=== PATIENT | male | born 1955 | race Hispanic/Latino ===

== ENCOUNTER 2018-04-10 16:35 | Inpatient (IN) | payer MEDICARE ==
[2018-04-10] MEDS ORDERED: ZOFRAN IV ONE ×2 (16:59→19:09)
[2018-04-10] MEDS ORDERED: PROTONIX IV ONE ×2 (16:59→23:12)
--- NOTE | 2018-04-10 17:08 | Emergency Department Report ---
HPI - General Chief Complaint: GI Bleed Time Seen by Provider: 04/10/18 16:49 - HPI HPI: 63-year-old male presents to the emergency department with a complaint of vomiting blood and blood in the stool. He says he woke up around 3 AM with "a few globs of blood that I spit up." He was able to go back to bed but then later this morning and afternoon the patient started having some gross hematemesis with bright red blood. He also has been having some dark tarry stools. He denies any significant abdominal or epigastric or chest pains. He h as a history of achalasia, esophageal surgery, and paroxysmal atrial fibrillation on anticoagulation. He called his exhibit builder, Dr. Torres, who recommended she come to the closest emergency department since they have colleagues from [place] [facility] here. He has not taken anything for her symptoms prior to presentation. ED Past Medical Hx - Medications Home Medications: Home Medications Medication Instructions Recorded Confirmed Last Taken Type Apixaban [Eliquis] 2.5 mg PO DAILY 04/10/18 04/10/18 04/10/18 History Gabapentin [Neurontin] 300 mg PO BID 04/10/18 04/10/18 04/10/18 History Hydroxyzine HCl [hydrOXYzine] 25 mg PO DAILY 04/10/18 04/10/18 04/10/18 History Lansoprazole [Prevacid] 30 mg PO DAILY 04/10/18 04/10/18 04/10/18 History Lisinopril [Zestril] 5 mg PO QDAY 04/10/18 04/10/18 04/10/18 History Metoprolol [Lopressor] 25 mg PO BID 04/10/18 04/10/18 04/10/18 History ED Review of Systems ROS: Stated complaint: VOMIT BLOOD Other details as noted in HPI Comment: All other systems reviewed and negative Constitutional: denies: chills, fever Eyes: denies: eye pain, vision change ENT: denies: ear pain, throat pain Respiratory: denies: cough, shortness of breath Cardiovascular: denies: chest pain, palpitations Gastrointestinal: nausea, vomiting, hematemesis, melena Genitourinary: denies: dysuria, discharge Musculoskeletal: denies: back pain, arthralgia Skin: denies: rash, lesions Neurological: denies: headache, weakness Physical Exam - Physical Exam Physical Exam: GENERAL: Patient is actively vomiting blood. HEENT: Normocephalic. Atraumatic. Patient has moist mucous membranes. EYES: Extraocular motions are intact. Pupils are equal and reactive to light bilaterally. NECK: Supple. Trachea is midline. CHEST/LUNGS: Clear to auscultation. There is no respiratory distress noted. HEART/CARDIOVASCULAR: Regular. There is no tachycardia. There is no obvious murmur. ABDOMEN: Abdomen is soft, nontender. Patient has normal bowel sounds. There is no abdominal distention. SKIN: Skin is warm and dry. NEURO: The patient is awake, alert, and oriented. The patient is cooperative. The patient has no focal neurologic deficits. The patient has normal speech. MUSCULOSKELETAL: There is no tenderness or deformity. There is no limitation range of motion. There is no evidence of acute injury. RECTAL: There is gross blood on rectal examination. No significant stool to test. ED Course - Consultations Consultation #1: 04/10/18 19:46 I spoke with the exhibit builder investigation clerk, Dr. Rodriguez, who is aware of the patient's GI bleeding including hematemesis and rectal bleeding. He agrees with the plan for Protonix and will see the patient has a consult. ED Medical Decision Making - Lab Data Result diagrams: 04/10/18 17:20 04/10/18 17:20 - Radiology Data Radiology results: image reviewed interpreted by me: Chest x-ray does not show any pneumothorax, pleural effusion, pneumonia or obvious focal consolidation. Abdominal x-ray shows nonspecific nonobstructive bowel gas - Medical Decision Making This patient has had some hematemesis about 3 AM and more recently some rectal bleeding. He describes it as melena. On examination there was not much stool to test but there was some gross blood. He is hemodynamically stable with normal vitals. Hemoglobin was greater than 10. However the patient has had active hematemesis while in the emergency Department and is on anticoagulation. For this reason, the patient will be admitted to the hospital for further evaluation and treatment. Gastroenterology has been contacted and consulted. Patient has been accepted for admission by the hospitalist, Dr. Dodge. - Differential Diagnosis Laura-Marroquin tear, gastric or duodenal ulcer, malignancy Critical Care Time: No Critical care attestation.: If time is entered above; I have spent that time in minutes in the direct care of this critically ill patient, excluding procedure time. ED Disposition Clinical Impression: Rectal bleeding GI bleed Qualifiers: GI bleed type/associated pathology: unspecified gastrointestinal hemorrhage ty pe Qualified Code(s): K92.2 - Gastrointestinal hemorrhage, unspecified Hematemesis Qualifiers: Nausea presence: with nausea Qualified Code(s): K92.0 - Hematemesis Anemia Qualifiers: Anemia type: unspecified type Qualified Code(s): D64.9 - Anemia, unspecified Disposition: DC-09 OP ADMIT IP TO THIS HOSP Is pt being admited?: Yes Condition: Fair Forms: Accompanied Note Time of Disposition: 19:49
[2018-04-10 17:50] LABS: Hematocrit 30.3 % (35.5-45.6); Hemoglobin 10.5 gm/dl (11.8-15.2); Mean Corpuscular HGB Conc 35 % (32-34); Mean Corpuscular Volume 103 fl (84-94); Platelet Count 151 K/mm3 (140-440); Red Blood Count 2.95 M/mm3 (3.65-5.03); Red Cell Distribution Width 16.6 % (13.2-15.2)
--- NOTE | 2018-04-10 17:58 | XRay Report ---
FINAL REPORT EXAM: XR ABD SERIES W CXR 1V HISTORY: abd pain TECHNIQUE: Supine and upright abdomen and frontal view of the chest PRIORS: None. FINDINGS: Moderate amount of stool and gas present within the colon. No evidence of colonic or small bowel dila tation. No signs of free air. No abnormal calcifications are identified. Surgical clips are present l eft upper quadrant of the abdomen. Cardiac and mediastinal contours are unremarkable. No focal pulmonary infiltrate identified. No pleu ral fluid collection seen. Pulmonary vasculature is unremarkable IMPRESSION: Nonspecific bowel gas pattern. No acute abnormality seen. No acute abnormality identified in the chest
[2018-04-10 18:03] LABS: INR 1.26 (0.87-1.13)
[2018-04-10 18:04] LABS: Partial Thromboplastin Time 29.3 Sec. (24.2-36.6)
[2018-04-10 18:09] LABS: Alanine Aminotransferase 20 units/L (7-56); Albumin 2.9 g/dL (3.9-5); BUN/Creatinine Ratio 24; Blood Urea Nitrogen 22 mg/dL (9-20); Hemolysis Index 10
--- NOTE | 2018-04-10 18:56 | History and Physical Report ---
History of Present Illness Chief complaint: I have blood in my stool, and im throwing up blood History of present illness: 63 YO Male with HTN, Obesity, Atrial Fib currently on Therapeutic Anticoagulation (Eliquis), Achalasia S/P Esophageal Surgery presents to ED for evaluation. Pt states that he has experienced multiple episodes of throwing up blood, as well as dark tarry stools. Pt states that he awoke from sleep at 0300hrs with "a few globs of blood that I spit up." Pt returned to sleep, and whe he awoke this morning he experienced gross hematemesis with bright red blood as well as multiple dark tarry stools. Pt subsequently transported to [facility] by his family for further care and evaluation. Pt seen and evaluated in ED and found to have GI Bleed. GI consulted. Pt admitted to [facility] and initiated on PPI therapy. PT denies fever, chills, CP, Palpitations, Abdominal Pain, productive cough, trauma, skin rash, or recent ill contacts. Past History Past Medical History: atrial fib, hypertension, other (Obesity, Achalasia) Past Surgical History: Other (Esophageal surgery x6) Social history: , lives with family Family history: hypertension Medications and Allergies Allergies Allergy/AdvReac Type Severity Reaction Status Date / Time Penicillins Allergy Severe Anaphylaxis Verified 04/10/18 17:28 cyclobenzaprine Allergy Hives Verified 04/10/18 19:23 [From Flexeril] Home Medications Medication Instructions Recorded Confirmed Last Taken Type Apixaban [Eliquis] 2.5 mg PO DAILY 04/10/18 04/10/18 04/10/18 History Gabapentin [Neurontin] 300 mg PO BID 04/10/18 04/10/18 04/10/18 History Hydroxyzine HCl [hydrOXYzine] 25 mg PO DAILY 04/10/18 04/10/18 04/10/18 History Lansoprazole [Prevacid] 30 mg PO DAILY 04/10/18 04/10/18 04/10/18 History Lisinopril [Zestril] 5 mg PO QDAY 04/10/18 04/10/18 04/10/18 History Metoprolol [Lopressor] 25 mg PO BID 04/10/18 04/10/18 04/10/18 History Active Meds: Active Medications Pantoprazole Sodium 80 mg/ (Sodium Chloride) 100 mls @ 10 mls/hr IV DIRECT GABE Review of Systems Constitutional: no weight loss, no weight gain, no fever, no chills, no night sweats Ears, nose, mouth and throat: no ear pain, no ear discharge, no tinnitis, no decreased hearing, no nose pain Cardiovascular: no chest pain, no orthopnea, no palpitations, no rapid/irregular heart beat, no edema, no syncope Respiratory: no cough, no cough with sputum, no excessive sputum, no hemoptysis Gastrointestinal: nausea, hematemesis, BRBPR, no abdominal pain, no constipation, no loss of appetite Genitourinary Male: no hematuria, no urinary frequency, no urinary hesitancy Rectal: no pain, no incontinence, no bleeding Musculoskeletal: no neck stiffness, no neck pain, no shooting arm pain, no arm numbness/tingling, no low back pain Integumentary: no rash, no pruritis, no redness, no sores, no wounds Neurological: no transient paralysis, no paralysis, no weakness, no parathesias, no numbness Psychiatric: no anxiety, no memory loss, no change in sleep habits, no sleep disturbances, no insomnia, no change in appetite Endocrine: no cold intolerance, no heat intolerance, no polyphagia, no excessive thirst, no polydipsia Hematologic/Lymphatic: no easy bruising, no easy bleeding, no lymphadenopathy, no lymphedema Allergic/Immunologic: no urticaria, no allergic rhinitis, no wheezing, no persistent infections, no anaphylaxis Exam - Constitutional Vitals: Temp Pulse Resp BP Pulse Ox 67 13 134/59 100 04/10/18 17:45 04/10/18 17:45 04/10/18 17:45 04/10/18 17:45 General appearance: Present: mild distress, obese - EENT Eyes: Present: PERRL ENT: hearing intact, clear oral mucosa, other (dried blood in oral cavity) - Neck Neck: Present: supple, normal ROM - Respiratory Respiratory effort: normal Respiratory: bilateral: CTA - Cardiovascular Heart Sounds: Present: S1 & S2. Absent: rub, click - Extremities Extremities: pulses symmetrical, No edema Peripheral Pulses: within normal limits - Abdominal General gastrointestinal: Present: soft, non-tender, non-distended, normal bowel sounds, other (blood in rectal vault) Male genitourinary: Present: normal - Integumentary Integumentary: Present: clear, warm, dry - Musculoskeletal Musculoskeletal: gait normal, strength equal bilaterally - Psychiatric Psychiatric: appropriate mood/affect, intact judgment & insight - Neurologic Neurologic: CNII-XII intact, moves all extremities Results - Labs CBC & Chem 7: 04/10/18 17:20 04/10/18 17:20 Labs: Abnormal lab results 04/10/18 04/10/18 04/10/18 Range/Units 17:20 17:20 17:20 RBC 2.95 L (3.65-5.03) M/mm3 Hgb 10.5 L (11.8-15.2) gm/dl Hct 30.3 L (35.5-45.6) % MCV 103 H (84-94) fl MCH 36 H (28-32) pg MCHC 35 H (32-34) % RDW 16.6 H (13.2-15.2) % PT 16.6 H (12.2-14.9) Sec. INR 1.26 H (0.87-1.13) Chloride 108.8 H (98-107) mmol/L BUN 22 H (9-20) mg/dL Glucose 190 H (75-100) mg/dL Calcium 8.0 L (8.4-10.2) mg/dL Alkaline Phosphatase 153 H (35-129) units/L Total Protein 5.9 L (6.3-8.2) g/dL Albumin 2.9 L (3.9-5) g/dL Assessment and Plan - Patient Problems (1) GI bleed Status: Acute Qualifiers: GI bleed type/associated pathology: unspecified gastrointestinal hemorrhage type Qualified Code(s): K92.2 - Gastrointestinal hemorrhage, unspecified Plan to address problem: Admit to IMCU, GI Bleed protocol: IV PPI therapy, GI consulted in ED, serial CBC. No transfusion at this time. Pt hgb above 10. (2) Atrial fibrillation Status: Acute Qualifiers: Atrial fibrillation type: persistent Qualified Code(s): I48.1 - Persistent atrial fibrillation Plan to address problem: Hold therapeutic anticoagulation as per GI, admit to IMCU, supportive care, rate control with metoprolol, remote telemetry, (3) Obesity (BMI 35.0-39.9 without comorbidity) Status: Acute Plan to address problem: balanced diet, increased physical activity at discharge (4) Obesity hypoventilation syndrome Status: Acute Plan to address problem: supplemental oxygen, nebulizer therapy, NIPPV as clinically indicated, pulse oximetry (5) DVT prophylaxis Status: Acute Plan to address problem: SCD to BLE while in bed.
[2018-04-10] MEDS ORDERED: SODIUM CHLORIDE FLUSH SYRINGE 10 ML IV PRN (18:58)
[2018-04-10] MEDS ORDERED: PROTONIX 80 MG in NACL 0.9% 100 ML IV SCH (19:00)
--- NOTE | 2018-04-10 20:39 | Event Note ---
Date: 04/10/18 Discussed with ED. Pt with hematemesis, on eliquis for afib; h/o achalasia and has had recent partial gastrectoy and esophagectoy per records in clinic. BP and HR are normal/stable at present time. on PPI drip, will plan for ED tomorrow morning. eliquis being held. please call for any changes overnight.
[2018-04-10] MEDS ORDERED: ZOFRAN ONE (21:54)
[2018-04-10] MEDS: ZOFRAN IV PRN (21:55)
[2018-04-10] MEDS ORDERED: LOPRESSOR ONE (23:12)
[2018-04-10] MEDS ORDERED: NEURONTIN ONE (23:12)
[2018-04-10] MEDS: SODIUM CHLORIDE FLUSH SYRINGE 10 ML IV SCH (23:16)
[2018-04-10] MEDS: NEURONTIN PO SCH (23:16)
[2018-04-10] MEDS: LOPRESSOR PO SCH (23:16)
[2018-04-10] MEDS: PROTONIX IV SCH (23:16)
[2018-04-11] MEDS ORDERED: TRIDIL DRIP 50MG/250ML 0 MG/0 ML BOTTLE ONE (00:41)
[2018-04-11 05:48] LABS: Hematocrit 26.8 % (35.5-45.6); Hemoglobin 9.1 gm/dl (11.8-15.2)
[2018-04-11 05:50] LABS: Basophils % (Auto) 0.2 % (0.0-1.8); Eosinophils % (Auto) 0.1 % (0.0-4.3); Hematocrit 27.1 % (35.5-45.6); Hemoglobin 9.2 gm/dl (11.8-15.2); Lymphocytes # (Auto) 1.9 K/mm3 (1.2-5.4); Lymphocytes % (Auto) 24.3 % (13.4-35.0); Mean Corpuscular HGB Conc 34 % (32-34); Mean Corpuscular Volume 103 fl (84-94); Monocytes # (Auto) 0.4 K/mm3 (0.0-0.8); Monocytes % (Auto) 5.1 % (0.0-7.3); Platelet Count 105 K/mm3 (140-440); Red Blood Count 2.63 M/mm3 (3.65-5.03); Red Cell Distribution Width 16.6 % (13.2-15.2)
[2018-04-11] MEDS: ZOFRAN IV PRN ×5 (06:02→20:52)
[2018-04-11] MEDS ORDERED: ZOFRAN ONE ×2 (06:02→10:15)
[2018-04-11 06:09] LABS: Alanine Aminotransferase 17 units/L (7-56); Albumin 2.6 g/dL (3.9-5); BUN/Creatinine Ratio 30; Blood Urea Nitrogen 30 mg/dL (9-20); Calcium 7.8 mg/dL (8.4-10.2); Hemolysis Index 5
[2018-04-11] MEDS ORDERED: PHENERGAN PO ONE (06:12)
[2018-04-11] MEDS ORDERED: WATER FOR IRRIG STERILE IR ONE (09:51)
[2018-04-11] MEDS ORDERED: WATER FOR IRRIG STERILE ONE (09:52)
[2018-04-11] MEDS ORDERED: NACL 0.9% 1000 ML 1,000 ML ONE (09:52)
--- NOTE | 2018-04-11 09:58 | Gastroenterology Consultation ---
History of Present Illness - Reason for Consult Consult date: 04/11/18 GI bleed Requesting physician: QUINTEN SHOEMAKER - History of Present Illness Mr Burris is a 63 yo male who presents with hematemesis. Pt on eliquis for h/o afib. He has a h/o achalasia and prior robotic surgery in September of last year (partial esophagectomy per chart review although pt can not provide full details on type of surgery done). he reports developing afib during the surgery and was started on eliquis afterwards. He had new onset hematemesis starting yesterday morning and has had black/maroon blood per rectum as well. Denies abd pain. Hgb 10 on admission, slightly dropped in repeat labs but mostly stable. tachycardic currently with stable BP. On protonix drip. eliquis has been held today. Past History Past Medical History: atrial fib, hypertension, other (Obesity, Achalasia) Past Surgical History: Other (Esophageal surgery x6) Social history: , lives with family Family history: hypertension Medications and Allergies Allergies Allergy/AdvReac Type Severity Reaction Status Date / Time Penicillins Allergy Severe Anaphylaxis Verified 04/10/18 17:28 cyclobenzaprine Allergy Hives Verified 04/10/18 19:23 [From Flexeril] Home Medications Medication Instructions Recorded Confirmed Last Taken Type Apixaban [Eliquis] 2.5 mg PO DAILY 04/10/18 04/10/18 04/10/18 History Gabapentin [Neurontin] 300 mg PO BID 04/10/18 04/10/18 04/10/18 History Hydroxyzine HCl [hydrOXYzine] 25 mg PO DAILY 04/10/18 04/10/18 04/10/18 History Lansoprazole [Prevacid] 30 mg PO DAILY 04/10/18 04/10/18 04/10/18 History Lisinopril [Zestril] 5 mg PO QDAY 04/10/18 04/10/18 04/10/18 History Metoprolol [Lopressor] 25 mg PO BID 04/10/18 04/10/18 04/10/18 History Active Meds: Active Medications Gabapentin (Neurontin) 300 mg PO BID [facility] Last Admin: 04/10/18 23:16 Dose: 300 mg Documented by: Hydroxyzine HCl (Atarax) 25 mg PO DAILY [facility] Lisinopril (Zestril) 5 mg PO QDAY [facility] Metoprolol Tartrate (Lopressor) 25 mg PO BID [facility] Last Admin: 04/10/18 23:16 Dose: 25 mg Documented by: Ondansetron HCl (Zofran) 4 mg IV Q4H PRN PRN Reason: Nausea And Vomiting Last Admin: 04/11/18 06:02 Dose: 4 mg Documented by: Pantoprazole Sodium (Protonix) 40 mg IV BID [facility] Last Admin: 04/10/18 23:16 Dose: 40 mg Documented by: Sodium Chloride (Sodium Chloride Flush Syringe 10 Ml) 10 ml IV BID [facility] Last Admin: 04/10/18 23:16 Dose: 10 ml Documented by: Sodium Chloride (Sodium Chloride Flush Syringe 10 Ml) 10 ml IV PRN PRN PRN Reason: LINE FLUSH Review of Systems - Review of Systems All systems: negative (per HPI) Exam - Constitutional Vital Signs: Temp Pulse Resp BP Pulse Ox 80 19 123/80 97 04/11/18 07:45 04/11/18 07:45 04/11/18 07:45 04/11/18 07:45 General appearance: no acute distress, obese - EENT Eyes: PERRL, EOM intact - Respiratory Respiratory effort: normal Respiratory: bilateral: CTA - Cardiovascular Rhythm: regular Heart Sounds: Present: S1 & S2 Extremities: No edema - Gastrointestinal General gastrointestinal: Present: soft, non-tender, non-distended - Integumentary Integumentary: Present: clear, warm - Neurologic Neurological: alert and oriented x3 - Psychiatric Psychiatric: appropriate mood/affect - Labs CBC & Chem 7: 04/11/18 05:26 04/11/18 05:26 Lab Results: Laboratory Results - last 24 hr 04/10/18 04/10/18 04/10/18 17:20 17:20 17:20 WBC 9.0 RBC 2.95 L Hgb 10.5 L Hct 30.3 L MCV 103 H MCH 36 H MCHC 35 H RDW 16.6 H Plt Count 151 Lymph % (Auto) [place] % (Auto) Eos % (Auto) Baso % (Auto) Lymph # [place] # Eos # Baso # Seg Neutrophils % Seg Neutrophils # PT 16.6 H INR 1.26 H APTT 29.3 Sodium 141 Potassium 4.6 Chloride 108.8 H Carbon Dioxide 23 Anion Gap 14 BUN 22 H Creatinine 0.9 Estimated GFR > 60 BUN/Creatinine Ratio 24 Glucose 190 H Calcium 8.0 L Total Bilirubin 0.70 AST 24 ALT 20 Alkaline Phosphatase 153 H Total Protein 5.9 L Albumin 2.9 L Albumin/Globulin Ratio 1.0 Blood Type Antibody Screen 04/10/18 04/11/18 04/11/18 17:20 05:26 05:26 WBC 8.0 RBC 2.63 L Hgb 9.2 L Hct 27.1 L MCV 103 H MCH 35 H MCHC 34 RDW 16.6 H Plt Count 105 L Lymph % (Auto) 24.3 [place] % (Auto) 5.1 Eos % (Auto) 0.1 Baso % (Auto) 0.2 Lymph # 1.9 [place] # 0.4 Eos # 0.0 Baso # 0.0 Seg Neutrophils % 70.3 H Seg Neutrophils # 5.6 PT INR APTT Sodium 142 Potassium 4.8 Chloride 110.1 H Carbon Dioxide 22 Anion Gap 15 BUN 30 H Creatinine 1.0 Estimated GFR > 60 BUN/Creatinine Ratio 30 Glucose 155 H Calcium 7.8 L Total Bilirubin 0.70 AST 20 ALT 17 Alkaline Phosphatase 111 Total Protein 5.3 L Albumin 2.6 L Albumin/Globulin Ratio 1.0 Blood Type O NEGATIVE Antibody Screen Negative 04/11/18 05:26 WBC RBC Hgb 9.1 L Hct 26.8 L MCV MCH MCHC RDW Plt Count Lymph % (Auto) [place] % (Auto) Eos % (Auto) Baso % (Auto) Lymph # [place] # Eos # Baso # Seg Neutrophils % Seg Neutrophils # PT INR APTT Sodium Potassium Chloride Carbon Dioxide Anion Gap BUN Creatinine Estimated GFR BUN/Creatinine Ratio Glucose Calcium Total Bilirubin AST ALT Alkaline Phosphatase Total Protein Albumin Albumin/Globulin Ratio Blood Type Antibody Screen Assessment and Plan 1. UGI bleed 2. History of achalasia 3. Afib on anticoagulation -EGD today at bedside, cont IV PPI. eliquis currently hold. further management based on egd findings.
[2018-04-11] MEDS ORDERED: HYDROXYZINE HCL 25 MG PO SCH (10:00)
[2018-04-11] MEDS: LOPRESSOR PO SCH (10:00)
[2018-04-11] MEDS: SODIUM CHLORIDE FLUSH SYRINGE 10 ML IV SCH ×2 (10:00→22:00)
[2018-04-11] MEDS: NEURONTIN PO SCH ×2 (10:00→21:16)
[2018-04-11] MEDS: ATARAX PO SCH (10:00)
--- NOTE | 2018-04-11 10:04 | Anesthesia Consultation ---
Anesthesia Consult and Med Hx Date of service: 04/11/18 - Airway Anesthetic Teeth Evaluation: Good ROM Head & Neck: Adequate Mental/Hyoid Distance: Adequate Mallampati Class: Class III Intubation Access Assessment: Probably Good - Pulmonary Exam CTA: Yes - Cardiac Exam Cardiac Exam: RRR - Pre-Operative Health Status ASA Pre-Surgery Classification: ASA3, Emergency Proposed Anesthetic Plan: MAC - Pre-Anesthesia Comment Pre-Anesthesia Comments: has hematemesis with downtrending HCT; s/p esophagectomy - Cardiovascular System Hx Hypertension: Yes - Central Nervous System Hx Neuromuscular Disorder: No Hx Seizures: No CVA: No - Gastrointestinal Hx Ulcer: No Hx Gastroesophageal Reflux Disease: Yes (achlasis s/p partial esophagectomy ) - Hematic Hx Anemia: Yes (Hgb 9.1 (downtrending) secondary to hematemisis) - Additional Comments Anesthesia Medical History Comments: ASA 3E 63 y.o. obese male w/ HTN on b- cooper, Atrial Fib on eliquis (last taken 04/10), and achalasia S/P Esophageal Surgery presents to hosptial with hematemsis.
[2018-04-11] MEDS ORDERED: VERSED ONE (10:15)
[2018-04-11] MEDS ORDERED: DECADRON ONE (10:15)
[2018-04-11] MEDS ORDERED: DIPRIVAN 10 MG/ML IV ONE (10:16)
[2018-04-11] MEDS ORDERED: SUBLIMAZE ONE (10:41)
[2018-04-11] MEDS ORDERED: ADRENALIN IV ONE ×2 (10:45→13:00)
--- NOTE | 2018-04-11 10:56 | Anesthesia Day of Surgery ---
Anesthesia Day of Surgery - Day of Surgery Patient Examined: Yes Patient H&P Reviewed: Yes Patient is NPO: Yes (09:30 04/10/18) Beta Blockers: Yes (on metoprolol last taken 04/10/18)
--- NOTE | 2018-04-11 11:21 | Operative Report ---
Operative Report Operative Report: Esophagogastroduodenoscopy Procedure Note with submucosal injection/control of bleeding Date of procedure: 04/11/2018 Endoscopist: Grupo Rodriguez Pre-op diagnosis: UGI bleed Post-op diagnosis: Large blood clot in lower esophagus/gastric fundus; esophagitis with mild oozing of blood Anesthesia: MAC Complications: No immediate complications Estimated blood loss: minimal Procedure: After consent was obtained, the patient was placed in the left lateral decubitus position. The fujinon endoscope was inserted into the patient's mouth under direct vision, and advanced into the 2nd portion of the duodenum without difficulty. The patient tolerated the procedure well. The views of the mucosa were fair/inadequate in areas of large blood clots. Patient's vital signs were monitored continuously throughout the procedure. Findings: There were prominent veins throughout the esophagus without high risk bleeding stigmata (unclear if these represent varices) There was a large blood clot extending from the distal esophagus to the gastric fundus. Attempts were made to clear the clots with avila net however, views were still limited due to size of clot. There was moderately severe esophagitis in the lower esophagus with mild oozing of blood but no high risk bleeding lesions were seen. Epinephrine injection was performed in 4 quadrants in lower esophagus (4 cc total). The fundus and proximal stomach contained moderate amount of blood and a clot which limited views. The distal body of the stomach and antrum appeared normal. There was blood in the visualized portion of the duodenum without mucosal abnormalities seen. Impression: 1. Large blood clot in lower esophagus extending to proximal stomach. Suspect source of bleeding in this area but visualization was limited/precluded due to size of clot. There was esophagitis with mild oozing of blood, thus epinephrine was injected in lower portion of the esophagus with no active bleeding seen at the end of the procedure. However, source of bleeding remains unclear Recommendations: -start PPI drip (continuous) -hold eliquis -trend H/H and transfuse as needed to keep hgb > 8 -will plan for repeat EGD tomorrow morning -give dose of reglan at 6 AM tomorrow
[2018-04-11] MEDS ORDERED: ADRENALINE P/F ONE (11:27)
[2018-04-11] MEDS ORDERED: REGLAN IV NR (12:00)
[2018-04-11] MEDS: PROTONIX 80 MG in NACL 0.9% 100 ML IV SCH ×2 (12:05→20:55)
[2018-04-11] MEDS ORDERED: NACL 0.9% 1000 ML 1,000 ML IV SCH (13:00)
[2018-04-11] MEDS ORDERED: NORMODYNE IV PRN (13:30)
[2018-04-11] MEDS: ZESTRIL PO SCH (14:00)
--- NOTE | 2018-04-11 14:07 | Progress Note ---
Assessment and Plan Assessment and plan: 63-year-old man who presented complaining of vomiting blood and dark tarry stools Past medical history paroxysmal atrial fibrillation on anticoagulation, takes eliquis , hypertension, obesity, achalasia, has had esophageal surgery 6 Problems Acute upper GI bleed Acute blood loss anemia Paroxysmal atrial fibrillation Obesity Plan GI consult appreciated, keep nothing by mouth, continue protonic drip, status post EGD 04/11 which showed a large blood clot extending from the distal esophagus to the gastric fundus, attempts were made to clear up clots but not successful. There was also moderate to severe esophagitis with mild oozing of blood, patient was injected with epinephrine, plan for repeat EGD tomorrow, Reglan to be given tomorrow prior to EGD Patient still actively vomiting blood Continue serial blood draws, transfuse as needed Continue medications for rate control -Anticoagulation has been discontinued DVT prophylaxis with SCDs Critical care time 35 minutes History Interval history: Review of systems Constitutional: No fevers, no malaise, no joint pains CVS: No chest pain, no orthopnea, no dyspnea on exertion, no pedal edema GI: He continues to vomit blood, he is having melanotic stools Respiratory: No shortness of breath, no wheezing, no coughing Hospitalist Physical - Physical exam Narrative exam: General.: Appears well, no distress, nontoxic HEENT: Moist mucous membranes, extraocular muscles intact, no lymphadenopathy Neck: supple Cardiac: S1-S2 heard Lungs: clear to auscultation bilaterally Abdomen: soft , nontender, nondistended, bowel sounds positive Extremities: no edema clubbing or cyanosis Skin: no rash or lesions Neurologic: no gross focal deficits Psych: calm, and cooperative - Constitutional Vitals: Temp Pulse Resp BP Pulse Ox 98.0 F 108 H 22 125/52 97 04/11/18 12:00 04/11/18 11:28 04/11/18 13:51 04/11/18 11:28 04/11/18 11:55 General appearance: Present: mild distress, obese Results - Labs CBC & Chem 7: 04/13/18 13:08 04/13/18 13:08 Labs: Laboratory Last Values WBC 8.0 K/mm3 (4.5-11.0) 04/11/18 05:26 RBC 2.63 M/mm3 (3.65-5.03) L 04/11/18 05:26 Hgb 9.2 gm/dl (11.8-15.2) L 04/11/18 05:26 Hct 27.1 % (35.5-45.6) L 04/11/18 05:26 MCV 103 fl (84-94) H 04/11/18 05:26 MCH 35 pg (28-32) H 04/11/18 05:26 MCHC 34 % (32-34) 04/11/18 05:26 RDW 16.6 % (13.2-15.2) H 04/11/18 05:26 Plt Count 105 K/mm3 (140-440) L 04/11/18 05:26 Lymph % (Auto) 24.3 % (13.4-35.0) 04/11/18 05:26 Dougherty % (Auto) 5.1 % (0.0-7.3) 04/11/18 05:26 Eos % (Auto) 0.1 % (0.0-4.3) 04/11/18 05:26 Baso % (Auto) 0.2 % (0.0-1.8) 04/11/18 05:26 Lymph # 1.9 K/mm3 (1.2-5.4) 04/11/18 05:26 Dougherty # 0.4 K/mm3 (0.0-0.8) 04/11/18 05:26 Eos # 0.0 K/mm3 (0.0-0.4) 04/11/18 05:26 Baso # 0.0 K/mm3 (0.0-0.1) 04/11/18 05:26 Seg Neutrophils % 70.3 % (40.0-70.0) H 04/11/18 05:26 Seg Neutrophils # 5.6 K/mm3 (1.8-7.7) 04/11/18 05:26 PT 16.6 Sec. (12.2-14.9) H 04/10/18 17:20 INR 1.26 (0.87-1.13) H 04/10/18 17:20 APTT 29.3 Sec. (24.2-36.6) 04/10/18 17:20 Sodium 142 mmol/L (137-145) 04/11/18 05:26 Potassium 4.8 mmol/L (3.6-5.0) 04/11/18 05:26 Chloride 110.1 mmol/L (98-107) H 04/11/18 05:26 Carbon Dioxide 22 mmol/L (22-30) 04/11/18 05:26 Anion Gap 15 mmol/L 04/11/18 05:26 BUN 30 mg/dL (9-20) H 04/11/18 05:26 Creatinine 1.0 mg/dL (0.8-1.5) 04/11/18 05:26 Estimated GFR > 60 ml/min 04/11/18 05:26 BUN/Creatinine Ratio 30 % 04/11/18 05:26 Glucose 155 mg/dL (75-100) H 04/11/18 05:26 Calcium 7.8 mg/dL (8.4-10.2) L 04/11/18 05:26 Total Bilirubin 0.70 mg/dL (0.1-1.2) 04/11/18 05:26 AST 20 units/L (5-40) 04/11/18 05:26 ALT 17 units/L (7-56) 04/11/18 05:26 Alkaline Phosphatase 111 units/L (35-129) 04/11/18 05:26 Total Protein 5.3 g/dL (6.3-8.2) L 04/11/18 05:26 Albumin 2.6 g/dL (3.9-5) L 04/11/18 05:26 Albumin/Globulin Ratio 1.0 % 04/11/18 05:26 Blood Type O NEGATIVE 04/10/18 17:20 Antibody Screen Negative 04/10/18 17:20
[2018-04-11] MEDS: PROTONIX IV SCH (14:28)
--- NOTE | 2018-04-11 17:16 | Consultation ---
History of Present Illness Consult date: 04/11/18 Requesting physician: CECILIA SHIRLEY Reason for consult: other (Acute GI Bleed) History of present illness: PCCM CONSULT NOTE (Full dictation # [id number]) Please see dictated notes for full details Past History Past Medical History: atrial fib, hypertension, other (Obesity, Achalasia) Past Surgical History: Other (Esophageal surgery x6) Social history: , lives with family Family history: hypertension Medications and Allergies Allergies Allergy/AdvReac Type Severity Reaction Status Date / Time Penicillins Allergy Severe Anaphylaxis Verified 04/10/18 17:28 cyclobenzaprine Allergy Hives Verified 04/10/18 19:23 [From Flexeril] Home Medications Medication Instructions Recorded Confirmed Last Taken Type Apixaban [Eliquis] 2.5 mg PO DAILY 04/10/18 04/10/18 04/10/18 History Gabapentin [Neurontin] 300 mg PO BID 04/10/18 04/10/18 04/10/18 History Hydroxyzine HCl [hydrOXYzine] 25 mg PO DAILY 04/10/18 04/10/18 04/10/18 History Lansoprazole [Prevacid] 30 mg PO DAILY 04/10/18 04/10/18 04/10/18 History Lisinopril [Zestril] 5 mg PO QDAY 04/10/18 04/10/18 04/10/18 History Metoprolol [Lopressor] 25 mg PO BID 04/10/18 04/10/18 04/10/18 History Active Meds: Active Medications Gabapentin (Neurontin) 300 mg PO BID [facility] Last Admin: 04/11/18 10:00 Dose: Not Given Documented by: Hydroxyzine HCl (Atarax) 25 mg PO DAILY [facility] Last Admin: 04/11/18 10:00 Dose: Not Given Documented by: Pantoprazole Sodium 80 mg/ (Sodium Chloride) 100 mls @ 10 mls/hr IV DIRECT GABE Last Admin: 04/11/18 12:05 Dose: 8 mg/hr, 10 mls/hr Documented by: Sodium Chloride (Nacl 0.9% 1000 Ml) 1,000 mls @ 50 mls/hr IV DIRECT GABE Last Admin: 04/11/18 14:15 Dose: 50 mls/hr Documented by: Labetalol HCl (Normodyne) 10 mg IV Q4H PRN PRN Reason: BP >160/100; hold for HR <60 Last Admin: 04/11/18 14:33 Dose: 10 mg Documented by: Lisinopril (Zestril) 5 mg PO QDAY [facility] Last Admin: 04/11/18 14:00 Dose: Not Given Documented by: Metoclopramide HCl (Reglan) 10 mg IV PREOP NR Stop: 04/11/18 23:59 Metoprolol Tartrate (Lopressor) 25 mg PO BID [facility] Last Admin: 04/11/18 10:00 Dose: Not Given Documented by: Ondansetron HCl (Zofran) 4 mg IV Q4H PRN PRN Reason: Nausea And Vomiting Last Admin: 04/11/18 13:56 Dose: 4 mg Documented by: Sodium Chloride (Sodium Chloride Flush Syringe 10 Ml) 10 ml IV BID [facility] Last Admin: 04/11/18 10:00 Dose: 10 ml Documented by: Sodium Chloride (Sodium Chloride Flush Syringe 10 Ml) 10 ml IV PRN PRN PRN Reason: LINE FLUSH Physical Examination Vital signs: Vital Signs Pulse Resp Pulse Ox 65 16 100 04/10/18 17:03 04/10/18 17:03 04/10/18 17:03 Results - Laboratory Findings CBC and BMP: 04/11/18 05:26 04/11/18 05:26 PT/INR, D-dimer PT 16.6 Sec. (12.2-14.9) H 04/10/18 17:20 INR 1.26 (0.87-1.13) H 04/10/18 17:20 Abnormal lab findings: Abnormal Labs 04/10/18 04/10/18 04/10/18 17:20 17:20 17:20 RBC 2.95 L Hgb 10.5 L Hct 30.3 L MCV 103 H MCH 36 H MCHC 35 H RDW 16.6 H Plt Count Seg Neutrophils % PT 16.6 H INR 1.26 H Chloride 108.8 H BUN 22 H Glucose 190 H Calcium 8.0 L Alkaline Phosphatase 153 H Total Protein 5.9 L Albumin 2.9 L 04/11/18 04/11/18 04/11/18 05:26 05:26 05:26 RBC 2.63 L Hgb 9.2 L 9.1 L Hct 27.1 L 26.8 L MCV 103 H MCH 35 H MCHC RDW 16.6 H Plt Count 105 L Seg Neutrophils % 70.3 H PT INR Chloride 110.1 H BUN 30 H Glucose 155 H Calcium 7.8 L Alkaline Phosphatase Total Protein 5.3 L Albumin 2.6 L
[2018-04-11 18:17] LABS: Hematocrit 24.9 % (35.5-45.6); Hemoglobin 8.4 gm/dl (11.8-15.2)
--- NOTE | 2018-04-11 20:45 | Consultation ---
PULMONARY CRITICAL CARE CONSULTATION NOTE CONSULTING PHYSICIAN: Dr. Dudley. REASON FOR CONSULTATION: Acute GI bleed. CHIEF COMPLAINT AND HISTORY OF PRESENT ILLNESS: As follows, the patient is a 63-year-old male with past medical history significant in this context both for a diagnosis of atrial fibrillation, on therapeutic anticoagulation with Eliquis as well as achalasia status post esophageal surgery, presented to the Emergency Room for evaluation complaining of multiple episodes of hematemesis as well as dark tarry stools. It woke him from his sleep around 3:00 a.m. on the day of presentation. He will return to sleep after coughing up some blood and then he woke up again with gross hematemesis and was brought into the Emergency Room. In the Emergency Room, acute management was started. The GI team was consulted. PPI therapy was started and I believe EGD was done. He was brought into the Critical Care Unit where I stopped by to see him. When I stopped by to see him, he was resting in bed. He had had no repeat episode of hematemesis this morning. He was complaining though of some nausea. He denies any history of tobacco use or abuse whatsoever. He denied any trauma. He did admit to taking the anticoagulation and being compliant with his Eliquis in particular. This really is as much of the history of this presentation as I have. PAST MEDICAL HISTORY: 1. Atrial fibrillation. 2. Hypertension. 3. Obesity. 4. Achalasia. PAST SURGICAL HISTORY: He has had esophageal surgery x6 for his esophagus. MEDICATIONS: He was on at the time I stopped by to see him were reviewed. Pertinent medications include the following: He was on Neurontin 300 mg p.o. b.i.d., Atarax 25 mg p.o. daily, labetalol 200 mg IV q.4 hours p.r.n. blood pressure greater than 160/100. Lisinopril 5 mg p.o. daily, Reglan 10 mg, he received 10 mg IV preop; Lopressor 25 mg p.o. b.i.d., Zofran 4 mg IV q. 4 hours p.r.n. nausea and vomiting, Protonix drip was going at 8 mg per hour. He had been on normal saline at 50 mL per hour. ALLERGIES: PENICILLINS AND CYCLOBENZAPRINE. NATURE OF THIS ALLERGY IS UNKNOWN. DIET: Morbidly obese. Denies acute weight loss or gain in the preceding few weeks to months. FAMILY AND SOCIAL HISTORY: Lives in the community. He is . He lives with his family. He denies alcohol, tobacco, or illicit drug use or abuse. There is a family history of hypertension. Family history otherwise noncontributory. REVIEW OF SYSTEMS: No loss of consciousness. No new onset seizures. No new onset focal weakness. He had the hematemesis. He also had some melena. Denied hematochezia. Denies polydipsia or polyuria. Denies heat or cold intolerance. Denies any new rash on his body. He denies any new onset focal weakness. He denies any history of anxiety, depression. No change in his sleep habits. Complete 13-system review of systems obtained. Pertinent positives and/or negatives as in body of history above, otherwise are noncontributory. PHYSICAL EXAMINATION: VITAL SIGNS: At presentation in the Emergency Room, review of the vital signs first temperature that I have on him was afebrile, temperature 98.3 degrees Fahrenheit. He is presenting pulse was 65, respiratory rate 16, blood pressure 132/69, oxygen sats 100%, inspired oxygen concentration at that time was not recorded. When I stopped by to see him, O2 sats were 97% that was, however, on 2 liters nasal cannula. GENERAL: He is obese elderly looking male, normocephalic, atraumatic, talking to me in normal sentences or with mild nonrespiratory distress. Looked anxious. HEAD, EYES, EARS, NOSE AND THROAT. He has no conjunctival erythema. No scleral icterus. Oropharynx is moist. It is a Mallampati #3 oropharynx. No gross jugular venous distention. He has a large neck circumference. No thyromegaly. Grossly, no palpable lymph nodes in the supraclavicular or submandibular lymph node chains. LUNGS: Auscultation of both lung chavis, diminished bilateral breath sounds, faint inspiratory rhonchi in the bases. No wheezing. HEART: Heart sounds 1 and 2 are heard. They were regular in rate and rhythm at time of my evaluation without rubs or murmurs. ABDOMEN: Soft, full, nontender. Bowel sounds are hypoactive. No palpable hepatosplenomegaly. EXTREMITIES: Without overt digital clubbing or cyanosis. Trace pedal edema. Dorsalis pedis pulses are palpable bilaterally. NEUROLOGIC: Pupils are equal, round, about 4 mm, reactive to light. Extraocular muscle movements are intact. He moves all 4 extremities spontaneously. SKIN: The skin is of normal turgor without overt cellulitis or rash. LABORATORY DATA: From my review are as follows: Admission white cell count 9000, hemoglobin 10.5, hematocrit 30.3 and platelet count 151. INR was 1.26 at presentation. Serum sodium 141, potassium 4.6, chloride 109, bicarbonate 23, BUN 22, creatinine 0.9, glucose 190. AST, ALT within normal limits. Albumin was low at 2.9. Hemoglobin is 9.1 this morning. No microbiology studies. Chest x-ray was done. I have reviewed the chest x-ray as well as the radiologist's interpretation. He is nonspecific bowel gas pattern and no acute abnormality noted in the chest. I do agree with this. However, there may be a mild hyperinflation with mild flattening of the right hemidiaphragm and gross cardiomegaly definitely. ASSESSMENT AND PLAN: 1. Acute gastrointestinal bleed, status post esophagogastroduodenoscopy. 2. Acute blood loss anemia. 3. Atrial fibrillation, rate controlled. 4. Obesity, possible obesity hypoventilation syndrome. 5. Hypoalbuminemia. 6. Hyperglycemia. PLAN: Again, he did have an EGD done. The report mentions a large blood clot in the lower esophagus extending to the proximal stomach. Suspecting the source of bleeding is from that area, but it was limited. The plan will be to continue the PPI drip. We do agree with that. Eliquis has definitely been held. We will continue to trend H and H. There will be EGD in the morning. We will continue supplemental oxygen to keep sats greater than or equal to about 90%. I will get an arterial blood gas to evaluate for hypercapnia or evidence of chronic retention. Bilevel positive airway pressure ventilation therapy will be offered on a p.r.n. basis. I do not want to schedule it at night because of the risk of vomiting. We will continue the PPI drip as mentioned. I have recommended a sleep study when he is discharged from the hospital. DVT prophylaxis will be mechanical. Flu and pneumonia vaccination will be addressed per protocol. Thank you very much for the consult. We will follow along and make further recommendations as picture progresses/becomes clearer. He is critically ill at high risk of decompensation from deterioration in the gastrointestinal and respiratory systems including the risk of . At this time, I spent about 35-40 minutes of critical care time without overlap excluding any procedural time that may be necessary. JOB# [id number] DIGNA/BRANT LOPEZ
[2018-04-11] MEDS: LOPRESSOR IV SCH ×2 (21:15)
[2018-04-11] MEDS ORDERED: NACL 0.9% 250ML 250 ML IV ONE (21:15)
[2018-04-11 23:06] LABS: Hematocrit 21.8 % (35.5-45.6); Hemoglobin 7.4 gm/dl (11.8-15.2)
[2018-04-12] MEDS ORDERED: NACL 0.9% 500 ML 500 ML IV ONE ×2 (00:10→07:53)
[2018-04-12] MEDS: NACL 0.9% 1000 ML 1,000 ML IV SCH ×2 (00:55→12:20)
[2018-04-12] MEDS: ZOFRAN IV PRN (00:57)
[2018-04-12] MEDS ORDERED: REGLAN IV ONE (01:35)
[2018-04-12] MEDS: CARDIZEM IV PRN (02:06)
[2018-04-12] MEDS: LOPRESSOR IV SCH ×5 (04:00→22:00)
[2018-04-12] MEDS ORDERED: NACL 0.9% 1000 ML 1,000 ML ONE (06:26)
[2018-04-12] MEDS ORDERED: WATER FOR IRRIG STERILE ONE (06:26)
[2018-04-12] MEDS ORDERED: WATER FOR IRRIG STERILE IR ONE (06:26)
[2018-04-12] MEDS ORDERED: AMIDATE IV ONE (07:01)
[2018-04-12] MEDS ORDERED: ZEMURON IV ONE (07:01)
[2018-04-12] MEDS ORDERED: DIPRIVAN 10 MG/ML IV ONE (07:01)
[2018-04-12] MEDS ORDERED: SUBLIMAZE ONE (07:01)
[2018-04-12] MEDS ORDERED: QUELICIN ONE (07:02)
[2018-04-12] MEDS ORDERED: XYLOCAINE MPF 2% ONE (07:02)
[2018-04-12 07:32] LABS: Basophils # (Auto) 0.2 K/mm3 (0.0-0.1); Basophils % (Auto) 0.9 % (0.0-1.8); Eosinophils % (Auto) 0.2 % (0.0-4.3); Hemoglobin 8.7 gm/dl (11.8-15.2); Lymphocytes # (Auto) 2.7 K/mm3 (1.2-5.4); Lymphocytes % (Auto) 14.9 % (13.4-35.0); Mean Corpuscular HGB Conc 35 % (32-34); Mean Corpuscular Volume 98 fl (84-94); Monocytes # (Auto) 0.8 K/mm3 (0.0-0.8); Monocytes % (Auto) 4.2 % (0.0-7.3); Platelet Count 101 K/mm3 (140-440); Red Blood Count 2.54 M/mm3 (3.65-5.03); Red Cell Distribution Width 18.6 % (13.2-15.2)
--- NOTE | 2018-04-12 08:36 | Operative Report ---
Operative Report Operative Report: Esophagogastroduodenoscopy Procedure Note with Control of Bleeding (endoclip and gold probe) Date of procedure: 04/12/2018 Endoscopist: Grupo Rodriguez Pre-op diagnosis: UGI bleed Post-op diagnosis: Esophageal ulcer with visible vessel and heme spots s/p clip placement and gold probe Anesthesia: MAC Complications: No immediate complications Estimated blood loss: minimal Procedure: After consent was obtained, the patient was intubated in the OR and in the supine position. The fujinon endoscope was inserted into the patient's mouth under direct vision, and advanced into the 2nd portion of the duodenum without difficulty. The patient tolerated the procedure well. The views of the mucosa were good. Patient's vital signs were monitored continuously throughout the procedure. Findings: The previous blood clots were no longer seen in the esophagus and there was no blood seen during the procedure. The lower portion of the esophagus was dilated consistent with history of achalasia. In the dilated portion proximal to the GE junction, there was a superficial ulcer with a visible vessel and a couple heme spots which likely was the source of patient's bleeding (thorough exam of rest of upper gi tract did not show any other obvious source). The lesion was treated with gold probe and placement of endoclips (3 total) with no bleeding seen at the end of the procedure. There was mild erythematous mucosa in the fundus of the stomach, otherwise the stomach appeared normal with no blood seen. There was bile seen throughout the visualized portion of the duodenum without any high risk bleeding lesions visualized. Impression: 1. Lower esophageal ulcer with bleeding stigmata treated with gold probe and endoclips with no active bleeding seen at the end of the procedure. Recommendations: -cont IV PPI drip today and likely through tomorrow -continue to hold eliquis. will need to discuss risks and benefits of restarting anticoagulation -monitor in ICU today -okay for clear liquid diet today
[2018-04-12] MEDS: PROTONIX 80 MG in NACL 0.9% 100 ML IV SCH (08:50)
--- NOTE | 2018-04-12 09:17 | Anesthesia Day of Surgery ---
Anesthesia Day of Surgery - Day of Surgery Patient Examined: Yes Patient H&P Reviewed: Yes Patient is NPO: Yes Beta Blockers: Yes (metoprolol) Cardiac Clearance: Yes Michael's Test: N/A
--- NOTE | 2018-04-12 09:23 | Anesthesia Consultation ---
Anesthesia Consult and Med Hx Date of service: 04/12/18 - Airway Anesthetic Teeth Evaluation: Good ROM Head & Neck: Adequate Mental/Hyoid Distance: Adequate Mallampati Class: Class III Intubation Access Assessment: Probably Good - Pulmonary Exam CTA: Yes - Cardiac Exam Cardiac Exam: RRR - Pre-Operative Health Status ASA Pre-Surgery Classification: ASA3, Emergency Proposed Anesthetic Plan: General - Pulmonary Hx Smoking: Yes - Cardiovascular System Hx Hypertension: Yes (on metoprolol) - Central Nervous System Hx Neuromuscular Disorder: No (achlasia ) Hx Seizures: No CVA: No - Gastrointestinal Hx Ulcer: No Hx Gastroesophageal Reflux Disease: Yes (achlasis s/p partial esophagectomy ) - Hematic Hx Anemia: Yes (Hgb 9.1 (downtrending) secondary to hematemisis) - Additional Comments Anesthesia Medical History Comments: ASA 3E 63 y.o. obese male w/ HTN on b- cooper, Atrial Fib on eliquis (last taken 04/10), and achalasia S/P Esophageal Surgery presents to hosptial with hematemsis. Yesterday, EGD done under MAC but decision to repeat EGD for better surgical exposure was made for today. Will proceed with General endotracheal tube under direct visualization with CMAC.
[2018-04-12] MEDS: NEURONTIN PO SCH (11:00)
[2018-04-12] MEDS: SODIUM CHLORIDE FLUSH SYRINGE 10 ML IV SCH (11:00)
[2018-04-12] MEDS: ATARAX PO SCH (11:00)
[2018-04-12] MEDS: ZESTRIL PO SCH (11:07)
[2018-04-12] MEDS ORDERED: PROVENTIL IH PRN (12:05)
--- NOTE | 2018-04-12 14:34 | Progress Note ---
Assessment and Plan Acute gastrointestinal bleed (Upper G.I.) Melena Acute blood loss anemia. Atrial fibrillation with RVR Obesity (possible obesity hypoventilation syndrome) Hypoalbuminemia. Hyperglycemia. - repeat H&H at 2 pm - PRBC transfusion for Hb < 7.0 (transfuse for higher level depending on rate of fall) - continue PPI drip for now - begin prn bronchodilators with pulmonary hygiene per RT - deploy BIPAP but qhs prn as still with intermittent N&V - cardiology evaluation appropriate re: RVR - continue supplemental oxygen to keep sats > 90% - mobility protocol for pressure ulcer prophylaxis - vasopressors if MAP < 65 mmHg and not fluid responsive - outpatient sleep study - PT/OT as tolerated - continue other care per attending / other consultants - to begin clear liquid diet ... re-evaluate in am & prn .... care plan discussed with patient at bedside The high probability of a clinically significant, sudden or life-threatening deterioration of the [G.I.] system(s) required my full and direct attention, intervention and personal management. The aggregate critical care time was [35] minutes without overlap. Time includes spent on; [x] Data Review and interpretation [x] Patient assessment and monitoring of vital signs [x] Documentation [x] Medication orders and management Subjective Date of service: 04/12/18 Principal diagnosis: Acute gastrointestinal bleed; Acute blood loss anemia; Atrial fibrillation Interval history: Patient is seen today for: Acute gastrointestinal bleed (Upper G.I.); Melena; Acute blood loss anemia.; Atrial fibrillation with RVR Seen and examined at bedside; 24hour events reviewed; nursing and respiratory care staff consulted; no adverse overnight events reported to me; S/P repeat EGD with esophageal ulcer found and addressed with clipping / hemostasis; resting peacefully in bed; episodes of SVT overnight; episodes of vomiting overnight; denies acute chest pains or palpitations; remains on supplemental oxygen therapy Objective Vital Signs - 12hr 04/12/18 04/12/18 04/12/18 02:41 02:45 03:00 Temperature 99.3 F Pulse Rate 109 H 108 H 108 H Respiratory 24 22 22 Rate Blood Pressure 126/42 112/48 O2 Sat by Pulse 100 100 100 Oximetry 04/12/18 04/12/18 04/12/18 03:01 03:15 03:26 Temperature 99.5 F Pulse Rate 107 H 114 H Respiratory 22 22 Rate Blood Pressure 112/48 128/39 O2 Sat by Pulse 100 100 Oximetry 04/12/18 04/12/18 04/12/18 03:30 03:41 03:45 Temperature 99.5 F Pulse Rate 111 H 112 H 111 H Respiratory 23 18 22 Rate Blood Pressure 124/45 110/40 124/50 O2 Sat by Pulse 100 100 99 Oximetry 04/12/18 04/12/18 04/12/18 04:00 04:15 04:31 Temperature 100.9 F H Pulse Rate 114 H 113 H 113 H Respiratory 23 19 23 Rate Blood Pressure 113/52 121/46 100/35 O2 Sat by Pulse 100 99 99 Oximetry 04/12/18 04/12/18 04/12/18 04:45 05:00 05:15 Temperature 99.7 F H Pulse Rate 112 H 140 H 113 H Respiratory 23 25 H 22 Rate Blood Pressure 94/48 104/50 104/50 O2 Sat by Pulse 99 99 Oximetry 04/12/18 04/12/18 04/12/18 05:31 05:45 06:00 Temperature Pulse Rate 115 H 112 H 112 H Respiratory 23 23 21 Rate Blood Pressure 131/56 131/53 132/57 O2 Sat by Pulse 98 97 97 Oximetry 04/12/18 04/12/18 04/12/18 06:15 06:31 06:45 Temperature Pulse Rate 113 H 105 H 105 H Respiratory 21 18 21 Rate Blood Pressure 117/57 115/49 O2 Sat by Pulse 98 99 100 Oximetry 04/12/18 04/12/18 04/12/18 07:00 07:15 07:21 Temperature Pulse Rate 107 H 103 H Respiratory 21 21 Rate Blood Pressure 111/47 130/52 O2 Sat by Pulse 100 100 99 Oximetry 04/12/18 04/12/18 04/12/18 08:40 08:45 08:50 Temperature 99.1 F Pulse Rate 96 H Respiratory 21 Rate Blood Pressure 116/44 126/43 O2 Sat by Pulse 99 100 Oximetry 04/12/18 04/12/18 04/12/18 09:00 09:15 09:30 Temperature Pulse Rate 95 H 98 H 101 H Respiratory 19 18 17 Rate Blood Pressure 110/41 110/43 118/44 O2 Sat by Pulse 100 99 99 Oximetry 04/12/18 04/12/18 04/12/18 09:45 10:00 10:15 Temperature Pulse Rate 100 H 100 H 103 H Respiratory 18 20 18 Rate Blood Pressure 113/45 122/47 104/45 O2 Sat by Pulse 100 100 100 Oximetry 04/12/18 04/12/18 04/12/18 10:30 10:45 11:00 Temperature Pulse Rate 103 H 104 H 96 H Respiratory 19 18 18 Rate Blood Pressure 117/45 117/43 112/45 O2 Sat by Pulse 100 100 100 Oximetry 04/12/18 04/12/18 04/12/18 11:02 11:07 11:15 Temperature Pulse Rate 103 H 92 H 96 H Respiratory 18 Rate Blood Pressure 112/45 99/36 97/33 O2 Sat by Pulse 100 Oximetry 04/12/18 04/12/18 04/12/18 11:30 11:45 12:00 Temperature Pulse Rate 90 93 H 96 H Respiratory 18 18 18 Rate Blood Pressure 104/34 118/51 116/50 O2 Sat by Pulse 100 100 100 Oximetry 04/12/18 04/12/18 04/12/18 12:15 12:31 12:45 Temperature Pulse Rate 98 H 100 H 102 H Respiratory 19 19 22 Rate Blood Pressure 117/48 125/44 119/76 O2 Sat by Pulse 100 100 91 Oximetry 04/12/18 04/12/18 04/12/18 12:56 13:01 13:15 Temperature 98.6 F Pulse Rate 98 H 97 H Respiratory 19 19 Rate Blood Pressure 114/57 112/47 O2 Sat by Pulse 100 98 Oximetry 04/12/18 04/12/18 04/12/18 13:30 13:45 14:00 Temperature Pulse Rate 98 H 103 H 93 H Respiratory 19 19 18 Rate Blood Pressure 119/37 110/36 110/36 O2 Sat by Pulse 100 100 100 Oximetry 04/12/18 14:15 Temperature Pulse Rate 100 H Respiratory 19 Rate Blood Pressure 105/40 O2 Sat by Pulse 100 Oximetry Constitutional: appears uncomfortable, other (Elderly looking morbidly obese CM, normocephalic and atraumatic with mildly increased respiratory effort at rest) Eyes: non-icteric ENT: oropharynx moist, other (Mallampati 3) Neck: supple, no lymphadenopathy, no JVD, other (no thyromegaly) Effort: mildly labored Ascultation: Bilateral: clear, diminished breath sounds Percussion: Bilateral: not dull Cardiovascular: regular rate and rhythm Gastrointestinal: hypoactive bowel sounds, soft, non-tender, non-distended, other (protuberant) Integumentary: normal Extremities: no cyanosis, no edema, pink and warm, pulses normal, no ischemia or petechiae Neurologic: normal mental status, non-focal exam, pupils equal and round, motor strength normal and Psychiatric: depressed CBC and BMP: 04/13/18 09:16 04/11/18 05:26 ABG, PT/INR, D-dimer: ABG POC ABG pH 7.465 (7.35-7.45) H 04/11/18 18:27 POC ABG pCO2 22.2 (35-45) L 04/11/18 18:27 POC ABG pO2 90 (80-105) 04/11/18 18:27 POC ABG HCO3 15.9 04/11/18 18:27 POC ABG Total CO2 17 04/11/18 18:27 POC ABG O2 Sat 98 04/11/18 18:27 PT/INR, D-dimer PT 16.6 Sec. (12.2-14.9) H 04/10/18 17:20 INR 1.26 (0.87-1.13) H 04/10/18 17:20 Abnormal lab findings: Abnormal Labs 04/10/18 04/10/18 04/10/18 17:20 17:20 17:20 WBC RBC 2.95 L Hgb 10.5 L Hct 30.3 L MCV 103 H MCH 36 H MCHC 35 H RDW 16.6 H Plt Count Baso # Seg Neutrophils % Seg Neutrophils # PT 16.6 H INR 1.26 H POC ABG pH POC ABG pCO2 Chloride 108.8 H BUN 22 H Glucose 190 H Calcium 8.0 L Alkaline Phosphatase 153 H Total Protein 5.9 L Albumin 2.9 L Crossmatch 04/10/18 04/11/18 04/11/18 17:20 05:26 05:26 WBC RBC 2.63 L Hgb 9.2 L Hct 27.1 L MCV 103 H MCH 35 H MCHC RDW 16.6 H Plt Count 105 L Baso # Seg Neutrophils % 70.3 H Seg Neutrophils # PT INR POC ABG pH POC ABG pCO2 Chloride 110.1 H BUN 30 H Glucose 155 H Calcium 7.8 L Alkaline Phosphatase Total Protein 5.3 L Albumin 2.6 L Crossmatch See Detail 04/11/18 04/11/18 04/11/18 05:26 17:59 18:27 WBC RBC Hgb 9.1 L 8.4 L Hct 26.8 L 24.9 L MCV MCH MCHC RDW Plt Count Baso # Seg Neutrophils % Seg Neutrophils # PT INR POC ABG pH 7.465 H POC ABG pCO2 22.2 L Chloride BUN Glucose Calcium Alkaline Phosphatase Total Protein Albumin Crossmatch 04/11/18 04/12/18 22:54 07:14 WBC 18.5 H RBC 2.54 L Hgb 7.4 L 8.7 L Hct 21.8 L 25.0 L MCV 98 H MCH 34 H MCHC 35 H RDW 18.6 H Plt Count 101 L Baso # 0.2 H Seg Neutrophils % 79.8 H Seg Neutrophils # 14.8 H PT INR POC ABG pH POC ABG pCO2 Chloride BUN Glucose Calcium Alkaline Phosphatase Total Protein Albumin Crossmatch Chest x-ray: image reviewed Allied health notes reviewed: nursing
[2018-04-12 15:31] LABS: Hemoglobin 8.3 gm/dl (11.8-15.2)
[2018-04-12] MEDS ORDERED: NACL 0.9% 500 ML 500 ML ONE (22:27)
[2018-04-12 23:40] LABS: Hemoglobin 6.3 gm/dl (11.8-15.2)
[2018-04-12 23:51] LABS: Hematocrit 18.4 % (35.5-45.6)
[2018-04-13] MEDS: LOPRESSOR IV SCH ×5 (00:10→21:17)
[2018-04-13] MEDS ORDERED: NACL 0.9% 500 ML 500 ML IV ONE (00:15)
[2018-04-13] MEDS: NACL 0.9% 1000 ML 1,000 ML IV SCH (03:15)
[2018-04-13 04:22] LABS: Hemoglobin 6.4 gm/dl (11.8-15.2); Mean Corpuscular HGB Conc 34 % (32-34); Mean Corpuscular Volume 100 fl (84-94); Red Blood Count 1.87 M/mm3 (3.65-5.03); Red Cell Distribution Width 19.7 % (13.2-15.2)
[2018-04-13 04:29] LABS: Hematocrit 18.8 % (35.5-45.6); Platelet Count 97 K/mm3 (140-440)
[2018-04-13 05:00] LABS: Basophils % (Manual) 0 % (0.0-1.8); Total Cells Counted 100
[2018-04-13 05:01] LABS: Anisocytosis 1+; Crenated RBC Few; Platelet Estimate Appears Decreased
[2018-04-13] MEDS: NEURONTIN PO SCH ×3 (08:13→21:16)
[2018-04-13] MEDS: ZESTRIL PO SCH (09:30)
[2018-04-13 09:43] LABS: Hematocrit 22.6 % (35.5-45.6); Hemoglobin 7.8 gm/dl (11.8-15.2); Mean Corpuscular HGB Conc 35 % (32-34); Mean Corpuscular Volume 97 fl (84-94); Red Blood Count 2.33 M/mm3 (3.65-5.03); Red Cell Distribution Width 17.7 % (13.2-15.2)
[2018-04-13 09:45] LABS: Platelet Count 72 K/mm3 (140-440)
--- NOTE | 2018-04-13 10:05 | Gastroenterology Progress Note ---
<SARKIS BARRIOS - Last Filed: 04/13/18 10:15> Assessment and Plan 1.UGIB 2.H/o achalasia (s/p partial esophagectomy) 3.Afib on anticoagulation -H/H 7.8/22.6- s/p transfusion 2 units PRBCs overnight -continue to monitor H/H and transfuse as needed -reports BMs x 2 overnight with bloody stool (first with melena and second with bright red blood). No hematemesis, CP, SOB, abd pain, or N/V. -currently HD stable with no signs of bleeding this am per nursing -s/p EGD 04/11 that showed large blood clot in lower esophagus extending to proximal stomach with visualization limited -s/p repeat EGD 04/12 that revealed an esophageal ulcer with visible vessel and heme spots s/p clip placement and gold probe -recommend stat CTA for further evaluation of bleeding -Keep NPO -continue protonix drip -continue to hold blood thinning medication (Eliquis) -continue supportive care -consider repeat EGD today based on above results -will follow Subjective Date of service: 04/13/18 Principal diagnosis: GI bleed Interval history: Patient remains in ICU. Resting in bed this am w/o acute distress. Reports BMs x 2 overnight with bloody stool. First BM was with black stool and second was with bright red blood. No hematemesis, abd pain, CP, or N/V. No active signs of bleeding this am per nursing. Objective - Constitutional Vitals: Temp Pulse Resp BP Pulse Ox 99.1 F 98 H 16 109/45 100 04/13/18 05:15 04/13/18 09:31 04/13/18 09:31 04/13/18 09:31 04/13/18 09:31 General appearance: no acute distress - Respiratory Respiratory: bilateral: CTA (anterior) - Cardiovascular Rhythm: other (irregular) - Gastrointestinal General gastrointestinal: Present: soft, non-tender, non-distended, normal bowel sounds - Neurologic Neurological: alert and oriented x3 - Labs CBC & Chem 7: 04/13/18 09:16 04/11/18 05:26 Labs: Laboratory Results - last 24 hr 04/10/18 04/12/18 04/12/18 17:20 15:10 23:33 WBC RBC Hgb 8.3 L 6.3 L Hct 25.0 L 18.4 L* D MCV MCH MCHC RDW Plt Count Lymph % (Auto) [place] % (Auto) Eos % (Auto) Baso % (Auto) Lymph # [place] # Eos # Baso # Add Manual Diff Total Counted Seg Neutrophils % Seg Neuts % (Manual) Band Neutrophils % Lymphocytes % (Manual) Reactive Lymphs % (Man) Monocytes % (Manual) Eosinophils % (Manual) Basophils % (Manual) Metamyelocytes % Myelocytes % Promyelocytes % Blast Cells % Nucleated RBC % Seg Neutrophils # Seg Neutrophils # Man Band Neutrophils # Lymphocytes # (Manual) Abs React Lymphs (Man) Monocytes # (Manual) Eosinophils # (Manual) Basophils # (Manual) Metamyelocytes # Myelocytes # Promyelocytes # Blast Cells # WBC Morphology Hypersegmented Neuts Hyposegmented Neuts Hypogranular Neuts Smudge Cells Toxic Granulation Toxic Vacuolation Dohle Bodies Pelger-Huet Anomaly Adele Rods Platelet Estimate Clumped Platelets Plt Clumps, EDTA Large Platelets Giant Platelets Platelet Satelliting Plt Morphology Comment RBC Morphology Dimorphic RBCs Polychromasia Hypochromasia Poikilocytosis Anisocytosis Microcytosis Macrocytosis Spherocytes Pappenheimer Bodies Sickle Cells Target Cells Tear Drop Cells Ovalocytes Helmet Cells Ghosh[place] Bodies [place] Rings Evon Cells Bite Cells Crenated Cell Elliptocytes Acanthocytes (Spur) Rouleaux Hemoglobin C Crystals Schistocytes Malaria parasites Cole Bodies Hem Pathologist Commnt Blood Type O NEGATIVE Antibody Screen Negative Crossmatch See Detail 04/13/18 04/13/18 03:50 09:16 WBC 15.5 H 11.5 H RBC 1.87 L 2.33 L Hgb 6.4 L 7.8 L Hct 18.8 L* 22.6 L MCV 100 H 97 H MCH 34 H 33 H MCHC 34 35 H RDW 19.7 H 17.7 H Plt Count 97 L 72 L Lymph % (Auto) Link Wire [employer]ric Machine Tender [place] % (Auto) Link Wire Fabric Machine Tender Eos % (Auto) Link Wire [employer]ric Machine Tender Baso % (Auto) Link Wire [employer]ric Machine Tender Lymph # Link Wire [employer]ric Machine Tender [place] # Link Wire Fabric Machine Tender Eos # Link Wire Fabric Machine Tender Baso # Link Wire Fabric Machine Tender Add Manual Diff Complete Total Counted 100 Seg Neutrophils % Link Wire [employer] Machine Tender Seg Neuts % (Manual) 77.0 H Band Neutrophils % 0 Lymphocytes % (Manual) 15.0 Reactive Lymphs % (Man) 0 Monocytes % (Manual) 5.0 Eosinophils % (Manual) 3.0 Basophils % (Manual) 0 Metamyelocytes % 0 Myelocytes % 0 Promyelocytes % 0 Blast Cells % 0 Nucleated RBC % Not Reportable Seg Neutrophils # Link Wire Fabric Machine Tender Seg Neutrophils # Man 11.9 H Band Neutrophils # 0.0 Lymphocytes # (Manual) 2.3 Abs React Lymphs (Man) 0.0 Monocytes # (Manual) 0.8 Eosinophils # (Manual) 0.5 H Basophils # (Manual) 0.0 Metamyelocytes # 0.0 Myelocytes # 0.0 Promyelocytes # 0.0 Blast Cells # 0.0 WBC Morphology Not Reportable Hypersegmented Neuts Not Reportable Hyposegmented Neuts Not Reportable Hypogranular Neuts Not Reportable Smudge Cells Not Reportable Toxic Granulation Not Reportable Toxic Vacuolation Not Reportable Dohle Bodies Not Reportable Pelger-Huet Anomaly Not Reportable Adele Rods Not Reportable Platelet Estimate Appears decreased Clumped Platelets Not Reportable Plt Clumps, EDTA Not Reportable Large Platelets Not Reportable Giant Platelets Not Reportable Platelet Satelliting Not Reportable Plt Morphology Comment Not Reportable RBC Morphology Not Reportable Dimorphic RBCs Not Reportable Polychromasia Not Reportable Hypochromasia Not Reportable Poikilocytosis Not Reportable Anisocytosis 1+ Microcytosis Not Reportable Macrocytosis Not Reportable Spherocytes Not Reportable Pappenheimer Bodies Not Reportable Sickle Cells Not Reportable Target Cells Not Reportable Tear Drop Cells Not Reportable Ovalocytes Not Reportable Helmet Cells Not Reportable Ghosh-[place] Bodies Not Reportable [place] Rings Not Reportable Evon Cells Not Reportable Bite Cells Not Reportable Crenated Cell Few Elliptocytes Not Reportable Acanthocytes (Spur) Not Reportable Rouleaux Not Reportable Hemoglobin C Crystals Not Reportable Schistocytes Not Reportable Malaria parasites Not Reportable Cole Bodies Not Reportable Hem Pathologist Commnt No Blood Type Antibody Screen Crossmatch <TICO URIBE - Last Filed: 04/13/18 13:39> Assessment and Plan Pt seen and examined. Last overt bleeding episode was at 11 pm last night; no further episodes since then but had drop in H/H. CTA this morning was negative for active bleeding. Repeat H/H has been stable. Cont IV PPI and will monitor unless h/h drops again or another bleeding episode occurs at which time pt will need repeat egd. Objective - Constitutional Vitals: Temp Pulse Resp BP Pulse Ox 99.1 F 89 17 120/36 100 04/13/18 12:00 04/13/18 13:15 04/13/18 13:15 04/13/18 13:15 04/13/18 13:15 - Labs CBC & Chem 7: 04/13/18 13:08 04/11/18 05:26 Labs: Laboratory Results - last 24 hr 04/10/18 04/12/18 04/12/18 17:20 15:10 23:33 WBC RBC Hgb 8.3 L 6.3 L Hct 25.0 L 18.4 L* D MCV MCH MCHC RDW Plt Count Lymph % (Auto) [place] % (Auto) Eos % (Auto) Baso % (Auto) Lymph # [place] # Eos # Baso # Add Manual Diff Total Counted Seg Neutrophils % Seg Neuts % (Manual) Band Neutrophils % Lymphocytes % (Manual) Reactive Lymphs % (Man) Monocytes % (Manual) Eosinophils % (Manual) Basophils % (Manual) Metamyelocytes % Myelocytes % Promyelocytes % Blast Cells % Nucleated RBC % Seg Neutrophils # Seg Neutrophils # [place] Band Neutrophils # Lymphocytes # (Manual) Abs React Lymphs (Man) Monocytes # (Manual) Eosinophils # (Manual) Basophils # (Manual) Metamyelocytes # Myelocytes # Promyelocytes # Blast Cells # WBC Morphology Hypersegmented Neuts Hyposegmented Neuts Hypogranular Neuts Smudge Cells Toxic Granulation Toxic Vacuolation Dohle Bodies Pelger-Huet Anomaly Adele Rods Platelet Estimate Clumped Platelets Plt Clumps, EDTA Large Platelets Giant Platelets Platelet Satelliting Plt Morphology Comment RBC Morphology Dimorphic RBCs Polychromasia Hypochromasia Poikilocytosis Anisocytosis Microcytosis Macrocytosis Spherocytes Pappenheimer Bodies Sickle Cells Target Cells Tear Drop Cells Ovalocytes Helmet Cells Ghosh-[place] Bodies [place] Rings Evon Cells Bite Cells Crenated Cell Elliptocytes Acanthocytes (Spur) Rouleaux Hemoglobin C Crystals Schistocytes Malaria parasites Cole Bodies Hem Pathologist Commnt Blood Type O NEGATIVE Antibody Screen Negative Crossmatch See Detail 04/13/18 04/13/18 04/13/18 03:50 09:16 13:08 WBC 15.5 H 11.5 H RBC 1.87 L 2.33 L Hgb 6.4 L 7.8 L 8.0 L Hct 18.8 L* 22.6 L 23.3 L MCV 100 H 97 H MCH 34 H 33 H MCHC 34 35 H RDW 19.7 H 17.7 H Plt Count 97 L 72 L Lymph % (Auto) Link Wire Fabric Machine Tender [place] % (Auto) Link Wire Fabric Machine Tender Eos % (Auto) Link Wire Fabric Machine Tender Baso % (Auto) Link Wire [employer]ric Machine Tender Lymph # Link Wire [employer]ric Machine Tender [place] # Link Wire Fabric Machine Tender Eos # Link Wire Fabric Machine Tender Baso # Link Wire Fabric Machine Tender Add Manual Diff Complete Total Counted 100 Seg Neutrophils % Link Wire [employer]ric Machine Tender Seg Neuts % (Manual) 77.0 H Band Neutrophils % 0 Lymphocytes % (Manual) 15.0 Reactive Lymphs % (Man) 0 Monocytes % (Manual) 5.0 Eosinophils % (Manual) 3.0 Basophils % (Manual) 0 Metamyelocytes % 0 Myelocytes % 0 Promyelocytes % 0 Blast Cells % 0 Nucleated RBC % Not Reportable Seg Neutrophils # Link Wire Fabric Machine Tender Seg Neutrophils # Man 11.9 H Band Neutrophils # 0.0 Lymphocytes # (Manual) 2.3 Abs React Lymphs (Man) 0.0 Monocytes # (Manual) 0.8 Eosinophils # (Manual) 0.5 H Basophils # (Manual) 0.0 Metamyelocytes # 0.0 Myelocytes # 0.0 Promyelocytes # 0.0 Blast Cells # 0.0 WBC Morphology Not Reportable Hypersegmented Neuts Not Reportable Hyposegmented Neuts Not Reportable Hypogranular Neuts Not Reportable Smudge Cells Not Reportable Toxic Granulation Not Reportable Toxic Vacuolation Not Reportable Dohle Bodies Not Reportable Pelger-Huet Anomaly Not Reportable Adele Rods Not Reportable Platelet Estimate Appears decreased Clumped Platelets Not Reportable Plt Clumps, EDTA Not Reportable Large Platelets Not Reportable Giant Platelets Not Reportable Platelet Satelliting Not Reportable Plt Morphology Comment Not Reportable RBC Morphology Not Reportable Dimorphic RBCs Not Reportable Polychromasia Not Reportable Hypochromasia Not Reportable Poikilocytosis Not Reportable Anisocytosis 1+ Microcytosis Not Reportable Macrocytosis Not Reportable Spherocytes Not Reportable Pappenheimer Bodies Not Reportable Sickle Cells Not Reportable Target Cells Not Reportable Tear Drop Cells Not Reportable Ovalocytes Not Reportable Helmet Cells Not Reportable Ghosh-[place] Bodies Not Reportable [place] Rings Not Reportable Evon Cells Not Reportable Bite Cells Not Reportable Crenated Cell Few Elliptocytes Not Reportable Acanthocytes (Spur) Not Reportable Rouleaux Not Reportable Hemoglobin C Crystals Not Reportable Schistocytes Not Reportable Malaria parasites Not Reportable Cole Bodies Not Reportable Hem Pathologist Commnt No Blood Type Antibody Screen Crossmatch
[2018-04-13] MEDS: SODIUM CHLORIDE FLUSH SYRINGE 10 ML IV SCH (10:31)
--- NOTE | 2018-04-13 10:57 | Cat Scan Report ---
CT ANGIOGRAM ABDOMEN AND PELVIS HISTORY: GI bleed. TECHNIQUE: Helical CT following IV contrast. Sagittal and coronal reformatted images. Rotational MIP images. COMPARISON: None at this facility. FINDINGS: The visualized aorta, iliac arteries, SMA, celiac axis, RONNIE and single bilateral renal arteries appear widely patent with less than 20% stenosis. There is no evidence for dissection or aneurysm. No focal arterial spurt is identified in the GI is system to locate a source of GI bleeding. Cholecystectomy. The liver, pancreas, spleen and adrenal glands are unremarkable. There are a few simple cysts in the left kidney measuring up to 1 cm. The kidneys, ureters and bladder are unremarkable otherwise. Mild circumferential thickening of the right hemicolon is suspected which could represent a nonspecific colitis. The remaining bowel loops are grossly unremarkable. Moderate hiatal hernia is noted. IMPRESSION: Unremarkable CTA of the abdomen and pelvis. No stenosis or active bleeding is identified. Finding suggestive of a nonspecific colitis in the right hemicolon.
[2018-04-13] MEDS ORDERED: D5/0.45NS 1,000 ML IV SCH (12:00)
--- NOTE | 2018-04-13 12:45 | Progress Note ---
Assessment and Plan Acute gastrointestinal bleed (Upper G.I.) Melena Acute blood loss anemia. Atrial fibrillation with RVR Obesity (possible obesity hypoventilation syndrome) Hypoalbuminemia. Hyperglycemia. - s/p 2 more units PRBC's with inappropriate elevation of serum Hb - continue to hold anticoagulation - tentative repeat EGD - Keep NPO for now - PRBC transfusion for Hb < 7.0 (transfuse for higher level depending on rate of fall) - continue PPI drip for now - begin prn bronchodilators with pulmonary hygiene per RT - deploy BIPAP but qhs prn as still with intermittent N&V - cardiology evaluation appropriate re: RVR - continue supplemental oxygen to keep sats > 90% - mobility protocol for pressure ulcer prophylaxis - vasopressors if MAP < 65 mmHg and not fluid responsive - outpatient sleep study - PT/OT as tolerated - continue other care per attending / other consultants ... re-evaluate in am & prn .... care plan discussed with patient at bedside The high probability of a clinically significant, sudden or life-threatening deterioration of the [G.I.] system(s) required my full and direct attention, intervention and personal management. The aggregate critical care time was [31] minutes without overlap. Time includes spent on; [x] Data Review and interpretation [x] Patient assessment and monitoring of vital signs [x] Documentation [x] Medication orders and management Subjective Date of service: 04/13/18 Principal diagnosis: Acute gastrointestinal bleed; Acute blood loss anemia; A trial fibrillation Interval history: Patient is seen today for: Acute gastrointestinal bleed (Upper G.I.); Melena; Acute blood loss anemia.; Atrial fibrillation with RVR Seen and examined at bedside; 24hour events reviewed; nursing and respiratory care staff consulted; no adverse overnight events reported to me; no emesis overnight; H&H still falling; still with melena overnight + hematochezia reported; made NPO again; tentative repeat EGD; He denies acute chest pains or palpitations Objective Vital Signs - 12hr 04/13/18 04/13/18 04/13/18 01:01 01:15 01:30 Temperature Pulse Rate 121 H 113 H 113 H Pulse Rate [ From Monitor] Respiratory 25 H 21 23 Rate Blood Pressure 99/81 96/44 97/41 O2 Sat by Pulse 98 100 100 Oximetry 04/13/18 04/13/1804/13/19 01:45 02:00 02:15 Temperature Pulse Rate 114 H 113 H 111 H Pulse Rate [ From Monitor] Respiratory 22 20 20 Rate Blood Pressure 98/45 91/47 89/42 O2 Sat by Pulse 100 100 Oximetry 04/13/18 04/13/18 04/13/18 02:18 02:30 02:45 Temperature 99.3 F 98.7 F Pulse Rate 111 H 111 H Pulse Rate [ From Monitor] Respiratory 20 19 Rate Blood Pressure 108/42 113/44 O2 Sat by Pulse 100 100 Oximetry 04/13/18 04/13/18 04/13/18 03:00 03:02 03:15 Temperature 98.8 F Pulse Rate 112 H 108 H Pulse Rate [ From Monitor] Respiratory 19 20 Rate Blood Pressure 111/39 121/47 O2 Sat by Pulse 100 100 Oximetry 04/13/18 04/13/18 04/13/18 03:30 03:45 04:00 Temperature Pulse Rate 111 H 110 H 108 H Pulse Rate [ 104 H From Monitor] Respiratory 19 17 20 Rate Blood Pressure 117/47 101/81 103/68 O2 Sat by Pulse 100 99 Oximetry 04/13/18 04/13/18 04/13/18 04:15 04:30 04:45 Temperature Pulse Rate 108 H 106 H 104 H Pulse Rate [ From Monitor] Respiratory 18 18 21 Rate Blood Pressure 104/42 112/48 124/52 O2 Sat by Pulse 100 100 100 Oximetry 04/13/18 04/13/18 04/13/18 05:00 05:15 05:30 Temperature 99.1 F Pulse Rate 105 H 102 H 101 H Pulse Rate [ From Monitor] Respiratory 18 18 19 Rate Blood Pressure 113/50 114/53 109/50 O2 Sat by Pulse 100 93 100 Oximetry 04/13/18 04/13/18 04/13/18 05:45 06:00 06:15 Temperature Pulse Rate 101 H 101 H 100 H Pulse Rate [ From Monitor] Respiratory 19 18 17 Rate Blood Pressure 108/49 109/49 105/50 O2 Sat by Pulse 100 100 100 Oximetry 04/13/18 04/13/18 04/13/18 06:30 06:45 07:00 Temperature Pulse Rate 100 H 97 H 100 H Pulse Rate [ From Monitor] Respiratory 19 19 18 Rate Blood Pressure 113/48 109/50 99/50 O2 Sat by Pulse 100 100 100 Oximetry 04/13/18 04/13/18 04/13/18 07:15 07:30 07:45 Temperature Pulse Rate 94 H 98 H 94 H Pulse Rate [ From Monitor] Respiratory 17 18 18 Rate Blood Pressure 98/53 91/47 109/51 O2 Sat by Pulse 100 98 100 Oximetry 04/13/18 04/13/18 04/13/18 07:55 08:00 08:15 Temperature 98.7 F Pulse Rate 95 H 99 H Pulse Rate [ 95 H From Monitor] Respiratory 17 18 Rate Blood Pressure 112/50 92/47 O2 Sat by Pulse 100 100 100 Oximetry 04/13/18 04/13/18 04/13/18 08:30 08:45 09:00 Temperature Pulse Rate 95 H 95 H 95 H Pulse Rate [ From Monitor] Respiratory 20 16 17 Rate Blood Pressure 102/48 83/44 109/46 O2 Sat by Pulse 100 100 100 Oximetry 04/13/18 04/13/18 04/13/18 09:15 09:31 09:45 Temperature Pulse Rate 92 H 98 H 87 Pulse Rate [ From Monitor] Respiratory 17 16 18 Rate Blood Pressure 100/47 109/45 120/42 O2 Sat by Pulse 100 100 100 Oximetry 04/13/18 04/13/18 04/13/18 10:00 10:20 10:29 Temperature Pulse Rate 90 98 H Pulse Rate [ From Monitor] Respiratory 17 Rate Blood Pressure 120/68 O2 Sat by Pulse Oximetry 04/13/18 04/13/18 04/13/18 10:31 10:45 11:01 Temperature Pulse Rate 94 H 84 87 Pulse Rate [ From Monitor] Respiratory 17 16 16 Rate Blood Pressure 120/36 120/36 120/36 O2 Sat by Pulse 100 100 100 Oximetry Constitutional: appears uncomfortable, other (Elderly looking morbidly obese CM, normocephalic and atraumatic with mildly increased respiratory effort at rest) Eyes: non-icteric ENT: oropharynx moist, other (Mallampati 3) Neck: supple, no lymphadenopathy, no JVD, other (no thyromegaly) Effort: mildly labored Ascultation: Bilateral: clear, diminished breath sounds Percussion: Bilateral: not dull Cardiovascular: regular rate and rhythm Gastrointestinal: hypoactive bowel sounds, soft, non-tender, non-distended, other (protuberant) Integumentary: normal Extremities: no cyanosis, no edema, pink and warm, pulses normal, no ischemia or petechiae Neurologic: normal mental status, non-focal exam, pupils equal and round, motor strength normal and Psychiatric: depressed CBC and BMP: 04/13/18 13:08 04/13/18 13:08 ABG, PT/INR, D-dimer: ABG POC ABG pH 7.465 (7.35-7.45) H 04/11/18 18:27 POC ABG pCO2 22.2 (35-45) L 04/11/18 18:27 POC ABG pO2 90 (80-105) 04/11/18 18:27 POC ABG HCO3 15.9 04/11/18 18:27 POC ABG Total CO2 17 04/11/18 18:27 POC ABG O2 Sat 98 04/11/18 18:27 PT/INR, D-dimer PT 16.6 Sec. (12.2-14.9) H 04/10/18 17:20 INR 1.26 (0.87-1.13) H 04/10/18 17:20 Abnormal lab findings: Abnormal Labs 04/10/18 04/10/18 04/10/18 17:20 17:20 17:20 WBC RBC 2.95 L Hgb 10.5 L Hct 30.3 L MCV 103 H MCH 36 H MCHC 35 H RDW 16.6 H Plt Count Baso # Seg Neutrophils % Seg Neuts % (Manual) Seg Neutrophils # Seg Neutrophils # Man Eosinophils # (Manual) PT 16.6 H INR 1.26 H POC ABG pH POC ABG pCO2 Chloride 108.8 H BUN 22 H Glucose 190 H Calcium 8.0 L Alkaline Phosphatase 153 H Total Protein 5.9 L Albumin 2.9 L Crossmatch 04/10/18 04/11/18 04/11/18 17:20 05:26 05:26 WBC RBC 2.63 L Hgb 9.2 L Hct 27.1 L MCV 103 H MCH 35 H MCHC RDW 16.6 H Plt Count 105 L Baso # Seg Neutrophils % 70.3 H Seg Neuts % (Manual) Seg Neutrophils # Seg Neutrophils # Man Eosinophils # (Manual) PT INR POC ABG pH POC ABG pCO2 Chloride 110.1 H BUN 30 H Glucose 155 H Calcium 7.8 L Alkaline Phosphatase Total Protein 5.3 L Albumin 2.6 L Crossmatch See Detail 04/11/18 04/11/18 04/11/18 05:26 17:59 18:27 WBC RBC Hgb 9.1 L 8.4 L Hct 26.8 L 24.9 L MCV MCH MCHC RDW Plt Count Baso # Seg Neutrophils % Seg Neuts % (Manual) Seg Neutrophils # Seg Neutrophils # Man Eosinophils # (Manual) PT INR POC ABG pH 7.465 H POC ABG pCO2 22.2 L Chloride BUN Glucose Calcium Alkaline Phosphatase Total Protein Albumin Crossmatch 04/11/18 04/12/18 04/12/18 22:54 07:14 15:10 WBC 18.5 H RBC 2.54 L Hgb 7.4 L 8.7 L 8.3 L Hct 21.8 L 25.0 L 25.0 L MCV 98 H MCH 34 H MCHC 35 H RDW 18.6 H Plt Count 101 L Baso # 0.2 H Seg Neutrophils % 79.8 H Seg Neuts % (Manual) Seg Neutrophils # 14.8 H Seg Neutrophils # Man Eosinophils # (Manual) PT INR POC ABG pH POC ABG pCO2 Chloride BUN Glucose Calcium Alkaline Phosphatase Total Protein Albumin Crossmatch 04/12/18 04/13/18 04/13/18 23:33 03:50 09:16 WBC 15.5 H 11.5 H RBC 1.87 L 2.33 L Hgb 6.3 L 6.4 L 7.8 L Hct 18.4 L* D 18.8 L* 22.6 L MCV 100 H 97 H MCH 34 H 33 H MCHC 35 H RDW 19.7 H 17.7 H Plt Count 97 L 72 L Baso # Seg Neutrophils % Seg Neuts % (Manual) 77.0 H Seg Neutrophils # Seg Neutrophils # Man 11.9 H Eosinophils # (Manual) 0.5 H PT INR POC ABG pH POC ABG pCO2 Chloride BUN Glucose Calcium Alkaline Phosphatase Total Protein Albumin Crossmatch Allied health notes reviewed: nursing
[2018-04-13 13:26] LABS: Hematocrit 23.3 % (35.5-45.6)
[2018-04-13 13:43] LABS: BUN/Creatinine Ratio 24; Blood Urea Nitrogen 19 mg/dL (9-20); Calcium 6.7 mg/dL (8.4-10.2); Hemolysis Index 31
[2018-04-13] MEDS: PROTONIX 80 MG in NACL 0.9% 100 ML IV SCH (16:35)
[2018-04-13] MEDS: ATARAX PO SCH (17:11)
[2018-04-14] MEDS: LOPRESSOR IV SCH ×9 (01:00→23:45)
[2018-04-14] MEDS: PROTONIX 80 MG in NACL 0.9% 100 ML IV SCH ×2 (05:02→15:15)
[2018-04-14] MEDS: SODIUM CHLORIDE FLUSH SYRINGE 10 ML IV SCH ×5 (08:12→22:20)
[2018-04-14] MEDS: ATARAX PO SCH (10:05)
[2018-04-14] MEDS: NEURONTIN PO SCH ×2 (10:05→22:07)
[2018-04-14] MEDS: ZESTRIL PO SCH (10:07)
--- NOTE | 2018-04-14 11:55 | Gastroenterology Progress Note ---
<SARKIS BARRIOS - Last Filed: 04/14/18 11:51> Assessment and Plan 1.UGIB 2.H/o achalasia (s/p partial esophagectomy) 3.Afib on anticoagulation -H/H 8.0/23.3-trending up s/p transfusion -continue to monitor H/H and transfuse as needed -s/p EGD 04/11 that showed large blood clot in lower esophagus extending to proximal stomach with visualization limited -s/p repeat EGD 04/12 that revealed an esophageal ulcer with visible vessel and heme spots s/p clip placement and gold probe -CTA yesterday negative for active bleeding -clinically, patient is stable with no active signs of bleeding overnight or this am. Denies abd pain or N/V. Tolerating clears. -advance diet to full liquids -continue protonix drip today (if no further bleeding, can transition to IV push tomorrow) -continue to hold Eliquis) -continue supportive care -will follow Subjective Date of service: 04/14/18 Principal diagnosis: GI bleed Interval history: Patient w/o acute distress. No active signs of bleeding overnight or this am per patient/nursing. Denies abd pain or N/V. Tolerating clears. Objective - Constitutional Vitals: Temp Pulse Resp BP Pulse Ox 98.5 F 79 20 117/54 100 04/14/18 08:00 04/14/18 11:15 04/14/18 11:15 04/14/18 11:15 04/14/18 11:15 General appearance: no acute distress - Respiratory Respiratory: bilateral: CTA - Cardiovascular Rhythm: regular Heart Sounds: Present: S1 & S2 - Gastrointestinal General gastrointestinal: Present: soft, non-tender, non-distended, normal bowel sounds - Labs CBC & Chem 7: 04/13/18 13:08 04/13/18 13:08 Labs: Laboratory Results - last 24 hr 04/13/18 04/13/18 13:08 13:08 Hgb 8.0 L Hct 23.3 L Sodium 140 Potassium 4.1 Chloride 112.6 H Carbon Dioxide 19 L Anion Gap 13 BUN 19 Creatinine 0.8 Estimated GFR > 60 BUN/Creatinine Ratio 24 Glucose 205 H Calcium 6.7 L <TICO URIBE - Last Filed: 02/27/19 16:07> Assessment and Plan Pt seen and examined. Agree with note above. No signs of further bleeding. Switch to BID PPI tomorrow. advance diet as tolerated. Objective - Constitutional Vitals: Temp Pulse Resp BP Pulse Ox 98.3 F 170 H 13 110/69 100 04/14/18 12:00 04/14/18 13:55 04/14/18 13:00 04/14/18 13:55 04/14/18 13:00 - Labs CBC & Chem 7: 04/14/18 13:50 04/13/18 13:08 Labs: Laboratory Results - last 24 hr 04/14/18 13:50 WBC 9.7 RBC 2.19 L Hgb 7.5 L Hct 21.7 L MCV 99 H MCH 34 H MCHC 35 H RDW 17.6 H Plt Count 82 L Add Manual Diff Complete Total Counted 100 Seg Neuts % (Manual) 81.0 H Band Neutrophils % 2.0 Lymphocytes % (Manual) 13.0 L Reactive Lymphs % (Man) 0 Monocytes % (Manual) 4.0 Eosinophils % (Manual) 0 Basophils % (Manual) 0 Metamyelocytes % 0 Myelocytes % 0 Promyelocytes % 0 Blast Cells % 0 Nucleated RBC % 1.0 H Seg Neutrophils # Man 7.9 H Band Neutrophils # 0.2 Lymphocytes # (Manual) 1.3 Abs React Lymphs (Man) 0.0 Monocytes # (Manual) 0.4 Eosinophils # (Manual) 0.0 Basophils # (Manual) 0.0 Metamyelocytes # 0.0 Myelocytes # 0.0 Promyelocytes # 0.0 Blast Cells # 0.0 WBC Morphology Not Reportable Hypersegmented Neuts Not Reportable Hyposegmented Neuts Not Reportable Hypogranular Neuts Not Reportable Smudge Cells Not Reportable Toxic Granulation Not Reportable Toxic Vacuolation Not Reportable Dohle Bodies Not Reportable Pelger-Huet Anomaly Not Reportable Adele Rods Not Reportable Platelet Estimate Not Reportable Clumped Platelets Not Reportable Plt Clumps, EDTA Not Reportable Large Platelets Not Reportable Giant Platelets Not Reportable Platelet Satelliting Not Reportable Plt Morphology Comment Not Reportable RBC Morphology Not Reportable Dimorphic RBCs Not Reportable Polychromasia Few Hypochromasia Not Reportable Poikilocytosis Not Reportable Anisocytosis 2+ Microcytosis Not Reportable Macrocytosis Not Reportable Spherocytes Not Reportable Pappenheimer Bodies Not Reportable Sickle Cells Not Reportable Target Cells Not Reportable Tear Drop Cells Not Reportable Ovalocytes Not Reportable Helmet Cells Not Reportable Ghosh-[place] Bodies Not Reportable [place] Rings Not Reportable [place] Cells Not Reportable Bite Cells Not Reportable Crenated Cell Not Reportable Elliptocytes Not Reportable Acanthocytes (Spur) Not Reportable Rouleaux Not Reportable Hemoglobin C Crystals Not Reportable Schistocytes Not Reportable Malaria parasites Not Reportable Cole Bodies Not Reportable Hem Pathologist Commnt No
--- NOTE | 2018-04-14 12:29 | Progress Note ---
Assessment and Plan Acute gastrointestinal bleed (Upper G.I.) Melena Acute blood loss anemia. Atrial fibrillation with RVR Obesity (possible obesity hypoventilation syndrome) Hypoalbuminemia. Hyperglycemia. - s/p 2 more units PRBC's with inappropriate elevation of serum Hb - continue prn H&H (Hb holding so far post transfusion) - PRBC transfusion for Hb < 7.0 (transfuse for higher level depending on rate of fall) - continue to hold anticoagulation - tentative repeat EGD - continue to keep NPO for now - continue PPI drip for now - begin prn bronchodilators with pulmonary hygiene per RT - deployed BIPAP but qhs prn as still with intermittent N&V - cardiology evaluation appropriate re: RVR - continue supplemental oxygen to keep sats > 90% - mobility protocol for pressure ulcer prophylaxis - vasopressors if MAP < 65 mmHg and not fluid responsive - outpatient sleep study - PT/OT as tolerated - continue other care per attending / other consultants ... re-evaluate in am & prn .... care plan discussed with patient at bedside and during team rounds The high probability of a clinically significant, sudden or life-threatening deterioration of the [G.I.] system(s) required my full and direct attention, intervention and personal management. The aggregate critical care time was [35] minutes without overlap. Time includes spent on; [x] Data Review and interpretation [x] Patient assessment and monitoring of vital signs [x] Documentation [x] Medication orders and management Subjective Date of service: 04/14/18 Principal diagnosis: Acute gastrointestinal bleed; Acute blood loss anemia; Atrial fibrillation Interval history: Patient is seen today for: Acute gastrointestinal bleed (Upper G.I.); Melena; Acute blood loss anemia.; Atrial fibrillation with RVR Seen and examined at bedside; 24hour events reviewed; nursing and respiratory care staff consulted; no adverse overnight events reported to me; no gross hematochezia or hematemesis reported; H&H appears to be holding; remains on protonix drip and Eliquis remains on hold; remains also on supplemental oxygen and denies acute chest pains or palpitations Objective Vital Signs - 12hr 04/14/18 04/14/18 04/14/18 00:30 00:45 01:00 Temperature Pulse Rate 82 84 86 Pulse Rate [ From Monitor] Respiratory 16 16 16 Rate Blood Pressure 105/45 105/45 105/47 O2 Sat by Pulse 100 100 100 Oximetry 04/14/18 04/14/18 04/14/18 01:15 01:30 01:45 Temperature Pulse Rate 85 84 82 Pulse Rate [ From Monitor] Respiratory 16 16 17 Rate Blood Pressure 105/47 104/47 104/47 O2 Sat by Pulse 100 99 100 Oximetry 04/14/18 04/14/18 04/14/18 02:00 02:15 02:30 Temperature Pulse Rate 79 81 82 Pulse Rate [ From Monitor] Respiratory 15 14 16 Rate Blood Pressure 107/47 107/47 96/45 O2 Sat by Pulse 100 100 100 Oximetry 04/14/18 04/14/18 04/14/18 02:45 03:00 03:15 Temperature Pulse Rate 83 82 81 Pulse Rate [ From Monitor] Respiratory 15 15 17 Rate Blood Pressure 96/45 96/45 96/45 O2 Sat by Pulse 100 100 100 Oximetry 04/14/18 04/14/18 04/14/18 03:30 03:45 04:00 Temperature 98.7 F Pulse Rate 79 81 81 Pulse Rate [ 82 From Monitor] Respiratory 16 16 18 Rate Blood Pressure 108/49 108/49 98/47 O2 Sat by Pulse 100 100 100 Oximetry 04/14/18 04/14/18 04/14/18 04:15 04:30 04:45 Temperature Pulse Rate 81 80 82 Pulse Rate [ From Monitor] Respiratory 15 16 16 Rate Blood Pressure 98/47 108/46 108/46 O2 Sat by Pulse 100 100 100 Oximetry 04/14/18 04/14/18 04/14/18 05:00 05:15 05:30 Temperature Pulse Rate 82 84 80 Pulse Rate [ From Monitor] Respiratory 14 16 15 Rate Blood Pressure 107/46 108/46 98/48 O2 Sat by Pulse 100 100 100 Oximetry 04/14/18 04/14/18 04/14/18 05:45 06:00 06:15 Temperature Pulse Rate 82 80 76 Pulse Rate [ From Monitor] Respiratory 15 14 14 Rate Blood Pressure 98/48 102/47 102/47 O2 Sat by Pulse 99 100 100 Oximetry 04/14/18 04/14/18 04/14/18 06:30 06:45 07:00 Temperature Pulse Rate 77 78 78 Pulse Rate [ From Monitor] Respiratory 17 15 17 Rate Blood Pressure 104/49 102/47 121/53 O2 Sat by Pulse 100 100 100 Oximetry 04/14/18 04/14/18 04/14/18 07:15 07:30 07:45 Temperature Pulse Rate 79 79 81 Pulse Rate [ From Monitor] Respiratory 17 16 16 Rate Blood Pressure 104/49 108/48 121/53 O2 Sat by Pulse 100 100 100 Oximetry 04/14/18 04/14/18 04/14/18 08:00 08:15 08:30 Temperature 98.5 F Pulse Rate 76 84 76 Pulse Rate [ 80 From Monitor] Respiratory 15 15 16 Rate Blood Pressure 109/49 108/48 123/51 O2 Sat by Pulse 100 100 100 Oximetry 04/14/18 04/14/18 04/14/18 08:40 08:45 09:00 Temperature Pulse Rate 81 76 77 Pulse Rate [ From Monitor] Respiratory 17 18 Rate Blood Pressure 106/47 123/51 106/47 O2 Sat by Pulse 100 100 Oximetry 04/14/18 04/14/18 04/14/18 09:15 09:30 09:37 Temperature Pulse Rate 79 80 Pulse Rate [ From Monitor] Respiratory 19 14 Rate Blood Pressure 106/47 105/44 O2 Sat by Pulse 100 100 100 Oximetry 04/14/18 04/14/18 04/14/18 09:45 10:00 10:07 Temperature Pulse Rate 86 83 82 Pulse Rate [ From Monitor] Respiratory 18 18 Rate Blood Pressure 105/44 119/48 110/48 O2 Sat by Pulse 100 100 Oximetry 04/14/18 04/14/18 04/14/18 10:15 10:30 10:45 Temperature Pulse Rate 84 82 81 Pulse Rate [ From Monitor] Respiratory 18 18 17 Rate Blood Pressure 105/44 114/50 114/50 O2 Sat by Pulse 100 100 100 Oximetry 04/14/18 04/14/18 11:00 11:15 Temperature Pulse Rate 78 79 Pulse Rate [ From Monitor] Respiratory 16 20 Rate Blood Pressure 117/54 117/54 O2 Sat by Pulse 100 100 Oximetry Constitutional: appears uncomfortable, other (Elderly looking morbidly obese CM, normocephalic and atraumatic with mildly increased respiratory effort at rest) Eyes: non-icteric ENT: oropharynx moist, other (Mallampati 3) Neck: supple, no lymphadenopathy, no JVD, other (no thyromegaly) Effort: mildly labored Ascultation: Bilateral: clear, diminished breath sounds Percussion: Bilateral: not dull Cardiovascular: regular rate and rhythm Gastrointestinal: hypoactive bowel sounds, soft, non-tender, non-distended, other (protuberant) Integumentary: normal Extremities: no cyanosis, no edema, pink and warm, pulses normal, no ischemia or petechiae Neurologic: normal mental status, non-focal exam, pupils equal and round, motor strength normal and Psychiatric: depressed CBC and BMP: 04/19/18 14:44 04/18/18 07:04 ABG, PT/INR, D-dimer: ABG POC ABG pH 7.465 (7.35-7.45) H 04/11/18 18:27 POC ABG pCO2 22.2 (35-45) L 04/11/18 18:27 POC ABG pO2 90 (80-105) 04/11/18 18:27 POC ABG HCO3 15.9 04/11/18 18:27 POC ABG Total CO2 17 04/11/18 18:27 POC ABG O2 Sat 98 04/11/18 18:27 PT/INR, D-dimer PT 16.6 Sec. (12.2-14.9) H 04/10/18 17:20 INR 1.26 (0.87-1.13) H 04/10/18 17:20 Abnormal lab findings: Abnormal Labs 04/10/18 04/10/18 04/10/18 17:20 17:20 17:20 WBC RBC 2.95 L Hgb 10.5 L Hct 30.3 L MCV 103 H MCH 36 H MCHC 35 H RDW 16.6 H Plt Count Baso # Seg Neutrophils % Seg Neuts % (Manual) Seg Neutrophils # Seg Neutrophils # Man Eosinophils # (Manual) PT 16.6 H INR 1.26 H POC ABG pH POC ABG pCO2 Chloride 108.8 H Carbon Dioxide BUN 22 H Glucose 190 H Calcium 8.0 L Alkaline Phosphatase 153 H Total Protein 5.9 L Albumin 2.9 L Crossmatch 04/10/18 04/11/18 04/11/18 17:20 05:26 05:26 WBC RBC 2.63 L Hgb 9.2 L Hct 27.1 L MCV 103 H MCH 35 H MCHC RDW 16.6 H Plt Count 105 L Baso # Seg Neutrophils % 70.3 H Seg Neuts % (Manual) Seg Neutrophils # Seg Neutrophils # Man Eosinophils # (Manual) PT INR POC ABG pH POC ABG pCO2 Chloride 110.1 H Carbon Dioxide BUN 30 H Glucose 155 H Calcium 7.8 L Alkaline Phosphatase Total Protein 5.3 L Albumin 2.6 L Crossmatch See Detail 04/11/18 04/11/18 04/11/18 05:26 17:59 18:27 WBC RBC Hgb 9.1 L 8.4 L Hct 26.8 L 24.9 L MCV MCH MCHC RDW Plt Count Baso # Seg Neutrophils % Seg Neuts % (Manual) Seg Neutrophils # Seg Neutrophils # Man Eosinophils # (Manual) PT INR POC ABG pH 7.465 H POC ABG pCO2 22.2 L Chloride Carbon Dioxide BUN Glucose Calcium Alkaline Phosphatase Total Protein Albumin Crossmatch 04/11/18 04/12/18 04/12/18 22:54 07:14 15:10 WBC 18.5 H RBC 2.54 L Hgb 7.4 L 8.7 L 8.3 L Hct 21.8 L 25.0 L 25.0 L MCV 98 H MCH 34 H MCHC 35 H RDW 18.6 H Plt Count 101 L Baso # 0.2 H Seg Neutrophils % 79.8 H Seg Neuts % (Manual) Seg Neutrophils # 14.8 H Seg Neutrophils # Man Eosinophils # (Manual) PT INR POC ABG pH POC ABG pCO2 Chloride Carbon Dioxide BUN Glucose Calcium Alkaline Phosphatase Total Protein Albumin Crossmatch 04/12/18 04/13/18 04/13/18 23:33 03:50 09:16 WBC 15.5 H 11.5 H RBC 1.87 L 2.33 L Hgb 6.3 L 6.4 L 7.8 L Hct 18.4 L* D 18.8 L* 22.6 L MCV 100 H 97 H MCH 34 H 33 H MCHC 35 H RDW 19.7 H 17.7 H Plt Count 97 L 72 L Baso # Seg Neutrophils % Seg Neuts % (Manual) 77.0 H Seg Neutrophils # Seg Neutrophils # Man 11.9 H Eosinophils # (Manual) 0.5 H PT INR POC ABG pH POC ABG pCO2 Chloride Carbon Dioxide BUN Glucose Calcium Alkaline Phosphatase Total Protein Albumin Crossmatch 04/13/18 04/13/18 13:08 13:08 WBC RBC Hgb 8.0 L Hct 23.3 L MCV MCH MCHC RDW Plt Count Baso # Seg Neutrophils % Seg Neuts % (Manual) Seg Neutrophils # Seg Neutrophils # Man Eosinophils # (Manual) PT INR POC ABG pH POC ABG pCO2 Chloride 112.6 H Carbon Dioxide 19 L BUN Glucose 205 H Calcium 6.7 L Alkaline Phosphatase Total Protein Albumin Crossmatch Allied health notes reviewed: nursing
[2018-04-14 14:22] LABS: Hematocrit 21.7 % (35.5-45.6); Hemoglobin 7.5 gm/dl (11.8-15.2); Mean Corpuscular HGB Conc 35 % (32-34); Mean Corpuscular Volume 99 fl (84-94); Red Blood Count 2.19 M/mm3 (3.65-5.03); Red Cell Distribution Width 17.6 % (13.2-15.2)
[2018-04-14 14:27] LABS: Platelet Count 82 K/mm3 (140-440)
[2018-04-14 15:13] LABS: Anisocytosis 2+; Band Neutrophils # (Manual) 0.2 K/mm3; Basophils % (Manual) 0 % (0.0-1.8); Eosinophils % (Manual) 0 % (0.0-4.3); Total Cells Counted 100
--- NOTE | 2018-04-14 23:57 | Progress Note ---
Assessment and Plan Assessment and plan: 63-year-old man who presented complaining of vomiting blood and dark tarry stools Past medical history paroxysmal atrial fibrillation on anticoagulation, takes eliquis , hypertension, obesity, achalasia, has had esophageal surgery 6 Problems Acute upper GI bleed Acute blood loss anemia Paroxysmal atrial fibrillation Obesity Plan GI consult appreciated, keep nothing by mouth, continue protonic drip, status post EGD 04/11 which showed a large blood clot extending from the distal esophagus to the gastric fundus, attempts were made to clear up clots but not successful. There was also moderate to severe esophagitis with mild oozing of blood, patient was injected with epinephrine, sp Repeat EGD , no further bleeding was seen Patient still actively having bloody stools, cont PPI drip, keep NPO Continue serial blood draws, transfuse as needed Continue medications for rate control -Anticoagulation has been discontinued DVT prophylaxis with SCDs Critical care time 35 minutes History Interval history: Review of systems Constitutional: No fevers, no malaise, no joint pains CVS: No chest pain, no orthopnea, no dyspnea on exertion, no pedal edema GI: he had a large maroon stool today Respiratory: No shortness of breath, no wheezing, no coughing Hospitalist Physical - Physical exam Narrative exam: General.: Appears well, no distress, nontoxic HEENT: Moist mucous membranes, extraocular muscles intact, no lymphadenopathy Neck: supple Cardiac: S1-S2 heard Lungs: clear to auscultation bilaterally Abdomen: soft , nontender, nondistended, bowel sounds positive Extremities: no edema clubbing or cyanosis Skin: no rash or lesions Neurologic: no gross focal deficits Psych: calm, and cooperative - Constitutional Vitals: Temp Pulse Resp BP Pulse Ox 98.2 F 75 16 109/40 100 04/14/18 23:49 04/14/18 23:30 04/14/18 23:30 04/14/18 23:30 04/14/18 23:33 General appearance: Present: mild distress, obese Results - Labs CBC & Chem 7: 04/14/18 13:50 04/13/18 13:08 Labs: Laboratory Last Values WBC 9.7 K/mm3 (4.5-11.0) 04/14/18 13:50 RBC 2.19 M/mm3 (3.65-5.03) L 04/14/18 13:50 Hgb 7.5 gm/dl (11.8-15.2) L 04/14/18 13:50 Hct 21.7 % (35.5-45.6) L 04/14/18 13:50 MCV 99 fl (84-94) H 04/14/18 13:50 MCH 34 pg (28-32) H 04/14/18 13:50 MCHC 35 % (32-34) H 04/14/18 13:50 RDW 17.6 % (13.2-15.2) H 04/14/18 13:50 Plt Count 82 K/mm3 (140-440) L 04/14/18 13:50 Lymph % (Auto) Field Cane Scale Clerk 04/13/18 03:50 [place] % (Auto) Field Cane Scale Clerk 04/13/18 03:50 Eos % (Auto) Field Cane Scale Clerk 04/13/18 03:50 Baso % (Auto) Field Cane Scale Clerk 04/13/18 03:50 Lymph # Field Cane Scale Clerk 04/13/18 03:50 [place] # Field Cane Scale Clerk 04/13/18 03:50 Eos # Field Cane Scale Clerk 04/13/18 03:50 Baso # Field Cane Scale Clerk 04/13/18 03:50 Add Manual Diff Complete 04/14/18 13:50 Total Counted 100 04/14/18 13:50 Seg Neutrophils % Field Cane Scale Clerk 04/13/18 03:50 Seg Neuts % (Manual) 81.0 % (40.0-70.0) H 04/14/18 13:50 Band Neutrophils % 2.0 % 04/14/18 13:50 Lymphocytes % (Manual) 13.0 % (13.4-35.0) L 04/14/18 13:50 Reactive Lymphs % (Man) 0 % 04/14/18 13:50 Monocytes % (Manual) 4.0 % (0.0-7.3) 04/14/18 13:50 Eosinophils % (Manual) 0 % (0.0-4.3) 04/14/18 13:50 Basophils % (Manual) 0 % (0.0-1.8) 04/14/18 13:50 Metamyelocytes % 0 % 04/14/18 13:50 Myelocytes % 0 % 04/14/18 13:50 Promyelocytes % 0 % 04/14/18 13:50 Blast Cells % 0 % 04/14/18 13:50 Nucleated RBC % 1.0 % (0.0-0.9) H 04/14/18 13:50 Seg Neutrophils # Field Cane Scale Clerk 04/13/18 03:50 Seg Neutrophils # Man 7.9 K/mm3 (1.8-7.7) H 04/14/18 13:50 Band Neutrophils # 0.2 K/mm3 04/14/18 13:50 Lymphocytes # (Manual) 1.3 K/mm3 (1.2-5.4) 04/14/18 13:50 Abs React Lymphs (Man) 0.0 K/mm3 04/14/18 13:50 Monocytes # (Manual) 0.4 K/mm3 (0.0-0.8) 04/14/18 13:50 Eosinophils # (Manual) 0.0 K/mm3 (0.0-0.4) 04/14/18 13:50 Basophils # (Manual) 0.0 K/mm3 (0.0-0.1) 04/14/18 13:50 Metamyelocytes # 0.0 K/mm3 04/14/18 13:50 Myelocytes # 0.0 K/mm3 04/14/18 13:50 Promyelocytes # 0.0 K/mm3 04/14/18 13:50 Blast Cells # 0.0 K/mm3 04/14/18 13:50 WBC Morphology Not Reportable 04/14/18 13:50 Hypersegmented Neuts Not Reportable 04/14/18 13:50 Hyposegmented Neuts Not Reportable 04/14/18 13:50 Hypogranular Neuts Not Reportable 04/14/18 13:50 Smudge Cells Not Reportable 04/14/18 13:50 Toxic Granulation Not Reportable 04/14/18 13:50 Toxic Vacuolation Not Reportable 04/14/18 13:50 Dohle Bodies Not Reportable 04/14/18 13:50 Pelger-Huet Anomaly Not Reportable 04/14/18 13:50 Adele Rods Not Reportable 04/14/18 13:50 Platelet Estimate Not Reportable 04/14/18 13:50 Clumped Platelets Not Reportable 04/14/18 13:50 Plt Clumps, EDTA Not Reportable 04/14/18 13:50 Large Platelets Not Reportable 04/14/18 13:50 Giant Platelets Not Reportable 04/14/18 13:50 Platelet Satelliting Not Reportable 04/14/18 13:50 Plt Morphology Comment Not Reportable 04/14/18 13:50 RBC Morphology Not Reportable 04/14/18 13:50 Dimorphic RBCs Not Reportable 04/14/18 13:50 Polychromasia Few 04/14/18 13:50 Hypochromasia Not Reportable 04/14/18 13:50 Poikilocytosis Not Reportable 04/14/18 13:50 Anisocytosis 2+ 04/14/18 13:50 Microcytosis Not Reportable 04/14/18 13:50 Macrocytosis Not Reportable 04/14/18 13:50 Spherocytes Not Reportable 04/14/18 13:50 Pappenheimer Bodies Not Reportable 04/14/18 13:50 Sickle Cells Not Reportable 04/14/18 13:50 Target Cells Not Reportable 04/14/18 13:50 Tear Drop Cells Not Reportable 04/14/18 13:50 Ovalocytes Not Reportable 04/14/18 13:50 Helmet Cells Not Reportable 04/14/18 13:50 [place] Bodies Not Reportable 04/14/18 13:50 Edmondson Rings Not Reportable 04/14/18 13:50 Evon Cells Not Reportable 04/14/18 13:50 Bite Cells Not Reportable 04/14/18 13:50 Crenated Cell Not Reportable 04/14/18 13:50 Elliptocytes Not Reportable 04/14/18 13:50 Acanthocytes (Spur) Not Reportable 04/14/18 13:50 Rouleaux Not Reportable 04/14/18 13:50 Hemoglobin C Crystals Not Reportable 04/14/18 13:50 Schistocytes Not Reportable 04/14/18 13:50 Malaria parasites Not Reportable 04/14/18 13:50 Cole Bodies Not Reportable 04/14/18 13:50 Hem Pathologist Commnt No 04/14/18 13:50 PT 16.6 Sec. (12.2-14.9) H 04/10/18 17:20 INR 1.26 (0.87-1.13) H 04/10/18 17:20 APTT 29.3 Sec. (24.2-36.6) 04/10/18 17:20 POC ABG pH 7.465 (7.35-7.45) H 04/11/18 18:27 POC ABG pCO2 22.2 (35-45) L 04/11/18 18:27 POC ABG pO2 90 (80-105) 04/11/18 18:27 POC ABG HCO3 15.9 04/11/18 18:27 POC ABG Total CO2 17 04/11/18 18:27 POC ABG O2 Sat 98 04/11/18 18:27 POC ABG Base Excess -8 04/11/18 18:27 FiO2 28 % 04/11/18 18:27 Sodium 140 mmol/L (137-145) 04/13/18 13:08 Potassium 4.1 mmol/L (3.6-5.0) 04/13/18 13:08 Chloride 112.6 mmol/L (98-107) H 04/13/18 13:08 Carbon Dioxide 19 mmol/L (22-30) L 04/13/18 13:08 Anion Gap 13 mmol/L 04/13/18 13:08 BUN 19 mg/dL (9-20) 04/13/18 13:08 Creatinine 0.8 mg/dL (0.8-1.5) 04/13/18 13:08 Estimated GFR > 60 ml/min 04/13/18 13:08 BUN/Creatinine Ratio 24 % 04/13/18 13:08 Glucose 205 mg/dL (75-100) H 04/13/18 13:08 Calcium 6.7 mg/dL (8.4-10.2) L 04/13/18 13:08 Total Bilirubin 0.70 mg/dL (0.1-1.2) 04/11/18 05:26 AST 20 units/L (5-40) 04/11/18 05:26 ALT 17 units/L (7-56) 04/11/18 05:26 Alkaline Phosphatase 111 units/L (35-129) 04/11/18 05:26 Total Protein 5.3 g/dL (6.3-8.2) L 04/11/18 05:26 Albumin 2.6 g/dL (3.9-5) L 04/11/18 05:26 Albumin/Globulin Ratio 1.0 % 04/11/18 05:26 Blood Type O NEGATIVE 04/10/18 17:20 Antibody Screen Negative 04/10/18 17:20 Crossmatch See Detail 04/10/18 17:20
[2018-04-15] MEDS: LOPRESSOR IV SCH ×5 (03:49→21:18)
[2018-04-15 04:06] LABS: Hemoglobin 6.8 gm/dl (11.8-15.2); Mean Corpuscular HGB Conc 35 % (32-34); Mean Corpuscular Volume 97 fl (84-94); Red Blood Count 2.03 M/mm3 (3.65-5.03); Red Cell Distribution Width 16.5 % (13.2-15.2)
[2018-04-15 04:08] LABS: Hematocrit 19.7 % (35.5-45.6); Platelet Count 63 K/mm3 (140-440)
[2018-04-15 04:44] LABS: Band Neutrophils # (Manual) 0.2 K/mm3; Basophils % (Manual) 0 % (0.0-1.8); Monocytes % (Manual) 0 % (0.0-7.3); Promyelocytes # (Manual) 0.1 K/mm3; Total Cells Counted 100
[2018-04-15 04:45] LABS: Anisocytosis 2+; Macrocytosis Few; Ovalocytes 1+; Platelet Estimate Appears Decreased; Stomatocytes Rare
[2018-04-15 06:24] LABS: Hemoglobin 6.5 gm/dl (11.8-15.2)
[2018-04-15 06:34] LABS: Hematocrit 18.9 % (35.5-45.6)
[2018-04-15] MEDS ORDERED: NACL 0.9% 500 ML 500 ML IV ONE ×2 (06:45→11:20)
--- NOTE | 2018-04-15 09:51 | Progress Note ---
Assessment and Plan Acute gastrointestinal bleed (Upper G.I.) h/o esophagectomy Melena Acute blood loss anemia. Atrial fibrillation with RVR Obesity (possible obesity hypoventilation syndrome) Hypoalbuminemia. Hyperglycemia. - requiring more supportive transfusions - continue to hold pharmacologic anticoagulation -SCDs for VTE prophylaxis - repeat EGD today per my discussions with Dr. Rodriguez -discussed and placed a consult to interventional vascular in the event patient continues to bleed and requires embolization -Accuchecks with glycemic control. Target blood glucose of 140-180mg/dL - Keep NPO for now - PRBC transfusion for Hb < 7.0 (transfuse for higher level depending on rate of fall) - continue PPI drip for now - conitnue prn bronchodilators with pulmonary hygiene per R - continue supplemental oxygen to keep sats > 90% - mobility protocol for pressure ulcer prophylaxis - vasopressors if MAP < 65 mmHg and not fluid responsive - outpatient sleep study - PT/OT as tolerated - continue other care per attending / other consultants -conitnue to monitor and treat in the ICU ... re-evaluate in am & prn .... care plan discussed with patient at bedside Discussed with his family Discussed with GI and interventional vascular services The high probability of a clinically significant, sudden or life-threatening deterioration of the [G.I.] system(s) required my full and direct attention, intervention and personal management. The aggregate critical care time was [31] minutes without overlap. Time includes spent on; [x] Data Review and interpretation [x] Patient assessment and monitoring of vital signs [x] Documentation [x] Medication orders and management Subjective Date of service: 04/15/18 Principal diagnosis: Acute gastrointestinal bleed; Acute blood loss anemia; Atrial fibrillation Interval history: Patient is seen today for: Acute gastrointestinal bleed (Upper G.I.); Melena; Acute blood loss anemia.; Atrial fibrillation with RVR Seen and examined at bedside; 24hour events reviewed; nursing and respiratory care staff consulted; no adverse overnight events reported to me; no emesis overnight; H&H still falling; still with melena overnight + hematochezia rep orted; made NPO again; tentative repeat EGD today( per my discussions with Dr. Rodriguez); He denies acute chest pains or palpitations. Currently getting blood transfusion. Family at the bedside Objective - Exam Narrative Exam: General.: Appears well, no distress, nontoxic HEENT: Moist mucous membranes, extraocular muscles intact, no lymphadenopathy Neck: supple Cardiac: S1-S2 heard Lungs: clear to auscultation bilaterally Abdomen: soft , nontender, nondistended, bowel sounds positive Extremities: no edema clubbing or cyanosis Skin: no rash or lesions Neurologic: no gross focal deficits Psych: calm, and cooperative Vital Signs - 12hr 04/14/18 04/14/18 04/14/18 22:00 22:15 22:19 Temperature Pulse Rate 74 77 80 Respiratory 15 15 Rate Blood Pressure 111/38 111/38 111/38 O2 Sat by Pulse 100 100 Oximetry 04/14/18 04/14/18 04/14/18 22:30 22:45 23:00 Temperature Pulse Rate 78 76 78 Respiratory 15 16 15 Rate Blood Pressure 97/39 97/39 109/40 O2 Sat by Pulse 100 100 100 Oximetry 04/14/18 04/14/18 04/14/18 23:15 23:30 23:33 Temperature Pulse Rate 78 75 Respiratory 17 16 Rate Blood Pressure 109/40 109/40 O2 Sat by Pulse 100 100 Oximetry 04/14/18 04/14/18 04/15/18 23:45 23:49 00:00 Temperature 98.2 F Pulse Rate 76 76 Respiratory 17 17 Rate Blood Pressure 109/40 103/41 O2 Sat by Pulse 100 100 Oximetry 04/15/18 04/15/18 04/15/18 00:15 00:30 00:45 Temperature Pulse Rate 76 76 76 Respiratory 15 16 16 Rate Blood Pressure 103/41 107/39 107/39 O2 Sat by Pulse 100 100 100 Oximetry 04/15/18 04/15/18 04/15/18 01:00 01:15 01:30 Temperature Pulse Rate 77 76 77 Respiratory 15 16 15 Rate Blood Pressure 107/41 107/41 107/43 O2 Sat by Pulse 100 100 100 Oximetry 04/15/18 04/15/18 04/15/18 01:45 02:00 02:15 Temperature Pulse Rate 79 74 74 Respiratory 16 16 16 Rate Blood Pressure 107/43 117/48 117/48 O2 Sat by Pulse 100 100 100 Oximetry 04/15/18 04/15/18 04/15/18 02:30 02:45 03:00 Temperature Pulse Rate 77 76 82 Respiratory 16 16 15 Rate Blood Pressure 107/47 107/47 105/42 O2 Sat by Pulse 100 98 99 Oximetry 04/15/18 04/15/18 04/15/18 03:15 03:30 03:45 Temperature Pulse Rate 80 77 77 Respiratory 16 16 18 Rate Blood Pressure 105/42 99/64 99/64 O2 Sat by Pulse 99 100 100 Oximetry 04/15/18 04/15/18 04/15/18 03:49 04:00 04:15 Temperature 99.0 F Pulse Rate 80 77 79 Respiratory 15 19 Rate Blood Pressure 99/64 114/47 114/47 O2 Sat by Pulse 99 99 Oximetry 04/15/18 04/15/18 04/15/18 04:30 04:45 05:00 Temperature Pulse Rate 87 80 83 Respiratory 17 18 17 Rate Blood Pressure 111/46 111/46 116/45 O2 Sat by Pulse 100 99 99 Oximetry 04/15/18 04/15/18 04/15/18 05:15 05:30 05:45 Temperature Pulse Rate 80 80 81 Respiratory 16 16 16 Rate Blood Pressure 116/45 111/45 111/45 O2 Sat by Pulse 99 99 99 Oximetry 04/15/18 04/15/18 04/15/18 06:00 06:15 06:30 Temperature Pulse Rate 79 80 79 Respiratory 17 19 19 Rate Blood Pressure 115/46 115/46 108/47 O2 Sat by Pulse 100 99 99 Oximetry 04/15/18 04/15/18 06:45 07:00 Temperature Pulse Rate 78 79 Respiratory 19 18 Rate Blood Pressure 108/47 109/43 O2 Sat by Pulse 99 98 Oximetry Constitutional: appears uncomfortable, other (Elderly looking morbidly obese CM, normocephalic and atraumatic with mildly increased respiratory effort at rest) Eyes: non-icteric ENT: oropharynx moist, other (Mallampati 3) Neck: supple, no lymphadenopathy, no JVD, other (no thyromegaly) Effort: mildly labored Ascultation: Bilateral: clear, diminished breath sounds Percussion: Bilateral: not dull Cardiovascular: regular rate and rhythm Gastrointestinal: hypoactive bowel sounds, soft, non-tender, non-distended, o ther (protuberant) Integumentary: normal Extremities: no cyanosis, no edema, pink and warm, pulses normal, no ischemia or petechiae Neurologic: normal mental status, non-focal exam, pupils equal and round, motor strength normal and Psychiatric: depressed CBC and BMP: 04/15/18 05:50 04/15/18 11:08 ABG, PT/INR, D-dimer: ABG POC ABG pH 7.465 (7.35-7.45) H 04/11/18 18:27 POC ABG pCO2 22.2 (35-45) L 04/11/18 18:27 POC ABG pO2 90 (80-105) 04/11/18 18:27 POC ABG HCO3 15.9 04/11/18 18:27 POC ABG Total CO2 17 04/11/18 18:27 POC ABG O2 Sat 98 04/11/18 18:27 PT/INR, D-dimer PT 16.6 Sec. (12.2-14.9) H 04/10/18 17:20 INR 1.26 (0.87-1.13) H 04/10/18 17:20 Abnormal lab findings: Abnormal Labs 04/10/18 04/10/18 04/10/18 17:20 17:20 17:20 WBC RBC 2.95 L Hgb 10.5 L Hct 30.3 L MCV 103 H MCH 36 H MCHC 35 H RDW 16.6 H Plt Count Baso # Seg Neutrophils % Seg Neuts % (Manual) Lymphocytes % (Manual) Nucleated RBC % Seg Neutrophils # Seg Neutrophils # Man Lymphocytes # (Manual) Eosinophils # (Manual) PT 16.6 H INR 1.26 H POC ABG pH POC ABG pCO2 Chloride 108.8 H Carbon Dioxide BUN 22 H Glucose 190 H Calcium 8.0 L Alkaline Phosphatase 153 H Total Protein 5.9 L Albumin 2.9 L Crossmatch 04/10/18 04/11/18 04/11/18 17:20 05:26 05:26 WBC RBC 2.63 L Hgb 9.2 L Hct 27.1 L MCV 103 H MCH 35 H MCHC RDW 16.6 H Plt Count 105 L Baso # Seg Neutrophils % 70.3 H Seg Neuts % (Manual) Lymphocytes % (Manual) Nucleated RBC % Seg Neutrophils # Seg Neutrophils # Man Lymphocytes # (Manual) Eosinophils # (Manual) PT INR POC ABG pH POC ABG pCO2 Chloride 110.1 H Carbon Dioxide BUN 30 H Glucose 155 H Calcium 7.8 L Alkaline Phosphatase Total Protein 5.3 L Albumin 2.6 L Crossmatch See Detail 04/11/18 04/11/18 04/11/18 05:26 17:59 18:27 WBC RBC Hgb 9.1 L 8.4 L Hct 26.8 L 24.9 L MCV MCH MCHC RDW Plt Count Baso # Seg Neutrophils % Seg Neuts % (Manual) Lymphocytes % (Manual) Nucleated RBC % Seg Neutrophils # Seg Neutrophils # Man Lymphocytes # (Manual) Eosinophils # (Manual) PT INR POC ABG pH 7.465 H POC ABG pCO2 22.2 L Chloride Carbon Dioxide BUN Glucose Calcium Alkaline Phosphatase Total Protein Albumin Crossmatch 04/11/18 04/12/18 04/12/18 22:54 07:14 15:10 WBC 18.5 H RBC 2.54 L Hgb 7.4 L 8.7 L 8.3 L Hct 21.8 L 25.0 L 25.0 L MCV 98 H MCH 34 H MCHC 35 H RDW 18.6 H Plt Count 101 L Baso # 0.2 H Seg Neutrophils % 79.8 H Seg Neuts % (Manual) Lymphocytes % (Manual) Nucleated RBC % Seg Neutrophils # 14.8 H Seg Neutrophils # Man Lymphocytes # (Manual) Eosinophils # (Manual) PT INR POC ABG pH POC ABG pCO2 Chloride Carbon Dioxide BUN Glucose Calcium Alkaline Phosphatase Total Protein Albumin Crossmatch 04/12/18 04/13/18 04/13/18 23:33 03:50 09:16 WBC 15.5 H 11.5 H RBC 1.87 L 2.33 L Hgb 6.3 L 6.4 L 7.8 L Hct 18.4 L* D 18.8 L* 22.6 L MCV 100 H 97 H MCH 34 H 33 H MCHC 35 H RDW 19.7 H 17.7 H Plt Count 97 L 72 L Baso # Seg Neutrophils % Seg Neuts % (Manual) 77.0 H Lymphocytes % (Manual) Nucleated RBC % Seg Neutrophils # Seg Neutrophils # Man 11.9 H Lymphocytes # (Manual) Eosinophils # (Manual) 0.5 H PT INR POC ABG pH POC ABG pCO2 Chloride Carbon Dioxide BUN Glucose Calcium Alkaline Phosphatase Total Protein Albumin Crossmatch 04/13/18 04/13/18 04/14/18 13:08 13:08 13:50 WBC RBC 2.19 L Hgb 8.0 L 7.5 L Hct 23.3 L 21.7 L MCV 99 H MCH 34 H MCHC 35 H RDW 17.6 H Plt Count 82 L Baso # Seg Neutrophils % Seg Neuts % (Manual) 81.0 H Lymphocytes % (Manual) 13.0 L Nucleated RBC % 1.0 H Seg Neutrophils # Seg Neutrophils # Man 7.9 H Lymphocytes # (Manual) Eosinophils # (Manual) PT INR POC ABG pH POC ABG pCO2 Chloride 112.6 H Carbon Dioxide 19 L BUN Glucose 205 H Calcium 6.7 L Alkaline Phosphatase Total Protein Albumin Crossmatch 04/15/18 04/15/18 04/15/18 03:48 05:50 07:35 WBC RBC 2.03 L Hgb 6.8 L 6.5 L Hct 19.7 L* 18.9 L* MCV 97 H MCH 34 H MCHC 35 H RDW 16.5 H Plt Count 63 L Baso # Seg Neutrophils % Seg Neuts % (Manual) 75.0 H Lymphocytes % (Manual) Nucleated RBC % 3.0 H Seg Neutrophils # Seg Neutrophils # Man Lymphocytes # (Manual) 0.9 L Eosinophils # (Manual) PT INR POC ABG pH POC ABG pCO2 Chloride Carbon Dioxide BUN Glucose Calcium Alkaline Phosphatase Total Protein Albumin Crossmatch See Detail Allied health notes reviewed: nursing
[2018-04-15] MEDS: ZESTRIL PO SCH (10:15)
[2018-04-15] MEDS ORDERED: NACL 0.9% 1000 ML 1,000 ML ONE (10:43)
[2018-04-15] MEDS: ATARAX PO SCH (10:50)
[2018-04-15] MEDS: NEURONTIN PO SCH ×2 (10:55→22:52)
--- NOTE | 2018-04-15 11:23 | Progress Note ---
Assessment and Plan Assessment and plan: 63-year-old man who presented complaining of vomiting blood and dark tarry stools Past medical history paroxysmal atrial fibrillation on anticoagulation, takes eliquis , hypertension, obesity, achalasia, has had esophageal surgery 6 Problems Acute upper GI bleed Acute blood loss anemia Paroxysmal atrial fibrillation Obesity Plan GI consult appreciated, keep nothing by mouth, continue protonic drip, status post EGD 04/11 which showed a large blood clot extending from the distal esophagus to the gastric fundus, attempts were made to clear up clots but not successful. There was also moderate to severe esophagitis with mild oozing of blood, patient was injected with epinephrine, sp Repeat EGD x2 , no further bleeding was seen -if hemoglobin drops again, will need bleeding scan and IR consult Patient still actively having bloody stools, cont PPI drip, keep NPO Continue serial blood draws, transfuse as needed, sp 3 units, ordered 2 more units as hg is still dropping check PT, PT, thrombin, LFTs, haptoglobulin etc to r/o DIC, he has not been on heparins so HIT is not a differential Continue medications for rate control, metoprolol IV ATC -Anticoagulation has been discontinued DVT prophylaxis with SCDs Critical care time 35 minutes History Interval history: Review of systems Constitutional: No fevers, no malaise, no joint pains CVS: No chest pain, no orthopnea, no dyspnea on exertion, no pedal edema GI: he had a large maroon stool yesterday, no further bleeding Respiratory: No shortness of breath, no wheezing, no coughing Hospitalist Physical - Physical exam Narrative exam: General.: Appears well, no distress, nontoxic HEENT: Moist mucous membranes, extraocular muscles intact, no lymphadenopathy Neck: supple Cardiac: S1-S2 heard Lungs: clear to auscultation bilaterally Abdomen: soft , nontender, nondistended, bowel sounds positive Extremities: no edema clubbing or cyanosis Skin: no rash or lesions Neurologic: no gross focal deficits Psych: calm, and cooperative - Constitutional Vitals: Temp Pulse Resp BP Pulse Ox 98.6 F 79 18 109/43 98 04/15/18 08:00 04/15/18 07:00 04/15/18 07:00 04/15/18 07:00 04/15/18 07:00 General appearance: Present: mild distress, obese Results - Labs CBC & Chem 7: 04/15/18 05:50 04/15/18 11:08 Labs: Laboratory Last Values WBC 6.1 K/mm3 (4.5-11.0) 04/15/18 03:48 RBC 2.03 M/mm3 (3.65-5.03) L 04/15/18 03:48 Hgb 6.5 gm/dl (11.8-15.2) L 04/15/18 05:50 Hct 18.9 % (35.5-45.6) L* 04/15/18 05:50 MCV 97 fl (84-94) H 04/15/18 03:48 MCH 34 pg (28-32) H 04/15/18 03:48 MCHC 35 % (32-34) H 04/15/18 03:48 RDW 16.5 % (13.2-15.2) H 04/15/18 03:48 Plt Count 63 K/mm3 (140-440) L 04/15/18 03:48 Lymph % (Auto) Matt[employer] Filling Machine Tender 04/13/18 03:50 [place] % (Auto) Mattress Filling Machine Tender 04/13/18 03:50 Eos % (Auto) Mattress Filling Machine Tender 04/13/18 03:50 Baso % (Auto) Matt[employer] Filling Machine Tender 04/13/18 03:50 Lymph # Matt[employer] Filling Machine Tender 04/13/18 03:50 [place] # Mattress Filling Machine Tender 04/13/18 03:50 Eos # Mattress Filling Machine Tender 04/13/18 03:50 Baso # Mattress Filling Machine Tender 04/13/18 03:50 Add Manual Diff Complete 04/15/18 03:48 Total Counted 100 04/15/18 03:48 Seg Neutrophils % Matt[employer] Filling Machine Tender 04/13/18 03:50 Seg Neuts % (Manual) 75.0 % (40.0-70.0) H 04/15/18 03:48 Band Neutrophils % 4.0 % 04/15/18 03:48 Lymphocytes % (Manual) 15.0 % (13.4-35.0) 04/15/18 03:48 Reactive Lymphs % (Man) 0 % 04/15/18 03:48 Monocytes % (Manual) 0 % (0.0-7.3) 04/15/18 03:48 Eosinophils % (Manual) 2.0 % (0.0-4.3) 04/15/18 03:48 Basophils % (Manual) 0 % (0.0-1.8) 04/15/18 03:48 Metamyelocytes % 3.0 % 04/15/18 03:48 Myelocytes % 0 % 04/15/18 03:48 Promyelocytes % 1.0 % 04/15/18 03:48 Blast Cells % 0 % 04/15/18 03:48 Nucleated RBC % 3.0 % (0.0-0.9) H 04/15/18 03:48 Seg Neutrophils # Mattress Filling Machine Tender 04/13/18 03:50 Seg Neutrophils # Man 4.6 K/mm3 (1.8-7.7) 04/15/18 03:48 Band Neutrophils # 0.2 K/mm3 04/15/18 03:48 Lymphocytes # (Manual) 0.9 K/mm3 (1.2-5.4) L 04/15/18 03:48 Abs React Lymphs (Man) 0.0 K/mm3 04/15/18 03:48 Monocytes # (Manual) 0.0 K/mm3 (0.0-0.8) 04/15/18 03:48 Eosinophils # (Manual) 0.1 K/mm3 (0.0-0.4) 04/15/18 03:48 Basophils # (Manual) 0.0 K/mm3 (0.0-0.1) 04/15/18 03:48 Metamyelocytes # 0.2 K/mm3 04/15/18 03:48 Myelocytes # 0.0 K/mm3 04/15/18 03:48 Promyelocytes # 0.1 K/mm3 04/15/18 03:48 Blast Cells # 0.0 K/mm3 04/15/18 03:48 WBC Morphology Not Reportable 04/15/18 03:48 Hypersegmented Neuts Not Reportable 04/15/18 03:48 Hyposegmented Neuts Not Reportable 04/15/18 03:48 Hypogranular Neuts Not Reportable 04/15/18 03:48 Smudge Cells Not Reportable 04/15/18 03:48 Toxic Granulation Not Reportable 04/15/18 03:48 Toxic Vacuolation Not Reportable 04/15/18 03:48 Dohle Bodies Not Reportable 04/15/18 03:48 Pelger-Huet Anomaly Not Reportable 04/15/18 03:48 Adele Rods Not Reportable 04/15/18 03:48 Platelet Estimate Appears decreased 04/15/18 03:48 Clumped Platelets Not Reportable 04/15/18 03:48 Plt Clumps, EDTA Not Reportable 04/15/18 03:48 Large Platelets Not Reportable 04/15/18 03:48 Giant Platelets Not Reportable 04/15/18 03:48 Platelet Satelliting Not Reportable 04/15/18 03:48 Plt Morphology Comment Not Reportable 04/15/18 03:48 RBC Morphology Not Reportable 04/15/18 03:48 Dimorphic RBCs Not Reportable 04/15/18 03:48 Polychromasia Few 04/15/18 03:48 Hypochromasia Not Reportable 04/15/18 03:48 Poikilocytosis Not Reportable 04/15/18 03:48 Anisocytosis 2+ 04/15/18 03:48 Microcytosis Not Reportable 04/15/18 03:48 Macrocytosis Few 04/15/18 03:48 Spherocytes Not Reportable 04/15/18 03:48 Pappenheimer Bodies Not Reportable 04/15/18 03:48 Sickle Cells Not Reportable 04/15/18 03:48 Target Cells Not Reportable 04/15/18 03:48 Tear Drop Cells Not Reportable 04/15/18 03:48 Ovalocytes 1+ 04/15/18 03:48 Stomatocytes Rare 04/15/18 03:48 Helmet Cells Not Reportable 04/15/18 03:48 Ghosh-[place] Bodies Not Reportable 04/15/18 03:48 [place] Rings Not Reportable 04/15/18 03:48 Evon Cells Not Reportable 04/15/18 03:48 Bite Cells Not Reportable 04/15/18 03:48 Crenated Cell Not Reportable 04/15/18 03:48 Elliptocytes Not Reportable 04/15/18 03:48 Acanthocytes (Spur) Not Reportable 04/15/18 03:48 Rouleaux Not Reportable 04/15/18 03:48 Hemoglobin C Crystals Not Reportable 04/15/18 03:48 Schistocytes Not Reportable 04/15/18 03:48 Malaria parasites Not Reportable 04/15/18 03:48 Cole Bodies Not Reportable 04/15/18 03:48 Hem Pathologist Commnt No 04/15/18 03:48 PT 16.6 Sec. (12.2-14.9) H 04/10/18 17:20 INR 1.26 (0.87-1.13) H 04/10/18 17:20 APTT 29.3 Sec. (24.2-36.6) 04/10/18 17:20 POC ABG pH 7.465 (7.35-7.45) H 04/11/18 18:27 POC ABG pCO2 22.2 (35-45) L 04/11/18 18:27 POC ABG pO2 90 (80-105) 04/11/18 18:27 POC ABG HCO3 15.9 04/11/18 18:27 POC ABG Total CO2 17 04/11/18 18:27 POC ABG O2 Sat 98 04/11/18 18:27 POC ABG Base Excess -8 04/11/18 18:27 FiO2 28 % 04/11/18 18:27 Sodium 140 mmol/L (137-145) 04/13/18 13:08 Potassium 4.1 mmol/L (3.6-5.0) 04/13/18 13:08 Chloride 112.6 mmol/L (98-107) H 04/13/18 13:08 Carbon Dioxide 19 mmol/L (22-30) L 04/13/18 13:08 Anion Gap 13 mmol/L 04/13/18 13:08 BUN 19 mg/dL (9-20) 04/13/18 13:08 Creatinine 0.8 mg/dL (0.8-1.5) 04/13/18 13:08 Estimated GFR > 60 ml/min 04/13/18 13:08 BUN/Creatinine Ratio 24 % 04/13/18 13:08 Glucose 205 mg/dL (75-100) H 04/13/18 13:08 Calcium 6.7 mg/dL (8.4-10.2) L 04/13/18 13:08 Total Bilirubin 0.70 mg/dL (0.1-1.2) 04/11/18 05:26 AST 20 units/L (5-40) 04/11/18 05:26 ALT 17 units/L (7-56) 04/11/18 05:26 Alkaline Phosphatase 111 units/L (35-129) 04/11/18 05:26 Total Protein 5.3 g/dL (6.3-8.2) L 04/11/18 05:26 Albumin 2.6 g/dL (3.9-5) L 04/11/18 05:26 Albumin/Globulin Ratio 1.0 % 04/11/18 05:26 Blood Type O NEGATIVE 04/15/18 07:35 Antibody Screen Negative 04/15/18 07:35 Crossmatch See Detail 04/15/18 07:35
[2018-04-15] MEDS ORDERED: REGLAN IV STA (11:31)
--- NOTE | 2018-04-15 11:36 | Event Note ---
Date: 04/15/18 Contacted regarding GI bleeding. Patient is status post distal esophagectomy with bleeding at the angel GE junction. GI will scope patient. May need left gastric artery embolization. Downside of embolization is development of possible upper GI ischemia which is nearly unheard of in a with patient without surgery, but can infrequently happen in a postoperative stomach/esophagus. Recommend general surgery consult as well.
[2018-04-15 12:13] LABS: BUN/Creatinine Ratio 16; Blood Urea Nitrogen 13 mg/dL (9-20); Calcium 6.8 mg/dL (8.4-10.2); Hemolysis Index 10
--- NOTE | 2018-04-15 13:02 | Gastroenterology Progress Note ---
Assessment and Plan 1.UGIB 2.H/o achalasia (s/p partial esophagectomy) 3.Afib on anticoagulation -H/H 6.5/18.1-trended down- unit PRBCs transfusing now -continue to monitor H/H and transfuse as needed -s/p EGD 04/11 that showed large blood clot in lower esophagus extending to proximal stomach with visualization limited -s/p repeat EGD 04/12 that revealed an esophageal ulcer with visible vessel and heme spots s/p clip placement and gold probe -CTA 04/13 negative for active bleeding -clinically, patient is currently HD stable but reports BM overnight with possibly bloody stool. No N/V or abd pain. -repeat EGD today -recommend IR consult for poossible embolization -Keep NPO -continue protonix drip -continue to hold Eliquis) -continue supportive care -will follow Subjective Date of service: 04/15/18 Principal diagnosis: GI bleed Interval history: Patient with noted drop in H/H overnight along with BM with reported possibly bloody stool. Currently HD stable. Denies N/V or abd pain. Objective - Constitutional Vitals: Temp Pulse Resp BP Pulse Ox 98.0 F 79 18 109/43 99 04/15/18 12:00 04/15/18 07:00 04/15/18 07:00 04/15/18 07:00 04/15/18 10:00 General appearance: no acute distress - Respiratory Respiratory: bilateral: CTA - Cardiovascular Rhythm: regular Heart Sounds: Present: S1 & S2 - Gastrointestinal General gastrointestinal: Present: soft, non-tender, non-distended, normal bowel sounds - Labs CBC & Chem 7: 04/15/18 05:50 04/15/18 11:08 Labs: Laboratory Results - last 24 hr 04/14/18 04/15/18 04/15/18 13:50 03:48 05:50 WBC 9.7 6.1 RBC 2.19 L 2.03 L Hgb 7.5 L 6.8 L 6.5 L Hct 21.7 L 19.7 L* 18.9 L* MCV 99 H 97 H MCH 34 H 34 H MCHC 35 H 35 H RDW 17.6 H 16.5 H Plt Count 82 L 63 L Add Manual Diff Complete Complete Total Counted 100 100 Seg Neuts % (Manual) 81.0 H 75.0 H Band Neutrophils % 2.0 4.0 Lymphocytes % (Manual) 13.0 L 15.0 Reactive Lymphs % (Man) 0 0 Monocytes % (Manual) 4.0 0 Eosinophils % (Manual) 0 2.0 Basophils % (Manual) 0 0 Metamyelocytes % 0 3.0 Myelocytes % 0 0 Promyelocytes % 0 1.0 Blast Cells % 0 0 Nucleated RBC % 1.0 H 3.0 H Seg Neutrophils # Man 7.9 H 4.6 Band Neutrophils # 0.2 0.2 Lymphocytes # (Manual) 1.3 0.9 L Abs React Lymphs (Man) 0.0 0.0 Monocytes # (Manual) 0.4 0.0 Eosinophils # (Manual) 0.0 0.1 Basophils # (Manual) 0.0 0.0 Metamyelocytes # 0.0 0.2 Myelocytes # 0.0 0.0 Promyelocytes # 0.0 0.1 Blast Cells # 0.0 0.0 WBC Morphology Not Reportable Not Reportable Hypersegmented Neuts Not Reportable Not Reportable Hyposegmented Neuts Not Reportable Not Reportable Hypogranular Neuts Not Reportable Not Reportable Smudge Cells Not Reportable Not Reportable Toxic Granulation Not Reportable Not Reportable Toxic Vacuolation Not Reportable Not Reportable Dohle Bodies Not Reportable Not Reportable Pelger-Huet Anomaly Not Reportable Not Reportable Adele Rods Not Reportable Not Reportable Platelet Estimate Not Reportable Appears decreased Clumped Platelets Not Reportable Not Reportable Plt Clumps, EDTA Not Reportable Not Reportable Large Platelets Not Reportable Not Reportable Giant Platelets Not Reportable Not Reportable Platelet Satelliting Not Reportable Not Reportable Plt Morphology Comment Not Reportable Not Reportable RBC Morphology Not Reportable Not Reportable Dimorphic RBCs Not Reportable Not Reportable Polychromasia Few Few Hypochromasia Not Reportable Not Reportable Poikilocytosis Not Reportable Not Reportable Anisocytosis 2+ 2+ Microcytosis Not Reportable Not Reportable Macrocytosis Not Reportable Few Spherocytes Not Reportable Not Reportable Pappenheimer Bodies Not Reportable Not Reportable Sickle Cells Not Reportable Not Reportable Target Cells Not Reportable Not Reportable Tear Drop Cells Not Reportable Not Reportable Ovalocytes Not Reportable 1+ Stomatocytes Rare Helmet Cells Not Reportable Not Reportable Ghosh-[place] Bodies Not Reportable Not Reportable [place] Rings Not Reportable Not Reportable Evon Cells Not Reportable Not Reportable Bite Cells Not Reportable Not Reportable Crenated Cell Not Reportable Not Reportable Elliptocytes Not Reportable Not Reportable Acanthocytes (Spur) Not Reportable Not Reportable Rouleaux Not Reportable Not Reportable Hemoglobin C Crystals Not Reportable Not Reportable Schistocytes Not Reportable Not Reportable Malaria parasites Not Reportable Not Reportable Cole Bodies Not Reportable Not Reportable Hem Pathologist Commnt No No Sodium Potassium Chloride Carbon Dioxide Anion Gap BUN Creatinine Estimated GFR BUN/Creatinine Ratio Glucose Calcium Blood Type Antibody Screen Crossmatch 04/15/18 04/15/18 07:35 11:08 WBC RBC Hgb Hct MCV MCH MCHC RDW Plt Count Add Manual Diff Total Counted Seg Neuts % (Manual) Band Neutrophils % Lymphocytes % (Manual) Reactive Lymphs % (Man) Monocytes % (Manual) Eosinophils % (Manual) Basophils % (Manual) Metamyelocytes % Myelocytes % Promyelocytes % Blast Cells % Nucleated RBC % Seg Neutrophils # Man Band Neutrophils # Lymphocytes # (Manual) Abs React Lymphs (Man) Monocytes # (Manual) Eosinophils # (Manual) Basophils # (Manual) Metamyelocytes # Myelocytes # Promyelocytes # Blast Cells # WBC Morphology Hypersegmented Neuts Hyposegmented Neuts Hypogranular Neuts Smudge Cells Toxic Granulation Toxic Vacuolation Dohle Bodies Pelger-Huet Anomaly Adele Rods Platelet Estimate Clumped Platelets Plt Clumps, EDTA Large Platelets Giant Platelets Platelet Satelliting Plt Morphology Comment RBC Morphology Dimorphic RBCs Polychromasia Hypochromasia Poikilocytosis Anisocytosis Microcytosis Macrocytosis Spherocytes Pappenheimer Bodies Sickle Cells Target Cells Tear Drop Cells Ovalocytes Stomatocytes Helmet Cells Ghosh-[place] Bodies [place] Rings Evon Cells Bite Cells Crenated Cell Elliptocytes Acanthocytes (Spur) Rouleaux Hemoglobin C Crystals Schistocytes Malaria parasites Cole Bodies Hem Pathologist Commnt Sodium 139 Potassium 3.6 Chloride 109.0 H Carbon Dioxide 23 Anion Gap 11 BUN 13 Creatinine 0.8 Estimated GFR > 60 BUN/Creatinine Ratio 16 Glucose 112 H Calcium 6.8 L Blood Type O NEGATIVE Antibody Screen Negative Crossmatch See Detail
[2018-04-15] MEDS ORDERED: VERSED ONE (14:10)
[2018-04-15] MEDS ORDERED: DIPRIVAN 10 MG/ML IV ONE (14:10)
[2018-04-15] MEDS ORDERED: XYLOCAINE 2% INFILTRATI ONE (14:15)
--- NOTE | 2018-04-15 15:07 | Operative Report ---
Operative Report Operative Report: Esophagogastroduodenoscopy Procedure Note Date of procedure: 04/15/2018 Endoscopist: Grupo Rodriguez Pre-op diagnosis: GI bleeding Post-op diagnosis: Lower esophageal ulcer with prior clip placement; prior heller myotomy with partial gastric wrap and suture Anesthesia: MAC Complications: No immediate complications Estimated blood loss: None Procedure: After consent was obtained, the patient was placed in the left lateral decubitus position. The [employer] endoscope was inserted into the patient's mouth under direct vision, and advanced into the 2nd portion of the duodenum without difficulty. The patient tolerated the procedure well. The views of the mucosa were good. Patient's vital signs were monitored continuously throughout the procedure. Findings: The lower esophagus was mildly dilated with prior area of superficial ulcer visualized. The endoclips were present and there was no bleeding or high risk bleeding lesions at this site. The rest of the esophagus did not show any high risk bleeding lesions. There was evidence of prior heller myotomy and partial gastric wrap in the lower esophagus. A suture was seen on retroflexion view. The stomach otherwise appeared normal. The duodenum appeared normal with bile seen throughout the visualized duodenum. Impression: 1. Prior esophageal ulcer with endoclips with no bleeding 2. Heller myotomy with partial gastric wrap and suture without bleeding 3. No high risk bleeding lesions or blood seen during the procedure Recommendations: -monitor H/H -work-up for worsening thrombocytopenia per primary team -if rebleeds/hematochezia, would prep for colonoscopy however no evidence of this at present time -monitor in ICU for time being
--- NOTE | 2018-04-15 15:16 | Anesthesia Day of Surgery ---
Anesthesia Day of Surgery - Day of Surgery Patient Examined: Yes Patient H&P Reviewed: Yes Patient is NPO: Yes
--- NOTE | 2018-04-15 15:18 | Anesthesia Consultation ---
Anesthesia Consult and Med Hx Date of service: 04/15/18 - Airway Anesthetic Teeth Evaluation: Good ROM Head & Neck: Adequate Mental/Hyoid Distance: Adequate Mallampati Class: Class III Intubation Access Assessment: Good - Pulmonary Exam CTA: Yes - Cardiac Exam Cardiac Exam: No Murmur - Pre-Operative Health Status ASA Pre-Surgery Classification: ASA3 Proposed Anesthetic Plan: MAC - Pulmonary Hx Smoking: Yes - Cardiovascular System Hx Hypertension: Yes (on metoprolol) - Central Nervous System Hx Neuromuscular Disorder: No (achlasia ) Hx Seizures: No CVA: No - Gastrointestinal Hx Ulcer: No Hx Gastroesophageal Reflux Disease: Yes (achlasis s/p partial esophagectomy ) - Hematic Hx Anemia: Yes (Hgb 9.1 (downtrending) secondary to hematemisis) - Additional Comments Anesthesia Medical History Comments: ASA 3E 63 y.o. obese male w/ HTN on b- cooper, Atrial Fib on eliquis (last taken 04/10), and achalasia S/P Esophageal Surgery presents to hosptial with hematemsis. Yesterday, EGD done under MAC but decision to repeat EGD for better surgical exposure was made for today. Will proceed with General endotracheal tube under direct visualization with CMAC.
[2018-04-15] MEDS: CARDIZEM IV PRN (17:18)
[2018-04-15 19:55] LABS: Hematocrit 24.7 % (35.5-45.6); Hemoglobin 8.6 gm/dl (11.8-15.2)
[2018-04-15 20:08] LABS: INR 1.18 (0.87-1.13)
[2018-04-15 20:09] LABS: Fibrinogen 170 mg/dl (211-480)
[2018-04-15] MEDS ORDERED: GOLYTELY PO ONE (20:09)
[2018-04-15 20:15] LABS: Albumin 1.8 g/dL (3.9-5); Bilirubin,Direct 0.4 mg/dL (0-0.2)
[2018-04-15 20:17] LABS: Partial Thromboplastin Time < 20.0 Sec. (24.2-36.6)
[2018-04-15] MEDS: ZOFRAN IV PRN (21:16)
[2018-04-15] MEDS: SODIUM CHLORIDE FLUSH SYRINGE 10 ML IV SCH ×2 (21:16→22:49)
[2018-04-15 23:14] LABS: Hematocrit 24.2 % (35.5-45.6); Hemoglobin 8.4 gm/dl (11.8-15.2)
[2018-04-16] MEDS: LOPRESSOR IV SCH ×4 (00:30→12:05)
[2018-04-16] MEDS: ZOFRAN IV PRN ×2 (00:36→06:59)
[2018-04-16 06:02] LABS: Hematocrit 21.5 % (35.5-45.6); Hemoglobin 7.3 gm/dl (11.8-15.2); Mean Corpuscular HGB Conc 34 % (32-34); Mean Corpuscular Volume 96 fl (84-94); Red Blood Count 2.24 M/mm3 (3.65-5.03); Red Cell Distribution Width 16.9 % (13.2-15.2)
[2018-04-16 06:05] LABS: Platelet Count 56 K/mm3 (140-440)
[2018-04-16 06:51] LABS: Anisocytosis 2+; Basophils % (Manual) 0 % (0.0-1.8); Eosinophils % (Manual) 0 % (0.0-4.3); Large Platelets Rare; Ovalocytes 1+; Total Cells Counted 100
[2018-04-16 06:52] LABS: Platelet Estimate Appears Decreased
--- NOTE | 2018-04-16 09:09 | Progress Note ---
Assessment and Plan Assessment and plan: Assessment and plan Acute Thrombocytopenia, ? reactive r/o other etiologies Hematology consult consider possible platelet transfusion,.will d.w heme' bleeding precautions at all times Acute Blood Loss Anemia s/p PRBC GI team on board s/p EGDs and Colonoscopy close monitoring of H/H Chronic Afib, rate controlled, s/p RVR episode Cardio consult for reccs Hold Lopressor for now due to low diastolic BP f/u cardio eval pt was on Home lopressor continue Cardizem BUE edema suspect 2/2 Fluid Overload r/o other etiology obtain Venous doppler of BUE to eval for DVT, less likely wound care consult Upper GI bleed, massive slowing down GI on board s./p Panendoscopy continue Protoix drip h/o Esophagectomy supportive care h/o Chronic anticoagulation continue to hold Eliquis Obesity supportive care Acute physical debility/ Critical illness Myopathy Monitor closely PT eval later Generalized weakness 2/2 above supportive care Full code status Pt remains critically sick and is at risk of deterioration, increased morbidity and mortality including loss of life and body parts due to above life threatening medical diagnosis. More than 45 mins spent. Disposition Plan: per hospital course, Hematology eval and reccs Total Time Spent with Patient (Minutes): More than 45 mins spent History Interval history: HPI on 04/10/18: History of present illness: 63 YO Male with HTN, Obesity, Atrial Fib currently on Therapeutic Anticoagulation (Eliquis), Achalasia S/P Esophageal Surgery presents to ED for evaluation. Pt states that he has experienced multiple episodes of throwing up blood, as well as dark tarry stools. Pt states that he awoke from sleep at 0300hrs with "a few globs of blood that I spit up." Pt returned to sleep, and whe he awoke this morning he experienced gross hematemesis with bright red blood as well as multiple dark tarry stools. Pt subsequently transported to [facility] by his family for further care and evaluation. Pt seen and evaluated in ED and found to have GI Bleed. GI consulted. Pt admitted to [facility] and initiated on PPI therapy. PT denies fever, chills, CP, Palpitations, Abdominal Pain, productive cough, trauma, skin rash, or recent ill contacts. Brief hospital course: Pt was admitted to the hospital medicine service on 04/10/18 with acute GI bleed and Acute blood loss Anemia. He has since had multiple PRBC transfusions. He has also been seen by GI and has undergone EGD and Colonoscopy. Platelet on admission was 150's, but unfortunately, has progressively trended down to 56K today. There's a probability that pt's low platelet may also be contributory to his blood loss. Consult has been placed for Hematology eval and recommendations. Pt has known Afib and was on Chronic Eliquis prior to this hospitalization. Diastolic BP has been borderline. Subjective: Pt was seen and exam this am. Noted to be edematous with BLE edema with erythema on anterior surfaces of BUE. Oozing of fluid was also noted on the Right wrist region. Case was d.w the GI team, repeat EGD was planned for today. Black stool noted during this encounter. specialists documentations and recommendations greatly appreciated. Hospitalist Physical - Constitutional Vitals: Temp Pulse Resp BP Pulse Ox 98.6 F 79 15 113/40 98 04/16/18 07:59 04/16/18 08:15 04/16/18 08:15 04/16/18 08:15 04/16/18 08:15 General appearance: Present: no acute distress, well-nourished, obese, other (Acutely ill appearing) - EENT Eyes: Present: PERRL, EOM intact ENT: hearing intact, clear oral mucosa, other (whitish coating on the tongue) - Neck Neck: Present: supple, normal ROM - Respiratory Respiratory: bilateral: diminished, rhonchi, negative: other (coarse AE bilaterally) - Cardiovascular Rhythm: regularly irregular Heart Sounds: Present: S1 & S2 - Extremities Extremities: pulses intact, pulses symmetrical, normal temperature Extremity abnormal: edema, erythema - Abdominal General gastrointestinal: soft, tender (epigastric), normal bowel sounds (protuberant, surgical scar noted) - Integumentary Integumentary: Present: clear, warm, dry, erythema - Psychiatric Psychiatric: appropriate mood/affect, intact judgment & insight, cooperative - Neurologic Neurologic: CNII-XII intact, moves all extremities - Allied Health Allied health notes reviewed: nursing, RT, social work, case management Results - Labs CBC & Chem 7: 04/16/18 13:40 04/15/18 11:08 Labs: Laboratory Last Values WBC 4.7 K/mm3 (4.5-11.0) 04/16/18 05:10 RBC 2.24 M/mm3 (3.65-5.03) L 04/16/18 05:10 Hgb 7.3 gm/dl (11.8-15.2) L 04/16/18 05:10 Hct 21.5 % (35.5-45.6) L 04/16/18 05:10 MCV 96 fl (84-94) H 04/16/18 05:10 MCH 33 pg (28-32) H 04/16/18 05:10 MCHC 34 % (32-34) 04/16/18 05:10 RDW 16.9 % (13.2-15.2) H 04/16/18 05:10 Plt Count 56 K/mm3 (140-440) L 04/16/18 05:10 Lymph % (Auto) Accounts Clerk 04/13/18 03:50 [place] % (Auto) Accounts Clerk 04/13/18 03:50 Eos % (Auto) Accounts Clerk 04/13/18 03:50 Baso % (Auto) Accounts Clerk 04/13/18 03:50 Lymph # Accounts Clerk 04/13/18 03:50 [place] # Accounts Clerk 04/13/18 03:50 Eos # Accounts Clerk 04/13/18 03:50 Baso # Accounts Clerk 04/13/18 03:50 Add Manual Diff Complete 04/16/18 05:10 Total Counted 100 04/16/18 05:10 Seg Neutrophils % Accounts Clerk 04/13/18 03:50 Seg Neuts % (Manual) 69.0 % (40.0-70.0) 04/16/18 05:10 Band Neutrophils % 1.0 % 04/16/18 05:10 Lymphocytes % (Manual) 17.0 % (13.4-35.0) 04/16/18 05:10 Reactive Lymphs % (Man) 0 % 04/16/18 05:10 Monocytes % (Manual) 8.0 % (0.0-7.3) H 04/16/18 05:10 Eosinophils % (Manual) 0 % (0.0-4.3) 04/16/18 05:10 Basophils % (Manual) 0 % (0.0-1.8) 04/16/18 05:10 Metamyelocytes % 4.0 % 04/16/18 05:10 Myelocytes % 1.0 % 04/16/18 05:10 Promyelocytes % 0 % 04/16/18 05:10 Blast Cells % 0 % 04/16/18 05:10 Nucleated RBC % 3.0 % (0.0-0.9) H 04/16/18 05:10 Seg Neutrophils # Accounts Clerk 04/13/18 03:50 Seg Neutrophils # Man 3.2 K/mm3 (1.8-7.7) 04/16/18 05:10 Band Neutrophils # 0.0 K/mm3 04/16/18 05:10 Lymphocytes # (Manual) 0.8 K/mm3 (1.2-5.4) L 04/16/18 05:10 Abs React Lymphs (Man) 0.0 K/mm3 04/16/18 05:10 Monocytes # (Manual) 0.4 K/mm3 (0.0-0.8) 04/16/18 05:10 Eosinophils # (Manual) 0.0 K/mm3 (0.0-0.4) 04/16/18 05:10 Basophils # (Manual) 0.0 K/mm3 (0.0-0.1) 04/16/18 05:10 Metamyelocytes # 0.2 K/mm3 04/16/18 05:10 Myelocytes # 0.0 K/mm3 04/16/18 05:10 Promyelocytes # 0.0 K/mm3 04/16/18 05:10 Blast Cells # 0.0 K/mm3 04/16/18 05:10 WBC Morphology Not Reportable 04/16/18 05:10 Hypersegmented Neuts Not Reportable 04/16/18 05:10 Hyposegmented Neuts Not Reportable 04/16/18 05:10 Hypogranular Neuts Not Reportable 04/16/18 05:10 Smudge Cells Not Reportable 04/16/18 05:10 Toxic Granulation Not Reportable 04/16/18 05:10 Toxic Vacuolation Not Reportable 04/16/18 05:10 Dohle Bodies Not Reportable 04/16/18 05:10 Pelger-Huet Anomaly Not Reportable 04/16/18 05:10 Adele Rods Not Reportable 04/16/18 05:10 Platelet Estimate Appears decreased 04/16/18 05:10 Clumped Platelets Not Reportable 04/16/18 05:10 Plt Clumps, EDTA Not Reportable 04/16/18 05:10 Large Platelets Rare 04/16/18 05:10 Giant Platelets Not Reportable 04/16/18 05:10 Platelet Satelliting Not Reportable 04/16/18 05:10 Plt Morphology Comment Not Reportable 04/16/18 05:10 RBC Morphology Not Reportable 04/16/18 05:10 Dimorphic RBCs Not Reportable 04/16/18 05:10 Polychromasia Few 04/16/18 05:10 Hypochromasia Not Reportable 04/16/18 05:10 Poikilocytosis Not Reportable 04/16/18 05:10 Anisocytosis 2+ 04/16/18 05:10 Microcytosis Not Reportable 04/16/18 05:10 Macrocytosis Not Reportable 04/16/18 05:10 Spherocytes Not Reportable 04/16/18 05:10 Pappenheimer Bodies Not Reportable 04/16/18 05:10 Sickle Cells Not Reportable 04/16/18 05:10 Target Cells Not Reportable 04/16/18 05:10 Tear Drop Cells Not Reportable 04/16/18 05:10 Ovalocytes 1+ 04/16/18 05:10 Stomatocytes Rare 04/15/18 03:48 Helmet Cells Not Reportable 04/16/18 05:10 [place] Bodies Not Reportable 04/16/18 05:10 [place] Rings Not Reportable 04/16/18 05:10 [place] Cells Not Reportable 04/16/18 05:10 Bite Cells Not Reportable 04/16/18 05:10 Crenated Cell Not Reportable 04/16/18 05:10 Elliptocytes Rare 04/16/18 05:10 Acanthocytes (Spur) Not Reportable 04/16/18 05:10 Rouleaux Not Reportable 04/16/18 05:10 Hemoglobin C Crystals Not Reportable 04/16/18 05:10 Schistocytes Not Reportable 04/16/18 05:10 Malaria parasites Not Reportable 04/16/18 05:10 Cole Bodies Not Reportable 04/16/18 05:10 Hem Pathologist Commnt No 04/16/18 05:10 PT 15.8 Sec. (12.2-14.9) H 04/15/18 19:09 INR 1.18 (0.87-1.13) H 04/15/18 19:09 APTT < 20.0 Sec. (24.2-36.6) L 04/15/18 19:09 Fibrinogen 170 mg/dl (211-480) L 04/15/18 19:09 D-Dimer 4084.10 ng/mlDDU (0-234) H 04/15/18 19:09 POC ABG pH 7.465 (7.35-7.45) H 04/11/18 18:27 POC ABG pCO2 22.2 (35-45) L 04/11/18 18:27 POC ABG pO2 90 (80-105) 04/11/18 18:27 POC ABG HCO3 15.9 04/11/18 18:27 POC ABG Total CO2 17 04/11/18 18:27 POC ABG O2 Sat 98 04/11/18 18:27 POC ABG Base Excess -8 04/11/18 18:27 FiO2 28 % 04/11/18 18:27 Sodium 139 mmol/L (137-145) 04/15/18 11:08 Potassium 3.6 mmol/L (3.6-5.0) 04/15/18 11:08 Chloride 109.0 mmol/L (98-107) H 04/15/18 11:08 Carbon Dioxide 23 mmol/L (22-30) 04/15/18 11:08 Anion Gap 11 mmol/L 04/15/18 11:08 BUN 13 mg/dL (9-20) 04/15/18 11:08 Creatinine 0.8 mg/dL (0.8-1.5) 04/15/18 11:08 Estimated GFR > 60 ml/min 04/15/18 11:08 BUN/Creatinine Ratio 16 % 04/15/18 11:08 Glucose 112 mg/dL (75-100) H 04/15/18 11:08 Calcium 6.8 mg/dL (8.4-10.2) L 04/15/18 11:08 Total Bilirubin 1.20 mg/dL (0.1-1.2) 04/15/18 19:09 Direct Bilirubin 0.4 mg/dL (0-0.2) H 04/15/18 19:09 Indirect Bilirubin 0.8 mg/dL 04/15/18 19:09 AST 24 units/L (5-40) 04/15/18 19:09 ALT 14 units/L (7-56) 04/15/18 19:09 Alkaline Phosphatase 75 units/L (35-129) 04/15/18 19:09 Lactate Dehydrogenase 222 units/L (91-180) H 04/15/18 19:09 Total Protein 4.0 g/dL (6.3-8.2) L D 04/15/18 19:09 Albumin 1.8 g/dL (3.9-5) L 04/15/18 19:09 Albumin/Globulin Ratio 0.8 % 04/15/18 19:09 Blood Type O NEGATIVE 04/15/18 07:35 Antibody Screen Negative 04/15/18 07:35 Crossmatch See Detail 04/15/18 07:35 - Imaging and Cardiology EKG: report reviewed Chest x-ray: report reviewed Abdominal x-ray: report reviewed
[2018-04-16] MEDS: PROTONIX 80 MG in NACL 0.9% 100 ML IV SCH ×2 (09:11→20:30)
[2018-04-16] MEDS ORDERED: PHENERGAN PO PRN (09:16)
[2018-04-16] MEDS ORDERED: NACL 0.9% 500 ML 500 ML IV ONE (10:00)
--- NOTE | 2018-04-16 10:05 | Progress Note ---
Assessment and Plan Acute gastrointestinal bleed (Upper G.I.) h/o esophagectomy Melena Acute blood loss anemia. Atrial fibrillation with RVR Obesity (possible obesity hypoventilation syndrome) Hypoalbuminemia. Hyperglycemia. Thrombocytopenia - requiring more supportive transfusions - continue to hold pharmacologic anticoagulation -SCDs for VTE prophylaxis - repeat EGD and colonscopy today per my discussions with Dr. Rodriguez -discussed and placed a consult to hematology re thrombocytopenia -Accuchecks with glycemic control. Target blood glucose of 140-180mg/dL - Keep NPO for now - PRBC transfusion for Hb < 7.0 (transfuse for higher level depending on rate of fall) - continue PPI drip for now - continue prn bronchodilators with pulmonary hygiene per R - continue supplemental oxygen to keep sats > 90% - mobility protocol for pressure ulcer prophylaxis - vasopressors if MAP < 65 mmHg and not fluid responsive - outpatient sleep study - PT/OT as tolerated - continue other care per attending / other consultants -continue to monitor and treat in the ICU ... re-evaluate in am & prn .... care plan discussed with patient at bedside Discussed with his family Discussed with GI services The high probability of a clinically significant, sudden or life-threatening deterioration of the [G.I.] system(s) required my full and direct attention, intervention and personal management. The aggregate critical care time was [31] minutes without overlap. Time includes spent on; [x] Data Review and interpretation [x] Patient assessment and monitoring of vital signs [x] Documentation [x] Medication orders and management Subjective Date of service: 04/16/18 Principal diagnosis: GI bleed Interval history: Patient is seen today for: Acute gastrointestinal bleed (Upper G.I.); Melena; Acute blood loss anemia.; Atrial fibrillation with RVR Seen and examined at bedside; 24hour events reviewed; nursing and respiratory care staff consulted; no adverse overnight events reported to me; no emesis overnight; H&H still falling; still with melena overnight + hematochezia reported; made NPO again; tentative repeat EGD today( per my discussions with Dr. Rodriguez); He denies acute chest pains or palpitations. Currently getting blood transfusion. Family at the bedside Objective Vital Signs - 12hr 04/15/18 04/15/18 04/15/18 22:15 22:30 22:45 Temperature Pulse Rate 79 76 75 Pulse Rate [ From Monitor] Respiratory 17 19 18 Rate Blood Pressure 97/42 104/41 85/38 O2 Sat by Pulse 100 100 100 Oximetry 04/15/18 04/15/18 04/15/18 23:00 23:15 23:23 Temperature 97.8 F Pulse Rate 77 74 Pulse Rate [ From Monitor] Respiratory 20 17 Rate Blood Pressure 108/40 109/45 O2 Sat by Pulse 100 100 Oximetry 04/15/18 04/15/18 04/15/18 23:30 23:31 23:45 Temperature Pulse Rate 73 82 77 Pulse Rate [ From Monitor] Respiratory 20 19 20 Rate Blood Pressure 103/46 113/62 114/73 O2 Sat by Pulse 100 100 100 Oximetry 04/16/18 04/16/18 04/16/18 00:00 00:15 00:30 Temperature Pulse Rate 72 72 76 Pulse Rate [ 20 L From Monitor] Respiratory 18 19 17 Rate Blood Pressure 115/36 129/42 119/50 O2 Sat by Pulse 99 100 100 Oximetry 04/16/18 04/16/18 04/16/18 00:45 01:00 01:15 Temperature Pulse Rate 78 75 75 Pulse Rate [ From Monitor] Respiratory 24 16 18 Rate Blood Pressure 129/54 129/54 116/53 O2 Sat by Pulse 100 100 100 Oximetry 04/16/18 04/16/18 04/16/18 01:30 01:45 02:00 Temperature Pulse Rate 78 76 77 Pulse Rate [ From Monitor] Respiratory 16 16 16 Rate Blood Pressure 101/48 113/47 120/50 O2 Sat by Pulse 100 100 100 Oximetry 04/16/18 04/16/18 04/16/18 02:15 02:30 02:45 Temperature Pulse Rate 78 76 76 Pulse Rate [ From Monitor] Respiratory 18 16 17 Rate Blood Pressure 103/47 99/48 118/49 O2 Sat by Pulse 100 100 100 Oximetry 04/16/18 04/16/18 04/16/18 03:00 03:14 03:15 Temperature 99.3 F Pulse Rate 80 79 Pulse Rate [ From Monitor] Respiratory 19 17 Rate Blood Pressure 118/49 121/53 O2 Sat by Pulse 100 99 Oximetry 04/16/18 04/16/18 04/16/18 03:30 03:45 04:00 Temperature Pulse Rate 81 79 78 Pulse Rate [ 20 L From Monitor] Respiratory 18 17 17 Rate Blood Pressure 126/52 118/55 127/52 O2 Sat by Pulse 100 98 98 Oximetry 04/16/18 04/16/18 04/16/18 04:15 04:30 04:45 Temperature Pulse Rate 77 79 82 Pulse Rate [ From Monitor] Respiratory 18 18 19 Rate Blood Pressure 134/56 128/58 121/59 O2 Sat by Pulse 98 98 99 Oximetry 04/16/18 04/16/18 04/16/18 05:00 05:15 05:30 Temperature Pulse Rate 79 77 78 Pulse Rate [ From Monitor] Respiratory 18 17 17 Rate Blood Pressure 121/52 126/53 113/52 O2 Sat by Pulse 98 98 98 Oximetry 04/16/18 04/16/18 04/16/18 05:45 06:00 06:15 Temperature Pulse Rate 79 79 76 Pulse Rate [ From Monitor] Respiratory 18 18 19 Rate Blood Pressure 124/52 113/53 128/51 O2 Sat by Pulse 98 99 99 Oximetry 04/16/18 04/16/18 04/16/18 06:30 06:45 07:00 Temperature Pulse Rate 77 78 76 Pulse Rate [ From Monitor] Respiratory 17 16 15 Rate Blood Pressure 115/50 128/53 117/52 O2 Sat by Pulse 98 99 99 Oximetry 04/16/18 04/16/18 04/16/18 07:15 07:30 07:45 Temperature Pulse Rate 81 76 74 Pulse Rate [ From Monitor] Respiratory 15 18 17 Rate Blood Pressure 109/57 129/53 132/50 O2 Sat by Pulse 96 97 99 Oximetry 04/16/18 04/16/18 04/16/18 07:59 08:00 08:15 Temperature 98.6 F Pulse Rate 75 79 Pulse Rate [ From Monitor] Respiratory 20 15 Rate Blood Pressure 133/56 113/40 O2 Sat by Pulse 99 98 Oximetry Constitutional: appears uncomfortable, other (Elderly looking morbidly obese CM, normocephalic and atraumatic with mildly increased respiratory effort at rest) Eyes: non-icteric ENT: oropharynx moist, other (Mallampati 3) Neck: supple, no lymphadenopathy, no JVD, other (no thyromegaly) Effort: mildly labored Ascultation: Bilateral: clear, diminished breath sounds Percussion: Bilateral: not dull Cardiovascular: regular rate and rhythm Gastrointestinal: hypoactive bowel sounds, soft, non-tender, non-distended, other (protuberant) Integumentary: normal Extremities: no cyanosis, no edema, pink and warm, pulses normal, no ischemia or petechiae Neurologic: normal mental status, non-focal exam, pupils equal and round, motor strength normal and Psychiatric: depressed CBC and BMP: 04/17/18 03:31 04/15/18 11:08 ABG, PT/INR, D-dimer: ABG POC ABG pH 7.465 (7.35-7.45) H 04/11/18 18:27 POC ABG pCO2 22.2 (35-45) L 04/11/18 18:27 POC ABG pO2 90 (80-105) 04/11/18 18:27 POC ABG HCO3 15.9 04/11/18 18:27 POC ABG Total CO2 17 04/11/18 18:27 POC ABG O2 Sat 98 04/11/18 18:27 PT/INR, D-dimer PT 15.8 Sec. (12.2-14.9) H 04/15/18 19:09 INR 1.18 (0.87-1.13) H 04/15/18 19:09 D-Dimer 4084.10 ng/mlDDU (0-234) H 04/15/18 19:09 Abnormal lab findings: Abnormal Labs 04/10/18 04/10/18 04/10/18 17:20 17:20 17:20 WBC RBC 2.95 L Hgb 10.5 L Hct 30.3 L MCV 103 H MCH 36 H MCHC 35 H RDW 16.6 H Plt Count Baso # Seg Neutrophils % Seg Neuts % (Manual) Lymphocytes % (Manual) Monocytes % (Manual) Nucleated RBC % Seg Neutrophils # Seg Neutrophils # Man Lymphocytes # (Manual) Eosinophils # (Manual) PT 16.6 H INR 1.26 H APTT Fibrinogen D-Dimer POC ABG pH POC ABG pCO2 Chloride 108.8 H Carbon Dioxide BUN 22 H Glucose 190 H Calcium 8.0 L Direct Bilirubin Alkaline Phosphatase 153 H Lactate Dehydrogenase Total Protein 5.9 L Albumin 2.9 L Crossmatch 04/10/18 04/11/18 04/11/18 17:20 05:26 05:26 WBC RBC 2.63 L Hgb 9.2 L Hct 27.1 L MCV 103 H MCH 35 H MCHC RDW 16.6 H Plt Count 105 L Baso # Seg Neutrophils % 70.3 H Seg Neuts % (Manual) Lymphocytes % (Manual) Monocytes % (Manual) Nucleated RBC % Seg Neutrophils # Seg Neutrophils # Man Lymphocytes # (Manual) Eosinophils # (Manual) PT INR APTT Fibrinogen D-Dimer POC ABG pH POC ABG pCO2 Chloride 110.1 H Carbon Dioxide BUN 30 H Glucose 155 H Calcium 7.8 L Direct Bilirubin Alkaline Phosphatase Lactate Dehydrogenase Total Protein 5.3 L Albumin 2.6 L Crossmatch See Detail 04/11/18 04/11/18 04/11/18 05:26 17:59 18:27 WBC RBC Hgb 9.1 L 8.4 L Hct 26.8 L 24.9 L MCV MCH MCHC RDW Plt Count Baso # Seg Neutrophils % Seg Neuts % (Manual) Lymphocytes % (Manual) Monocytes % (Manual) Nucleated RBC % Seg Neutrophils # Seg Neutrophils # Man Lymphocytes # (Manual) Eosinophils # (Manual) PT INR APTT Fibrinogen D-Dimer POC ABG pH 7.465 H POC ABG pCO2 22.2 L Chloride Carbon Dioxide BUN Glucose Calcium Direct Bilirubin Alkaline Phosphatase Lactate Dehydrogenase Total Protein Albumin Crossmatch 04/11/18 04/12/18 04/12/18 22:54 07:14 15:10 WBC 18.5 H RBC 2.54 L Hgb 7.4 L 8.7 L 8.3 L Hct 21.8 L 25.0 L 25.0 L MCV 98 H MCH 34 H MCHC 35 H RDW 18.6 H Plt Count 101 L Baso # 0.2 H Seg Neutrophils % 79.8 H Seg Neuts % (Manual) Lymphocytes % (Manual) Monocytes % (Manual) Nucleated RBC % Seg Neutrophils # 14.8 H Seg Neutrophils # Man Lymphocytes # (Manual) Eosinophils # (Manual) PT INR APTT Fibrinogen D-Dimer POC ABG pH POC ABG pCO2 Chloride Carbon Dioxide BUN Glucose Calcium Direct Bilirubin Alkaline Phosphatase Lactate Dehydrogenase Total Protein Albumin Crossmatch 04/12/18 04/13/18 04/13/18 23:33 03:50 09:16 WBC 15.5 H 11.5 H RBC 1.87 L 2.33 L Hgb 6.3 L 6.4 L 7.8 L Hct 18.4 L* D 18.8 L* 22.6 L MCV 100 H 97 H MCH 34 H 33 H MCHC 35 H RDW 19.7 H 17.7 H Plt Count 97 L 72 L Baso # Seg Neutrophils % Seg Neuts % (Manual) 77.0 H Lymphocytes % (Manual) Monocytes % (Manual) Nucleated RBC % Seg Neutrophils # Seg Neutrophils # Man 11.9 H Lymphocytes # (Manual) Eosinophils # (Manual) 0.5 H PT INR APTT Fibrinogen D-Dimer POC ABG pH POC ABG pCO2 Chloride Carbon Dioxide BUN Glucose Calcium Direct Bilirubin Alkaline Phosphatase Lactate Dehydrogenase Total Protein Albumin Crossmatch 04/13/18 04/13/18 04/14/18 13:08 13:08 13:50 WBC RBC 2.19 L Hgb 8.0 L 7.5 L Hct 23.3 L 21.7 L MCV 99 H MCH 34 H MCHC 35 H RDW 17.6 H Plt Count 82 L Baso # Seg Neutrophils % Seg Neuts % (Manual) 81.0 H Lymphocytes % (Manual) 13.0 L Monocytes % (Manual) Nucleated RBC % 1.0 H Seg Neutrophils # Seg Neutrophils # Man 7.9 H Lymphocytes # (Manual) Eosinophils # (Manual) PT INR APTT Fibrinogen D-Dimer POC ABG pH POC ABG pCO2 Chloride 112.6 H Carbon Dioxide 19 L BUN Glucose 205 H Calcium 6.7 L Direct Bilirubin Alkaline Phosphatase Lactate Dehydrogenase Total Protein Albumin Crossmatch 04/15/18 04/15/18 04/15/18 03:48 05:50 07:35 WBC RBC 2.03 L Hgb 6.8 L 6.5 L Hct 19.7 L* 18.9 L* MCV 97 H MCH 34 H MCHC 35 H RDW 16.5 H Plt Count 63 L Baso # Seg Neutrophils % Seg Neuts % (Manual) 75.0 H Lymphocytes % (Manual) Monocytes % (Manual) Nucleated RBC % 3.0 H Seg Neutrophils # Seg Neutrophils # Man Lymphocytes # (Manual) 0.9 L Eosinophils # (Manual) PT INR APTT Fibrinogen D-Dimer POC ABG pH POC ABG pCO2 Chloride Carbon Dioxide BUN Glucose Calcium Direct Bilirubin Alkaline Phosphatase Lactate Dehydrogenase Total Protein Albumin Crossmatch See Detail 04/15/18 04/15/18 04/15/18 11:08 19:09 19:09 WBC RBC Hgb Hct MCV MCH MCHC RDW Plt Count Baso # Seg Neutrophils % Seg Neuts % (Manual) Lymphocytes % (Manual) Monocytes % (Manual) Nucleated RBC % Seg Neutrophils # Seg Neutrophils # Man Lymphocytes # (Manual) Eosinophils # (Manual) PT 15.8 H INR 1.18 H APTT < 20.0 L Fibrinogen 170 L D-Dimer 4084.10 H POC ABG pH POC ABG pCO2 Chloride 109.0 H Carbon Dioxide BUN Glucose 112 H Calcium 6.8 L Direct Bilirubin 0.4 H Alkaline Phosphatase Lactate Dehydrogenase 222 H Total Protein 4.0 L D Albumin 1.8 L Crossmatch 04/15/18 04/15/18 04/16/18 19:09 22:50 05:10 WBC RBC 2.24 L Hgb 8.6 L 8.4 L 7.3 L Hct 24.7 L 24.2 L 21.5 L MCV 96 H MCH 33 H MCHC RDW 16.9 H Plt Count 56 L Baso # Seg Neutrophils % Seg Neuts % (Manual) Lymphocytes % (Manual) Monocytes % (Manual) 8.0 H Nucleated RBC % 3.0 H Seg Neutrophils # Seg Neutrophils # Man Lymphocytes # (Manual) 0.8 L Eosinophils # (Manual) PT INR APTT Fibrinogen D-Dimer POC ABG pH POC ABG pCO2 Chloride Carbon Dioxide BUN Glucose Calcium Direct Bilirubin Alkaline Phosphatase Lactate Dehydrogenase Total Protein Albumin Crossmatch Allied health notes reviewed: nursing
--- NOTE | 2018-04-16 10:15 | Gastroenterology Progress Note ---
Assessment and Plan 1.UGIB 2.H/o achalasia (s/p partial esophagectomy) 3.Afib on anticoagulation -INR 1.18 -H/H 7.3/21.5-1 unit PRBCs pending transfusion -continue to monitor H/H and transfuse as needed -s/p EGD 04/11 that showed large blood clot in lower esophagus extending to proximal stomach with visualization limited -s/p EGD 04/12 that revealed an esophageal ulcer with visible vessel and heme spots s/p clip placement and gold probe -s/p EGD 04/15 that showed prior esophageal ulcer with endoclips with no bleeding and Heller myotomy with partial gastric wrap and suture w/o bleeding -CTA 04/13 negative for active bleeding -clinically, patient is currently HD stable, however there were reports of bloody BM overnight by nursing with associated drop in H/H. -colonoscopy today with +/- enteroscopy vs bleeding scan -Keep NPO -continue protonix drip -continue to hold (Eliquis) -continue supportive care -worsening thrombocytopenia per primary team (DIC?- plt 56, PT 15.8, PTT <20.0, fibrinogen 170) -will follow Subjective Date of service: 04/16/18 Principal diagnosis: GI bleed Interval history: No acute distress. Reports of bloody BM overnight per nursing with colon prep ordered for colonoscopy today. This morning black liquid stool noted upon exam. Objective - Constitutional Vitals: Temp Pulse Resp BP Pulse Ox 98.6 F 79 15 113/40 99 04/16/18 07:59 04/16/18 08:15 04/16/18 08:15 04/16/18 08:15 04/16/18 10:10 General appearance: no acute distress - Respiratory Respiratory: bilateral: CTA - Cardiovascular Rhythm: regular Heart Sounds: Present: S1 & S2 - Gastrointestinal General gastrointestinal: Present: soft, non-tender, non-distended, normal bowel sounds - Neurologic Neurological: alert and oriented x3 - Labs CBC & Chem 7: 04/16/18 05:10 04/15/18 11:08 Labs: Laboratory Results - last 24 hr 04/15/18 04/15/18 04/15/18 07:35 11:08 19:09 WBC RBC Hgb Hct MCV MCH MCHC RDW Plt Count Add Manual Diff Total Counted Seg Neuts % (Manual) Band Neutrophils % Lymphocytes % (Manual) Reactive Lymphs % (Man) Monocytes % (Manual) Eosinophils % (Manual) Basophils % (Manual) Metamyelocytes % Myelocytes % Promyelocytes % Blast Cells % Nucleated RBC % Seg Neutrophils # Man Band Neutrophils # Lymphocytes # (Manual) Abs React Lymphs (Man) Monocytes # (Manual) Eosinophils # (Manual) Basophils # (Manual) Metamyelocytes # Myelocytes # Promyelocytes # Blast Cells # WBC Morphology Hypersegmented Neuts Hyposegmented Neuts Hypogranular Neuts Smudge Cells Toxic Granulation Toxic Vacuolation Dohle Bodies Pelger-Huet Anomaly Adele Rods Platelet Estimate Clumped Platelets Plt Clumps, EDTA Large Platelets Giant Platelets Platelet Satelliting Plt Morphology Comment RBC Morphology Dimorphic RBCs Polychromasia Hypochromasia Poikilocytosis Anisocytosis Microcytosis Macrocytosis Spherocytes Pappenheimer Bodies Sickle Cells Target Cells Tear Drop Cells Ovalocytes Helmet Cells Ghosh-[place] Bodies Anton Rings Spurger Cells Bite Cells Crenated Cell Elliptocytes Acanthocytes (Spur) Rouleaux Hemoglobin C Crystals Schistocytes Malaria parasites Cole Bodies Hem Pathologist Commnt PT 15.8 H INR 1.18 H APTT < 20.0 L Fibrinogen 170 L D-Dimer 4084.10 H Sodium 139 Potassium 3.6 Chloride 109.0 H Carbon Dioxide 23 Anion Gap 11 BUN 13 Creatinine 0.8 Estimated GFR > 60 BUN/Creatinine Ratio 16 Glucose 112 H Calcium 6.8 L Total Bilirubin Direct Bilirubin Indirect Bilirubin AST ALT Alkaline Phosphatase Lactate Dehydrogenase Total Protein Albumin Albumin/Globulin Ratio Blood Type O NEGATIVE Antibody Screen Negative Crossmatch See Detail 04/15/18 04/15/18 04/15/18 19:09 19:09 22:50 WBC RBC Hgb 8.6 L 8.4 L Hct 24.7 L 24.2 L MCV MCH MCHC RDW Plt Count Add Manual Diff Total Counted Seg Neuts % (Manual) Band Neutrophils % Lymphocytes % (Manual) Reactive Lymphs % (Man) Monocytes % (Manual) Eosinophils % (Manual) Basophils % (Manual) Metamyelocytes % Myelocytes % Promyelocytes % Blast Cells % Nucleated RBC % Seg Neutrophils # Man Band Neutrophils # Lymphocytes # (Manual) Abs React Lymphs (Man) Monocytes # (Manual) Eosinophils # (Manual) Basophils # (Manual) Metamyelocytes # Myelocytes # Promyelocytes # Blast Cells # WBC Morphology Hypersegmented Neuts Hyposegmented Neuts Hypogranular Neuts Smudge Cells Toxic Granulation Toxic Vacuolation Dohle Bodies Pelger-Huet Anomaly Adele Rods Platelet Estimate Clumped Platelets Plt Clumps, EDTA Large Platelets Giant Platelets Platelet Satelliting Plt Morphology Comment RBC Morphology Dimorphic RBCs Polychromasia Hypochromasia Poikilocytosis Anisocytosis Microcytosis Macrocytosis Spherocytes Pappenheimer Bodies Sickle Cells Target Cells Tear Drop Cells Ovalocytes Helmet Cells Ghosh-[place] Bodies Anton Rings Evon Cells Bite Cells Crenated Cell Elliptocytes Acanthocytes (Spur) Rouleaux Hemoglobin C Crystals Schistocytes Malaria parasites Cole Bodies Hem Pathologist Commnt PT INR APTT Fibrinogen D-Dimer Sodium Potassium Chloride Carbon Dioxide Anion Gap BUN Creatinine Estimated GFR BUN/Creatinine Ratio Glucose Calcium Total Bilirubin 1.20 Direct Bilirubin 0.4 H Indirect Bilirubin 0.8 AST 24 ALT 14 Alkaline Phosphatase 75 Lactate Dehydrogenase 222 H Total Protein 4.0 L D Albumin 1.8 L Albumin/Globulin Ratio 0.8 Blood Type Antibody Screen Crossmatch 04/16/18 05:10 WBC 4.7 RBC 2.24 L Hgb 7.3 L Hct 21.5 L MCV 96 H MCH 33 H MCHC 34 RDW 16.9 H Plt Count 56 L Add Manual Diff Complete Total Counted 100 Seg Neuts % (Manual) 69.0 Band Neutrophils % 1.0 Lymphocytes % (Manual) 17.0 Reactive Lymphs % (Man) 0 Monocytes % (Manual) 8.0 H Eosinophils % (Manual) 0 Basophils % (Manual) 0 Metamyelocytes % 4.0 Myelocytes % 1.0 Promyelocytes % 0 Blast Cells % 0 Nucleated RBC % 3.0 H Seg Neutrophils # Man 3.2 Band Neutrophils # 0.0 Lymphocytes # (Manual) 0.8 L Abs React Lymphs (Man) 0.0 Monocytes # (Manual) 0.4 Eosinophils # (Manual) 0.0 Basophils # (Manual) 0.0 Metamyelocytes # 0.2 Myelocytes # 0.0 Promyelocytes # 0.0 Blast Cells # 0.0 WBC Morphology Not Reportable Hypersegmented Neuts Not Reportable Hyposegmented Neuts Not Reportable Hypogranular Neuts Not Reportable Smudge Cells Not Reportable Toxic Granulation Not Reportable Toxic Vacuolation Not Reportable Dohle Bodies Not Reportable Pelger-Huet Anomaly Not Reportable Adele Rods Not Reportable Platelet Estimate Appears decreased Clumped Platelets Not Reportable Plt Clumps, EDTA Not Reportable Large Platelets Rare Giant Platelets Not Reportable Platelet Satelliting Not Reportable Plt Morphology Comment Not Reportable RBC Morphology Not Reportable Dimorphic RBCs Not Reportable Polychromasia Few Hypochromasia Not Reportable Poikilocytosis Not Reportable Anisocytosis 2+ Microcytosis Not Reportable Macrocytosis Not Reportable Spherocytes Not Reportable Pappenheimer Bodies Not Reportable Sickle Cells Not Reportable Target Cells Not Reportable Tear Drop Cells Not Reportable Ovalocytes 1+ Helmet Cells Not Reportable Ghosh-[place] Bodies Not Reportable Anton Rings Not Reportable Spurger Cells Not Reportable Bite Cells Not Reportable Crenated Cell Not Reportable Elliptocytes Rare Acanthocytes (Spur) Not Reportable Rouleaux Not Reportable Hemoglobin C Crystals Not Reportable Schistocytes Not Reportable Malaria parasites Not Reportable Cole Bodies Not Reportable Hem Pathologist Commnt No PT INR APTT Fibrinogen D-Dimer Sodium Potassium Chloride Carbon Dioxide Anion Gap BUN Creatinine Estimated GFR BUN/Creatinine Ratio Glucose Calcium Total Bilirubin Direct Bilirubin Indirect Bilirubin AST ALT Alkaline Phosphatase Lactate Dehydrogenase Total Protein Albumin Albumin/Globulin Ratio Blood Type Antibody Screen Crossmatch
[2018-04-16] MEDS: ATARAX PO SCH (11:00)
[2018-04-16] MEDS: NEURONTIN PO SCH ×2 (11:00→23:04)
[2018-04-16] MEDS: ZESTRIL PO SCH (11:01)
[2018-04-16] MEDS: SODIUM CHLORIDE FLUSH SYRINGE 10 ML IV SCH (11:03)
[2018-04-16] MEDS ORDERED: WATER FOR IRRIG STERILE IR ONE (11:22)
[2018-04-16] MEDS ORDERED: WATER FOR IRRIG STERILE ONE (11:22)
[2018-04-16] MEDS ORDERED: DIPRIVAN 10 MG/ML IV ONE ×3 (11:47)
[2018-04-16] MEDS ORDERED: NACL 0.9% 1000 ML 1,000 ML ONE (11:48)
--- NOTE | 2018-04-16 12:58 | Operative Report ---
Operative Report Operative Report: Enteroscopy Procedure Note Date of procedure: 04/16/2018 Endoscopist: Grupo Rodriguez Pre-op diagnosis: GI bleed Post-op diagnosis: Healing lower esophageal ulcer; prior surgery evidence otherwise unremarkable Anesthesia: MAC Complications: No immediate complications Estimated blood loss: minimal Procedure: After consent was obtained, the patient was placed in the left lateral decubitus position. The fujinon pediactric colonoscope was inserted into the patient's mouth under direct vision, and advanced into the jejunum without difficulty. The patient tolerated the procedure well. The views of the mucosa were good. Patient's vital signs were monitored continuously throughout the procedure. Findings: There was signs of a healing ulcer in the lower portion of the esophagus with prior endoclips intact. Evidence of prior gastric wrap. No blood was seen in the stomach. There was bile throughout the visualized portion of the small bowel without any bleeding source identified. Impression: 1. Healing lower esophageal ulcer No source of recent suspected bleeding identified Recommendations: -colonoscopy to follow
--- NOTE | 2018-04-16 13:00 | Operative Report ---
Operative Report Operative Report: Colonoscopy Procedure Note Date of procedure: 04/16/2018 Endoscopist: Grupo Rodriguez Pre-op diagnosis: GI bleed Post-op diagnosis: Dark brown stool throughout colon Anesthesia: MAC Complications: No immediate complications Estimated blood loss: None Procedure: After consent was obtained, the patient was placed in the left lateral decubitus position. The fujinon colonoscope was inserted into the patient's rectum under direct vision, and advanced to the cecum without difficulty. The patient tolerated the procedure well. The views of the mucosa were fair The quality of prep was fair (inadequate for screening purposes, but fair for diagnostic purposes). The patient's vital signs were monitored con tinuously throughout the procedure. Findings: There was dark brown liquid stool throughout the colon. There was no blood seen during the procedure or high risk bleeding lesions. Impression: 1. Dark liquid brown stool throughout the colon without signs of high risk bleeding lesions or any blood seen. Recommendations: -trend labs, work-up for other causes of worsening anemia (hemolysis/DIC) per primary -if signs of overt bleeding, obtain stat RBC scan
[2018-04-16 14:09] LABS: Hematocrit 25.6 % (35.5-45.6); Hemoglobin 8.4 gm/dl (11.8-15.2)
[2018-04-16] MEDS: CARDIZEM IV PRN (19:02)
[2018-04-16] MEDS ORDERED: CLINIMIX 4.25%-5% SOLUTION 2,000 ML IV SCH (20:00)
[2018-04-16 21:56] LABS: Hematocrit 25.9 % (35.5-45.6)
--- NOTE | 2018-04-16 22:26 | Vascular Lab Report ---
PROCEDURE: VL VENOUS DUPLEX UE BILAT PROCEDURE: US RIGHT UPPER EXTREMITY VENOUS DUPLEX DOPPLER TECHNIQUE: Duplex Doppler sonography of the RIGHT subclavian, axillary, brachial, basilic, cephalic, and internal jugular veins was attempted. [place] scale imaging with and without compression, spectral waveform analysis with and without augmentation, and color flow Doppler were employed. CPT 42413 HISTORY: COMPARISONS: None . FINDINGS: Cephalic vein is thrombosed and noncompressible without Doppler signal. Internal jugular, subclavian, axillary, brachial, basilic, radial and ulnar veins are patent demonstrating normal Doppler signal, compressibility and augmentation. Soft tissue abnormality: None . 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 PROCEDURE: US LEFT UPPER EXTREMITY VENOUS DUPLEX DOPPLER TECHNIQUE: Duplex Doppler sonography of the LEFT subclavian, axillary, brachial, basilic, cephalic, and internal jugular veins was attempted. [place] scale imaging with and without compression, spectral w aveform analysis with and without augmentation, and color flow Doppler were employed. CPT 59780 HISTORY: COMPARISONS: None . FINDINGS: Cephalic vein is thrombosed and noncompressible without Doppler signal. Internal jugular, subclavian, axillary, brachial, basilic, radial and ulnar veins are patent demonstrating normal Doppler signal, compressibility and augmentation. Soft tissue abnormality: None . 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 This document is electronically signed by Rhett Dumont MD., April 16 2018 10:23:57 PM ET
[2018-04-17 04:24] LABS: Hematocrit 25.3 % (35.5-45.6); Hemoglobin 8.8 gm/dl (11.8-15.2); Mean Corpuscular HGB Conc 35 % (32-34); Mean Corpuscular Volume 93 fl (84-94); Red Blood Count 2.72 M/mm3 (3.65-5.03); Red Cell Distribution Width 16.2 % (13.2-15.2)
[2018-04-17 04:25] LABS: Platelet Count 63 K/mm3 (140-440)
[2018-04-17 05:09] LABS: Band Neutrophils # (Manual) 0.4 K/mm3; Total Cells Counted 100
[2018-04-17 05:10] LABS: Anisocytosis 2+; Basophilic Stippling Few; Large Platelets Few; Ovalocytes 1+; Platelet Estimate Appears Decreased
[2018-04-17] MEDS: PROTONIX 80 MG in NACL 0.9% 100 ML IV SCH (06:00)
[2018-04-17] MEDS: SODIUM CHLORIDE FLUSH SYRINGE 10 ML IV SCH ×3 (06:01→21:38)
--- NOTE | 2018-04-17 06:36 | Event Note ---
Date: 04/16/18 [id number]
--- NOTE | 2018-04-17 09:28 | Progress Note ---
Assessment and Plan Acute gastrointestinal bleed (Upper G.I.) h/o esophagectomy Melena Acute blood loss anemia. Atrial fibrillation with RVR Obesity (possible obesity hypoventilation syndrome) Hypoalbuminemia. Hyperglycemia. Thrombocytopenia - continue to hold pharmacologic anticoagulation, patient has been in sinus rhythm since admission. -SCDs for VTE prophylaxis -stop TPN, advance diet as tolerated -Accuchecks with glycemic control. Target blood glucose of 140-180mg/dL - PRBC transfusion for Hb < 7.0 (transfuse for higher level depending on rate of fall) - stop PPI infusion and dose PPI as twice a day - continue prn bronchodilators with pulmonary hygiene per RT - continue supplemental oxygen to keep sats > 90% - mobility protocol for pressure ulcer prophylaxis - outpatient sleep study - PT/OT - continue other care per attending / other consultants -ok to transfer out of the ICU -continue to monitor H and H ... re-evaluate in am & prn .... care plan discussed with patient at bedside Discussed with GI services Subjective Date of service: 04/17/18 Principal diagnosis: GI bleed Interval history: Patient is seen today for: Acute gastrointestinal bleed (Upper G.I.); Melena; Acute blood loss anemia.; Atrial fibrillation with RVR Seen and examined at bedside; 24hour events reviewed; nursing and respiratory care staff consulted; no adverse overnight events reported to me; no emesis overnight; tolerating liquid diet: He denies acute chest pains or palpitations, no nausea or vomiting. No fevers or chills. "I feel pretty good." Objective Vital Signs - 12hr 04/16/18 04/16/18 04/16/18 21:30 21:45 22:00 Temperature Pulse Rate 87 83 85 Respiratory 17 16 18 Rate Blood Pressure 110/49 97/47 113/51 O2 Sat by Pulse 95 95 93 Oximetry 04/16/18 04/16/18 04/16/18 22:15 22:30 22:45 Temperature Pulse Rate 78 79 82 Respiratory 20 15 16 Rate Blood Pressure 110/49 121/55 121/55 O2 Sat by Pulse 97 97 95 Oximetry 04/16/18 04/16/18 04/16/18 23:01 23:15 23:30 Temperature Pulse Rate 81 78 79 Respiratory 19 16 19 Rate Blood Pressure 124/54 124/54 123/55 O2 Sat by Pulse 97 96 96 Oximetry 04/16/18 04/16/18 04/17/18 23:39 23:45 00:00 Temperature 98.9 F Pulse Rate 79 75 Respiratory 17 18 Rate Blood Pressure 123/55 134/54 O2 Sat by Pulse 95 94 Oximetry 04/17/18 04/17/18 04/17/18 00:15 00:30 00:45 Temperature Pulse Rate 74 75 78 Respiratory 19 16 17 Rate Blood Pressure 134/54 124/54 134/54 O2 Sat by Pulse 96 96 96 Oximetry 04/17/18 04/17/18 04/17/18 01:00 01:15 01:30 Temperature Pulse Rate 76 78 75 Respiratory 18 16 16 Rate Blood Pressure 124/55 124/55 123/54 O2 Sat by Pulse 96 95 96 Oximetry 04/17/18 04/17/18 04/17/18 01:45 02:00 02:15 Temperature Pulse Rate 72 71 70 Respiratory 17 18 20 Rate Blood Pressure 123/54 123/54 123/54 O2 Sat by Pulse 97 98 98 Oximetry 04/17/18 04/17/18 04/17/18 02:30 02:45 03:00 Temperature Pulse Rate 70 74 74 Respiratory 18 16 16 Rate Blood Pressure 127/56 124/57 122/54 O2 Sat by Pulse 93 96 95 Oximetry 04/17/18 04/17/18 04/17/18 03:05 03:15 03:30 Temperature 99.9 F H Pulse Rate 76 73 Respiratory 15 15 Rate Blood Pressure 127/56 124/56 O2 Sat by Pulse 94 95 Oximetry 04/17/18 04/17/18 04/17/18 03:45 04:00 04:15 Temperature Pulse Rate 70 71 71 Respiratory 15 17 16 Rate Blood Pressure 122/54 123/52 123/52 O2 Sat by Pulse 95 96 96 Oximetry 04/17/18 04/17/18 04/17/18 04:30 04:45 05:00 Temperature Pulse Rate 72 72 68 Respiratory 16 16 16 Rate Blood Pressure 124/53 124/53 124/53 O2 Sat by Pulse 95 95 98 Oximetry 04/17/18 04/17/18 04/17/18 05:15 05:30 05:45 Temperature Pulse Rate 68 71 71 Respiratory 15 16 15 Rate Blood Pressure 122/55 112/53 112/53 O2 Sat by Pulse 95 95 95 Oximetry 04/17/18 04/17/18 04/17/18 06:00 06:15 06:30 Temperature Pulse Rate 71 72 76 Respiratory 17 17 15 Rate Blood Pressure 115/55 115/55 121/58 O2 Sat by Pulse 94 94 95 Oximetry 04/17/18 04/17/18 04/17/18 06:45 07:01 07:15 Temperature Pulse Rate 68 73 69 Respiratory 16 18 16 Rate Blood Pressure 115/55 121/58 121/58 O2 Sat by Pulse 96 97 98 Oximetry 04/17/18 04/17/18 04/17/18 07:31 07:45 08:11 Temperature Pulse Rate 68 68 Respiratory 16 16 Rate Blood Pressure 121/58 121/58 O2 Sat by Pulse 98 97 97 Oximetry Constitutional: no acute distress, alert, other (Elderly looking morbidly obese CM, normocephalic and atraumatic, normal respiratory effort at rest) Eyes: non-icteric ENT: oropharynx moist, other (Mallampati 3) Neck: supple, no lymphadenopathy, no JVD, other (no thyromegaly) Effort: normal Ascultation: Bilateral: clear, diminished breath sounds Percussion: Bilateral: not dull Cardiovascular: regular rate and rhythm, other (S1,S2, no murmurs, gallops or rubs) Gastrointestinal: hypoactive bowel sounds, soft, non-tender, non-distended, other (protuberant) Integumentary: normal Extremities: no cyanosis, no edema, pink and warm, pulses normal, no ischemia or petechiae Neurologic: normal mental status, non-focal exam, pupils equal and round, motor strength normal and Psychiatric: mood appropriate, affect normal CBC and BMP: 04/17/18 03:31 04/15/18 11:08 ABG, PT/INR, D-dimer: ABG POC ABG pH 7.465 (7.35-7.45) H 04/11/18 18:27 POC ABG pCO2 22.2 (35-45) L 04/11/18 18:27 POC ABG pO2 90 (80-105) 04/11/18 18:27 POC ABG HCO3 15.9 04/11/18 18:27 POC ABG Total CO2 17 04/11/18 18:27 POC ABG O2 Sat 98 04/11/18 18:27 PT/INR, D-dimer PT 15.8 Sec. (12.2-14.9) H 04/15/18 19:09 INR 1.18 (0.87-1.13) H 04/15/18 19:09 D-Dimer 4084.10 ng/mlDDU (0-234) H 04/15/18 19:09 Abnormal lab findings: Abnormal Labs 04/10/18 04/10/18 04/10/18 17:20 17:20 17:20 WBC RBC 2.95 L Hgb 10.5 L Hct 30.3 L MCV 103 H MCH 36 H MCHC 35 H RDW 16.6 H Plt Count Baso # Seg Neutrophils % Seg Neuts % (Manual) Lymphocytes % (Manual) Monocytes % (Manual) Nucleated RBC % Seg Neutrophils # Seg Neutrophils # Man Lymphocytes # (Manual) Eosinophils # (Manual) PT 16.6 H INR 1.26 H APTT Fibrinogen D-Dimer POC ABG pH POC ABG pCO2 Chloride 108.8 H Carbon Dioxide BUN 22 H Glucose 190 H Calcium 8.0 L Direct Bilirubin Alkaline Phosphatase 153 H Lactate Dehydrogenase Total Protein 5.9 L Albumin 2.9 L Crossmatch 04/10/18 04/11/18 04/11/18 17:20 05:26 05:26 WBC RBC 2.63 L Hgb 9.2 L Hct 27.1 L MCV 103 H MCH 35 H MCHC RDW 16.6 H Plt Count 105 L Baso # Seg Neutrophils % 70.3 H Seg Neuts % (Manual) Lymphocytes % (Manual) Monocytes % (Manual) Nucleated RBC % Seg Neutrophils # Seg Neutrophils # Man Lymphocytes # (Manual) Eosinophils # (Manual) PT INR APTT Fibrinogen D-Dimer POC ABG pH POC ABG pCO2 Chloride 110.1 H Carbon Dioxide BUN 30 H Glucose 155 H Calcium 7.8 L Direct Bilirubin Alkaline Phosphatase Lactate Dehydrogenase Total Protein 5.3 L Albumin 2.6 L Crossmatch See Detail 04/11/18 04/11/18 04/11/18 05:26 17:59 18:27 WBC RBC Hgb 9.1 L 8.4 L Hct 26.8 L 24.9 L MCV MCH MCHC RDW Plt Count Baso # Seg Neutrophils % Seg Neuts % (Manual) Lymphocytes % (Manual) Monocytes % (Manual) Nucleated RBC % Seg Neutrophils # Seg Neutrophils # Man Lymphocytes # (Manual) Eosinophils # (Manual) PT INR APTT Fibrinogen D-Dimer POC ABG pH 7.465 H POC ABG pCO2 22.2 L Chloride Carbon Dioxide BUN Glucose Calcium Direct Bilirubin Alkaline Phosphatase Lactate Dehydrogenase Total Protein Albumin Crossmatch 04/11/18 04/12/18 04/12/18 22:54 07:14 15:10 WBC 18.5 H RBC 2.54 L Hgb 7.4 L 8.7 L 8.3 L Hct 21.8 L 25.0 L 25.0 L MCV 98 H MCH 34 H MCHC 35 H RDW 18.6 H Plt Count 101 L Baso # 0.2 H Seg Neutrophils % 79.8 H Seg Neuts % (Manual) Lymphocytes % (Manual) Monocytes % (Manual) Nucleated RBC % Seg Neutrophils # 14.8 H Seg Neutrophils # Man Lymphocytes # (Manual) Eosinophils # (Manual) PT INR APTT Fibrinogen D-Dimer POC ABG pH POC ABG pCO2 Chloride Carbon Dioxide BUN Glucose Calcium Direct Bilirubin Alkaline Phosphatase Lactate Dehydrogenase Total Protein Albumin Crossmatch 04/12/18 04/13/18 04/13/18 23:33 03:50 09:16 WBC 15.5 H 11.5 H RBC 1.87 L 2.33 L Hgb 6.3 L 6.4 L 7.8 L Hct 18.4 L* D 18.8 L* 22.6 L MCV 100 H 97 H MCH 34 H 33 H MCHC 35 H RDW 19.7 H 17.7 H Plt Count 97 L 72 L Baso # Seg Neutrophils % Seg Neuts % (Manual) 77.0 H Lymphocytes % (Manual) Monocytes % (Manual) Nucleated RBC % Seg Neutrophils # Seg Neutrophils # Man 11.9 H Lymphocytes # (Manual) Eosinophils # (Manual) 0.5 H PT INR APTT Fibrinogen D-Dimer POC ABG pH POC ABG pCO2 Chloride Carbon Dioxide BUN Glucose Calcium Direct Bilirubin Alkaline Phosphatase Lactate Dehydrogenase Total Protein Albumin Crossmatch 04/13/18 04/13/18 04/14/18 13:08 13:08 13:50 WBC RBC 2.19 L Hgb 8.0 L 7.5 L Hct 23.3 L 21.7 L MCV 99 H MCH 34 H MCHC 35 H RDW 17.6 H Plt Count 82 L Baso # Seg Neutrophils % Seg Neuts % (Manual) 81.0 H Lymphocytes % (Manual) 13.0 L Monocytes % (Manual) Nucleated RBC % 1.0 H Seg Neutrophils # Seg Neutrophils # Man 7.9 H Lymphocytes # (Manual) Eosinophils # (Manual) PT INR APTT Fibrinogen D-Dimer POC ABG pH POC ABG pCO2 Chloride 112.6 H Carbon Dioxide 19 L BUN Glucose 205 H Calcium 6.7 L Direct Bilirubin Alkaline Phosphatase Lactate Dehydrogenase Total Protein Albumin Crossmatch 04/15/18 04/15/18 04/15/18 03:48 05:50 07:35 WBC RBC 2.03 L Hgb 6.8 L 6.5 L Hct 19.7 L* 18.9 L* MCV 97 H MCH 34 H MCHC 35 H RDW 16.5 H Plt Count 63 L Baso # Seg Neutrophils % Seg Neuts % (Manual) 75.0 H Lymphocytes % (Manual) Monocytes % (Manual) Nucleated RBC % 3.0 H Seg Neutrophils # Seg Neutrophils # Man Lymphocytes # (Manual) 0.9 L Eosinophils # (Manual) PT INR APTT Fibrinogen D-Dimer POC ABG pH POC ABG pCO2 Chloride Carbon Dioxide BUN Glucose Calcium Direct Bilirubin Alkaline Phosphatase Lactate Dehydrogenase Total Protein Albumin Crossmatch See Detail 04/15/18 04/15/18 04/15/18 11:08 19:09 19:09 WBC RBC Hgb Hct MCV MCH MCHC RDW Plt Count Baso # Seg Neutrophils % Seg Neuts % (Manual) Lymphocytes % (Manual) Monocytes % (Manual) Nucleated RBC % Seg Neutrophils # Seg Neutrophils # Man Lymphocytes # (Manual) Eosinophils # (Manual) PT 15.8 H INR 1.18 H APTT < 20.0 L Fibrinogen 170 L D-Dimer 4084.10 H POC ABG pH POC ABG pCO2 Chloride 109.0 H Carbon Dioxide BUN Glucose 112 H Calcium 6.8 L Direct Bilirubin 0.4 H Alkaline Phosphatase Lactate Dehydrogenase 222 H Total Protein 4.0 L D Albumin 1.8 L Crossmatch 04/15/18 04/15/18 04/16/18 19:09 22:50 05:10 WBC RBC 2.24 L Hgb 8.6 L 8.4 L 7.3 L Hct 24.7 L 24.2 L 21.5 L MCV 96 H MCH 33 H MCHC RDW 16.9 H Plt Count 56 L Baso # Seg Neutrophils % Seg Neuts % (Manual) Lymphocytes % (Manual) Monocytes % (Manual) 8.0 H Nucleated RBC % 3.0 H Seg Neutrophils # Seg Neutrophils # Man Lymphocytes # (Manual) 0.8 L Eosinophils # (Manual) PT INR APTT Fibrinogen D-Dimer POC ABG pH POC ABG pCO2 Chloride Carbon Dioxide BUN Glucose Calcium Direct Bilirubin Alkaline Phosphatase Lactate Dehydrogenase Total Protein Albumin Crossmatch 04/16/18 04/16/18 04/17/18 13:40 21:48 03:31 WBC RBC 2.72 L Hgb 8.4 L 9.0 L 8.8 L Hct 25.6 L 25.9 L 25.3 L MCV MCH MCHC 35 H RDW 16.2 H Plt Count 63 L Baso # Seg Neutrophils % Seg Neuts % (Manual) 80.0 H Lymphocytes % (Manual) 6.0 L Monocytes % (Manual) Nucleated RBC % Seg Neutrophils # Seg Neutrophils # Man Lymphocytes # (Manual) 0.3 L Eosinophils # (Manual) PT INR APTT Fibrinogen D-Dimer POC ABG pH POC ABG pCO2 Chloride Carbon Dioxide BUN Glucose Calcium Direct Bilirubin Alkaline Phosphatase Lactate Dehydrogenase Total Protein Albumin Crossmatch Allied health notes reviewed: nursing
--- NOTE | 2018-04-17 09:50 | Hem/Onc Progress Note ---
Assessment and Plan 1. Thrombocytopenia in a patient with history of gastrointestinal bleed, most likely this is consumption. Fibrinogen is low, but not low enough to warrant support. We will follow the trend. 2. Anemia, status post transfusion. 3. Upper gastrointestinal bleed, seen by GI. 4. History of atrial fibrillation, was on Eliquis from 05/2017. This has been held now. Cardiology team will guide regarding treatment options in view of the gastrointestinal bleed. 5. 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 We will observe the patient, especially in view of his recent bleeds. 6. History of esophageal surgery in the past. 7. Obesity. At this time, we will follow the trend of the platelet count and fibrinogen. Continue with supportive care with transfusions as needed. 3/2 - plt better - likely consumption related - will follow repeat fibrinogen - better - Patient Problems (1) Thrombocytopenia Current Visit: Yes Status: Acute Subjective Date of service: 04/17/18 Objective - Constitutional Vitals: Last Vital Signs Temp 99.9 F H 04/17/18 03:05 Pulse 68 04/17/18 07:45 Resp 16 04/17/18 07:45 BP 121/58 04/17/18 07:45 Pulse Ox 97 04/17/18 08:11 - Labs Lab Results: Laboratory Results - last 24 hr 04/10/18 04/15/18 04/16/18 17:20 07:35 13:40 WBC RBC Hgb 8.4 L Hct 25.6 L MCV MCH MCHC RDW Plt Count Add Manual Diff Total Counted Seg Neuts % (Manual) Band Neutrophils % Lymphocytes % (Manual) Reactive Lymphs % (Man) Monocytes % (Manual) Eosinophils % (Manual) Basophils % (Manual) Metamyelocytes % Myelocytes % Promyelocytes % Blast Cells % Nucleated RBC % Seg Neutrophils # Man Band Neutrophils # Lymphocytes # (Manual) Abs React Lymphs (Man) Monocytes # (Manual) Eosinophils # (Manual) Basophils # (Manual) Metamyelocytes # Myelocytes # Promyelocytes # Blast Cells # WBC Morphology Hypersegmented Neuts Hyposegmented Neuts Hypogranular Neuts Smudge Cells Toxic Granulation Toxic Vacuolation Dohle Bodies Pelger-Huet Anomaly Adele Rods Platelet Estimate Clumped Platelets Plt Clumps, EDTA Large Platelets Giant Platelets Platelet Satelliting Plt Morphology Comment RBC Morphology Dimorphic RBCs Polychromasia Hypochromasia Poikilocytosis Basophilic Stippling Anisocytosis Microcytosis Macrocytosis Spherocytes Pappenheimer Bodies Sickle Cells Target Cells Tear Drop Cells Ovalocytes Helmet Cells Ghosh-[place]ella [place] Bodies [place] Rings Evon Cells Bite Cells Crenated Cell Elliptocytes Acanthocytes (Spur) Rouleaux Hemoglobin C Crystals Schistocytes Malaria parasites Cole Bodies Hem Pathologist Commnt Fibrinogen Schistocytes Smear Blood Type O NEGATIVE Antibody Screen Negative Crossmatch See Detail See Detail 04/16/18 04/16/18 04/17/18 13:40 21:48 03:31 WBC 4.5 RBC 2.72 L Hgb 9.0 L 8.8 L Hct 25.9 L 25.3 L MCV 93 MCH 32 MCHC 35 H RDW 16.2 H Plt Count 63 L Add Manual Diff Complete Total Counted 100 Seg Neuts % (Manual) 80.0 H Band Neutrophils % 8.0 Lymphocytes % (Manual) 6.0 L Reactive Lymphs % (Man) 0 Monocytes % (Manual) 1.0 Eosinophils % (Manual) 2.0 Basophils % (Manual) 1.0 Metamyelocytes % 1.0 Myelocytes % 1.0 Promyelocytes % 0 Blast Cells % 0 Nucleated RBC % Not Reportable Seg Neutrophils # Man 3.6 Band Neutrophils # 0.4 Lymphocytes # (Manual) 0.3 L Abs React Lymphs (Man) 0.0 Monocytes # (Manual) 0.0 Eosinophils # (Manual) 0.1 Basophils # (Manual) 0.0 Metamyelocytes # 0.0 Myelocytes # 0.0 Promyelocytes # 0.0 Blast Cells # 0.0 WBC Morphology Not Reportable Hypersegmented Neuts Not Reportable Hyposegmented Neuts Not Reportable Hypogranular Neuts Not Reportable Smudge Cells Not Reportable Toxic Granulation Not Reportable Toxic Vacuolation Not Reportable Dohle Bodies Not Reportable Pelger-Huet Anomaly Not Reportable Adele Rods Not Reportable Platelet Estimate Appears decreased Clumped Platelets Not Reportable Plt Clumps, EDTA Not Reportable Large Platelets Few Giant Platelets Not Reportable Platelet Satelliting Not Reportable Plt Morphology Comment Not Reportable RBC Morphology Not Reportable Dimorphic RBCs Not Reportable Polychromasia 1+ Hypochromasia Not Reportable Poikilocytosis Not Reportable Basophilic Stippling Few Anisocytosis 2+ Microcytosis Not Reportable Macrocytosis Not Reportable Spherocytes Not Reportable Pappenheimer Bodies Not Reportable Sickle Cells Not Reportable Target Cells Not Reportable Tear Drop Cells Not Reportable Ovalocytes 1+ Helmet Cells Not Reportable Ghosh-[place] Bodies Not Reportable [place] Rings Not Reportable Evon Cells Not Reportable Bite Cells Not Reportable Crenated Cell Not Reportable Elliptocytes Not Reportable Acanthocytes (Spur) Not Reportable Rouleaux Not Reportable Hemoglobin C Crystals Not Reportable Schistocytes Not Reportable Malaria parasites Not Reportable Cole Bodies Not Reportable Hem Pathologist Commnt No Fibrinogen Schistocytes Smear Rare Blood Type Antibody Screen Crossmatch 04/17/18 07:38 WBC RBC Hgb Hct MCV MCH MCHC RDW Plt Count Add Manual Diff Total Counted Seg Neuts % (Manual) Band Neutrophils % Lymphocytes % (Manual) Reactive Lymphs % (Man) Monocytes % (Manual) Eosinophils % (Manual) Basophils % (Manual) Metamyelocytes % Myelocytes % Promyelocytes % Blast Cells % Nucleated RBC % Seg Neutrophils # Man Band Neutrophils # Lymphocytes # (Manual) Abs React Lymphs (Man) Monocytes # (Manual) Eosinophils # (Manual) Basophils # (Manual) Metamyelocytes # Myelocytes # Promyelocytes # Blast Cells # WBC Morphology Hypersegmented Neuts Hyposegmented Neuts Hypogranular Neuts Smudge Cells Toxic Granulation Toxic Vacuolation Dohle Bodies Pelger-Huet Anomaly Adele Rods Platelet Estimate Clumped Platelets Plt Clumps, EDTA Large Platelets Giant Platelets Platelet Satelliting Plt Morphology Comment RBC Morphology Dimorphic RBCs Polychromasia Hypochromasia Poikilocytosis Basophilic Stippling Anisocytosis Microcytosis Macrocytosis Spherocytes Pappenheimer Bodies Sickle Cells Target Cells Tear Drop Cells Ovalocytes Helmet Cells Ghosh-[place]ella [place] Bodies [place] Rings Evon Cells Bite Cells Crenated Cell Elliptocytes Acanthocytes (Spur) Rouleaux Hemoglobin C Crystals Schistocytes Malaria parasites Cole Bodies Hem Pathologist Commnt Fibrinogen 290 Schistocytes Smear Blood Type Antibody Screen Crossmatch Medications & Allergies - Medications Allergies/Adverse Reactions: Allergies Penicillins Allergy (Severe, Verified 04/10/18 17:28) Anaphylaxis cyclobenzaprine [From Flexeril] Allergy (Verified 04/10/18 19:23) Hives Home Medications: Home Medications Medication Instructions Recorded Confirmed Last Taken Type Apixaban [Eliquis] 2.5 mg PO DAILY 04/10/18 04/10/18 04/10/18 History Gabapentin [Neurontin] 300 mg PO BID 04/10/18 04/10/18 04/10/18 History Hydroxyzine HCl [hydrOXYzine] 25 mg PO DAILY 04/10/18 04/10/18 04/10/18 History Lansoprazole [Prevacid] 30 mg PO DAILY 04/10/18 04/10/18 04/10/18 History Lisinopril [Zestril] 5 mg PO QDAY 04/10/18 04/10/18 04/10/18 History Metoprolol [Lopressor] 25 mg PO BID 04/10/18 04/10/18 04/10/18 History Active Medications: Generic Name Dose Route Start Last Admin Trade Name Freq PRN Reason Stop Dose Admin Albuterol 2.5 mg 04/12/18 12:05 Proventil IH Q4HRT PRN Shortness Of Breath Diltiazem HCl 10 mg 04/11/18 19:55 04/16/18 19:02 Cardizem IV 10 mg Q6H PRN Administration Sustained HR > 140 Gabapentin 300 mg 04/10/18 22:00 04/16/18 23:04 Neurontin PO 300 mg BID GABE Administration Hydroxyzine HCl 25 mg 04/11/18 10:00 04/16/18 11:00 Atarax PO 25 mg DAILY GABE Administration Pantoprazole Sodium 80 mg/ 100 mls @ 10 mls/hr 04/11/18 12:00 04/17/18 06:00 Sodium Chloride IV 8 mg/hr DIRECT GABE 10 mls/hr Administration 8 MG/HR Amino Acids 2,000 mls @ 84 mls/hr 04/16/18 20:00 04/16/18 23:06 Clinimix 4.25%-5% Solution IV 04/17/18 19:59 84 mls/hr ONCE GABE Administration Ondansetron HCl 4 mg 04/10/18 21:50 04/16/18 06:59 Zofran IV 4 mg Q4H PRN Administration Nausea And Vomiting Sodium Chloride 10 ml 04/10/18 22:00 04/17/18 06:01 Sodium Chloride Flush Syringe 10 Ml IV 10 ml BID GABE Administration Sodium Chloride 10 ml 04/10/18 18:58 Sodium Chloride Flush Syringe 10 Ml IV PRN PRN LINE FLUSH
[2018-04-17] MEDS: NEURONTIN PO SCH ×2 (10:11→21:38)
[2018-04-17] MEDS: ATARAX PO SCH (10:11)
[2018-04-17] MEDS: PROTONIX PO SCH ×2 (10:23→21:38)
--- NOTE | 2018-04-17 11:15 | Gastroenterology Progress Note ---
Assessment and Plan 1. GI bleed - etiology suspected to be lower esophageal source at detailed in previous procedures; repeat bleeding episodes of unclear etiology (colon without obvious source and cta negative); previous drop in hgb possibly from hemolysis/dic but now stable after blood transfusions. 2. Esophageal ulcer - PPI BID dosing; f/u in GI clinic in 2-3 weeks -okay to advance diet from gi stand point -if pt rebleeds, would obtain tagged RBC scan Will sign off, please call as needed or with questions. Subjective Date of service: 04/17/18 Principal diagnosis: GI bleed Interval history: no further signs of bleeding and H/h stable; tolerating clears Objective - Constitutional Vitals: Temp Pulse Resp BP Pulse Ox 99.9 F H 68 16 121/58 97 04/17/18 03:05 04/17/18 07:45 04/17/18 07:45 04/17/18 07:45 04/17/18 08:11 General appearance: no acute distress, obese - Respiratory Respiratory effort: normal Respiratory: bilateral: CTA - Cardiovascular Rhythm: regular Heart Sounds: Present: S1 & S2 - Gastrointestinal General gastrointestinal: Present: soft, non-tender, non-distended - Neurologic Neurological: alert and oriented x3 - Labs CBC & Chem 7: 04/17/18 03:31 04/15/18 11:08 Labs: Laboratory Results - last 24 hr 04/10/18 04/15/18 04/16/18 17:20 07:35 13:40 WBC RBC Hgb 8.4 L Hct 25.6 L MCV MCH MCHC RDW Plt Count Add Manual Diff Total Counted Seg Neuts % (Manual) Band Neutrophils % Lymphocytes % (Manual) Reactive Lymphs % (Man) Monocytes % (Manual) Eosinophils % (Manual) Basophils % (Manual) Metamyelocytes % Myelocytes % Promyelocytes % Blast Cells % Nucleated RBC % Seg Neutrophils # Man Band Neutrophils # Lymphocytes # (Manual) Abs React Lymphs (Man) Monocytes # (Manual) Eosinophils # (Manual) Basophils # (Manual) Metamyelocytes # Myelocytes # Promyelocytes # Blast Cells # WBC Morphology Hypersegmented Neuts Hyposegmented Neuts Hypogranular Neuts Smudge Cells Toxic Granulation Toxic Vacuolation Dohle Bodies Pelger-Huet Anomaly Adele Rods Platelet Estimate Clumped Platelets Plt Clumps, EDTA Large Platelets Giant Platelets Platelet Satelliting Plt Morphology Comment RBC Morphology Dimorphic RBCs Polychromasia Hypochromasia Poikilocytosis Basophilic Stippling Anisocytosis Microcytosis Macrocytosis Spherocytes Pappenheimer Bodies Sickle Cells Target Cells Tear Drop Cells Ovalocytes Helmet Cells Ghosh-[place] Bodies [place] Rings Evon Cells Bite Cells Crenated Cell Elliptocytes Acanthocytes (Spur) Rouleaux Hemoglobin C Crystals Schistocytes Malaria parasites Cole Bodies Hem Pathologist Commnt Fibrinogen Schistocytes Smear Blood Type O NEGATIVE Antibody Screen Negative Crossmatch See Detail See Detail 04/16/18 04/16/18 04/17/18 13:40 21:48 03:31 WBC 4.5 RBC 2.72 L Hgb 9.0 L 8.8 L Hct 25.9 L 25.3 L MCV 93 MCH 32 MCHC 35 H RDW 16.2 H Plt Count 63 L Add Manual Diff Complete Total Counted 100 Seg Neuts % (Manual) 80.0 H Band Neutrophils % 8.0 Lymphocytes % (Manual) 6.0 L Reactive Lymphs % (Man) 0 Monocytes % (Manual) 1.0 Eosinophils % (Manual) 2.0 Basophils % (Manual) 1.0 Metamyelocytes % 1.0 Myelocytes % 1.0 Promyelocytes % 0 Blast Cells % 0 Nucleated RBC % Not Reportable Seg Neutrophils # Man 3.6 Band Neutrophils # 0.4 Lymphocytes # (Manual) 0.3 L Abs React Lymphs (Man) 0.0 Monocytes # (Manual) 0.0 Eosinophils # (Manual) 0.1 Basophils # (Manual) 0.0 Metamyelocytes # 0.0 Myelocytes # 0.0 Promyelocytes # 0.0 Blast Cells # 0.0 WBC Morphology Not Reportable Hypersegmented Neuts Not Reportable Hyposegmented Neuts Not Reportable Hypogranular Neuts Not Reportable Smudge Cells Not Reportable Toxic Granulation Not Reportable Toxic Vacuolation Not Reportable Dohle Bodies Not Reportable Pelger-Huet Anomaly Not Reportable Adele Rods Not Reportable Platelet Estimate Appears decreased Clumped Platelets Not Reportable Plt Clumps, EDTA Not Reportable Large Platelets Few Giant Platelets Not Reportable Platelet Satelliting Not Reportable Plt Morphology Comment Not Reportable RBC Morphology Not Reportable Dimorphic RBCs Not Reportable Polychromasia 1+ Hypochromasia Not Reportable Poikilocytosis Not Reportable Basophilic Stippling Few Anisocytosis 2+ Microcytosis Not Reportable Macrocytosis Not Reportable Spherocytes Not Reportable Pappenheimer Bodies Not Reportable Sickle Cells Not Reportable Target Cells Not Reportable Tear Drop Cells Not Reportable Ovalocytes 1+ Helmet Cells Not Reportable Ghosh-[place] Bodies Not Reportable [place] Rings Not Reportable [place] Cells Not Reportable Bite Cells Not Reportable Crenated Cell Not Reportable Elliptocytes Not Reportable Acanthocytes (Spur) Not Reportable Rouleaux Not Reportable Hemoglobin C Crystals Not Reportable Schistocytes Not Reportable Malaria parasites Not Reportable Cole Bodies Not Reportable Hem Pathologist Commnt No Fibrinogen Schistocytes Smear Rare Blood Type Antibody Screen Crossmatch 04/17/18 07:38 WBC RBC Hgb Hct MCV MCH MCHC RDW Plt Count Add Manual Diff Total Counted Seg Neuts % (Manual) Band Neutrophils % Lymphocytes % (Manual) Reactive Lymphs % (Man) Monocytes % (Manual) Eosinophils % (Manual) Basophils % (Manual) Metamyelocytes % Myelocytes % Promyelocytes % Blast Cells % Nucleated RBC % Seg Neutrophils # Man Band Neutrophils # Lymphocytes # (Manual) Abs React Lymphs (Man) Monocytes # (Manual) Eosinophils # (Manual) Basophils # (Manual) Metamyelocytes # Myelocytes # Promyelocytes # Blast Cells # WBC Morphology Hypersegmented Neuts Hyposegmented Neuts Hypogranular Neuts Smudge Cells Toxic Granulation Toxic Vacuolation Dohle Bodies Pelger-Huet Anomaly Adele Rods Platelet Estimate Clumped Platelets Plt Clumps, EDTA Large Platelets Giant Platelets Platelet Satelliting Plt Morphology Comment RBC Morphology Dimorphic RBCs Polychromasia Hypochromasia Poikilocytosis Basophilic Stippling Anisocytosis Microcytosis Macrocytosis Spherocytes Pappenheimer Bodies Sickle Cells Target Cells Tear Drop Cells Ovalocytes Helmet Cells Ghosh-[place] Bodies [place] Rings Evon Cells Bite Cells Crenated Cell Elliptocytes Acanthocytes (Spur) Rouleaux Hemoglobin C Crystals Schistocytes Malaria parasites Cole Bodies Hem Pathologist Commnt Fibrinogen 290 Schistocytes Smear Blood Type Antibody Screen Crossmatch
--- NOTE | 2018-04-17 11:41 | Consultation ---
REFERRED BY: Federica Miner MD REASON FOR CONSULTATION: Low platelets, anemia. HISTORY OF PRESENT ILLNESS: I saw the patient, a 63-year-old male, in the medical floor. The patient was admitted on 04/10/2018 with hematemesis and melena. The patient has history of atrial fibrillation and has been on Eliquis since 05/2017. He has a history of esophageal achalasia, status post esophageal surgery. During this admission, the patient has been seen by GI team, ICU team. The patient has had EGD. This showed large blood clot in the lower esophagus and proximal stomach, esophageal ulcer. During his admission, platelet count had been going down and I have been asked to evaluate the patient for same. The patient has been off Eliquis. At this time, the patient states he is doing fine. No headache, no visual disturbances. No ear discharge. History of hematemesis and melena present. No chest pain, no shortness of breath at rest. No abdominal pain. No seizure, syncope or loss of consciousness. PAST MEDICAL HISTORY: As above, atrial fibrillation, hypertension, obesity. PAST SURGICAL HISTORY: Esophageal surgery x 6. FAMILY HISTORY: Hypertension. SOCIAL HISTORY: , lives with family members. ALLERGIES: PENICILLIN AND CYCLOBENZAPRINE/FLEXERIL. HOME MEDICATIONS: Included Eliquis, lisinopril, metoprolol. LABORATORY DATA: During this admission, the lowest hemoglobin was 6.3 on 04/12/2018. Lowest platelet count was 56 today. At admission, the platelet was 151. PHYSICAL EXAMINATION: VITAL SIGNS: Temperature 98, pulse 79, respiration 17, BP 123/55. HEENT: Pallor present. No icterus. NECK: No neck lymph nodes. HEART: S1, S2. LUNGS: Clear to auscultation anteriorly. ABDOMEN: Soft. No guarding. EXTREMITIES: No calf tenderness. NEUROLOGIC: Alert, awake. LABORATORY DATA: White cell 4.7, hemoglobin 7.3, MCV 96, platelets 56. On 04/15/2018, INR was 1.1, fibrinogen 170, bilirubin 0.4, LDH 222, creatinine 0.8. RADIOLOGY: CT abdomen was done, which was unremarkable. Nonspecific colitis. Doppler showed cephalic vein thrombus (superficial vein). ASSESSMENT AND PLAN: 1. Thrombocytopenia in a patient with history of gastrointestinal bleed, most likely this is consumption. Fibrinogen is low, but not low enough to warrant support. We will follow the trend. 2. Anemia, status post transfusion. 3. Upper gastrointestinal bleed, seen by GI. 4. History of atrial fibrillation, was on Eliquis from 05/2017. This has been held now. Cardiology team will guide regarding treatment options in view of the gastrointestinal bleed. 5. 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 We will observe the patient, especially in view of his recent bleeds. 6. History of esophageal surgery in the past. 7. Obesity. At this time, we will follow the trend of the platelet count and fibrinogen. Continue with supportive care with transfusions as needed. JOB# [id number] CHELLY/BRANT
--- NOTE | 2018-04-17 11:50 | Consultation ---
History of Present Illness Consult date: 04/17/18 Consult reason: atrial fibrillation History of present illness: 63 YO Male with HTN, Obesity, Atrial Fib currently on Therapeutic Anticoagulation (Eliquis), Achalasia S/P Esophageal Surgery admitted with GI bleed. Patient has undergone GI evaluation with endoscopy and colonoscopy. Bleeding was felt to be related to esophageal ulcer which is healing. Eliquis is currently being held. Of note, eliquis was started after patient had episode of atrial fibrillation after abdominal surgery in 05/2017 which was complicated by shock and required p rolonged hospitalization. He was treated with amiodarone at that time and eventually converted to sinus rhythm. Telemetry monitoring is currently consistent with sinus rhythm. Last echocardiogram in the office on 06/16/17 had revealed normal LVEF with no significant valvular lesions. Past History Past Medical History: atrial fib, hypertension, other (Obesity, Achalasia) Past Surgical History: Other (Esophageal surgery x6) Social history: , lives with family Family history: hypertension Medications and Allergies Allergies Allergy/AdvReac Type Severity Reaction Status Date / Time Penicillins Allergy Severe Anaphylaxis Verified 04/10/18 17:28 cyclobenzaprine Allergy Hives Verified 04/10/18 19:23 [From Flexeril] Home Medications Medication Instructions Recorded Confirmed Last Taken Type Apixaban [Eliquis] 2.5 mg PO DAILY 04/10/18 04/10/18 04/10/18 History Gabapentin [Neurontin] 300 mg PO BID 04/10/18 04/10/18 04/10/18 History Hydroxyzine HCl [hydrOXYzine] 25 mg PO DAILY 04/10/18 04/10/18 04/10/18 History Lansoprazole [Prevacid] 30 mg PO DAILY 04/10/18 04/10/18 04/10/18 History Lisinopril [Zestril] 5 mg PO QDAY 04/10/18 04/10/18 04/10/18 History Metoprolol [Lopressor] 25 mg PO BID 04/10/18 04/10/18 04/10/18 History Active Meds: Active Medications Albuterol (Proventil) 2.5 mg IH Q4HRT PRN PRN Reason: Shortness Of Breath Diltiazem HCl (Cardizem) 10 mg IV Q6H PRN PRN Reason: Sustained HR > 140 Last Admin: 04/16/18 19:02 Dose: 10 mg Documented by: Gabapentin (Neurontin) 300 mg PO BID [facility] Last Admin: 04/17/18 10:11 Dose: 300 mg Documented by: Hydroxyzine HCl (Atarax) 25 mg PO DAILY [facility] Last Admin: 04/17/18 10:11 Dose: 25 mg Documented by: Ondansetron HCl (Zofran) 4 mg IV Q4H PRN PRN Reason: Nausea And Vomiting Last Admin: 04/16/18 06:59 Dose: 4 mg Documented by: Pantoprazole Sodium (Protonix) 40 mg PO BID [facility] Last Admin: 04/17/18 10:23 Dose: 40 mg Documented by: Sodium Chloride (Sodium Chloride Flush Syringe 10 Ml) 10 ml IV BID [facility] Last Admin: 04/17/18 10:24 Dose: 10 ml Documented by: Sodium Chloride (Sodium Chloride Flush Syringe 10 Ml) 10 ml IV PRN PRN PRN Reason: LINE FLUSH Review of Systems All systems: negative (per hpi) Physical Examination Vital Signs Pulse Resp Pulse Ox 65 16 100 04/10/18 17:03 04/10/18 17:03 04/10/18 17:03 General appearance: no acute distress Neck: Positive: neck supple Cardiac: Positive: Reg Rate and Rhythm Lungs: Positive: clear to auscultation Abdomen: Positive: Soft, Active Bowel Sounds Extremities: Absent: edema Results 04/17/18 03:31 04/15/18 11:08 CBC 04/16/18 04/16/18 04/17/18 Range/Units 13:40 21:48 03:31 WBC 4.5 (4.5-11.0) K/mm3 RBC 2.72 L (3.65-5.03) M/mm3 Hgb 8.4 L 9.0 L 8.8 L (11.8-15.2) gm/dl Hct 25.6 L 25.9 L 25.3 L (35.5-45.6) % Plt Count 63 L (140-440) K/mm3 Assessment and Plan H/O persistent atrial fibrillation after abdominal surgery in 05/2017 [id number] VASc = 1. GI bleed Htn Recommend: Continue to hold anticoagulation and do not restart Continue current therapy Restart low dose beta cooper once BP stable.
--- NOTE | 2018-04-17 13:22 | Progress Note ---
Assessment and Plan Assessment and plan: Acute Thrombocytopenia -likely consumption related -Platelet level improving, will monitor -Hematology following Acute Blood Loss Anemia -s/p blood transfusion with PRBC -H/H stable, will monitor Paroxysmal Afib, s/p RVR episode -currently in sinus rhythm and rate controlled -on PRN cardizem -low dose to be restarted when BP stabilizes -home eliquis on hold due to the acute bleed BUE edema 2/2 Fluid Overload r/o other etiology -Venous doppler of BUE neg for DVT except for cephalic vein thrombosis versus thrombophlebitis Upper GI bleed -probably 2/2 esophageal ulcer -s/p recent Panendoscopy -cont Protoix -GI following Hypotension 2/2 hypovolemia -BP improving, will monitor Moderate protein calorie malnutrition -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 D/c will depend on clinical course History Interval history: Pt has no new complaints. No reported current bleeding. Hospitalist Physical - Constitutional Vitals: Temp Pulse Resp BP Pulse Ox 99.9 F H 78 17 115/47 96 04/17/18 03:05 04/17/18 11:15 04/17/18 11:15 04/17/18 11:15 04/17/18 11:15 General appearance: Present: no acute distress, obese - EENT Eyes: Present: PERRL, EOM intact ENT: hearing intact, clear oral mucosa - Neck Neck: Present: supple - Respiratory Respiratory effort: normal Respiratory: bilateral: CTA - Cardiovascular Rhythm: regular Heart Sounds: Present: S1 & S2 - Extremities Extremity abnormal: edema (in BUE) - Abdominal General gastrointestinal: soft, non-tender, normal bowel sounds - Neurologic Neurologic: CNII-XII intact Results - Labs CBC & Chem 7: 04/17/18 16:01 04/15/18 11:08 Labs: Laboratory Last Values WBC 4.5 K/mm3 (4.5-11.0) 04/17/18 03:31 RBC 2.72 M/mm3 (3.65-5.03) L 04/17/18 03:31 Hgb 8.8 gm/dl (11.8-15.2) L 04/17/18 03:31 Hct 25.3 % (35.5-45.6) L 04/17/18 03:31 MCV 93 fl (84-94) 04/17/18 03:31 MCH 32 pg (28-32) 04/17/18 03:31 MCHC 35 % (32-34) H 04/17/18 03:31 RDW 16.2 % (13.2-15.2) H 04/17/18 03:31 Plt Count 63 K/mm3 (140-440) L 04/17/18 03:31 Lymph % (Auto) [employer]st 04/13/18 03:50 [place] % (Auto) [employer]st 04/13/18 03:50 Eos % (Auto) [employer]st 04/13/18 03:50 Baso % (Auto) [employer]st 04/13/18 03:50 Lymph # [employer]st 04/13/18 03:50 [place] # [employer]st 04/13/18 03:50 Eos # [employer]st 04/13/18 03:50 Baso # [employer]st 04/13/18 03:50 Add Manual Diff Complete 04/17/18 03:31 Total Counted 100 04/17/18 03:31 Seg Neutrophils % [employer]st 04/13/18 03:50 Seg Neuts % (Manual) 80.0 % (40.0-70.0) H 04/17/18 03:31 Band Neutrophils % 8.0 % 04/17/18 03:31 Lymphocytes % (Manual) 6.0 % (13.4-35.0) L 04/17/18 03:31 Reactive Lymphs % (Man) 0 % 04/17/18 03:31 Monocytes % (Manual) 1.0 % (0.0-7.3) 04/17/18 03:31 Eosinophils % (Manual) 2.0 % (0.0-4.3) 04/17/18 03:31 Basophils % (Manual) 1.0 % (0.0-1.8) 04/17/18 03:31 Metamyelocytes % 1.0 % 04/17/18 03:31 Myelocytes % 1.0 % 04/17/18 03:31 Promyelocytes % 0 % 04/17/18 03:31 Blast Cells % 0 % 04/17/18 03:31 Nucleated RBC % Not Reportable 04/17/18 03:31 Seg Neutrophils # [employer] Analyst 04/13/18 03:50 Seg Neutrophils # Man 3.6 K/mm3 (1.8-7.7) 04/17/18 03:31 Band Neutrophils # 0.4 K/mm3 04/17/18 03:31 Lymphocytes # (Manual) 0.3 K/mm3 (1.2-5.4) L 04/17/18 03:31 Abs React Lymphs (Man) 0.0 K/mm3 04/17/18 03:31 Monocytes # (Manual) 0.0 K/mm3 (0.0-0.8) 04/17/18 03:31 Eosinophils # (Manual) 0.1 K/mm3 (0.0-0.4) 04/17/18 03:31 Basophils # (Manual) 0.0 K/mm3 (0.0-0.1) 04/17/18 03:31 Metamyelocytes # 0.0 K/mm3 04/17/18 03:31 Myelocytes # 0.0 K/mm3 04/17/18 03:31 Promyelocytes # 0.0 K/mm3 04/17/18 03:31 Blast Cells # 0.0 K/mm3 04/17/18 03:31 WBC Morphology Not Reportable 04/17/18 03:31 Hypersegmented Neuts Not Reportable 04/17/18 03:31 Hyposegmented Neuts Not Reportable 04/17/18 03:31 Hypogranular Neuts Not Reportable 04/17/18 03:31 Smudge Cells Not Reportable 04/17/18 03:31 Toxic Granulation Not Reportable 04/17/18 03:31 Toxic Vacuolation Not Reportable 04/17/18 03:31 Dohle Bodies Not Reportable 04/17/18 03:31 Pelger-Huet Anomaly Not Reportable 04/17/18 03:31 Adele Rods Not Reportable 04/17/18 03:31 Platelet Estimate Appears decreased 04/17/18 03:31 Clumped Platelets Not Reportable 04/17/18 03:31 Plt Clumps, EDTA Not Reportable 04/17/18 03:31 Large Platelets Few 04/17/18 03:31 Giant Platelets Not Reportable 04/17/18 03:31 Platelet Satelliting Not Reportable 04/17/18 03:31 Plt Morphology Comment Not Reportable 04/17/18 03:31 RBC Morphology Not Reportable 04/17/18 03:31 Dimorphic RBCs Not Reportable 04/17/18 03:31 Polychromasia 1+ 04/17/18 03:31 Hypochromasia Not Reportable 04/17/18 03:31 Poikilocytosis Not Reportable 04/17/18 03:31 Basophilic Stippling Few 04/17/18 03:31 Anisocytosis 2+ 04/17/18 03:31 Microcytosis Not Reportable 04/17/18 03:31 Macrocytosis Not Reportable 04/17/18 03:31 Spherocytes Not Reportable 04/17/18 03:31 Pappenheimer Bodies Not Reportable 04/17/18 03:31 Sickle Cells Not Reportable 04/17/18 03:31 Target Cells Not Reportable 04/17/18 03:31 Tear Drop Cells Not Reportable 04/17/18 03:31 Ovalocytes 1+ 04/17/18 03:31 Stomatocytes Rare 04/15/18 03:48 Helmet Cells Not Reportable 04/17/18 03:31 [place] Bodies Not Reportable 04/17/18 03:31 [place] Rings Not Reportable 04/17/18 03:31 Evon Cells Not Reportable 04/17/18 03:31 Bite Cells Not Reportable 04/17/18 03:31 Crenated Cell Not Reportable 04/17/18 03:31 Elliptocytes Not Reportable 04/17/18 03:31 Acanthocytes (Spur) Not Reportable 04/17/18 03:31 Rouleaux Not Reportable 04/17/18 03:31 Hemoglobin C Crystals Not Reportable 04/17/18 03:31 Schistocytes Not Reportable 04/17/18 03:31 Malaria parasites Not Reportable 04/17/18 03:31 Cole Bodies Not Reportable 04/17/18 03:31 Hem Pathologist Commnt No 04/17/18 03:31 PT 15.8 Sec. (12.2-14.9) H 04/15/18 19:09 INR 1.18 (0.87-1.13) H 04/15/18 19:09 APTT < 20.0 Sec. (24.2-36.6) L 04/15/18 19:09 Fibrinogen 290 mg/dl (211-480) 04/17/18 07:38 D-Dimer 4084.10 ng/mlDDU (0-234) H 04/15/18 19:09 POC ABG pH 7.465 (7.35-7.45) H 04/11/18 18:27 POC ABG pCO2 22.2 (35-45) L 04/11/18 18:27 POC ABG pO2 90 (80-105) 04/11/18 18:27 POC ABG HCO3 15.9 04/11/18 18:27 POC ABG Total CO2 17 04/11/18 18:27 POC ABG O2 Sat 98 04/11/18 18:27 POC ABG Base Excess -8 04/11/18 18:27 FiO2 28 % 04/11/18 18:27 Sodium 139 mmol/L (137-145) 04/15/18 11:08 Potassium 3.6 mmol/L (3.6-5.0) 04/15/18 11:08 Chloride 109.0 mmol/L (98-107) H 04/15/18 11:08 Carbon Dioxide 23 mmol/L (22-30) 04/15/18 11:08 Anion Gap 11 mmol/L 04/15/18 11:08 BUN 13 mg/dL (9-20) 04/15/18 11:08 Creatinine 0.8 mg/dL (0.8-1.5) 04/15/18 11:08 Estimated GFR > 60 ml/min 04/15/18 11:08 BUN/Creatinine Ratio 16 % 04/15/18 11:08 Glucose 112 mg/dL (75-100) H 04/15/18 11:08 Calcium 6.8 mg/dL (8.4-10.2) L 04/15/18 11:08 Total Bilirubin 1.20 mg/dL (0.1-1.2) 04/15/18 19:09 Direct Bilirubin 0.4 mg/dL (0-0.2) H 04/15/18 19:09 Indirect Bilirubin 0.8 mg/dL 04/15/18 19:09 AST 24 units/L (5-40) 04/15/18 19:09 ALT 14 units/L (7-56) 04/15/18 19:09 Alkaline Phosphatase 75 units/L (35-129) 04/15/18 19:09 Lactate Dehydrogenase 222 units/L (91-180) H 04/15/18 19:09 Total Protein 4.0 g/dL (6.3-8.2) L D 04/15/18 19:09 Albumin 1.8 g/dL (3.9-5) L 04/15/18 19:09 Albumin/Globulin Ratio 0.8 % 04/15/18 19:09 Schistocytes Smear Rare 04/16/18 13:40 Blood Type O NEGATIVE 04/15/18 07:35 Antibody Screen Negative 04/15/18 07:35 Crossmatch See Detail 04/15/18 07:35 Nutrition/Malnutrition Assess - Dietary Evaluation Nutrition/Malnutrition Findings: Nutrition Notes Start: 04/16/18 10:09 Freq: Status: Active Protocol: Document 04/16/18 14:49 CP (Rec: 04/16/18 14:58 CP [id number]) Co-Sign 04/16/18 14:49 LP Nutrition Notes Need for Assessment generated from: LOS Initial or Follow up Assessment Current Diagnosis Hypertension Other Pertinent Diagnosis Atrial fibrillation, DVT prophylaxis Current Diet NPO Labs/Tests Reviewed Pertinent Medications Clinimix Height 5 ft 9 in Weight 121.563 kg [place] Body Weight (kg) 72.72 BMI 39.5 Intake Prior to Admission Good Weight Status Obese Subjective/Other Information Pt reports having swallowing difficulty and has nausea. Per family member, pt has lost a "bit of wt" prior to admission . Awaiting MD consult for PPN as discussed in rounds. Percent of energy/protein needs met: 0%/0% Burn Absent Trauma Absent GI Symptoms Nausea Difficulty In Swallowing #1 Nutrition Diagnosis Inadequate oral intake Etiology Colonoscopy As Evidenced by Signs and Symptoms NPO status Is patient on ventilator? No Is Patient Ambulatory and/or Out of Bed No REE-([facility]-confined to bed) 2405.796 Kcal/Kg value to use for calculation 14 Approximate Energy Requirements Using 1702 kcal/Kg Calculation Used for Recommendations Kcal/kg Additional Notes Pro: 144g (2g/kg IBW) Fluid: 1mL/kcal Nutrition Intervention Change Diet Order: Advance when medically feasible Goal #1 Diet advancement Follow-Up By: 04/20/18 Additional Comments F/U: Diet advancement
[2018-04-17] MEDS: ZOFRAN IV PRN ×2 (15:57→23:46)
[2018-04-17 16:26] LABS: Hematocrit 30.2 % (35.5-45.6); Hemoglobin 10.3 gm/dl (11.8-15.2)
[2018-04-17] MEDS ORDERED: NACL 0.9% 250ML 250 ML IV ONE (23:55)
[2018-04-18 01:23] LABS: Hematocrit 23.6 % (35.5-45.6); Hemoglobin 8.1 gm/dl (11.8-15.2)
[2018-04-18] MEDS: ZOFRAN IV PRN ×2 (03:24→08:01)
--- NOTE | 2018-04-18 08:07 | Hem/Onc Progress Note ---
Assessment and Plan 1. Thrombocytopenia in a patient with history of gastrointestinal bleed, most likely this is consumption. Fibrinogen is low, but not low enough to warrant support. We will follow the trend. 2. Anemia, status post transfusion. 3. Upper gastrointestinal bleed, seen by GI. 4. History of atrial fibrillation, was on Eliquis from 05/2017. This has been held now. Cardiology team will guide regarding treatment options in view of the gastrointestinal bleed. 5. 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 We will observe the patient, especially in view of his recent bleeds. 6. History of esophageal surgery in the past. 7. Obesity. At this time, we will follow the trend of the platelet count and fibrinogen. Continue with supportive care with transfusions as needed. 3/ - plt better - likely consumption related - will follow repeat fibrinogen - better 3/ - c/o abdo unease - off eliquis for now - Patient Problems (1) Thrombocytopenia Current Visit: Yes Status: Acute Subjective Date of service: 04/18/18 Principal diagnosis: low plt Interval history: c/o abdo unease Objective - Constitutional Vitals: Last Vital Signs Temp 98.0 F 04/18/18 04:21 Pulse 103 H 04/18/18 04:52 Resp 18 04/18/18 04:21 BP 93/48 04/18/18 04:21 Pulse Ox 97 04/18/18 04:21 Pain Intensity (0-10): denies any pain General appearance: no acute distress Performance status: 3-limited selfcare - EENT Eyes: EOM intact ENT: clear oral mucosa Lymph node exam: negative cervical - Respiratory Respiratory effort: Positive: normal Respiratory: bilateral: CTA - Cardiovascular Heart Sounds: Present: S1 & S2 Extremities: No edema - Gastrointestinal General gastrointestinal: Present: soft, non-tender Rectal Exam: deferred - Genitourinary Male genitourinary: Present: deferred - Integumentary Integumentary: warm - Musculoskeletal Musculoskeletal: strength equal bilaterally - Neurologic Neurologic: moves all extremities - Psychiatric Psychiatric: appropriate mood/affect - Labs Lab Results: Laboratory Results - last 24 hr 04/17/18 04/17/18 04/18/18 07:38 16:01 00:52 Hgb 10.3 L 8.1 L Hct 30.2 L 23.6 L D Fibrinogen 290 Medications & Allergies - Medications Allergies/Adverse Reactions: Allergies Penicillins Allergy (Severe, Verified 04/10/18 17:28) Anaphylaxis cyclobenzaprine [From Flexeril] Allergy (Verified 04/10/18 19:23) Hives Home Medications: Home Medications Medication Instructions Recorded Confirmed Last Taken Type Apixaban [Eliquis] 2.5 mg PO DAILY 04/10/18 04/10/18 04/10/18 History Gabapentin [Neurontin] 300 mg PO BID 04/10/18 04/10/18 04/10/18 History Hydroxyzine HCl [hydrOXYzine] 25 mg PO DAILY 04/10/18 04/10/18 04/10/18 History Lansoprazole [Prevacid] 30 mg PO DAILY 04/10/18 04/10/18 04/10/18 History Lisinopril [Zestril] 5 mg PO QDAY 04/10/18 04/10/18 04/10/18 History Metoprolol [Lopressor] 25 mg PO BID 04/10/18 04/10/18 04/10/18 History Active Medications: Generic Name Dose Route Start Last Admin Trade Name Freq PRN Reason Stop Dose Admin Albuterol 2.5 mg 04/12/18 12:05 Proventil IH Q4HRT PRN Shortness Of Breath Diltiazem HCl 10 mg 04/11/18 19:55 04/16/18 19:02 Cardizem IV 10 mg Q6H PRN Administration Sustained HR > 140 Gabapentin 300 mg 04/10/18 22:00 04/17/18 21:38 Neurontin PO 300 mg BID GABE Administration Hydroxyzine HCl 25 mg 04/11/18 10:00 04/17/18 10:11 Atarax PO 25 mg DAILY GABE Administration Ondansetron HCl 4 mg 04/10/18 21:50 04/18/18 08:01 Zofran IV 4 mg Q4H PRN Administration Nausea And Vomiting Pantoprazole Sodium 40 mg 04/17/18 10:00 04/17/18 21:38 Protonix PO 40 mg BID GABE Administration Sodium Chloride 10 ml 04/10/18 22:00 04/17/18 21:38 Sodium Chloride Flush Syringe 10 Ml IV 10 ml BID GABE Administration Sodium Chloride 10 ml 04/10/18 18:58 Sodium Chloride Flush Syringe 10 Ml IV PRN PRN LINE FLUSH
[2018-04-18 08:34] LABS: Basophils % (Auto) 0.3 % (0.0-1.8); Eosinophils % (Auto) 0.2 % (0.0-4.3); Hematocrit 23.5 % (35.5-45.6); Lymphocytes # (Auto) 0.9 K/mm3 (1.2-5.4); Lymphocytes % (Auto) 8.9 % (13.4-35.0); Mean Corpuscular HGB Conc 34 % (32-34); Mean Corpuscular Volume 96 fl (84-94); Monocytes # (Auto) 0.6 K/mm3 (0.0-0.8); Monocytes % (Auto) 6.5 % (0.0-7.3); Platelet Count 136 K/mm3 (140-440); Red Blood Count 2.46 M/mm3 (3.65-5.03); Red Cell Distribution Width 17.6 % (13.2-15.2)
[2018-04-18 08:56] LABS: BUN/Creatinine Ratio 15; Blood Urea Nitrogen 15 mg/dL (9-20); Calcium 6.7 mg/dL (8.4-10.2); Hemolysis Index 29; Iron 24 ug/dL (49-181); Total Iron Binding Capacity 179 mcg/dL (250-450)
[2018-04-18] MEDS: NEURONTIN PO SCH ×2 (09:14→22:18)
[2018-04-18] MEDS: SODIUM CHLORIDE FLUSH SYRINGE 10 ML IV SCH ×2 (09:14→23:06)
[2018-04-18] MEDS: ATARAX PO SCH (09:14)
[2018-04-18] MEDS: PROTONIX PO SCH ×2 (09:14→22:18)
[2018-04-18] MEDS ORDERED: NACL 0.9% 500 ML 500 ML IV ONE ×3 (10:20→17:00)
--- NOTE | 2018-04-18 10:32 | Gastroenterology Progress Note ---
Assessment and Plan - Patient Problems (1) GI bleed Current Visit: Yes Status: Acute Qualifiers: GI bleed type/associated pathology: unspecified gastrointestinal hemorrhage type Qualified Code(s): K92.2 - Gastrointestinal hemorrhage, unspecified Plan to address problem: patient with esophageal ulcer on prior EGD that was treated, put now s/p multiple upper endoscopies. Recurrent vomiting of blood today noted per nurse, no change in hemodynamics; suspect some oozing from the ulcer site and given the prior interventions repeat treatment will be difficult. Adding carafate, monitor closely, if has significant bleeding please call and I can perform repeat EGD Subjective Date of service: 04/18/18 Principal diagnosis: GI bleed Interval history: Patient had episode of hematemesis, nurse reports about 50-100cc of dark red blood; patient reports no BM in 2 days and overall feeling cold and weak but no current chest or abdominal pain Objective - Constitutional Vitals: Temp Pulse Resp BP Pulse Ox 98.4 F 99 H 18 98/62 97 04/18/18 08:03 04/18/18 08:03 04/18/18 08:03 04/18/18 08:03 04/18/18 08:03 General appearance: other (pale) - Respiratory Respiratory: bilateral: CTA - Cardiovascular Rhythm: regular - Gastrointestinal General gastrointestinal: Present: soft, normal bowel sounds - Labs CBC & Chem 7: 04/18/18 07:04 04/18/18 07:04 Labs: Laboratory Results - last 24 hr 04/15/18 04/17/18 04/18/18 07:35 16:01 00:52 WBC RBC Hgb 10.3 L 8.1 L Hct 30.2 L 23.6 L D MCV MCH MCHC RDW Plt Count Lymph % (Auto) [place] % (Auto) Eos % (Auto) Baso % (Auto) Lymph # [place] # Eos # Baso # Seg Neutrophils % Seg Neutrophils # Sodium Potassium Chloride Carbon Dioxide Anion Gap BUN Creatinine Estimated GFR BUN/Creatinine Ratio Glucose Calcium Magnesium Iron TIBC Ferritin Vitamin B12 Folate Crossmatch See Detail 04/18/18 04/18/18 04/18/18 07:04 07:04 07:04 WBC 9.5 RBC 2.46 L Hgb 8.0 L Hct 23.5 L MCV 96 H MCH 32 MCHC 34 RDW 17.6 H Plt Count 136 L D Lymph % (Auto) 8.9 L [place] % (Auto) 6.5 Eos % (Auto) 0.2 Baso % (Auto) 0.3 Lymph # 0.9 L [place] # 0.6 Eos # 0.0 Baso # 0.0 Seg Neutrophils % 84.1 H Seg Neutrophils # 8.0 H Sodium 133 L Potassium 4.3 Chloride 99.2 Carbon Dioxide 19 L Anion Gap 19 BUN 15 Creatinine 1.0 Estimated GFR > 60 BUN/Creatinine Ratio 15 Glucose 183 H Calcium 6.7 L Magnesium 1.90 Iron 24 L TIBC 179 L Ferritin 85.6 Vitamin B12 Folate Crossmatch 04/18/18 04/18/18 07:04 07:04 WBC RBC Hgb Hct MCV MCH MCHC RDW Plt Count Lymph % (Auto) [place] % (Auto) Eos % (Auto) Baso % (Auto) Lymph # [place] # Eos # Baso # Seg Neutrophils % Seg Neutrophils # Sodium Potassium Chloride Carbon Dioxide Anion Gap BUN Creatinine Estimated GFR BUN/Creatinine Ratio Glucose Calcium Magnesium Iron TIBC Ferritin Vitamin B12 423.3 Folate 9.22 Crossmatch
[2018-04-18] MEDS ORDERED: NACL 0.9% 1000 ML 1,000 ML IV SCH (11:00)
--- NOTE | 2018-04-18 11:00 | Progress Note ---
Assessment and Plan H/O persistent atrial fibrillation after abdominal surgery in 05/2017 [id number] VASc = 1. GI bleed Htn Recommend: Continue to hold anticoagulation and do not restart Continue current therapy Restart low dose beta cooper once BP stable. Subjective Date of service: 04/18/18 Principal diagnosis: GI bleed Interval history: Pt complains of recurrent nausea/vomiting/hematemesis overnight Objective Vital Signs Temp Pulse Pulse Resp BP BP Pulse Ox 04/18/18 08:03 98.4 F 99 H 18 98/62 97 04/18/18 04:52 103 H 04/18/18 04:21 98.0 F 106 H 18 93/48 97 04/18/18 01:00 90/48 04/17/18 23:50 98.0 F 107 H 18 85/57 95 04/17/18 21:47 88 18 94 04/17/18 21:46 94 04/17/18 20:12 98.0 F 96 H 18 98/66 96 04/17/18 19:15 85 04/17/18 18:15 98.5 F 18 122/50 04/17/18 14:44 98.7 F 18 134/54 04/17/18 14:00 78 19 118/48 93 04/17/18 13:51 77 19 104/49 94 04/17/18 13:41 83 19 104/49 94 04/17/18 13:31 79 20 104/49 93 04/17/18 13:15 78 18 116/50 94 04/17/18 13:00 79 22 116/50 94 04/17/18 12:45 79 17 123/52 93 04/17/18 12:30 79 19 123/52 94 04/17/18 12:15 85 21 108/46 94 04/17/18 12:00 99.1 F 77 77 20 108/46 94 04/17/18 11:45 79 18 130/61 95 04/17/18 11:30 80 15 130/61 96 04/17/18 11:15 78 17 115/47 96 04/17/18 11:00 78 19 115/47 94 - Physical Examination Neck: Positive: neck supple Cardiac: Positive: Reg Rate and Rhythm Lungs: Positive: clear to auscultation Abdomen: Positive: Soft, Active Bowel Sounds Extremities: Absent: edema - Labs and Meds CBC 04/17/18 04/18/18 04/18/18 Range/Units 16:01 00:52 07:04 WBC 9.5 (4.5-11.0) K/mm3 RBC 2.46 L (3.65-5.03) M/mm3 Hgb 10.3 L 8.1 L 8.0 L (11.8-15.2) gm/dl Hct 30.2 L 23.6 L D 23.5 L (35.5-45.6) % Plt Count 136 L D (140-440) K/mm3 Lymph # 0.9 L (1.2-5.4) K/mm3 [place] # 0.6 (0.0-0.8) K/mm3 Eos # 0.0 (0.0-0.4) K/mm3 Baso # 0.0 (0.0-0.1) K/mm3 Comprehensive Metabolic Panel 04/18/18 Range/Units 07:04 Sodium 133 L (137-145) mmol/L Potassium 4.3 (3.6-5.0) mmol/L Chloride 99.2 (98-107) mmol/L Carbon Dioxide 19 L (22-30) mmol/L BUN 15 (9-20) mg/dL Creatinine 1.0 (0.8-1.5) mg/dL Glucose 183 H (75-100) mg/dL Calcium 6.7 L (8.4-10.2) mg/dL - Imaging and Cardiology EKG: report reviewed - Allied health notes Allied health notes reviewed: nursing
--- NOTE | 2018-04-18 11:49 | Progress Note ---
Assessment and Plan Acute gastrointestinal bleed (Upper G.I.) Hematemesis h/o esophagectomy Melena Acute blood loss anemia. Atrial fibrillation with RVR Obesity (possible obesity hypoventilation syndrome) Hypoalbuminemia. Hyperglycemia. Thrombocytopenia -continue to monitor H and H - continue to hold pharmacologic anticoagulation, patient has been in sinus rhythm since admission. -SCDs for VTE prophylaxis -NPO -Accuchecks with glycemic control. Target blood glucose of 140-180mg/dL - PRBC transfusion for Hb < 7.0 (transfuse for higher level depending on rate of fall) - continue PPI as twice a day, carafate added by GI service - continue prn bronchodilators with pulmonary hygiene per RT - continue supplemental oxygen to keep sats > 90% - PT/OT - continue other care per attending / other consultants .... care plan discussed with patient at bedside Subjective Date of service: 04/18/18 Principal diagnosis: GI bleed Interval history: Patient is seen today for: Acute gastrointestinal bleed (Upper G.I.); Melena; Acute blood loss anemia.; Atrial fibrillation with RVR Seen and examined at bedside; 24hour events reviewed; nursing and respiratory care staff consulted; no adverse overnight events reported to me; Patient with esophageal ulcer on prior EGD that was treated, put now s/p multiple upper endoscopies. Recurrent vomiting of blood today noted per nurse and patient transferred back to the ICU for on going monitoring, no change in hemodynamics Objective Vital Signs - 12hr 04/17/18 04/18/18 04/18/18 23:50 01:00 04:21 Temperature 98.0 F 98.0 F Pulse Rate 107 H 106 H Pulse Rate [ From Monitor] Respiratory 18 18 Rate Blood Pressure 85/57 93/48 Blood Pressure 90/48 [Right] O2 Sat by Pulse 95 97 Oximetry 04/18/18 04/18/18 04/18/18 04:52 07:53 08:03 Temperature 98.4 F 98.4 F Pulse Rate 103 H 99 H Pulse Rate [ From Monitor] Respiratory 18 18 Rate Blood Pressure Blood Pressure 98/62 [Right] O2 Sat by Pulse 97 Oximetry 04/18/18 04/18/18 10:00 11:25 Temperature 98.0 F Pulse Rate Pulse Rate [ 99 H From Monitor] Respiratory 18 18 Rate Blood Pressure 104/62 Blood Pressure [Right] O2 Sat by Pulse 97 Oximetry Constitutional: no acute distress, alert, other (Elderly looking morbidly obese CM, normocephalic and atraumatic, normal respiratory effort at rest) Eyes: non-icteric ENT: oropharynx moist, other (Mallampati 3) Neck: supple, no lymphadenopathy, no JVD, other (no thyromegaly) Effort: normal Ascultation: Bilateral: clear, diminished breath sounds Percussion: Bilateral: not dull Cardiovascular: regular rate and rhythm, other (S1,S2, no murmurs, gallops or rubs) Gastrointestinal: hypoactive bowel sounds, soft, non-tender, non-distended, other (protuberant) Integumentary: normal Extremities: no cyanosis, no edema, pink and warm, pulses normal, no ischemia or petechiae Neurologic: normal mental status, non-focal exam, pupils equal and round, motor strength normal and Psychiatric: mood appropriate, affect normal CBC and BMP: 04/18/18 07:04 04/18/18 07:04 ABG, PT/INR, D-dimer: ABG POC ABG pH 7.465 (7.35-7.45) H 04/11/18 18:27 POC ABG pCO2 22.2 (35-45) L 04/11/18 18:27 POC ABG pO2 90 (80-105) 04/11/18 18:27 POC ABG HCO3 15.9 04/11/18 18:27 POC ABG Total CO2 17 04/11/18 18:27 POC ABG O2 Sat 98 04/11/18 18:27 PT/INR, D-dimer PT 15.8 Sec. (12.2-14.9) H 04/15/18 19:09 INR 1.18 (0.87-1.13) H 04/15/18 19:09 D-Dimer 4084.10 ng/mlDDU (0-234) H 04/15/18 19:09 Abnormal lab findings: Abnormal Labs 04/10/18 04/10/18 04/10/18 17:20 17:20 17:20 WBC RBC 2.95 L Hgb 10.5 L Hct 30.3 L MCV 103 H MCH 36 H MCHC 35 H RDW 16.6 H Plt Count Lymph % (Auto) Lymph # Baso # Seg Neutrophils % Seg Neuts % (Manual) Lymphocytes % (Manual) Monocytes % (Manual) Nucleated RBC % Seg Neutrophils # Seg Neutrophils # Man Lymphocytes # (Manual) Eosinophils # (Manual) PT 16.6 H INR 1.26 H APTT Fibrinogen D-Dimer POC ABG pH POC ABG pCO2 Sodium Chloride 108.8 H Carbon Dioxide BUN 22 H Glucose 190 H Calcium 8.0 L Iron TIBC Direct Bilirubin Alkaline Phosphatase 153 H Lactate Dehydrogenase Total Protein 5.9 L Albumin 2.9 L Crossmatch 04/10/18 04/11/18 04/11/18 17:20 05:26 05:26 WBC RBC 2.63 L Hgb 9.2 L Hct 27.1 L MCV 103 H MCH 35 H MCHC RDW 16.6 H Plt Count 105 L Lymph % (Auto) Lymph # Baso # Seg Neutrophils % 70.3 H Seg Neuts % (Manual) Lymphocytes % (Manual) Monocytes % (Manual) Nucleated RBC % Seg Neutrophils # Seg Neutrophils # Man Lymphocytes # (Manual) Eosinophils # (Manual) PT INR APTT Fibrinogen D-Dimer POC ABG pH POC ABG pCO2 Sodium Chloride 110.1 H Carbon Dioxide BUN 30 H Glucose 155 H Calcium 7.8 L Iron TIBC Direct Bilirubin Alkaline Phosphatase Lactate Dehydrogenase Total Protein 5.3 L Albumin 2.6 L Crossmatch See Detail 04/11/18 04/11/18 04/11/18 05:26 17:59 18:27 WBC RBC Hgb 9.1 L 8.4 L Hct 26.8 L 24.9 L MCV MCH MCHC RDW Plt Count Lymph % (Auto) Lymph # Baso # Seg Neutrophils % Seg Neuts % (Manual) Lymphocytes % (Manual) Monocytes % (Manual) Nucleated RBC % Seg Neutrophils # Seg Neutrophils # Man Lymphocytes # (Manual) Eosinophils # (Manual) PT INR APTT Fibrinogen D-Dimer POC ABG pH 7.465 H POC ABG pCO2 22.2 L Sodium Chloride Carbon Dioxide BUN Glucose Calcium Iron TIBC Direct Bilirubin Alkaline Phosphatase Lactate Dehydrogenase Total Protein Albumin Crossmatch 04/11/18 04/12/18 04/12/18 22:54 07:14 15:10 WBC 18.5 H RBC 2.54 L Hgb 7.4 L 8.7 L 8.3 L Hct 21.8 L 25.0 L 25.0 L MCV 98 H MCH 34 H MCHC 35 H RDW 18.6 H Plt Count 101 L Lymph % (Auto) Lymph # Baso # 0.2 H Seg Neutrophils % 79.8 H Seg Neuts % (Manual) Lymphocytes % (Manual) Monocytes % (Manual) Nucleated RBC % Seg Neutrophils # 14.8 H Seg Neutrophils # Man Lymphocytes # (Manual) Eosinophils # (Manual) PT INR APTT Fibrinogen D-Dimer POC ABG pH POC ABG pCO2 Sodium Chloride Carbon Dioxide BUN Glucose Calcium Iron TIBC Direct Bilirubin Alkaline Phosphatase Lactate Dehydrogenase Total Protein Albumin Crossmatch 04/12/18 04/13/18 04/13/18 23:33 03:50 09:16 WBC 15.5 H 11.5 H RBC 1.87 L 2.33 L Hgb 6.3 L 6.4 L 7.8 L Hct 18.4 L* D 18.8 L* 22.6 L MCV 100 H 97 H MCH 34 H 33 H MCHC 35 H RDW 19.7 H 17.7 H Plt Count 97 L 72 L Lymph % (Auto) Lymph # Baso # Seg Neutrophils % Seg Neuts % (Manual) 77.0 H Lymphocytes % (Manual) Monocytes % (Manual) Nucleated RBC % Seg Neutrophils # Seg Neutrophils # Man 11.9 H Lymphocytes # (Manual) Eosinophils # (Manual) 0.5 H PT INR APTT Fibrinogen D-Dimer POC ABG pH POC ABG pCO2 Sodium Chloride Carbon Dioxide BUN Glucose Calcium Iron TIBC Direct Bilirubin Alkaline Phosphatase Lactate Dehydrogenase Total Protein Albumin Crossmatch 04/13/18 04/13/18 04/14/18 13:08 13:08 13:50 WBC RBC 2.19 L Hgb 8.0 L 7.5 L Hct 23.3 L 21.7 L MCV 99 H MCH 34 H MCHC 35 H RDW 17.6 H Plt Count 82 L Lymph % (Auto) Lymph # Baso # Seg Neutrophils % Seg Neuts % (Manual) 81.0 H Lymphocytes % (Manual) 13.0 L Monocytes % (Manual) Nucleated RBC % 1.0 H Seg Neutrophils # Seg Neutrophils # Man 7.9 H Lymphocytes # (Manual) Eosinophils # (Manual) PT INR APTT Fibrinogen D-Dimer POC ABG pH POC ABG pCO2 Sodium Chloride 112.6 H Carbon Dioxide 19 L BUN Glucose 205 H Calcium 6.7 L Iron TIBC Direct Bilirubin Alkaline Phosphatase Lactate Dehydrogenase Total Protein Albumin Crossmatch 04/15/18 04/15/18 04/15/18 03:48 05:50 07:35 WBC RBC 2.03 L Hgb 6.8 L 6.5 L Hct 19.7 L* 18.9 L* MCV 97 H MCH 34 H MCHC 35 H RDW 16.5 H Plt Count 63 L Lymph % (Auto) Lymph # Baso # Seg Neutrophils % Seg Neuts % (Manual) 75.0 H Lymphocytes % (Manual) Monocytes % (Manual) Nucleated RBC % 3.0 H Seg Neutrophils # Seg Neutrophils # Man Lymphocytes # (Manual) 0.9 L Eosinophils # (Manual) PT INR APTT Fibrinogen D-Dimer POC ABG pH POC ABG pCO2 Sodium Chloride Carbon Dioxide BUN Glucose Calcium Iron TIBC Direct Bilirubin Alkaline Phosphatase Lactate Dehydrogenase Total Protein Albumin Crossmatch See Detail 04/15/18 04/15/18 04/15/18 11:08 19:09 19:09 WBC RBC Hgb Hct MCV MCH MCHC RDW Plt Count Lymph % (Auto) Lymph # Baso # Seg Neutrophils % Seg Neuts % (Manual) Lymphocytes % (Manual) Monocytes % (Manual) Nucleated RBC % Seg Neutrophils # Seg Neutrophils # Man Lymphocytes # (Manual) Eosinophils # (Manual) PT 15.8 H INR 1.18 H APTT < 20.0 L Fibrinogen 170 L D-Dimer 4084.10 H POC ABG pH POC ABG pCO2 Sodium Chloride 109.0 H Carbon Dioxide BUN Glucose 112 H Calcium 6.8 L Iron TIBC Direct Bilirubin 0.4 H Alkaline Phosphatase Lactate Dehydrogenase 222 H Total Protein 4.0 L D Albumin 1.8 L Crossmatch 04/15/18 04/15/18 04/16/18 19:09 22:50 05:10 WBC RBC 2.24 L Hgb 8.6 L 8.4 L 7.3 L Hct 24.7 L 24.2 L 21.5 L MCV 96 H MCH 33 H MCHC RDW 16.9 H Plt Count 56 L Lymph % (Auto) Lymph # Baso # Seg Neutrophils % Seg Neuts % (Manual) Lymphocytes % (Manual) Monocytes % (Manual) 8.0 H Nucleated RBC % 3.0 H Seg Neutrophils # Seg Neutrophils # Man Lymphocytes # (Manual) 0.8 L Eosinophils # (Manual) PT INR APTT Fibrinogen D-Dimer POC ABG pH POC ABG pCO2 Sodium Chloride Carbon Dioxide BUN Glucose Calcium Iron TIBC Direct Bilirubin Alkaline Phosphatase Lactate Dehydrogenase Total Protein Albumin Crossmatch 04/16/18 04/16/18 04/17/18 13:40 21:48 03:31 WBC RBC 2.72 L Hgb 8.4 L 9.0 L 8.8 L Hct 25.6 L 25.9 L 25.3 L MCV MCH MCHC 35 H RDW 16.2 H Plt Count 63 L Lymph % (Auto) Lymph # Baso # Seg Neutrophils % Seg Neuts % (Manual) 80.0 H Lymphocytes % (Manual) 6.0 L Monocytes % (Manual) Nucleated RBC % Seg Neutrophils # Seg Neutrophils # Man Lymphocytes # (Manual) 0.3 L Eosinophils # (Manual) PT INR APTT Fibrinogen D-Dimer POC ABG pH POC ABG pCO2 Sodium Chloride Carbon Dioxide BUN Glucose Calcium Iron TIBC Direct Bilirubin Alkaline Phosphatase Lactate Dehydrogenase Total Protein Albumin Crossmatch 04/17/18 04/18/18 04/18/18 16:01 00:52 07:04 WBC RBC 2.46 L Hgb 10.3 L 8.1 L 8.0 L Hct 30.2 L 23.6 L D 23.5 L MCV 96 H MCH MCHC RDW 17.6 H Plt Count 136 L D Lymph % (Auto) 8.9 L Lymph # 0.9 L Baso # Seg Neutrophils % 84.1 H Seg Neuts % (Manual) Lymphocytes % (Manual) Monocytes % (Manual) Nucleated RBC % Seg Neutrophils # 8.0 H Seg Neutrophils # Man Lymphocytes # (Manual) Eosinophils # (Manual) PT INR APTT Fibrinogen D-Dimer POC ABG pH POC ABG pCO2 Sodium Chloride Carbon Dioxide BUN Glucose Calcium Iron TIBC Direct Bilirubin Alkaline Phosphatase Lactate Dehydrogenase Total Protein Albumin Crossmatch 04/18/18 07:04 WBC RBC Hgb Hct MCV MCH MCHC RDW Plt Count Lymph % (Auto) Lymph # Baso # Seg Neutrophils % Seg Neuts % (Manual) Lymphocytes % (Manual) Monocytes % (Manual) Nucleated RBC % Seg Neutrophils # Seg Neutrophils # Man Lymphocytes # (Manual) Eosinophils # (Manual) PT INR APTT Fibrinogen D-Dimer POC ABG pH POC ABG pCO2 Sodium 133 L Chloride Carbon Dioxide 19 L BUN Glucose 183 H Calcium 6.7 L Iron 24 L TIBC 179 L Direct Bilirubin Alkaline Phosphatase Lactate Dehydrogenase Total Protein Albumin Crossmatch Allied health notes reviewed: nursing
[2018-04-18] MEDS ORDERED: MORPHINE IV ONE (11:57)
[2018-04-18] MEDS ORDERED: MORPHINE ONE (12:01)
[2018-04-18] MEDS ORDERED: NACL 0.9% 500 ML 0 ML ONE (12:01)
[2018-04-18] MEDS: CARAFATE PO SCH ×2 (12:24→22:18)
[2018-04-18] MEDS ORDERED: NORCO 5/325 PO PRN (13:04)
--- NOTE | 2018-04-18 13:10 | Progress Note ---
Assessment and Plan Assessment and plan: Recurrent Upper GI bleed -probably 2/2 esophageal ulcer -s/p recent Panendoscopy -cont Protonix -GI following Acute Blood Loss Anemia -s/p blood transfusion with 5U of PRBC -H/H trending down, pt to be transfused with additional 1u of PRBC today due to active bleeding Acute Thrombocytopenia -likely consumption related -Platelet level improving, will monitor -Hematology following Paroxysmal Afib, s/p RVR episode -currently in sinus rhythm and rate controlled -on PRN cardizem -low dose to be restarted when BP stabilizes -home eliquis on hold due to the acute bleed BUE edema 2/2 Fluid Overload r/o other etiology -Venous doppler of BUE neg for DVT except for cephalic vein thrombosis versus thrombophlebitis Hypotension 2/2 hypovolemia -BP improving, will monitor Moderate protein calorie malnutrition -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 Condition is guarded History Interval history: Pt noted to be having hematemesis this am. He also complained of generalized abdominal pain Hospitalist Physical - Constitutional Vitals: Temp Pulse Resp BP Pulse Ox 98.0 F 99 H 18 104/62 98 04/18/18 11:25 04/18/18 10:00 04/18/18 11:25 04/18/18 11:25 04/18/18 12:32 General appearance: Present: no acute distress, obese, other (Pt seen actively vomiting blood) - EENT Eyes: Present: PERRL, EOM intact ENT: hearing intact, clear oral mucosa - Neck Neck: Present: supple - Respiratory Respiratory effort: normal Respiratory: bilateral: CTA - Cardiovascular Rhythm: regular Heart Sounds: Present: S1 & S2 - Extremities Extremity abnormal: edema (BUE improving) - Abdominal General gastrointestinal: soft, tender (mild and generalized), normal bowel sounds - Neurologic Neurologic: CNII-XII intact Results - Labs CBC & Chem 7: 04/18/18 07:04 04/18/18 07:04 Labs: Laboratory Last Values WBC 9.5 K/mm3 (4.5-11.0) 04/18/18 07:04 RBC 2.46 M/mm3 (3.65-5.03) L 04/18/18 07:04 Hgb 8.0 gm/dl (11.8-15.2) L 04/18/18 07:04 Hct 23.5 % (35.5-45.6) L 04/18/18 07:04 MCV 96 fl (84-94) H 04/18/18 07:04 MCH 32 pg (28-32) 04/18/18 07:04 MCHC 34 % (32-34) 04/18/18 07:04 RDW 17.6 % (13.2-15.2) H 04/18/18 07:04 Plt Count 136 K/mm3 (140-440) L D 04/18/18 07:04 Lymph % (Auto) 8.9 % (13.4-35.0) L 04/18/18 07:04 [place] % (Auto) 6.5 % (0.0-7.3) 04/18/18 07:04 Eos % (Auto) 0.2 % (0.0-4.3) 04/18/18 07:04 Baso % (Auto) 0.3 % (0.0-1.8) 04/18/18 07:04 Lymph # 0.9 K/mm3 (1.2-5.4) L 04/18/18 07:04 [place] # 0.6 K/mm3 (0.0-0.8) 04/18/18 07:04 Eos # 0.0 K/mm3 (0.0-0.4) 04/18/18 07:04 Baso # 0.0 K/mm3 (0.0-0.1) 04/18/18 07:04 Add Manual Diff Complete 04/17/18 03:31 Total Counted 100 04/17/18 03:31 Seg Neutrophils % 84.1 % (40.0-70.0) H 04/18/18 07:04 Seg Neuts % (Manual) 80.0 % (40.0-70.0) H 04/17/18 03:31 Band Neutrophils % 8.0 % 04/17/18 03:31 Lymphocytes % (Manual) 6.0 % (13.4-35.0) L 03/02/19 03:31 Reactive Lymphs % (Man) 0 % 04/17/18 03:31 Monocytes % (Manual) 1.0 % (0.0-7.3) 04/17/18 03:31 Eosinophils % (Manual) 2.0 % (0.0-4.3) 04/17/18 03:31 Basophils % (Manual) 1.0 % (0.0-1.8) 04/17/18 03:31 Metamyelocytes % 1.0 % 04/17/18 03:31 Myelocytes % 1.0 % 04/17/18 03:31 Promyelocytes % 0 % 04/17/18 03:31 Blast Cells % 0 % 04/17/18 03:31 Nucleated RBC % Not Reportable 04/17/18 03:31 Seg Neutrophils # 8.0 K/mm3 (1.8-7.7) H 04/18/18 07:04 Seg Neutrophils # Man 3.6 K/mm3 (1.8-7.7) 04/17/18 03:31 Band Neutrophils # 0.4 K/mm3 04/17/18 03:31 Lymphocytes # (Manual) 0.3 K/mm3 (1.2-5.4) L 04/17/18 03:31 Abs React Lymphs (Man) 0.0 K/mm3 04/17/18 03:31 Monocytes # (Manual) 0.0 K/mm3 (0.0-0.8) 04/17/18 03:31 Eosinophils # (Manual) 0.1 K/mm3 (0.0-0.4) 04/17/18 03:31 Basophils # (Manual) 0.0 K/mm3 (0.0-0.1) 04/17/18 03:31 Metamyelocytes # 0.0 K/mm3 04/17/18 03:31 Myelocytes # 0.0 K/mm3 04/17/18 03:31 Promyelocytes # 0.0 K/mm3 04/17/18 03:31 Blast Cells # 0.0 K/mm3 04/17/18 03:31 WBC Morphology Not Reportable 04/17/18 03:31 Hypersegmented Neuts Not Reportable 04/17/18 03:31 Hyposegmented Neuts Not Reportable 04/17/18 03:31 Hypogranular Neuts Not Reportable 04/17/18 03:31 Smudge Cells Not Reportable 04/17/18 03:31 Toxic Granulation Not Reportable 04/17/18 03:31 Toxic Vacuolation Not Reportable 04/17/18 03:31 Dohle Bodies Not Reportable 04/17/18 03:31 Pelger-Huet Anomaly Not Reportable 04/17/18 03:31 Adele Rods Not Reportable 04/17/18 03:31 Platelet Estimate Appears decreased 04/17/18 03:31 Clumped Platelets Not Reportable 04/17/18 03:31 Plt Clumps, EDTA Not Reportable 04/17/18 03:31 Large Platelets Few 04/17/18 03:31 Giant Platelets Not Reportable 04/17/18 03:31 Platelet Satelliting Not Reportable 04/17/18 03:31 Plt Morphology Comment Not Reportable 04/17/18 03:31 RBC Morphology Not Reportable 04/17/18 03:31 Dimorphic RBCs Not Reportable 04/17/18 03:31 Polychromasia 1+ 04/17/18 03:31 Hypochromasia Not Reportable 04/17/18 03:31 Poikilocytosis Not Reportable 04/17/18 03:31 Basophilic Stippling Few 04/17/18 03:31 Anisocytosis 2+ 04/17/18 03:31 Microcytosis Not Reportable 04/17/18 03:31 Macrocytosis Not Reportable 04/17/18 03:31 Spherocytes Not Reportable 04/17/18 03:31 Pappenheimer Bodies Not Reportable 04/17/18 03:31 Sickle Cells Not Reportable 04/17/18 03:31 Target Cells Not Reportable 04/17/18 03:31 Tear Drop Cells Not Reportable 04/17/18 03:31 Ovalocytes 1+ 04/17/18 03:31 Stomatocytes Rare 04/15/18 03:48 Helmet Cells Not Reportable 04/17/18 03:31 [place] Bodies Not Reportable 04/17/18 03:31 [place] Rings Not Reportable 04/17/18 03:31 Evon Cells Not Reportable 04/17/18 03:31 Bite Cells Not Reportable 04/17/18 03:31 Crenated Cell Not Reportable 04/17/18 03:31 Elliptocytes Not Reportable 04/17/18 03:31 Acanthocytes (Spur) Not Reportable 04/17/18 03:31 Rouleaux Not Reportable 04/17/18 03:31 Hemoglobin C Crystals Not Reportable 04/17/18 03:31 Schistocytes Not Reportable 04/17/18 03:31 Malaria parasites Not Reportable 04/17/18 03:31 Cole Bodies Not Reportable 04/17/18 03:31 Hem Pathologist Commnt No 04/17/18 03:31 PT 15.8 Sec. (12.2-14.9) H 04/15/18 19:09 INR 1.18 (0.87-1.13) H 04/15/18 19:09 APTT < 20.0 Sec. (24.2-36.6) L 04/15/18 19:09 Fibrinogen 290 mg/dl (211-480) 04/17/18 07:38 D-Dimer 4084.10 ng/mlDDU (0-234) H 04/15/18 19:09 POC ABG pH 7.465 (7.35-7.45) H 04/11/18 18:27 POC ABG pCO2 22.2 (35-45) L 04/11/18 18:27 POC ABG pO2 90 (80-105) 04/11/18 18:27 POC ABG HCO3 15.9 04/11/18 18:27 POC ABG Total CO2 17 04/11/18 18:27 POC ABG O2 Sat 98 04/11/18 18:27 POC ABG Base Excess -8 04/11/18 18:27 FiO2 28 % 04/11/18 18:27 Sodium 133 mmol/L (137-145) L 04/18/18 07:04 Potassium 4.3 mmol/L (3.6-5.0) 04/18/18 07:04 Chloride 99.2 mmol/L (98-107) 04/18/18 07:04 Carbon Dioxide 19 mmol/L (22-30) L 04/18/18 07:04 Anion Gap 19 mmol/L 04/18/18 07:04 BUN 15 mg/dL (9-20) 04/18/18 07:04 Creatinine 1.0 mg/dL (0.8-1.5) 04/18/18 07:04 Estimated GFR > 60 ml/min 04/18/18 07:04 BUN/Creatinine Ratio 15 % 04/18/18 07:04 Glucose 183 mg/dL (75-100) H 04/18/18 07:04 POC Glucose 194 (70-105) H 04/18/18 12:25 Calcium 6.7 mg/dL (8.4-10.2) L 04/18/18 07:04 Magnesium 1.90 mg/dL (1.7-2.3) 04/18/18 07:04 Iron 24 ug/dL (49-181) L 04/18/18 07:04 TIBC 179 mcg/dL (250-450) L 04/18/18 07:04 Ferritin 85.6 ng/mL (13.0-400.0) 04/18/18 07:04 Total Bilirubin 1.20 mg/dL (0.1-1.2) 04/15/18 19:09 Direct Bilirubin 0.4 mg/dL (0-0.2) H 04/15/18 19:09 Indirect Bilirubin 0.8 mg/dL 04/15/18 19:09 AST 24 units/L (5-40) 04/15/18 19:09 ALT 14 units/L (7-56) 04/15/18 19:09 Alkaline Phosphatase 75 units/L (35-129) 04/15/18 19:09 Lactate Dehydrogenase 222 units/L (91-180) H 04/15/18 19:09 Total Protein 4.0 g/dL (6.3-8.2) L D 04/15/18 19:09 Albumin 1.8 g/dL (3.9-5) L 04/15/18 19:09 Albumin/Globulin Ratio 0.8 % 04/15/18 19:09 Vitamin B12 423.3 pg/mL (211-911) 04/18/18 07:04 Folate 9.22 ng/mL (7.3-26.0) 04/18/18 07:04 Schistocytes Smear Rare 04/16/18 13:40 Blood Type O NEGATIVE 04/15/18 07:35 Antibody Screen Negative 04/15/18 07:35 Crossmatch See Detail 04/15/18 07:35 Nutrition/Malnutrition Assess - Dietary Evaluation Nutrition/Malnutrition Findings: Nutrition Notes Start: 04/16/18 10:09 Freq: Status: Active Protocol: Document 04/16/18 14:49 CP (Rec: 04/16/18 14:58 CP [id number]) Co-Sign 04/16/18 14:49 LP Nutrition Notes Need for Assessment generated from: LOS Initial or Follow up Assessment Current Diagnosis Hypertension Other Pertinent Diagnosis Atrial fibrillation, DVT prophylaxis Current Diet NPO Labs/Tests Reviewed Pertinent Medications Clinimix Height 5 ft 9 in Weight 121.563 kg [place] Body Weight (kg) 72.72 BMI 39.5 Intake Prior to Admission Good Weight Status Obese Subjective/Other Information Pt reports having swallowing difficulty and has nausea. Per family member, pt has lost a "bit of wt" prior to admission . Awaiting MD consult for PPN as discussed in rounds. Percent of energy/protein needs met: 0%/0% Burn Absent Trauma Absent GI Symptoms Nausea Difficulty In Swallowing #1 Nutrition Diagnosis Inadequate oral intake Etiology Colonoscopy As Evidenced by Signs and Symptoms NPO status Is patient on ventilator? No Is Patient Ambulatory and/or Out of Bed No REE-([facility]-confined to bed) 2405.796 Kcal/Kg value to use for calculation 14 Approximate Energy Requirements Using 1702 kcal/Kg Calculation Used for Recommendations Kcal/kg Additional Notes Pro: 144g (2g/kg IBW) Fluid: 1mL/kcal Nutrition Intervention Change Diet Order: Advance when medically feasible Goal #1 Diet advancement Follow-Up By: 04/20/18 Additional Comments F/U: Diet advancement
[2018-04-18] MEDS: D5NS 1,000 ML IV SCH (13:43)
[2018-04-18] MEDS ORDERED: Vasostrict 20 UNIT in NACL 0.9% 100 ML IV STA (14:52)
[2018-04-18] MEDS ORDERED: NACL 0.9% 500 ML 500 ML IV STA (14:52)
[2018-04-18] MEDS ORDERED: NACL 0.9% 500 ML 500 ML ONE (14:57)
[2018-04-18 15:29] LABS: Basophils # (Auto) 0.1 K/mm3 (0.0-0.1); Basophils % (Auto) 0.7 % (0.0-1.8); Hematocrit 20.4 % (35.5-45.6); Hemoglobin 7.1 gm/dl (11.8-15.2); Lymphocytes # (Auto) 0.9 K/mm3 (1.2-5.4); Lymphocytes % (Auto) 9.7 % (13.4-35.0); Mean Corpuscular HGB Conc 35 % (32-34); Mean Corpuscular Volume 95 fl (84-94); Monocytes # (Auto) 0.6 K/mm3 (0.0-0.8); Monocytes % (Auto) 6.4 % (0.0-7.3); Platelet Count 141 K/mm3 (140-440); Red Blood Count 2.14 M/mm3 (3.65-5.03); Red Cell Distribution Width 17.3 % (13.2-15.2)
[2018-04-18] MEDS ORDERED: LEVOPHED DRIP 4 MG/NS 250 ML 4 MG/250 ML BAG IV STA (16:29)
[2018-04-18] MEDS ORDERED: FLUSH HEPARIN IV ONE (17:04)
--- NOTE | 2018-04-18 20:10 | Nuclear Medicine Report ---
NM GI BLEEDING SCAN CLINICAL INDICATION: Male, 63 years of age. GI Bleed COMPARISON: CT angiography of the abdomen from April 13, 2018 is not available on the PACS system. Technique: 20 mci Tc99M Ultratag given by IV. Images obtained of the abdomen for 60 minutes. FINDINGS: There is activity within the liver, stomach, and spleen as well as activity within probable multiple cutaneous vessels along the abdominal body wall. No evidence of active GI bleed. IMPRESSION: No evidence of active GI bleed. This document is electronically signed by Millie Smith DO., April 18 2018 08:09:04 PM ET
[2018-04-18] MEDS ORDERED: TYLENOL PO ONE (23:18)
[2018-04-19 01:29] LABS: Hematocrit 20.6 % (35.5-45.6)
[2018-04-19] MEDS: D5NS 1,000 ML IV SCH ×2 (02:49→18:35)
[2018-04-19 04:11] LABS: Basophils % (Auto) 0.5 % (0.0-1.8); Eosinophils # (Auto) 0.1 K/mm3 (0.0-0.4); Eosinophils % (Auto) 1.1 % (0.0-4.3); Hematocrit 20.1 % (35.5-45.6); Hemoglobin 6.9 gm/dl (11.8-15.2); Lymphocytes # (Auto) 1.1 K/mm3 (1.2-5.4); Lymphocytes % (Auto) 23.2 % (13.4-35.0); Mean Corpuscular HGB Conc 34 % (32-34); Mean Corpuscular Volume 94 fl (84-94); Monocytes # (Auto) 0.3 K/mm3 (0.0-0.8); Monocytes % (Auto) 6.3 % (0.0-7.3); Red Blood Count 2.15 M/mm3 (3.65-5.03); Red Cell Distribution Width 16.8 % (13.2-15.2)
[2018-04-19 04:13] LABS: Platelet Count 98 K/mm3 (140-440)
[2018-04-19] MEDS ORDERED: NACL 0.9% 500 ML 500 ML IV ONE (04:50)
--- NOTE | 2018-04-19 07:52 | Progress Note ---
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 [employer], who presented complaining of vomiting blood and dark tarry stools Past medical history paroxysmal atrial fibrillation on anticoagulation, takes eliquis , hypertension, obesity, achalasia, has had esophageal surgery 6 Procedures since admission: EGD X2: showed a large blood clot extending from the distal esophagus to the gastric fundus, attempts were made to clear up clots but not successful AND ON REPEAT NO FURTHER BLEEDING NOTED COLONOSCOPY: Dark liquid brown stool throughout the colon without signs of high risk bleeding lesions or any blood seen Bleeding scan: negative for bleed CTA ABDOMEN AND PELVIS: RIGHT SIDED COLITIS Doppler Upper ext: Cephalic vein thrombosis vs thrombophlebitis Recurrent Upper GI bleed -probably 2/2 esophageal ulcer -s/p recent Panendoscopy -Vascular recommended possible Left gastric artery embolization But will rather surgical eval -Consult surgery -cont Protonix - S/p 9 PRBC, -GI following- reconsulted Acute Blood Loss Anemia -s/p blood transfusion with 5U of PRBC -H/H trending down, - Await post transfusion repeat H/H - Monitor h/h q8h Acute Thrombocytopenia -likely consumption related, -Platelet level improving, will monitor -Hematology following-No DIC Paroxysmal Afib, s/p RVR episode -currently in sinus rhythm and rate controlled -on PRN cardizem -low dose to be restarted when BP stabilizes -home eliquis on hold due to the acute bleed BUE edema 2/2 Fluid Overload r/o other etiology -Venous doppler of BUE neg for DVT except for cephalic vein thrombosis versus thrombophlebitis Hypotension 2/2 hypovolemia -BP improving, will monitor Moderate protein calorie malnutrition -director of individual giving consulted Cephalic Vein Thrombosis -Per Hematology, will monitor in view of recent and ongoing bleed. h/o achalasia s/p esophageal surgery -cont supportive care Obesity with BMI of 39.6 -Life style modification recommended Acute physical debility/ Critical illness Myopathy -PT/OT consulted Plan: Possible transfer to [facility], Discussed with supportive specialist for possible need for transfer will await GI re-evaluation. The high probability of a clinically significant, sudden or life threatening deterioration of the [GI and hematology] system(s) required my full and direct attention, intervention and personal management. The aggregate critical care time was [45] minutes. This time is in addition to time spent performing reported procedures but includes the following: [X] Data Review and interpretation [X] Patient assessment and monitoring of vital signs [X] Documentation [X] Medication orders and management History Interval history: Patient is seen today for: Acute gastrointestinal bleed ([place] Melena; Acute blood loss anemia.; Atrial fibrillation with RVR Seen and examined at bedside; 24hour events reviewed; nursing and respiratory care staff consulted; no adverse overnight events reported to me; Patient with esophageal ulcer on prior EGD that was treated, put now s/p multiple upper endoscopies. Recurrent vomiting of blood 04/18/17 noted per nurse and patient transferred back to the ICU for on going monitoring and overnight noted to have BRPPR X2, no change in hemodynamics Hospitalist Physical - Physical exam Narrative exam: VITAL SIGNS: Reviewed. GENERAL: The patient appeared well nourished and normally developed morbidly obese lethargic. Vital signs as documented. HEAD: No signs of head trauma. EYES: Pupils are equal. Extraocular motions intact. EARS: Hearing grossly intact. MOUTH: Oropharynx is normal. NECK: No adenopathy, no JVD. CHEST: Chest with clear breath sounds bilaterally. No wheezes, rales, or rhonchi. CARDIAC: Regular rate and rhythm. S1 and S2, without murmurs, gallops, or rubs. VASCULAR: Trace bilateral pitting Edema. Peripheral pulses normal and equal in all extremities. ABDOMEN: Soft, without detectable tenderness. No sign of distention. No rebound or guarding, and no masses palpated. Bowel Sounds normal. MUSCULOSKELETAL: Good range of motion of all major joints. Extremities without clubbing, cyanosis. With trace bilateral pitting edema. NEUROLOGIC EXAM: Alert and oriented x 3. No focal sensory or strength deficits. Speech normal. Follows commands. PSYCHIATRIC: Mood normal. SKIN: Multiple ecchymosis upper extremity chest. - Constitutional Vitals: Temp Pulse Resp BP Pulse Ox 98.9 F 93 H 18 115/34 95 04/19/18 03:22 04/19/18 06:30 04/19/18 06:30 04/19/18 06:30 04/19/18 06:30 General appearance: Present: no acute distress, obese, other (Pt seen actively vomiting blood) Results - Labs CBC & Chem 7: 04/19/18 03:16 04/18/18 07:04 Labs: Laboratory Last Values WBC 4.7 K/mm3 (4.5-11.0) 04/19/18 03:16 RBC 2.15 M/mm3 (3.65-5.03) L 04/19/18 03:16 Hgb 6.9 gm/dl (11.8-15.2) L 04/19/18 03:16 Hct 20.1 % (35.5-45.6) L 04/19/18 03:16 MCV 94 fl (84-94) 04/19/18 03:16 MCH 32 pg (28-32) 04/19/18 03:16 MCHC 34 % (32-34) 04/19/18 03:16 RDW 16.8 % (13.2-15.2) H 04/19/18 03:16 Plt Count 98 K/mm3 (140-440) L 04/19/18 03:16 Lymph % (Auto) 23.2 % (13.4-35.0) 04/19/18 03:16 [place] % (Auto) 6.3 % (0.0-7.3) 04/19/18 03:16 Eos % (Auto) 1.1 % (0.0-4.3) 04/19/18 03:16 Baso % (Auto) 0.5 % (0.0-1.8) 04/19/18 03:16 Lymph # 1.1 K/mm3 (1.2-5.4) L 04/19/18 03:16 [place] # 0.3 K/mm3 (0.0-0.8) 04/19/18 03:16 Eos # 0.1 K/mm3 (0.0-0.4) 04/19/18 03:16 Baso # 0.0 K/mm3 (0.0-0.1) 04/19/18 03:16 Add Manual Diff Complete 04/17/18 03:31 Total Counted 100 04/17/18 03:31 Seg Neutrophils % 68.9 % (40.0-70.0) 04/19/18 03:16 Seg Neuts % (Manual) 80.0 % (40.0-70.0) H 04/17/18 03:31 Band Neutrophils % 8.0 % 04/17/18 03:31 Lymphocytes % (Manual) 6.0 % (13.4-35.0) L 04/17/18 03:31 Reactive Lymphs % (Man) 0 % 04/17/18 03:31 Monocytes % (Manual) 1.0 % (0.0-7.3) 04/17/18 03:31 Eosinophils % (Manual) 2.0 % (0.0-4.3) 04/17/18 03:31 Basophils % (Manual) 1.0 % (0.0-1.8) 04/17/18 03:31 Metamyelocytes % 1.0 % 04/17/18 03:31 Myelocytes % 1.0 % 04/17/18 03:31 Promyelocytes % 0 % 04/17/18 03:31 Blast Cells % 0 % 04/17/18 03:31 Nucleated RBC % Not Reportable 04/17/18 03:31 Seg Neutrophils # 3.2 K/mm3 (1.8-7.7) 04/19/18 03:16 Seg Neutrophils # Man 3.6 K/mm3 (1.8-7.7) 04/17/18 03:31 Band Neutrophils # 0.4 K/mm3 04/17/18 03:31 Lymphocytes # (Manual) 0.3 K/mm3 (1.2-5.4) L 04/17/18 03:31 Abs React Lymphs (Man) 0.0 K/mm3 04/17/18 03:31 Monocytes # (Manual) 0.0 K/mm3 (0.0-0.8) 04/17/18 03:31 Eosinophils # (Manual) 0.1 K/mm3 (0.0-0.4) 04/17/18 03:31 Basophils # (Manual) 0.0 K/mm3 (0.0-0.1) 04/17/18 03:31 Metamyelocytes # 0.0 K/mm3 04/17/18 03:31 Myelocytes # 0.0 K/mm3 04/17/18 03:31 Promyelocytes # 0.0 K/mm3 04/17/18 03:31 Blast Cells # 0.0 K/mm3 04/17/18 03:31 WBC Morphology Not Reportable 04/17/18 03:31 Hypersegmented Neuts Not Reportable 04/17/18 03:31 Hyposegmented Neuts Not Reportable 04/17/18 03:31 Hypogranular Neuts Not Reportable 04/17/18 03:31 Smudge Cells Not Reportable 04/17/18 03:31 Toxic Granulation Not Reportable 04/17/18 03:31 Toxic Vacuolation Not Reportable 04/17/18 03:31 Dohle Bodies Not Reportable 04/17/18 03:31 Pelger-Huet Anomaly Not Reportable 04/17/18 03:31 Adele Rods Not Reportable 04/17/18 03:31 Platelet Estimate Appears decreased 04/17/18 03:31 Clumped Platelets Not Reportable 04/17/18 03:31 Plt Clumps, EDTA Not Reportable 04/17/18 03:31 Large Platelets Few 04/17/18 03:31 Giant Platelets Not Reportable 04/17/18 03:31 Platelet Satelliting Not Reportable 04/17/18 03:31 Plt Morphology Comment Not Reportable 04/17/18 03:31 RBC Morphology Not Reportable 04/17/18 03:31 Dimorphic RBCs Not Reportable 04/17/18 03:31 Polychromasia 1+ 04/17/18 03:31 Hypochromasia Not Reportable 04/17/18 03:31 Poikilocytosis Not Reportable 04/17/18 03:31 Basophilic Stippling Few 04/17/18 03:31 Anisocytosis 2+ 04/17/18 03:31 Microcytosis Not Reportable 04/17/18 03:31 Macrocytosis Not Reportable 04/17/18 03:31 Spherocytes Not Reportable 04/17/18 03:31 Pappenheimer Bodies Not Reportable 04/17/18 03:31 Sickle Cells Not Reportable 04/17/18 03:31 Target Cells Not Reportable 04/17/18 03:31 Tear Drop Cells Not Reportable 04/17/18 03:31 Ovalocytes 1+ 04/17/18 03:31 Stomatocytes Rare 04/15/18 03:48 Helmet Cells Not Reportable 04/17/18 03:31 Ghosh-Ezel Bodies Not Reportable 04/17/18 03:31 [place] Rings Not Reportable 04/17/18 03:31 Erwin Cells Not Reportable 04/17/18 03:31 Bite Cells Not Reportable 04/17/18 03:31 Crenated Cell Not Reportable 04/17/18 03:31 Elliptocytes Not Reportable 04/17/18 03:31 Acanthocytes (Spur) Not Reportable 04/17/18 03:31 Rouleaux Not Reportable 04/17/18 03:31 Hemoglobin C Crystals Not Reportable 04/17/18 03:31 Schistocytes Not Reportable 04/17/18 03:31 Malaria parasites Not Reportable 04/17/18 03:31 Cole Bodies Not Reportable 04/17/18 03:31 Hem Pathologist Commnt No 04/17/18 03:31 PT 15.8 Sec. (12.2-14.9) H 04/15/18 19:09 INR 1.18 (0.87-1.13) H 04/15/18 19:09 APTT < 20.0 Sec. (24.2-36.6) L 04/15/18 19:09 Fibrinogen 290 mg/dl (211-480) 04/17/18 07:38 D-Dimer 4084.10 ng/mlDDU (0-234) H 04/15/18 19:09 POC ABG pH 7.465 (7.35-7.45) H 04/11/18 18:27 POC ABG pCO2 22.2 (35-45) L 04/11/18 18:27 POC ABG pO2 90 (80-105) 04/11/18 18:27 POC ABG HCO3 15.9 04/11/18 18:27 POC ABG Total CO2 17 04/11/18 18:27 POC ABG O2 Sat 98 04/11/18 18:27 POC ABG Base Excess -8 04/11/18 18:27 FiO2 28 % 04/11/18 18:27 Sodium 133 mmol/L (137-145) L 04/18/18 07:04 Potassium 4.3 mmol/L (3.6-5.0) 04/18/18 07:04 Chloride 99.2 mmol/L (98-107) 04/18/18 07:04 Carbon Dioxide 19 mmol/L (22-30) L 04/18/18 07:04 Anion Gap 19 mmol/L 04/18/18 07:04 BUN 15 mg/dL (9-20) 04/18/18 07:04 Creatinine 1.0 mg/dL (0.8-1.5) 04/18/18 07:04 Estimated GFR > 60 ml/min 04/18/18 07:04 BUN/Creatinine Ratio 15 % 04/18/18 07:04 Glucose 183 mg/dL (75-100) H 04/18/18 07:04 POC Glucose 194 (70-105) H 04/18/18 12:25 Calcium 6.7 mg/dL (8.4-10.2) L 04/18/18 07:04 Magnesium 1.90 mg/dL (1.7-2.3) 04/18/18 07:04 Iron 24 ug/dL (49-181) L 04/18/18 07:04 TIBC 179 mcg/dL (250-450) L 04/18/18 07:04 Ferritin 85.6 ng/mL (13.0-400.0) 04/18/18 07:04 Total Bilirubin 1.20 mg/dL (0.1-1.2) 04/15/18 19:09 Direct Bilirubin 0.4 mg/dL (0-0.2) H 04/15/18 19:09 Indirect Bilirubin 0.8 mg/dL 04/15/18 19:09 AST 24 units/L (5-40) 04/15/18 19:09 ALT 14 units/L (7-56) 04/15/18 19:09 Alkaline Phosphatase 75 units/L (35-129) 04/15/18 19:09 Lactate Dehydrogenase 222 units/L (91-180) H 04/15/18 19:09 Total Protein 4.0 g/dL (6.3-8.2) L D 04/15/18 19:09 Albumin 1.8 g/dL (3.9-5) L 04/15/18 19:09 Albumin/Globulin Ratio 0.8 % 04/15/18 19:09 Vitamin B12 423.3 pg/mL (211-911) 04/18/18 07:04 Folate 9.22 ng/mL (7.3-26.0) 04/18/18 07:04 Schistocytes Smear Rare 04/16/18 13:40 Blood Type O NEGATIVE 04/18/18 15:04 Antibody Screen Negative 04/18/18 15:04 Crossmatch See Detail 04/18/18 15:04 Nutrition/Malnutrition Assess - Dietary Evaluation Nutrition/Malnutrition Findings: Nutrition Notes Start: 04/16/18 10: 09 Freq: Status: Active Protocol: Document 04/16/18 14:49 CP (Rec: 04/16/18 14:58 CP [id number]) Co-Sign 04/16/18 14:49 LP Nutrition Notes Need for Assessment generated from: LOS Initial or Follow up Assessment Current Diagnosis Hypertension Other Pertinent Diagnosis Atrial fibrillation, DVT prophylaxis Current Diet NPO Labs/Tests Reviewed Pertinent Medications Clinimix Height 5 ft 9 in Weight 121.563 kg Eleva Body Weight (kg) 72.72 BMI 39.5 Intake Prior to Admission Good Weight Status Obese Subjective/Other Information Pt reports having swallowing difficulty and has nausea. Per family member, pt has lost a "bit of wt" prior to admission . Awaiting MD consult for PPN as discussed in rounds. Percent of energy/protein needs met: 0%/0% Burn Absent Trauma Absent GI Symptoms Nausea Difficulty In Swallowing #1 Nutrition Diagnosis Inadequate oral intake Etiology Colonoscopy As Evidenced by Signs and Symptoms NPO status Is patient on ventilator? No Is Patient Ambulatory and/or Out of Bed No REE-([facility]-confined to bed) 2405.796 Kcal/Kg value to use for calculation 14 Approximate Energy Requirements Using 1702 kcal/Kg Calculation Used for Recommendations Kcal/kg Additional Notes Pro: 144g (2g/kg IBW) Fluid: 1mL/kcal Nutrition Intervention Change Diet Order: Advance when medically feasible Goal #1 Diet advancement Follow-Up By: 04/20/18 Additional Comments F/U: Diet advancement
--- NOTE | 2018-04-19 07:56 | Hem/Onc Progress Note ---
Assessment and Plan 1. Thrombocytopenia in a patient with history of gastrointestinal bleed, most likely this is consumption. Fibrinogen is low, but not low enough to warrant support. We will follow the trend. 2. Anemia, status post transfusion. 3. Upper gastrointestinal bleed, seen by GI. 4. History of atrial fibrillation, was on Eliquis from 05/2017. This has been held now. Cardiology team will guide regarding treatment options in view of the gastrointestinal bleed. 5. 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 We will observe the patient, especially in view of his recent bleeds. 6. History of esophageal surgery in the past. 7. Obesity. At this time, we will follow the trend of the platelet count and fibrinogen. Continue with supportive care with transfusions as needed. 3/2 - plt better - likely consumption related - will follow repeat fibrinogen - better 3/ - c/o abdo unease - off eliquis for now 3/4 - PT - PTT was not very high in past fibrinogen - not low upper GI bleed - 3/ - back in ICU s/p prbc plt low - sec to consumption CT abdo reviewed from recent past target plt >50k - Patient Problems (1) Thrombocytopenia Current Visit: Yes Status: Acute Subjective Date of service: 04/19/18 Principal diagnosis: upper GI bleed Interval history: uppr GI bleed Objective - Constitutional Vitals: Last Vital Signs Temp 98.9 F 04/19/18 03:22 Pulse 93 H 04/19/18 06:30 Resp 18 04/19/18 06:30 BP 115/34 04/19/18 06:30 Pulse Ox 95 04/19/18 07:53 - Labs Lab Results: Laboratory Results - last 24 hr 04/10/18 04/15/18 04/18/18 17:20 07:35 07:04 WBC 9.5 RBC 2.46 L Hgb 8.0 L Hct 23.5 L MCV 96 H MCH 32 MCHC 34 RDW 17.6 H Plt Count 136 L D Lymph % (Auto) 8.9 L [place] % (Auto) 6.5 Eos % (Auto) 0.2 Baso % (Auto) 0.3 Lymph # 0.9 L [place] # 0.6 Eos # 0.0 Baso # 0.0 Seg Neutrophils % 84.1 H Seg Neutrophils # 8.0 H Sodium Potassium Chloride Carbon Dioxide Anion Gap BUN Creatinine Estimated GFR BUN/Creatinine Ratio Glucose POC Glucose Calcium Magnesium Iron TIBC Ferritin Vitamin B12 Folate Blood Type Antibody Screen Crossmatch See Detail See Detail 04/18/18 04/18/18 04/18/18 07:04 07:04 07:04 WBC RBC Hgb Hct MCV MCH MCHC RDW Plt Count Lymph % (Auto) [place] % (Auto) Eos % (Auto) Baso % (Auto) Lymph # [place] # Eos # Baso # Seg Neutrophils % Seg Neutrophils # Sodium 133 L Potassium 4.3 Chloride 99.2 Carbon Dioxide 19 L Anion Gap 19 BUN 15 Creatinine 1.0 Estimated GFR > 60 BUN/Creatinine Ratio 15 Glucose 183 H POC Glucose Calcium 6.7 L Magnesium 1.90 Iron 24 L TIBC 179 L Ferritin 85.6 Vitamin B12 423.3 Folate Blood Type Antibody Screen Crossmatch 04/18/18 04/18/18 04/18/18 07:04 12:25 14:50 WBC 9.1 RBC 2.14 L Hgb 7.1 L Hct 20.4 L MCV 95 H MCH 33 H MCHC 35 H RDW 17.3 H Plt Count 141 Lymph % (Auto) 9.7 L [place] % (Auto) 6.4 Eos % (Auto) 0.0 Baso % (Auto) 0.7 Lymph # 0.9 L [place] # 0.6 Eos # 0.0 Baso # 0.1 Seg Neutrophils % 83.2 H Seg Neutrophils # 7.6 Sodium Potassium Chloride Carbon Dioxide Anion Gap BUN Creatinine Estimated GFR BUN/Creatinine Ratio Glucose POC Glucose 194 H Calcium Magnesium Iron TIBC Ferritin Vitamin B12 Folate 9.22 Blood Type Antibody Screen Crossmatch 04/18/18 04/19/18 04/19/18 15:04 00:49 03:16 WBC 4.7 RBC 2.15 L Hgb 7.0 L 6.9 L Hct 20.6 L 20.1 L MCV 94 MCH 32 MCHC 34 RDW 16.8 H Plt Count 98 L Lymph % (Auto) 23.2 [place] % (Auto) 6.3 Eos % (Auto) 1.1 Baso % (Auto) 0.5 Lymph # 1.1 L [place] # 0.3 Eos # 0.1 Baso # 0.0 Seg Neutrophils % 68.9 Seg Neutrophils # 3.2 Sodium Potassium Chloride Carbon Dioxide Anion Gap BUN Creatinine Estimated GFR BUN/Creatinine Ratio Glucose POC Glucose Calcium Magnesium Iron TIBC Ferritin Vitamin B12 Folate Blood Type O NEGATIVE Antibody Screen Negative Crossmatch See Detail Medications & Allergies - Medications Allergies/Adverse Reactions: Allergies Penicillins Allergy (Severe, Verified 04/10/18 17:28) Anaphylaxis cyclobenzaprine [From Flexeril] Allergy (Verified 04/10/18 19:23) Hives Home Medications: Home Medications Medication Instructions Recorded Confirmed Last Taken Type Apixaban [Eliquis] 2.5 mg PO DAILY 04/10/18 04/10/18 04/10/18 History Gabapentin [Neurontin] 300 mg PO BID 04/10/18 04/10/18 04/10/18 History Hydroxyzine HCl [hydrOXYzine] 25 mg PO DAILY 04/10/18 04/10/18 04/10/18 History Lansoprazole [Prevacid] 30 mg PO DAILY 04/10/18 04/10/18 04/10/18 History Lisinopril [Zestril] 5 mg PO QDAY 04/10/18 04/10/18 04/10/18 History Metoprolol [Lopressor] 25 mg PO BID 04/10/18 04/10/18 04/10/18 History Active Medications: Generic Name Dose Route Start Last Admin Trade Name Freq PRN Reason Stop Dose Admin Acetaminophen/Hydrocodone Bitart 1 each 04/18/18 13:04 04/18/18 20:15 [place] 5/325 PO 1 each Q6H PRN Administration Pain, Moderate (4-6) Albuterol 2.5 mg 04/12/18 12:05 Proventil IH Q4HRT PRN Shortness Of Breath Diltiazem HCl 10 mg 04/11/18 19:55 04/16/18 19:02 Cardizem IV 10 mg Q6H PRN Administration Sustained HR > 140 Gabapentin 300 mg 04/10/18 22:00 04/18/18 22:18 Neurontin PO 300 mg BID GABE Administration Hydroxyzine HCl 25 mg 04/11/18 10:00 04/18/18 09:14 Atarax PO 25 mg DAILY GABE Administration Sodium Chloride 1,000 mls @ 75 mls/hr 04/18/18 11:00 Nacl 0.9% 1000 Ml IV DIRECT GABE Dextrose/Sodium Chloride 1,000 mls @ 75 mls/hr 04/18/18 12:00 04/19/18 02:49 D5ns IV 75 mls/hr DIRECT GABE Administration Norepinephrine 4 mg in 250 mls @ 7.5 mls/hr 04/18/18 16:29 04/19/18 06:32 Levophed Drip 4 Mg/Ns 250 Ml IV 04/20/18 01:48 5 mcg/min TITR STA 18.75 mls/hr Titration Protocol 2 MCG/MIN Ondansetron HCl 4 mg 04/10/18 21:50 04/18/18 08:01 Zofran IV 4 mg Q4H PRN Administration Nausea And Vomiting Pantoprazole Sodium 40 mg 04/17/18 10:00 04/18/18 22:18 Protonix PO 40 mg BID GABE Administration Sodium Chloride 10 ml 04/10/18 22:00 04/18/18 23:06 Sodium Chloride Flush Syringe 10 Ml IV 10 ml BID GABE Administration Sodium Chloride 10 ml 04/10/18 18:58 Sodium Chloride Flush Syringe 10 Ml IV PRN PRN LINE FLUSH Sucralfate 1 gm 04/18/18 11:30 04/18/18 22:18 Carafate PO 1 gm ACHS GABE Administration
--- NOTE | 2018-04-19 08:59 | Event Note ---
Date: 04/18/18 Called by RN to state patient was hypotensive. Stat CBC ordered. Started on vasopressor support Keep NPO Transfuse one unit PRBC Get tagged RBC scan. -Critically ill, hemorrhagic shock
[2018-04-19] MEDS ORDERED: LEVOPHED DRIP 4 MG/NS 250 ML 4 MG/250 ML BAG IV SCH (09:00)
[2018-04-19] MEDS ORDERED: PROTONIX 80 MG in NACL 0.9% 100 ML IV SCH (09:00)
--- NOTE | 2018-04-19 09:00 | Progress Note ---
Assessment and Plan Acute gastrointestinal bleed (Upper G.I.) Hemorrhagic shock Hematemesis h/o esophagectomy Melena Acute blood loss anemia. Atrial fibrillation with RVR Obesity (possible obesity hypoventilation syndrome) Hypoalbuminemia. Hyperglycemia. Thrombocytopenia Medical decision making Patient continues to require vasopressor support, has had mutliple scopes and they have been negative. The red blood cell tagged scan was negative. Wean vasopressor support for MAP>65 Continue NPO status I have had discussions with [facility] and with general surgery. They have no new recommendations. Will need further evaluation and discussed with the family the need for evaluation by thoracic surgery All other plan as documented below -continue to monitor H and H - continue to hold pharmacologic anticoagulation, patient has been in sinus rhythm since admission. -SCDs for VTE prophylaxis -NPO -Accuchecks with glycemic control. Target blood glucose of 140-180mg/dL - PRBC transfusion for Hb < 7.0 (transfuse for higher level depending on rate of fall) - continue PPI as twice a day, carafate added by GI service - continue prn bronchodilators with pulmonary hygiene per RT - continue supplemental oxygen to keep sats > 90% - PT/OT - continue other care per attending / other consultants .... care plan discussed with patient and family at bedside The high probability of a clinically significant, sudden or life-threatening deterioration of the [cardiovascular, hematology, GI ] system(s) required my full and direct attention, intervention and personal management. The aggregate critical care time was [31] minutes without overlap. Time includes spent on; [x] Data Review and interpretation [x] Patient assessment and monitoring of vital signs [x] Documentation [x] Medication orders and management Subjective Date of service: 04/19/18 Principal diagnosis: upper GI bleed Interval history: Patient is seen today for: Acute gastrointestinal bleed (Upper G.I.); Melena; Acute blood loss anemia.; Atrial fibrillation with RVR Seen and examined at bedside; 24hour events reviewed; nursing and respiratory care staff consulted; no adverse overnight events reported to me; Patient with esophageal ulcer on prior EGD that was treated, put now s/p multiple upper endoscopies. Recurrent vomiting of blood today noted per nurse and patient transferred back to the ICU for on going monitoring, continues to require vasopressor support, Bright red blood per rectum , negative tagged RBC scan. Family visiting at the bedside Objective Vital Signs - 12hr 03/03/19 03/03/19 03/03/19 21:00 21:15 21:21 Temperature 98.8 F Pulse Rate 156 H 152 H 85 Respiratory 17 15 17 Rate Blood Pressure 112/32 108/39 115/41 O2 Sat by Pulse 99 99 Oximetry 04/18/18 04/18/18 04/18/18 21:30 21:45 22:00 Temperature Pulse Rate 142 H 116 H 126 H Respiratory 17 18 19 Rate Blood Pressure 123/73 112/32 123/73 O2 Sat by Pulse 98 98 97 Oximetry 04/18/18 04/18/18 04/18/18 22:15 22:31 22:45 Temperature Pulse Rate 135 H 128 H 123 H Respiratory 20 22 19 Rate Blood Pressure 123/73 123/73 97/41 O2 Sat by Pulse 95 97 98 Oximetry 04/18/18 04/18/18 04/18/18 22:52 23:01 23:10 Temperature 98.6 F 99 F Pulse Rate 128 H 122 H Respiratory 17 16 Rate Blood Pressure 106/49 97/43 O2 Sat by Pulse 98 96 Oximetry 04/18/18 04/18/18 04/18/18 23:15 23:19 23:31 Temperature Pulse Rate 135 H 127 H 129 H Respiratory 16 17 16 Rate Blood Pressure 97/43 97/43 110/52 O2 Sat by Pulse 98 98 97 Oximetry 04/18/18 04/19/18 04/19/18 23:45 00:00 00:15 Temperature Pulse Rate 135 H 138 H 119 H Respiratory 17 15 16 Rate Blood Pressure 110/52 101/55 110/52 O2 Sat by Pulse 97 97 98 Oximetry 04/19/18 04/19/18 04/19/18 00:30 00:45 01:00 Temperature Pulse Rate 122 H 100 H 93 H Respiratory 18 17 16 Rate Blood Pressure 110/41 110/41 96/41 O2 Sat by Pulse 96 95 97 Oximetry 04/19/18 04/19/18 04/19/18 01:15 01:30 01:45 Temperature Pulse Rate 93 H 92 H 90 Respiratory 16 16 15 Rate Blood Pressure 96/41 107/41 107/41 O2 Sat by Pulse 97 96 97 Oximetry 04/19/18 04/19/18 04/19/18 02:00 02:15 02:30 Temperature Pulse Rate 86 90 87 Respiratory 16 15 16 Rate Blood Pressure 103/37 103/37 113/38 O2 Sat by Pulse 97 97 97 Oximetry 04/19/18 04/19/18 04/19/18 02:45 03:00 03:15 Temperature Pulse Rate 90 70 81 Respiratory 17 16 14 Rate Blood Pressure 113/38 122/48 122/48 O2 Sat by Pulse 97 99 98 Oximetry 04/19/18 04/19/18 04/19/18 03:22 03:30 03:45 Temperature 98.9 F Pulse Rate 85 94 H Respiratory 15 15 Rate Blood Pressure 118/43 118/43 O2 Sat by Pulse 97 97 Oximetry 04/19/18 04/19/18 04/19/18 04:00 04:15 04:30 Temperature Pulse Rate 92 H 92 H 89 Respiratory 18 18 14 Rate Blood Pressure 116/44 116/44 106/46 O2 Sat by Pulse 95 97 95 Oximetry 04/19/18 04/19/18 04/19/18 04:45 05:00 05:15 Temperature Pulse Rate 95 H 98 H 104 H Respiratory 14 17 15 Rate Blood Pressure 106/46 106/48 106/48 O2 Sat by Pulse 96 97 95 Oximetry 04/19/18 04/19/18 04/19/18 05:31 05:45 06:00 Temperature Pulse Rate 100 H 100 H 99 H Respiratory 18 19 18 Rate Blood Pressure 123/52 123/52 117/37 O2 Sat by Pulse 97 95 88 Oximetry 04/19/18 04/19/18 04/19/18 06:15 06:30 07:53 Temperature Pulse Rate 95 H 93 H Respiratory 18 18 Rate Blood Pressure 117/37 115/34 O2 Sat by Pulse 94 95 95 Oximetry Constitutional: no acute distress, alert, other (Elderly looking morbidly obese CM, normocephalic and atraumatic, normal respiratory effort at rest) Eyes: non-icteric ENT: oropharynx moist, other (Mallampati 3) Neck: supple, no lymphadenopathy, no JVD, other (no thyromegaly) Effort: normal Ascultation: Bilateral: clear, diminished breath sounds Percussion: Bilateral: not dull Cardiovascular: regular rate and rhythm, other (S1,S2, no murmurs, gallops or rubs) Gastrointestinal: hypoactive bowel sounds, soft, non-tender, non-distended, other (protuberant) Integumentary: normal Extremities: no cyanosis, no edema, pink and warm, pulses normal, no ischemia or petechiae Neurologic: normal mental status, non-focal exam, pupils equal and round, motor strength normal and Psychiatric: mood appropriate, affect normal CBC and BMP: 04/19/18 03:16 04/18/18 07:04 ABG, PT/INR, D-dimer: ABG POC ABG pH 7.465 (7.35-7.45) H 04/11/18 18:27 POC ABG pCO2 22.2 (35-45) L 04/11/18 18:27 POC ABG pO2 90 (80-105) 04/11/18 18:27 POC ABG HCO3 15.9 04/11/18 18:27 POC ABG Total CO2 17 04/11/18 18:27 POC ABG O2 Sat 98 04/11/18 18:27 PT/INR, D-dimer PT 15.8 Sec. (12.2-14.9) H 04/15/18 19:09 INR 1.18 (0.87-1.13) H 04/15/18 19:09 D-Dimer 4084.10 ng/mlDDU (0-234) H 04/15/18 19:09 Abnormal lab findings: Abnormal Labs 04/10/18 04/10/18 04/10/18 17:20 17:20 17:20 WBC RBC 2.95 L Hgb 10.5 L Hct 30.3 L MCV 103 H MCH 36 H MCHC 35 H RDW 16.6 H Plt Count Lymph % (Auto) Lymph # Baso # Seg Neutrophils % Seg Neuts % (Manual) Lymphocytes % (Manual) Monocytes % (Manual) Nucleated RBC % Seg Neutrophils # Seg Neutrophils # Man Lymphocytes # (Manual) Eosinophils # (Manual) PT 16.6 H INR 1.26 H APTT Fibrinogen D-Dimer POC ABG pH POC ABG pCO2 Sodium Chloride 108.8 H Carbon Dioxide BUN 22 H Glucose 190 H POC Glucose Calcium 8.0 L Iron TIBC Direct Bilirubin Alkaline Phosphatase 153 H Lactate Dehydrogenase Total Protein 5.9 L Albumin 2.9 L Crossmatch 04/10/18 04/11/18 04/11/18 17:20 05:26 05:26 WBC RBC 2.63 L Hgb 9.2 L Hct 27.1 L MCV 103 H MCH 35 H MCHC RDW 16.6 H Plt Count 105 L Lymph % (Auto) Lymph # Baso # Seg Neutrophils % 70.3 H Seg Neuts % (Manual) Lymphocytes % (Manual) Monocytes % (Manual) Nucleated RBC % Seg Neutrophils # Seg Neutrophils # Man Lymphocytes # (Manual) Eosinophils # (Manual) PT INR APTT Fibrinogen D-Dimer POC ABG pH POC ABG pCO2 Sodium Chloride 110.1 H Carbon Dioxide BUN 30 H Glucose 155 H POC Glucose Calcium 7.8 L Iron TIBC Direct Bilirubin Alkaline Phosphatase Lactate Dehydrogenase Total Protein 5.3 L Albumin 2.6 L Crossmatch See Detail 04/11/18 04/11/18 04/11/18 05:26 17:59 18:27 WBC RBC Hgb 9.1 L 8.4 L Hct 26.8 L 24.9 L MCV MCH MCHC RDW Plt Count Lymph % (Auto) Lymph # Baso # Seg Neutrophils % Seg Neuts % (Manual) Lymphocytes % (Manual) Monocytes % (Manual) Nucleated RBC % Seg Neutrophils # Seg Neutrophils # Man Lymphocytes # (Manual) Eosinophils # (Manual) PT INR APTT Fibrinogen D-Dimer POC ABG pH 7.465 H POC ABG pCO2 22.2 L Sodium Chloride Carbon Dioxide BUN Glucose POC Glucose Calcium Iron TIBC Direct Bilirubin Alkaline Phosphatase Lactate Dehydrogenase Total Protein Albumin Crossmatch 04/11/18 04/12/18 04/12/18 22:54 07:14 15:10 WBC 18.5 H RBC 2.54 L Hgb 7.4 L 8.7 L 8.3 L Hct 21.8 L 25.0 L 25.0 L MCV 98 H MCH 34 H MCHC 35 H RDW 18.6 H Plt Count 101 L Lymph % (Auto) Lymph # Baso # 0.2 H Seg Neutrophils % 79.8 H Seg Neuts % (Manual) Lymphocytes % (Manual) Monocytes % (Manual) Nucleated RBC % Seg Neutrophils # 14.8 H Seg Neutrophils # Man Lymphocytes # (Manual) Eosinophils # (Manual) PT INR APTT Fibrinogen D-Dimer POC ABG pH POC ABG pCO2 Sodium Chloride Carbon Dioxide BUN Glucose POC Glucose Calcium Iron TIBC Direct Bilirubin Alkaline Phosphatase Lactate Dehydrogenase Total Protein Albumin Crossmatch 04/12/18 04/13/18 04/13/18 23:33 03:50 09:16 WBC 15.5 H 11.5 H RBC 1.87 L 2.33 L Hgb 6.3 L 6.4 L 7.8 L Hct 18.4 L* D 18.8 L* 22.6 L MCV 100 H 97 H MCH 34 H 33 H MCHC 35 H RDW 19.7 H 17.7 H Plt Count 97 L 72 L Lymph % (Auto) Lymph # Baso # Seg Neutrophils % Seg Neuts % (Manual) 77.0 H Lymphocytes % (Manual) Monocytes % (Manual) Nucleated RBC % Seg Neutrophils # Seg Neutrophils # Man 11.9 H Lymphocytes # (Manual) Eosinophils # (Manual) 0.5 H PT INR APTT Fibrinogen D-Dimer POC ABG pH POC ABG pCO2 Sodium Chloride Carbon Dioxide BUN Glucose POC Glucose Calcium Iron TIBC Direct Bilirubin Alkaline Phosphatase Lactate Dehydrogenase Total Protein Albumin Crossmatch 04/13/18 04/13/18 04/14/18 13:08 13:08 13:50 WBC RBC 2.19 L Hgb 8.0 L 7.5 L Hct 23.3 L 21.7 L MCV 99 H MCH 34 H MCHC 35 H RDW 17.6 H Plt Count 82 L Lymph % (Auto) Lymph # Baso # Seg Neutrophils % Seg Neuts % (Manual) 81.0 H Lymphocytes % (Manual) 13.0 L Monocytes % (Manual) Nucleated RBC % 1.0 H Seg Neutrophils # Seg Neutrophils # Man 7.9 H Lymphocytes # (Manual) Eosinophils # (Manual) PT INR APTT Fibrinogen D-Dimer POC ABG pH POC ABG pCO2 Sodium Chloride 112.6 H Carbon Dioxide 19 L BUN Glucose 205 H POC Glucose Calcium 6.7 L Iron TIBC Direct Bilirubin Alkaline Phosphatase Lactate Dehydrogenase Total Protein Albumin Crossmatch 04/15/18 04/15/18 04/15/18 03:48 05:50 07:35 WBC RBC 2.03 L Hgb 6.8 L 6.5 L Hct 19.7 L* 18.9 L* MCV 97 H MCH 34 H MCHC 35 H RDW 16.5 H Plt Count 63 L Lymph % (Auto) Lymph # Baso # Seg Neutrophils % Seg Neuts % (Manual) 75.0 H Lymphocytes % (Manual) Monocytes % (Manual) Nucleated RBC % 3.0 H Seg Neutrophils # Seg Neutrophils # Man Lymphocytes # (Manual) 0.9 L Eosinophils # (Manual) PT INR APTT Fibrinogen D-Dimer POC ABG pH POC ABG pCO2 Sodium Chloride Carbon Dioxide BUN Glucose POC Glucose Calcium Iron TIBC Direct Bilirubin Alkaline Phosphatase Lactate Dehydrogenase Total Protein Albumin Crossmatch See Detail 04/15/18 04/15/18 04/15/18 11:08 19:09 19:09 WBC RBC Hgb Hct MCV MCH MCHC RDW Plt Count Lymph % (Auto) Lymph # Baso # Seg Neutrophils % Seg Neuts % (Manual) Lymphocytes % (Manual) Monocytes % (Manual) Nucleated RBC % Seg Neutrophils # Seg Neutrophils # Man Lymphocytes # (Manual) Eosinophils # (Manual) PT 15.8 H INR 1.18 H APTT < 20.0 L Fibrinogen 170 L D-Dimer 4084.10 H POC ABG pH POC ABG pCO2 Sodium Chloride 109.0 H Carbon Dioxide BUN Glucose 112 H POC Glucose Calcium 6.8 L Iron TIBC Direct Bilirubin 0.4 H Alkaline Phosphatase Lactate Dehydrogenase 222 H Total Protein 4.0 L D Albumin 1.8 L Crossmatch 04/15/18 04/15/18 04/16/18 19:09 22:50 05:10 WBC RBC 2.24 L Hgb 8.6 L 8.4 L 7.3 L Hct 24.7 L 24.2 L 21.5 L MCV 96 H MCH 33 H MCHC RDW 16.9 H Plt Count 56 L Lymph % (Auto) Lymph # Baso # Seg Neutrophils % Seg Neuts % (Manual) Lymphocytes % (Manual) Monocytes % (Manual) 8.0 H Nucleated RBC % 3.0 H Seg Neutrophils # Seg Neutrophils # Man Lymphocytes # (Manual) 0.8 L Eosinophils # (Manual) PT INR APTT Fibrinogen D-Dimer POC ABG pH POC ABG pCO2 Sodium Chloride Carbon Dioxide BUN Glucose POC Glucose Calcium Iron TIBC Direct Bilirubin Alkaline Phosphatase Lactate Dehydrogenase Total Protein Albumin Crossmatch 04/16/18 04/16/18 04/17/18 13:40 21:48 03:31 WBC RBC 2.72 L Hgb 8.4 L 9.0 L 8.8 L Hct 25.6 L 25.9 L 25.3 L MCV MCH MCHC 35 H RDW 16.2 H Plt Count 63 L Lymph % (Auto) Lymph # Baso # Seg Neutrophils % Seg Neuts % (Manual) 80.0 H Lymphocytes % (Manual) 6.0 L Monocytes % (Manual) Nucleated RBC % Seg Neutrophils # Seg Neutrophils # Man Lymphocytes # (Manual) 0.3 L Eosinophils # (Manual) PT INR APTT Fibrinogen D-Dimer POC ABG pH POC ABG pCO2 Sodium Chloride Carbon Dioxide BUN Glucose POC Glucose Calcium Iron TIBC Direct Bilirubin Alkaline Phosphatase Lactate Dehydrogenase Total Protein Albumin Crossmatch 04/17/18 04/18/18 04/18/18 16:01 00:52 07:04 WBC RBC 2.46 L Hgb 10.3 L 8.1 L 8.0 L Hct 30.2 L 23.6 L D 23.5 L MCV 96 H MCH MCHC RDW 17.6 H Plt Count 136 L D Lymph % (Auto) 8.9 L Lymph # 0.9 L Baso # Seg Neutrophils % 84.1 H Seg Neuts % (Manual) Lymphocytes % (Manual) Monocytes % (Manual) Nucleated RBC % Seg Neutrophils # 8.0 H Seg Neutrophils # Man Lymphocytes # (Manual) Eosinophils # (Manual) PT INR APTT Fibrinogen D-Dimer POC ABG pH POC ABG pCO2 Sodium Chloride Carbon Dioxide BUN Glucose POC Glucose Calcium Iron TIBC Direct Bilirubin Alkaline Phosphatase Lactate Dehydrogenase Total Protein Albumin Crossmatch 04/18/18 04/18/18 04/18/18 07:04 12:25 14:50 WBC RBC 2.14 L Hgb 7.1 L Hct 20.4 L MCV 95 H MCH 33 H MCHC 35 H RDW 17.3 H Plt Count Lymph % (Auto) 9.7 L Lymph # 0.9 L Baso # Seg Neutrophils % 83.2 H Seg Neuts % (Manual) Lymphocytes % (Manual) Monocytes % (Manual) Nucleated RBC % Seg Neutrophils # Seg Neutrophils # Man Lymphocytes # (Manual) Eosinophils # (Manual) PT INR APTT Fibrinogen D-Dimer POC ABG pH POC ABG pCO2 Sodium 133 L Chloride Carbon Dioxide 19 L BUN Glucose 183 H POC Glucose 194 H Calcium 6.7 L Iron 24 L TIBC 179 L Direct Bilirubin Alkaline Phosphatase Lactate Dehydrogenase Total Protein Albumin Crossmatch 04/18/18 04/19/18 04/19/18 15:04 00:49 03:16 WBC RBC 2.15 L Hgb 7.0 L 6.9 L Hct 20.6 L 20.1 L MCV MCH MCHC RDW 16.8 H Plt Count 98 L Lymph % (Auto) Lymph # 1.1 L Baso # Seg Neutrophils % Seg Neuts % (Manual) Lymphocytes % (Manual) Monocytes % (Manual) Nucleated RBC % Seg Neutrophils # Seg Neutrophils # Man Lymphocytes # (Manual) Eosinophils # (Manual) PT INR APTT Fibrinogen D-Dimer POC ABG pH POC ABG pCO2 Sodium Chloride Carbon Dioxide BUN Glucose POC Glucose Calcium Iron TIBC Direct Bilirubin Alkaline Phosphatase Lactate Dehydrogenase Total Protein Albumin Crossmatch See Detail Allied health notes reviewed: nursing
[2018-04-19] MEDS: ATARAX PO SCH (10:32)
[2018-04-19] MEDS: NEURONTIN PO SCH (10:32)
[2018-04-19] MEDS: CARAFATE PO SCH (10:32)
[2018-04-19] MEDS: SODIUM CHLORIDE FLUSH SYRINGE 10 ML IV SCH (10:33)
--- NOTE | 2018-04-19 10:35 | Gastroenterology Progress Note ---
<SARKIS BARRIOS - Last Filed: 04/19/18 12:21> Assessment and Plan 1.UGIB 2.H/o achalasia (s/p partial esophagectomy) 3.Afib on anticoagulation -H/H 7.0/20.6 -continue to monitor H/H and transfuse as needed -s/p EGD 04/11 that showed large blood clot in lower esophagus extending to proximal stomach with visualization limited -s/p EGD 04/12 that revealed an esophageal ulcer with visible vessel and heme spots s/p clip placement and gold probe -s/p EGD 04/15 that showed prior esophageal ulcer with endoclips with no bleeding and Heller myotomy with partial gastric wrap and suture w/o bleeding -CTA 04/13 negative for active bleeding -s/p EGD/colon 04/16 that showed healing esophageal ulcer and liquid dark brown stool in colon with no high risk lesions -clinically, patient is currently in ICU on pressor support following reports of recurrent hematemesis and bloody stools yesterday. No active signs of bleeding this am per nursing. -bleeding scan 04/18 negative -will order stat repeat labs this am (H/H. PT/PTT, INR) -recommend repeat EGD today -Keep NPO -continue protonix drip -continue to hold blood thinning medications (Eliquis) -continue supportive care -consider transfer to tertiary center based on above results/clinical progress -will follow 4.thrombocytopenia (possible DIC?)- hematology following with etiology thought to be most likely 2/2 consumption and not DICconsumption Subjective Date of service: 04/19/18 Principal diagnosis: upper GI bleed Interval history: Patient with reported hematemesis and bloody stools yesterday. Currently in ICU on pressor support. No active signs of bleeding this am per nursing. Objective - Constitutional Vitals: Temp Pulse Resp BP Pulse Ox 98.2 F 93 H 18 115/34 95 04/19/18 08:00 04/19/18 06:30 04/19/18 06:30 04/19/18 06:30 04/19/18 07:53 General appearance: mild distress - Respiratory Respiratory: bilateral: diminished - Cardiovascular Rhythm: regular Heart Sounds: Present: S1 & S2 - Gastrointestinal General gastrointestinal: Present: soft, non-tender, non-distended, normal bowel sounds - Neurologic Neurological: alert and oriented x3 - Labs CBC & Chem 7: 04/19/18 03:16 04/18/18 07:04 Labs: Laboratory Results - last 24 hr 04/10/18 04/15/18 04/18/18 17:20 07:35 12:25 WBC RBC Hgb Hct MCV MCH MCHC RDW Plt Count Lymph % (Auto) [place] % (Auto) Eos % (Auto) Baso % (Auto) Lymph # [place] # Eos # Baso # Seg Neutrophils % Seg Neutrophils # POC Glucose 194 H Blood Type Antibody Screen Crossmatch See Detail See Detail 04/18/18 04/18/18 04/19/18 14:50 15:04 00:49 WBC 9.1 RBC 2.14 L Hgb 7.1 L 7.0 L Hct 20.4 L 20.6 L MCV 95 H MCH 33 H MCHC 35 H RDW 17.3 H Plt Count 141 Lymph % (Auto) 9.7 L [place] % (Auto) 6.4 Eos % (Auto) 0.0 Baso % (Auto) 0.7 Lymph # 0.9 L [place] # 0.6 Eos # 0.0 Baso # 0.1 Seg Neutrophils % 83.2 H Seg Neutrophils # 7.6 POC Glucose Blood Type O NEGATIVE Antibody Screen Negative Crossmatch See Detail 04/19/18 03:16 WBC 4.7 RBC 2.15 L Hgb 6.9 L Hct 20.1 L MCV 94 MCH 32 MCHC 34 RDW 16.8 H Plt Count 98 L Lymph % (Auto) 23.2 [place] % (Auto) 6.3 Eos % (Auto) 1.1 Baso % (Auto) 0.5 Lymph # 1.1 L [place] # 0.3 Eos # 0.1 Baso # 0.0 Seg Neutrophils % 68.9 Seg Neutrophils # 3.2 POC Glucose Blood Type Antibody Screen Crossmatch <ANNIE VALDIVIA - Last Filed: 04/19/18 13:22> Assessment and Plan Agree with advanced practitioner exam, assessment, and plan with additions below: patient with clinical re-bleed yesterday, negative bleeding scan, but required blood transfusion and on pressor support; given concern for ongoing GI bleeding will proceed with EGD given risk of rebleed from the esophageal ulcer. - Patient Problems (1) GI bleed Current Visit: Yes Status: Acute Qualifiers: GI bleed type/associated pathology: unspecified gastrointestinal hemorrhage type Qualified Code(s): K92.2 - Gastrointestinal hemorrhage, unspecified Objective - Constitutional Vitals: Temp Pulse Resp BP Pulse Ox 98.3 F 88 13 135/41 97 04/19/18 12:00 04/19/18 11:45 04/19/18 11:45 04/19/18 11:45 04/19/18 11:45 - Labs CBC & Chem 7: 04/19/18 03:16 04/18/18 07:04 Labs: Laboratory Results - last 24 hr 04/10/18 04/15/18 04/18/18 17:20 07:35 14:50 WBC 9.1 RBC 2.14 L Hgb 7.1 L Hct 20.4 L MCV 95 H MCH 33 H MCHC 35 H RDW 17.3 H Plt Count 141 Lymph % (Auto) 9.7 L [place] % (Auto) 6.4 Eos % (Auto) 0.0 Baso % (Auto) 0.7 Lymph # 0.9 L [place] # 0.6 Eos # 0.0 Baso # 0.1 Seg Neutrophils % 83.2 H Seg Neutrophils # 7.6 Blood Type Antibody Screen Crossmatch See Detail See Detail 04/18/18 04/19/18 04/19/18 15:04 00:49 03:16 WBC 4.7 RBC 2.15 L Hgb 7.0 L 6.9 L Hct 20.6 L 20.1 L MCV 94 MCH 32 MCHC 34 RDW 16.8 H Plt Count 98 L Lymph % (Auto) 23.2 [place] % (Auto) 6.3 Eos % (Auto) 1.1 Baso % (Auto) 0.5 Lymph # 1.1 L [place] # 0.3 Eos # 0.1 Baso # 0.0 Seg Neutrophils % 68.9 Seg Neutrophils # 3.2 Blood Type O NEGATIVE Antibody Screen Negative Crossmatch See Detail
--- NOTE | 2018-04-19 10:43 | Consultation ---
History of Present Illness Consult date: 04/19/18 Chief complaint: GI bleed - History of present illness History of present illness: 63 yo M with extensive hx of esophageal surgery by Dr. Schofield at [facility] presented to hospital on 04/10/18 with c/o vomiting blood and blood in stool. The patient has been monitored in the hospital, transfused blood products, has underwent imaging studies such as NM bleed scan and CTA A/P, as well as multiple EGDs. He states that he is feeling ok. He is s/p EGD today. He states he has mild epigastric pain. No n/v today. No f/c. He does not know why he had esophageal surgery but just knows that his doctor told him he was very si ck. Pt has had GI bleeding in the past. He is on eliquis for hx of Afib. Surgery consulted for evaluation. Past History Past Medical History: atrial fib, hypertension, other (Obesity, Achalasia) Past Surgical History: Other (Esophageal surgery x6) Social history: , lives with family Family history: hypertension Medications and Allergies Allergies Allergy/AdvReac Type Severity Reaction Status Date / Time Penicillins Allergy Severe Anaphylaxis Verified 04/10/18 17:28 cyclobenzaprine Allergy Hives Verified 04/10/18 19:23 [From Flexeril] Home Medications Medication Instructions Recorded Confirmed Last Taken Type Apixaban [Eliquis] 2.5 mg PO DAILY 04/10/18 04/10/18 04/10/18 History Gabapentin [Neurontin] 300 mg PO BID 04/10/18 04/10/18 04/10/18 History Hydroxyzine HCl [hydrOXYzine] 25 mg PO DAILY 04/10/18 04/10/18 04/10/18 History Lansoprazole [Prevacid] 30 mg PO DAILY 04/10/18 04/10/18 04/10/18 History Lisinopril [Zestril] 5 mg PO QDAY 04/10/18 04/10/18 04/10/18 History Metoprolol [Lopressor] 25 mg PO BID 04/10/18 04/10/18 04/10/18 History Active Meds: Active Medications Acetaminophen/Hydrocodone Bitart (Sherman 5/325) 1 each PO Q6H PRN PRN Reason: Pain, Moderate (4-6) Last Admin: 04/18/18 20:15 Dose: 1 each Documented by: Albuterol (Proventil) 2.5 mg IH Q4HRT PRN PRN Reason: Shortness Of Breath Diltiazem HCl (Cardizem) 10 mg IV Q6H PRN PRN Reason: Sustained HR > 140 Last Admin: 04/16/18 19:02 Dose: 10 mg Documented by: Gabapentin (Neurontin) 300 mg PO BID [facility] Last Admin: 04/19/18 10:32 Dose: 300 mg Documented by: Hydroxyzine HCl (Atarax) 25 mg PO DAILY [facility] Last Admin: 04/19/18 10:32 Dose: 25 mg Documented by: Dextrose/Sodium Chloride (D5ns) 1,000 mls @ 75 mls/hr IV DIRECT GABE Last Admin: 04/19/18 02:49 Dose: 75 mls/hr Documented by: Pantoprazole Sodium 80 mg/ (Sodium Chloride) 100 mls @ 10 mls/hr IV DIRECT GABE Last Admin: 04/19/18 09:15 Dose: 8 mg/hr, 10 mls/hr Documented by: Norepinephrine (Levophed Drip 4 Mg/Ns 250 Ml) 4 mg in 250 mls @ 7.5 mls/hr IV TITR [facility]; Protocol Ondansetron HCl (Zofran) 4 mg IV Q4H PRN PRN Reason: Nausea And Vomiting Last Admin: 04/18/18 08:01 Dose: 4 mg Documented by: Sodium Chloride (Sodium Chloride Flush Syringe 10 Ml) 10 ml IV BID [facility] Last Admin: 04/19/18 10:33 Dose: 10 ml Documented by: Sodium Chloride (Sodium Chloride Flush Syringe 10 Ml) 10 ml IV PRN PRN PRN Reason: LINE FLUSH Sucralfate (Carafate) 1 gm PO ACHS [facility] Last Admin: 04/19/18 10:32 Dose: 1 gm Documented by: Review of Systems All systems: negative (10 pt ROS performed and negative except for that listed in HPI) Exam Vital Signs Pulse Resp Pulse Ox 65 16 100 04/10/18 17:03 04/10/18 17:03 04/10/18 17:03 Narrative exam: Gen: AAOx3. NAD ENT: no scleral icterus. +conjunctival pallor CV: S1, S2+ Resp; even and unlabored Abd; soft, obese, ND, mild epigastric TTP. no r/r/g Ext: + generalized edema and ecchymosis of extremities Results - Labs 04/19/18 03:16 04/18/18 07:04 Abnormal lab results 04/10/18 04/15/18 04/18/18 Range/Units 17:20 07:35 12:25 RBC (3.65-5.03) M/mm3 Hgb (11.8-15.2) gm/dl Hct (35.5-45.6) % MCV (84-94) fl MCH (28-32) pg MCHC (32-34) % RDW (13.2-15.2) % Plt Count (140-440) K/mm3 Lymph % (Auto) (13.4-35.0) % Lymph # (1.2-5.4) K/mm3 Seg Neutrophils % (40.0-70.0) % POC Glucose 194 H (70-105) Crossmatch See Detail See Detail 04/18/18 04/18/18 04/19/18 Range/Units 14:50 15:04 00:49 RBC 2.14 L (3.65-5.03) M/mm3 Hgb 7.1 L 7.0 L (11.8-15.2) gm/dl Hct 20.4 L 20.6 L (35.5-45.6) % MCV 95 H (84-94) fl MCH 33 H (28-32) pg MCHC 35 H (32-34) % RDW 17.3 H (13.2-15.2) % Plt Count (140-440) K/mm3 Lymph % (Auto) 9.7 L (13.4-35.0) % Lymph # 0.9 L (1.2-5.4) K/mm3 Seg Neutrophils % 83.2 H (40.0-70.0) % POC Glucose (70-105) Crossmatch See Detail 04/19/18 Range/Units 03:16 RBC 2.15 L (3.65-5.03) M/mm3 Hgb 6.9 L (11.8-15.2) gm/dl Hct 20.1 L (35.5-45.6) % MCV (84-94) fl MCH (28-32) pg MCHC (32-34) % RDW 16.8 H (13.2-15.2) % Plt Count 98 L (140-440) K/mm3 Lymph % (Auto) (13.4-35.0) % Lymph # 1.1 L (1.2-5.4) K/mm3 Seg Neutrophils % (40.0-70.0) % POC Glucose (70-105) Crossmatch - Imaging CT scan - abdomen: report reviewed CT scan - pelvis: report reviewed Additional studies: NM Gi bleeding scan Assessment and Plan 63 yo M with UGIB, hx of esophageal surgery s/p EGD today: 1. no gross lesions in stomach or duodenum 2. 4cm large hiatal hernia 3. patulous lower esophageal sphincter 4. in distal esophagus "moderate amount of fresh and old blood and clots which was cleared and suctioned. Underneath there was a 1cm ulcer bed with 2 clips intact at the lateral edge of the ulcer. At the superior portion of the ulcer there was a 2mm visible vessel with oozing of blood to touch. 1cc of dilute epinephrine was injected in 3 areas surrounding the visible vessel. Then, 2 clips were successfully deployed over the vessel to obtain hemostasis. At the end of the procedure there was no active bleeding" Plan: 1. GI and IR on board. Pt s/p multiple EGDs. s/p EGD today 2. pt with down-trending Hb and bloody emesis yesterday per notes. On levophed 1mcg but SBP is in 150s. We do not have thoracic surgery at this hospital. Pt needs to be transferred to facility that can offer surgical options for esophageal bleeding. I recommend transfer. 3. c/w PPI and carafate 4. transfuse prn I discussed this with Dr. Chan - patient accepted by Dr. Jones at [facility]. I discussed this with the patient.
--- NOTE | 2018-04-19 10:50 | Progress Note ---
<ARMINJANIEDIMAS - Last Filed: 04/19/18 10:48> Assessment and Plan Upper GI bleed s/p transfusion of PRBCs H/O persistent atrial fibrillation after abdominal surgery in 05/2017 [id number] VASc = 1, no need to restart oral anticoagulation therapy. Htn Recommend: Restart low dose beta cooper once BP stable. Subjective Date of service: 04/19/18 Principal diagnosis: upper GI bleed Interval history: Patient is resting in bed comfortably, on pressors for support. He denies chest pain and shortness of breath. Objective Vital Signs Temp Pulse Pulse Resp BP Pulse Ox 04/19/18 08:00 98.2 F 04/19/18 07:53 95 04/19/18 06:30 93 H 18 115/34 95 04/19/18 06:15 95 H 18 117/37 94 04/19/18 06:00 99 H 18 117/37 88 04/19/18 05:45 100 H 19 123/52 95 04/19/18 05:31 100 H 18 123/52 97 04/19/18 05:15 104 H 15 106/48 95 04/19/18 05:00 98 H 17 106/48 97 04/19/18 04:45 95 H 14 106/46 96 04/19/18 04:30 89 14 106/46 95 04/19/18 04:15 92 H 18 116/44 97 04/19/18 04:00 92 H 18 116/44 95 04/19/18 03:45 94 H 15 118/43 97 04/19/18 03:30 85 15 118/43 97 04/19/18 03:22 98.9 F 04/19/18 03:15 81 14 122/48 98 04/19/18 03:00 70 16 122/48 99 04/19/18 02:45 90 17 113/38 97 04/19/18 02:30 87 16 113/38 97 04/19/18 02:15 90 15 103/37 97 04/19/18 02:00 86 16 103/37 97 04/19/18 01:45 90 15 107/41 97 04/19/18 01:30 92 H 16 107/41 96 04/19/18 01:15 93 H 16 96/41 97 04/19/18 01:00 93 H 16 96/41 97 04/19/18 00:45 100 H 17 110/41 95 04/19/18 00:30 122 H 18 110/41 96 04/19/18 00:15 119 H 16 110/52 98 04/19/18 00:00 138 H 15 101/55 97 04/18/18 23:45 135 H 17 110/52 97 04/18/18 23:31 129 H 16 110/52 97 04/18/18 23:19 127 H 17 97/43 98 04/18/18 23:15 135 H 16 97/43 98 04/18/18 23:10 99 F 04/18/18 23:01 122 H 16 97/43 96 04/18/18 22:52 98.6 F 128 H 17 106/49 98 04/18/18 22:45 123 H 19 97/41 98 04/18/18 22:31 128 H 22 123/73 97 04/18/18 22:15 135 H 20 123/73 95 04/18/18 22:00 126 H 19 123/73 97 04/18/18 21:45 116 H 18 112/32 98 04/18/18 21:30 142 H 17 123/73 98 04/18/18 21:21 98.8 F 85 17 115/41 04/18/18 21:15 152 H 15 108/39 99 04/18/18 21:00 156 H 17 112/32 99 04/18/18 20:51 98.3 F 85 17 115/34 96 04/18/18 20:45 162 H 18 126/63 98 04/18/18 20:36 98.3 F 91 H 17 117/37 95 04/18/18 20:30 145 H 17 108/39 97 04/18/18 20:15 136 H 19 126/63 99 04/18/18 20:01 104/45 96 04/18/18 20:00 98.9 F 04/18/18 19:45 106 H 19 98/46 100 04/18/18 19:37 99 H 106/55 04/18/18 16:45 96 H 16 93/56 97 04/18/18 16:30 100 H 17 93/56 97 04/18/18 16:15 99 H 15 97/50 98 04/18/18 16:00 89 16 97/50 96 03/03/19 15:45 91 H 15 96/53 98 04/18/18 15:30 95 H 17 97/48 97 04/18/18 15:15 99 H 18 89/46 98 04/18/18 15:00 103 H 19 86/50 100 04/18/18 14:45 104 H 18 85/47 99 04/18/18 14:30 104 H 18 86/44 98 04/18/18 14:15 108 H 22 93/39 98 04/18/18 14:00 108 H 20 93/39 99 04/18/18 13:45 110 H 21 94/44 98 04/18/18 13:30 106 H 23 94/44 97 04/18/18 13:15 106 H 19 76/45 97 04/18/18 13:01 110 H 19 76/45 98 04/18/18 12:45 107 H 19 78/45 96 04/18/18 12:32 98 04/18/18 12:30 112 H 21 78/45 95 04/18/18 12:15 108 H 22 90/47 97 04/18/18 12:00 112 H 20 97/53 97 04/18/18 11:48 97 04/18/18 11:40 97.6 F 104 H 04/18/18 11:25 98.0 F 18 104/62 - Physical Examination General: No Apparent Distress HEENT: Positive: PERRL Neck: Positive: neck supple Cardiac: Positive: Reg Rate and Rhythm Abdomen: Positive: Soft, Active Bowel Sounds Extremities: Absent: edema - Labs and Meds CBC 04/18/18 04/19/18 04/19/18 Range/Units 14:50 00:49 03:16 WBC 9.1 4.7 (4.5-11.0) K/mm3 RBC 2.14 L 2.15 L (3.65-5.03) M/mm3 Hgb 7.1 L 7.0 L 6.9 L (11.8-15.2) gm/dl Hct 20.4 L 20.6 L 20.1 L (35.5-45.6) % Plt Count 141 98 L (140-440) K/mm3 Lymph # 0.9 L 1.1 L (1.2-5.4) K/mm3 [place] # 0.6 0.3 (0.0-0.8) K/mm3 Eos # 0.0 0.1 (0.0-0.4) K/mm3 Baso # 0.1 0.0 (0.0-0.1) K/mm3 - Imaging and Cardiology EKG: report reviewed - Allied health notes Allied health notes reviewed: nursing <LYDIA TORRES - Last Filed: 04/19/18 15:31> Assessment and Plan I have seen and evaluated the patient, and agree with the assessment and plan. Continue low dose BB for rate control. No anitcoagulation given history of GI bleed. Objective Vital Signs Temp Pulse Resp BP Pulse Ox 04/19/18 12:00 98.3 F 04/19/18 11:45 88 13 135/41 97 04/19/18 11:30 85 14 126/53 98 04/19/18 11:15 87 14 137/52 98 04/19/18 11:00 88 14 122/51 97 04/19/18 10:45 91 H 14 129/50 97 04/19/18 10:30 86 15 130/45 96 04/19/18 10:15 86 16 147/54 97 04/19/18 10:00 86 14 134/41 98 04/19/18 09:46 86 14 98 04/19/18 09:30 87 12 142/59 97 04/19/18 09:15 92 H 16 96 04/19/18 09:00 86 14 118/60 95 04/19/18 08:45 85 15 123/56 96 04/19/18 08:30 87 15 126/56 95 04/19/18 08:15 84 14 98 04/19/18 08:00 98.2 F 83 15 104/56 95 04/19/18 07:53 95 04/19/18 07:45 87 15 96 04/19/18 07:31 102 H 17 107/47 96 04/19/18 07:15 88 18 96 04/19/18 07:00 92 H 16 115/41 96 04/19/18 06:45 88 15 115/34 95 04/19/18 06:30 93 H 18 115/34 95 04/19/18 06:15 95 H 18 117/37 94 04/19/18 06:00 99 H 18 117/37 88 04/19/18 05:45 100 H 19 123/52 95 04/19/18 05:31 100 H 18 123/52 97 04/19/18 05:15 104 H 15 106/48 95 04/19/18 05:00 98 H 17 106/48 97 04/19/18 04:45 95 H 14 106/46 96 04/19/18 04:30 89 14 106/46 95 04/19/18 04:15 92 H 18 116/44 97 04/19/18 04:00 92 H 18 116/44 95 04/19/18 03:45 94 H 15 118/43 97 04/19/18 03:30 85 15 118/43 97 04/19/18 03:22 98.9 F 04/19/18 03:15 81 14 122/48 98 04/19/18 03:00 70 16 122/48 99 04/19/18 02:45 90 17 113/38 97 04/19/18 02:30 87 16 113/38 97 04/19/18 02:15 90 15 103/37 97 04/19/18 02:00 86 16 103/37 97 04/19/18 01:45 90 15 107/41 97 04/19/18 01:30 92 H 16 107/41 96 04/19/18 01:15 93 H 16 96/41 97 04/19/18 01:00 93 H 16 96/41 97 04/19/18 00:45 100 H 17 110/41 95 04/19/18 00:30 122 H 18 110/41 96 04/19/18 00:15 119 H 16 110/52 98 04/19/18 00:00 138 H 15 101/55 97 04/18/18 23:45 135 H 17 110/52 97 04/18/18 23:31 129 H 16 110/52 97 04/18/18 23:19 127 H 17 97/43 98 04/18/18 23:15 135 H 16 97/43 98 04/18/18 23:10 99 F 04/18/18 23:01 122 H 16 97/43 96 04/18/18 22:52 98.6 F 128 H 17 106/49 98 04/18/18 22:45 123 H 19 97/41 98 04/18/18 22:31 128 H 22 123/73 97 04/18/18 22:15 135 H 20 123/73 95 04/18/18 22:00 126 H 19 123/73 97 04/18/18 21:45 116 H 18 112/32 98 04/18/18 21:30 142 H 17 123/73 98 04/18/18 21:21 98.8 F 85 17 115/41 04/18/18 21:15 152 H 15 108/39 99 04/18/18 21:00 156 H 17 112/32 99 04/18/18 20:51 98.3 F 85 17 115/34 96 04/18/18 20:45 162 H 18 126/63 98 04/18/18 20:36 98.3 F 91 H 17 117/37 95 04/18/18 20:30 145 H 17 108/39 97 04/18/18 20:15 136 H 19 126/63 99 04/18/18 20:01 104/45 96 04/18/18 20:00 98.9 F 04/18/18 19:45 106 H 19 98/46 100 04/18/18 19:37 99 H 106/55 04/18/18 16:45 96 H 16 93/56 97 04/18/18 16:30 100 H 17 93/56 97 04/18/18 16:15 99 H 15 97/50 98 04/18/18 16:00 89 16 97/50 96 04/18/18 15:45 91 H 15 96/53 98 - Labs and Meds Coagulation 04/19/18 Range/Units 14:44 PT 15.7 H (12.2-14.9) Sec. INR 1.17 H (0.87-1.13) APTT 20.8 L (24.2-36.6) Sec. CBC 04/19/18 04/19/18 04/19/18 Range/Units 00:49 03:16 14:44 WBC 4.7 (4.5-11.0) K/mm3 RBC 2.15 L (3.65-5.03) M/mm3 Hgb 7.0 L 6.9 L 8.4 L (11.8-15.2) gm/dl Hct 20.6 L 20.1 L 24.9 L (35.5-45.6) % Plt Count 98 L (140-440) K/mm3 Lymph # 1.1 L (1.2-5.4) K/mm3 [place] # 0.3 (0.0-0.8) K/mm3 Eos # 0.1 (0.0-0.4) K/mm3 Baso # 0.0 (0.0-0.1) K/mm3
--- NOTE | 2018-04-19 11:44 | Event Note ---
Date: 04/19/[address] Faith Mims at [facility] and he will be willing to accept the patient.
[2018-04-19] MEDS ORDERED: NEO SYNEPHRINE ONE (13:00)
[2018-04-19] MEDS ORDERED: NACL 0.9% 100 ML ONE (13:01)
[2018-04-19] MEDS ORDERED: AMIDATE IV ONE (13:07)
[2018-04-19] MEDS ORDERED: WATER FOR IRRIG STERILE ONE (13:11)
[2018-04-19] MEDS ORDERED: WATER FOR IRRIG STERILE IR ONE (13:11)
[2018-04-19] MEDS ORDERED: NACL 0.9% 1000 ML 1,000 ML ONE (13:12)
[2018-04-19] MEDS ORDERED: ADRENALIN IV ONE (13:50)
--- NOTE | 2018-04-19 14:02 | Operative Report ---
Operative Report Operative Report: SURGEON: Meliton Calles MD EGD with hemostasis REPORT PREOPERATIVE DIAGNOSIS and POSTOPERATIVE DIAGNOSIS: hematemesis, esophageal ulcer ESTIMATED BLOOD LOSS: 5cc DESCRIPTION OF PROCEDURE: A high-resolution EGD scope was passed through the oropharynx, esophagus, stomach, and second portion of duodenum. The scope was carefully withdrawn. Retroflexion was performed in the stomach. At the end of the procedure, the scope was cleaned using normal technique. Vital signs monitored continuously throughout. SEDATION: Provided by Anesthesiology Services. COMPLICATIONS: None. FINDINGS: * No gross lesions in the duodenum * No gross lesions in the stomach * 4cm large hiatal hernia * Patulous Lower esophageal sphincter * in the distal esophagus there was moderate amount of fresh and old blood and clots which was cleared and suctioned. Underneath there was a 1cm ulcer bed with 2 clips intact at the lateral edge of the ulcer. At the superior portion of the ulcer there was a 2mm visible vessel with oozing of blood to touch. 1cc of dilute epinephrine was injected in 3 areas surrounding the visible vessel. Then, 2 clips were successfully deployed over the vessel to obtain hemostasis. At the end of the procedure there was no active bleeding RECOMMENDATIONS: * Four times daily carafate slurry * PPI drip for 72 hours then BID PPI * BID dosing H2 cooper * Monitor clinically
[2018-04-19] MEDS ORDERED: ADRENALINE P/F ONE (14:42)
[2018-04-19 15:16] LABS: Hematocrit 24.9 % (35.5-45.6); Hemoglobin 8.4 gm/dl (11.8-15.2)
[2018-04-19 15:25] LABS: INR 1.17 (0.87-1.13)
[2018-04-19 15:26] LABS: Partial Thromboplastin Time 20.8 Sec. (24.2-36.6)
[2018-04-19] MEDS: CARDIZEM IV PRN (17:48)
[2018-04-19 19:05] VITALS: BP 99/61
[2018-04-19] MEDS ORDERED: PEPCID PO SCH (22:00)
--- NOTE | 2018-04-26 07:20 | Discharge Summary ---
Providers - Providers Date of Admission: 04/10/18 18:58 Attending physician: TAMIA ALCARAZ MD 04/10/18 18:45 Consult to Physician [CONS] Routine Comment: Consulting Provider: TICO URIBE Physician Instructions: Reason For Exam: GI bleed, hematemesis, melena 04/11/18 17:21 Consult to Physician [CONS] Urgent Comment: Consulting Provider: JOSE A ODONNELL Physician Instructions: Reason For Exam: critical care management 04/14/18 15:30 Physical Therapy Evaluation and Treat [CONS] Routine Comment: Reason For Exam: Debility 04/15/18 11:15 Consult to Physician [CONS] Urgent Comment: Consulting Provider: ANNIE SOLIS Physician Instructions: Reason For Exam: Evalaute for embolization, GI bleeding 04/15/18 14:55 Midline [Consult to PICC Line RN] [CONS] Stat Reason For Exam: needs for blood products and blood products Type Line:: Midline 04/16/18 12:22 Consult to Physician [CONS] Stat Comment: Consulting Provider: JOE DIANE Physician Instructions: Reason For Exam: platelet 56 04/16/18 13:04 Consult to Physician [CONS] Routine Comment: Consulting Provider: JOE DIANE Physician Instructions: Reason For Exam: thrombocytopenia 04/16/18 14:27 Consult to Wound/ET Nurse [CONS] Routine Reason For Exam: wound eval 04/16/18 14:30 Consult to Physician [CONS] Routine Comment: Consulting Provider: VAMSHI MORA Physician Instructions: Reason For Exam: afib 04/16/18 14:37 Consult to Physician [CONS] Routine Comment: Consulting Provider: JOE DIANE Physician Instructions: Reason For Exam: THROMBOCYTOPENIA 04/17/18 09:53 Physical Therapy Evaluation and Treat [CONS] Routine Comment: Reason For Exam: debility and deconditioning 04/17/18 18:24 Occupational Therapy Evaluate and Treat [CONS] Routine Comment: Reason For Exam: generalized weakness 04/19/18 07:54 Consult to Physician [CONS] Routine Comment: Consulting Provider: CHUCK LARKIN Physician Instructions: Reason For Exam: GI bleed Primary care physician: [employer] Hospitalization Reason for admission: GI BLEED Condition: Fair Hospital course: 63-year-old man with hx of HTN, Morbid Obesity, Atrial Fibrillation on Therapeutic Anticoagulation (Eliquis) Achalasia s/p distal esophagectomy with bleeding at the angel GE junction 6 [employer], who presented complaining of vomiting blood and dark tarry stools Past medical history paroxysmal atrial fibrillation on anticoagulation, takes eliquis , hypertension, obesity, achalasia, has had esophageal surgery 6 Procedures since admission: EGD X2: showed a large blood clot extending from the distal esophagus to the gastric fundus, attempts were made to clear up clots but not successful AND ON REPEAT NO FURTHER BLEEDING NOTED COLONOSCOPY: Dark liquid brown stool throughout the colon without signs of high risk bleeding lesions or any blood seen Bleeding scan: negative for bleed CTA ABDOMEN AND PELVIS: RIGHT SIDED COLITIS Doppler Upper ext: Cephalic vein thrombosis vs thrombophlebitis Recurrent Upper GI bleed -probably 2/2 esophageal ulcer -s/p recent Panendoscopy -Vascular recommended possible Left gastric artery embolization But will rather surgical eval -Consult surgery -cont Protonix - S/p 9 PRBC, -GI following- reconsulted Acute Blood Loss Anemia -s/p blood transfusion with 5U of PRBC -H/H trending down, - Await post transfusion repeat H/H - Monitor h/h q8h Acute Thrombocytopenia -likely consumption related, -Platelet level improving, will monitor -Hematology following-No DIC Paroxysmal Afib, s/p RVR episode -currently in sinus rhythm and rate controlled -on PRN cardizem -low dose to be restarted when BP stabilizes -home eliquis on hold due to the acute bleed BUE edema 2/2 Fluid Overload r/o other etiology -Venous doppler of BUE neg for DVT except for cephalic vein thrombosis versus thrombophlebitis Hypotension 2/2 hypovolemia -BP improving, will monitor Moderate protein calorie malnutrition -naphthalene still operator consulted Cephalic Vein Thrombosis -Per Hematology, will monitor in view of recent and ongoing bleed. h/o achalasia s/p esophageal surgery -cont supportive care Obesity with BMI of 39.6 -Life style modification recommended Acute physical debility/ Critical illness Myopathy -PT/OT consulted AFTER CAREFUL REVIEW OF MANAGEMENT OPTIONS, IT WAS DETERMINED THAT THE PATIENT SHOULD BE EVALUATED BY THE INITIAL SURGEON WHO PERFORMED HIS ESOPHAGEAL SURGERY AND HE WAS TRANSFERRED TO [facility] Disposition: DC/TX- SHRT-TRM GEN HOSP IP Time spent for discharge: 55 MINS Core Measure Documentation - Palliative Care Palliative Care/ Comfort Measures: Not Applicable - Core Measures Any of the following diagnoses?: none Exam - Physical Exam Narrative exam: VITAL SIGNS: Reviewed. GENERAL: The patient appeared well nourished and normally developed morbidly obese lethargic. Vital signs as documented. HEAD: No signs of head trauma. EYES: Pupils are equal. Extraocular motions intact. EARS: Hearing grossly intact. MOUTH: Oropharynx is normal. NECK: No adenopathy, no JVD. CHEST: Chest with clear breath sounds bilaterally. No wheezes, rales, or rhonchi. CARDIAC: Regular rate and rhythm. S1 and S2, without murmurs, gallops, or rubs. VASCULAR: Trace bilateral pitting Edema. Peripheral pulses normal and equal in all extremities. ABDOMEN: Soft, without detectable tenderness. No sign of distention. No rebound or guarding, and no masses palpated. Bowel Sounds normal. MUSCULOSKELETAL: Good range of motion of all major joints. Extremities without clubbing, cyanosis. With trace bilateral pitting edema. NEUROLOGIC EXAM: Alert and oriented x 3. No focal sensory or strength deficits. Speech normal. Follows commands. PSYCHIATRIC: Mood normal. SKIN: Multiple ecchymosis upper extremity chest. - Constitutional Vitals: Temp Pulse Resp BP Pulse Ox 97.8 F 166 H 16 99/61 96 04/19/18 17:26 04/19/18 18:16 04/19/18 18:16 04/19/18 18:16 04/19/18 18:16 Plan Follow up with: PRIMARY MD SIOMARA [Primary Care Provider] - 7 Days Forms: Accompanied Note
--- NOTE | 2018-05-03 08:31 | Addendum Note ---
- Addendum Date: 04/12/18 Note: 63-year-old man who presented complaining of vomiting blood and dark tarry stools Past medical history paroxysmal atrial fibrillation on anticoagulation, takes eliquis , hypertension, obesity, achalasia, has had esophageal surgery 6 Problems Acute upper GI bleed Acute blood loss anemia Paroxysmal atrial fibrillation Obesity Plan GI consult appreciated, keep nothing by mouth, continue protonic drip, status post EGD 04/11 which showed a large blood clot extending from the distal esophagus to the gastric fundus, attempts were made to clear up clots but not successful. There was also moderate to severe esophagitis with mild oozing of blood, patient was injected with epinephrine, plan for repeat EGD tomorrow, Reglan to be given tomorrow prior to EGD Patient still actively vomiting blood Continue serial blood draws, transfuse as needed Continue medications for rate control -Anticoagulation has been discontinued DVT prophylaxis with SCDs Critical care time 35 minutes History Interval history: Review of systems Constitutional: No fevers, no malaise, no joint pains CVS: No chest pain, no orthopnea, no dyspnea on exertion, no pedal edema GI: He continues to vomit blood, he is having melanotic stools Respiratory: No shortness of breath, no wheezing, no coughing
--- NOTE | 2018-05-03 08:32 | Addendum Note ---
- Addendum Date: 04/13/18 Note: 63-year-old man who presented complaining of vomiting blood and dark tarry stools Past medical history paroxysmal atrial fibrillation on anticoagulation, takes eliquis , hypertension, obesity, achalasia, has had esophageal surgery 6 Problems Acute upper GI bleed Acute blood loss anemia Paroxysmal atrial fibrillation Obesity Plan GI consult appreciated, keep nothing by mouth, continue protonic drip, status post EGD 04/11 which showed a large blood clot extending from the distal esophagus to the gastric fundus, attempts were made to clear up clots but not successful. There was also moderate to severe esophagitis with mild oozing of blood, patient was injected with epinephrine, plan for repeat EGD tomorrow, Reglan to be given tomorrow prior to EGD -s/p repeat EGD 04/12 that revealed an esophageal ulcer with visible vessel and heme spots s/p clip placement and gold probe -recommend stat CTA for further evaluation of bleeding Patient still actively vomiting blood Continue serial blood draws, transfuse as needed Continue medications for rate control -Anticoagulation has been discontinued DVT prophylaxis with SCDs Critical care time 35 minutes History Interval history: Review of systems Constitutional: No fevers, no malaise, no joint pains CVS: No chest pain, no orthopnea, no dyspnea on exertion, no pedal edema GI: He continues to vomit blood, he is having melanotic stools Respiratory: No shortness of breath, no wheezing, no coughing-s/p EGD 04/11 that showed large blood clot in lower esophagus extending to proximal stomach with visualization limited
== END 2018-04-19 19:05 | disposition short-term general hospital (02) | DRG 326 ==
LOC: ED 16:35 → IMCU 18:58 → CC1 04-11 07:28 → 4A 04-17 14:58 → CC1 04-18 12:22
PROVIDERS: ADMIT Internal Medicine; ATTEND Internal Medicine
PROC: 3E0G8GC Introduction of Other Therapeutic Substance into Upper GI, Via Natural or Artificial Opening Endoscopic (ICD-10-PCS; 2018-04-11)
PROC: 0DJ08ZZ Inspection of Upper Intestinal Tract, Via Natural or Artificial Opening Endoscopic (ICD-10-PCS; 2018-04-11)
PROC: 4A033R1 Measurement of Arterial Saturation, Peripheral, Percutaneous Approach (ICD-10-PCS; 2018-04-11)
PROC: 0W3P8ZZ Control Bleeding in Gastrointestinal Tract, Via Natural or Artificial Opening Endoscopic (ICD-10-PCS; 2018-04-12)
PROC: 30233N1 Transfusion of Nonautologous Red Blood Cells into Peripheral Vein, Percutaneous Approach (ICD-10-PCS; 2018-04-12)
PROC: 0DJ08ZZ Inspection of Upper Intestinal Tract, Via Natural or Artificial Opening Endoscopic (ICD-10-PCS; 2018-04-15)
PROC: 05HY33Z Insertion of Infusion Device into Upper Vein, Percutaneous Approach (ICD-10-PCS; 2018-04-15)
PROC: 0DJD8ZZ Inspection of Lower Intestinal Tract, Via Natural or Artificial Opening Endoscopic (ICD-10-PCS; 2018-04-16)
PROC: 0DJ08ZZ Inspection of Upper Intestinal Tract, Via Natural or Artificial Opening Endoscopic (ICD-10-PCS; 2018-04-16)
PROC: 0W3P8ZZ Control Bleeding in Gastrointestinal Tract, Via Natural or Artificial Opening Endoscopic (ICD-10-PCS; principal; 2018-04-19)
PROC: 0D938ZZ Drainage of Lower Esophagus, Via Natural or Artificial Opening Endoscopic (ICD-10-PCS; 2018-04-19)
PROC: 3E0G8GC Introduction of Other Therapeutic Substance into Upper GI, Via Natural or Artificial Opening Endoscopic (ICD-10-PCS; 2018-04-19)
PROC: 0DC38ZZ Extirpation of Matter from Lower Esophagus, Via Natural or Artificial Opening Endoscopic (ICD-10-PCS; 2018-04-19)
DX: K22.11 Ulcer of esophagus with bleeding (principal); R57.8 Other shock; I48.1 Persistent atrial fibrillation; D62 Acute posthemorrhagic anemia; E44.0 Moderate protein-calorie malnutrition; E66.2 Morbid (severe) obesity with alveolar hypoventilation; I82.619 Acute embolism and thrombosis of superficial veins of unspecified upper extremity; I48.0 Paroxysmal atrial fibrillation; I48.2 Chronic atrial fibrillation; E87.70 Fluid overload, unspecified; R73.9 Hyperglycemia, unspecified; F17.200 Nicotine dependence, unspecified, uncomplicated; D69.6 Thrombocytopenia, unspecified; K44.9 Diaphragmatic hernia without obstruction or gangrene; K21.0 Gastro-esophageal reflux disease with esophagitis; Z68.39 Body mass index [BMI] 39.0-39.9, adult; Z79.01 Long term (current) use of anticoagulants; Z82.49 Family history of ischemic heart disease and other diseases of the circulatory system; Z88.0 Allergy status to penicillin; Z88.8 Allergy status to other drugs, medicaments and biological substances; Z79.899 Other long term (current) drug therapy; Z90.49 Acquired absence of other specified parts of digestive tract
CPT/HCPCS: 36415; 36430; 36600; 74022; 74174; 78278; 80048; 80053; 80076; 82607; 82728; 82747; 82803; 82962; 83010; 83550; 83615; 83735; 85007; 85014; 85018; 85025; 85027; 85379; 85384; 85610; 85730; 86850; 86900; 86901; 86920; 93005; 93010; 93970; 94760; G0378; A9560; C9113; J0171; J0330; J1100; J1642; J2250; J2270; J2370; J2405; J2704; J2765; J3010; J7030; J7040; J7042; J7050; P9016; Q0169; Q9967

== ENCOUNTER 2018-05-04 10:21 | Inpatient (IN) | payer MEDICARE ==
[2018-05-04] MEDS ORDERED: NACL 0.9% 1000 ML 1,000 ML IV ONE (11:03)
[2018-05-04] MEDS ORDERED: ZOFRAN ONE (11:24)
[2018-05-04] MEDS ORDERED: ZOFRAN IV ONE ×2 (11:26→12:13)
--- NOTE | 2018-05-04 11:26 | Emergency Department Report ---
ED General Adult HPI - General Chief complaint: Nausea/Vomiting/Diarrhea Stated complaint: N/V Time Seen by Provider: 05/04/18 10:59 Source: EMS Mode of arrival: Stretcher Limitations: No Limitations - History of Present Illness Initial comments: This is a 63-year-old man who states he was discharged from [facility]. He states that he fell at his daughter's house yesterday but did not specifically injure anything. He attributes this to weakness. He denies fever or chills. He is on anticoagulation. He denies headache or syncope. He states that he is very swollen and that he was discharged from the hospital in similar condition. He was told that he needed to be sent to a rehabilitation facility but apparently he refused because "my has cancer". In any case he complains of nausea at this time. He denies vomiting blood. He states that he had a "stent put in his esophagus" indications were "an ulcer in my esophagus". Patient does state previous history of atrial fibrillation. He was recently hospitalized at the end of March. On 04/19/2018 I find the following note from endoscopy: PREOPERATIVE DIAGNOSIS and POSTOPERATIVE DIAGNOSIS: hematemesis, esophageal ulcer ESTIMATED BLOOD LOSS: 5cc DESCRIPTION OF PROCEDURE: A high-resolution EGD scope was passed through the oropharynx, esophagus, stomach, and second portion of duodenum. The scope was carefully withdrawn. Retroflexion was performed in the stomach. At the end of the procedure, the scope was cleaned using normal technique. Vital signs monitored continuously throughout. SEDATION: Provided by Anesthesiology Services. COMPLICATIONS: None. FINDINGS: No gross lesions in the duodenum No gross lesions in the stomach 4cm large hiatal hernia Patulous Lower esophageal sphincter in the distal esophagus there was moderate amount of fresh and old blood and clots which was cleared and suctioned. Underneath there was a 1cm ulcer bed with 2 clips intact at the lateral edge of the ulcer. At the superior portion of the ulcer there was a 2mm visible vessel with oozing of blood to touch. 1cc of dilute epinephrine was injected in 3 areas surrounding the visible vessel. Then, 2 clips were successfully deployed over the vessel to obtain hemostasis. At the end of the procedure there was no active bleeding RECOMMENDATIONS: Four times daily carafate slurry PPI drip for 72 hours then BID PPI BID dosing H2 cooper Monitor clinically -: week(s) Quality: other (not complaining of pain at this time) Associated Symptoms: nausea/vomiting (denies signs of GI bleeding) Treatments Prior to Arrival: none - Related Data Home Medications Medication Instructions Recorded Confirmed Last Taken Apixaban [Eliquis] 2.5 mg PO DAILY 04/10/18 04/10/18 04/10/18 Gabapentin [Neurontin] 300 mg PO BID 04/10/18 04/10/18 04/10/18 Hydroxyzine HCl [hydrOXYzine] 25 mg PO DAILY 04/10/18 04/10/18 04/10/18 Lansoprazole [Prevacid] 30 mg PO DAILY 04/10/18 04/10/18 04/10/18 Lisinopril [Zestril] 5 mg PO QDAY 04/10/18 04/10/18 04/10/18 Metoprolol [Lopressor] 25 mg PO BID 04/10/18 04/10/18 04/10/18 Allergies Allergy/AdvReac Type Severity Reaction Status Date / Time Penicillins Allergy Severe Anaphylaxis Verified 05/04/18 10:55 cyclobenzaprine Allergy Hives Verified 05/04/18 10:55 [From Flexeril] ED Review of Systems ROS: Stated complaint: N/V Other details as noted in HPI Constitutional: weakness Eyes: denies: eye pain, eye discharge, vision change ENT: denies: ear pain, throat pain Respiratory: denies: cough, shortness of breath, wheezing Cardiovascular: edema. denies: chest pain, palpitations Endocrine: no symptoms reported Gastrointestinal: nausea, vomiting. denies: abdominal pain, diarrhea Genitourinary: denies: urgency, dysuria Musculoskeletal: denies: back pain, joint swelling, arthralgia Skin: denies: rash, lesions Neurological: denies: headache, weakness, paresthesias Psychiatric: denies: anxiety, depression Hematological/Lymphatic: denies: easy bleeding, easy bruising ED Past Medical Hx - Past Medical History Previous Medical History?: Yes Hx Hypertension: Yes Hx Diabetes: Yes Hx Deep Vein Thrombosis: No Hx Seizures: No Hx HIV: No Additional medical history: AFIB, GI Bleed - Surgical History Past Surgical History?: Yes Hx Pacemaker: No Hx Internal Defibrillator: No Additional Surgical History: Esophageal surgery - Social History Smoking Status: Never Smoker Substance Use Type: None - Medications Home Medications: Home Medications Medication Instructions Recorded Confirmed Last Taken Type Apixaban [Eliquis] 2.5 mg PO DAILY 04/10/18 04/10/18 04/10/18 History Gabapentin [Neurontin] 300 mg PO BID 04/10/18 04/10/18 04/10/18 History Hydroxyzine HCl [hydrOXYzine] 25 mg PO DAILY 04/10/18 04/10/18 04/10/18 History Lansoprazole [Prevacid] 30 mg PO DAILY 04/10/18 04/10/18 04/10/18 History Lisinopril [Zestril] 5 mg PO QDAY 04/10/18 04/10/18 04/10/18 History Metoprolol [Lopressor] 25 mg PO BID 04/10/18 04/10/18 04/10/18 History ED Physical Exam - General Limitations: Physical Limitation (anasarca) General appearance: alert, in no apparent distress - Head Head exam: Present: atraumatic, normocephalic - Eye Eye exam: Present: normal appearance. Absent: scleral icterus - ENT ENT exam: Present: mucous membranes moist - Neck Neck exam: Present: normal inspection. Absent: tenderness, meningismus - Respiratory Respiratory exam: Present: normal lung sounds bilaterally. Absent: respiratory distress - Cardiovascular Cardiovascular Exam: Present: regular rate. Absent: systolic murmur, diastolic murmur, rubs, gallop - GI/Abdominal GI/Abdominal exam: Present: soft, normal bowel sounds. Absent: distended, tenderness, guarding, rebound, rigid - Rectal Rectal exam: Present: deferred - Extremities Exam Extremities exam: Present: other (3-4+ leg edema and arm edema essentially anasarca) - Back Exam Back exam: Present: normal inspection, other (cannot properly visualize or exam) - Neurological Exam Neurological exam: Present: alert, oriented X3, CN II-XII intact (grossly wi thout deficit). Absent: motor sensory deficit - Psychiatric Psychiatric exam: Present: normal mood, flat affect - Skin Skin exam: Present: warm, dry, other (seborrheic type scaling of the malar area bilaterally). Absent: rash ED Course Vital Signs 05/04/18 10:26 Temperature 98 F Pulse Rate 67 Respiratory 17 Rate Blood Pressure 106/49 O2 Sat by Pulse 100 Oximetry - Reevaluation(s) Reevaluation #1: A chest elevated lactic acid level, high CO2, low sodium and anasarca. I will give him antibiotic coverage. He is extremely weak. He will be admitted to the hospitalist service for further care and evaluation. 05/04/18 12:11 ED Medical Decision Making - Lab Data Result diagrams: 05/04/18 11:06 05/04/18 11:06 Laboratory Results - last 24 hr 05/04/18 05/04/18 05/04/18 11:06 11:06 11:06 WBC 7.8 RBC 3.13 L Hgb 9.8 L Hct 29.4 L MCV 94 MCH 31 MCHC 34 RDW 17.6 H Plt Count 186 Lymph % (Auto) 17.8 Gregory % (Auto) 6.7 Eos % (Auto) 2.3 Baso % (Auto) 0.6 Lymph # 1.4 Gregory # 0.5 Eos # 0.2 Baso # 0.1 Seg Neutrophils % 72.6 H Seg Neutrophils # 5.7 PT 26.0 H INR 2.21 H APTT 41.7 H Sodium 132 L Potassium 3.8 Chloride 93.2 L Carbon Dioxide 31 H Anion Gap 12 BUN 9 Creatinine 1.2 Estimated GFR > 60 BUN/Creatinine Ratio 8 Glucose 138 H Lactic Acid Calcium 7.7 L Magnesium Total Bilirubin 1.40 H Direct Bilirubin 0.5 H Indirect Bilirubin 0.9 AST 20 ALT 8 Alkaline Phosphatase 66 NT-Pro-B Natriuret Pep Total Protein 5.3 L Albumin 1.9 L Albumin/Globulin Ratio 0.6 Lipase 9 L 05/04/18 05/04/18 11:06 11:06 WBC RBC Hgb Hct MCV MCH MCHC RDW Plt Count Lymph % (Auto) Gregory % (Auto) Eos % (Auto) Baso % (Auto) Lymph # Gregory # Eos # Baso # Seg Neutrophils % Seg Neutrophils # PT INR APTT Sodium Potassium Chloride Carbon Dioxide Anion Gap BUN Creatinine Estimated GFR BUN/Creatinine Ratio Glucose Lactic Acid 2.30 H* Calcium Magnesium 1.60 L Total Bilirubin Direct Bilirubin Indirect Bilirubin AST ALT Alkaline Phosphatase NT-Pro-B Natriuret Pep 874.7 Total Protein Albumin Albumin/Globulin Ratio Lipase Critical care attestation.: If time is entered above; I have spent that time in minutes in the direct care of this critically ill patient, excluding procedure time. ED Disposition Clinical Impression: Generalized weakness, Elevated lactic acid level, Hyponatremia, Alkalosis, metabolic, Hypomagnesemia, Anasarca, Intravascular volume depletion, Anticoagulated Vomiting Qualifiers: Vomiting type: unspecified Vomiting Intractability: non-intractable Nausea presence: with nausea Qualified Code(s): R11.2 - Nausea with vomiting, unspecified Esophageal ulcer Qualifiers: Esophageal ulcer bleeding: without bleeding Qualified Code(s): K22.10 - Ulcer of esophagus without bleeding Disposition: DC-09 OP ADMIT IP TO THIS HOSP Is pt being admited?: Yes Does the pt Need Aspirin: No Condition: Stable Referrals: SARBJIT MURCIA MD [Primary Care Provider] - 3-5 Days
[2018-05-04 11:39] LABS: Basophils # (Auto) 0.1 K/mm3 (0.0-0.1); Basophils % (Auto) 0.6 % (0.0-1.8); Eosinophils # (Auto) 0.2 K/mm3 (0.0-0.4); Eosinophils % (Auto) 2.3 % (0.0-4.3); Hematocrit 29.4 % (35.5-45.6); Hemoglobin 9.8 gm/dl (11.8-15.2); Lymphocytes # (Auto) 1.4 K/mm3 (1.2-5.4); Lymphocytes % (Auto) 17.8 % (13.4-35.0); Mean Corpuscular HGB Conc 34 % (32-34); Mean Corpuscular Volume 94 fl (84-94); Monocytes # (Auto) 0.5 K/mm3 (0.0-0.8); Monocytes % (Auto) 6.7 % (0.0-7.3); Platelet Count 186 K/mm3 (140-440); Red Blood Count 3.13 M/mm3 (3.65-5.03); Red Cell Distribution Width 17.6 % (13.2-15.2)
[2018-05-04 11:42] LABS: INR 2.21 (0.87-1.13)
[2018-05-04 11:43] LABS: Partial Thromboplastin Time 41.7 Sec. (24.2-36.6)
[2018-05-04 11:52] LABS: Alanine Aminotransferase 8 units/L (7-56); Albumin 1.9 g/dL (3.9-5); BUN/Creatinine Ratio 8; Bilirubin,Direct 0.5 mg/dL (0-0.2); Blood Urea Nitrogen 9 mg/dL (9-20); Calcium 7.7 mg/dL (8.4-10.2); Hemolysis Index 6
--- NOTE | 2018-05-04 11:52 | XRay Report ---
AP CHEST: HISTORY: Hypertension Borderline to mild cardiomegaly is evident. Normal pulmonary vascularity. The lungs are clear. The bony structures are grossly intact. There appears to be a stent overlying the mediastinum which may be within the distal esophagus. IMPRESSION: Borderline mild cardiomegaly. Lungs clear.
--- NOTE | 2018-05-04 12:10 | History and Physical Report ---
History of Present Illness Chief complaint: Im weak, I cant stand up History of present illness: 63 YO Male with HTN, Obesity, Obesity Hypoventilation, Atrial Fib currently on Therapeutic Anticoagulation (Eliquis), Achalasia S/P Esophageal Surgery, Esophageal Ulcer S/P Stent Placement presents to ED for evaluation. Pt states that he has experienced leg weakness over the past 1 day. Pt states that he was walking while at his daughters house on yesterday and experienced sudden onset of confusion and weakness which resulted in a fall. Pt states that he is unable to move his legs at this time. Pt also reports Right leg redness and ulceration. EMS notified, and upon arrival the patient was found to be in distress. Pt transported to [facility]. Pt seen and evaluated in ED and found to have symptoms consistent with CVA as well as LLE cellulitis,Acidosis. Pt outside therapeutic window for TPA. CVA protocol initiated as well as empiric IV antibiotic therapy. Pt last admission reviewed. Pt admitted on 04/10/18 for GI Bleed, and Transferred to [facility] for persistent Upper GI Bleed. PT denies fever, chills, CP, Palpitations, Abdominal Pain, productive cough, trauma, productive cough, or recent ill contacts. Past History Past Medical History: atrial fib, hypertension, other (Achalasia) Past Surgical History: Other (Esophageal Stent, ) Social history: , lives with family. denies: smoking, alcohol abuse, prescription drug abuse Family history: hypertension Medications and Allergies Allergies Allergy/AdvReac Type Severity Reaction Status Date / Time Penicillins Allergy Severe Anaphylaxis Verified 05/04/18 10:55 cyclobenzaprine Allergy Hives Verified 05/04/18 10:55 [From Flexeril] Home Medications Medication Instructions Recorded Confirmed Last Taken Type Apixaban [Eliquis] 2.5 mg PO DAILY 04/10/18 05/04/18 04/10/18 History Gabapentin [Neurontin] 300 mg PO BID 04/10/18 05/04/18 04/10/18 History Hydroxyzine HCl [hydrOXYzine] 25 mg PO DAILY 04/10/18 05/04/18 04/10/18 History Lansoprazole [Prevacid] 30 mg PO DAILY 04/10/18 05/04/18 04/10/18 History Lisinopril [Zestril] 5 mg PO QDAY 04/10/18 05/04/18 04/10/18 History Metoprolol [Lopressor] 25 mg PO BID 04/10/18 05/04/18 04/10/18 History Active Meds: Active Medications Sodium Chloride (Nacl 0.9% 1000 Ml) 1,000 mls @ 50 mls/hr IV ONCE ONE Stop: 05/05/18 07:02 Last Admin: 05/04/18 11:41 Dose: 50 mls/hr Documented by: Exam - Constitutional Vitals: Temp Pulse Resp BP Pulse Ox 98 F 67 17 106/49 100 05/04/18 10:26 05/04/18 10:26 05/04/18 10:26 05/04/18 10:26 05/04/18 10:26 Results - Labs CBC & Chem 7: 05/04/18 11:06 05/04/18 11:06 Labs: Abnormal lab results 05/04/18 05/04/18 05/04/18 Range/Units 11:06 11:06 11:06 RBC 3.13 L (3.65-5.03) M/mm3 Hgb 9.8 L (11.8-15.2) gm/dl Hct 29.4 L (35.5-45.6) % RDW 17.6 H (13.2-15.2) % Seg Neutrophils % 72.6 H (40.0-70.0) % PT 26.0 H (12.2-14.9) Sec. INR 2.21 H (0.87-1.13) APTT 41.7 H (24.2-36.6) Sec. Sodium 132 L (137-145) mmol/L Chloride 93.2 L (98-107) mmol/L Carbon Dioxide 31 H (22-30) mmol/L Glucose 138 H (75-100) mg/dL Lactic Acid (0.7-2.0) mmol/L Calcium 7.7 L (8.4-10.2) mg/dL Magnesium (1.7-2.3) mg/dL Total Bilirubin 1.40 H (0.1-1.2) mg/dL Direct Bilirubin 0.5 H (0-0.2) mg/dL Total Protein 5.3 L (6.3-8.2) g/dL Albumin 1.9 L (3.9-5) g/dL Lipase 9 L (13-60) units/L 05/04/18 05/04/18 Range/Units 11:06 11:06 RBC (3.65-5.03) M/mm3 Hgb (11.8-15.2) gm/dl Hct (35.5-45.6) % RDW (13.2-15.2) % Seg Neutrophils % (40.0-70.0) % PT (12.2-14.9) Sec. INR (0.87-1.13) APTT (24.2-36.6) Sec. Sodium (137-145) mmol/L Chloride (98-107) mmol/L Carbon Dioxide (22-30) mmol/L Glucose (75-100) mg/dL Lactic Acid 2.30 H* (0.7-2.0) mmol/L Calcium (8.4-10.2) mg/dL Magnesium 1.60 L (1.7-2.3) mg/dL Total Bilirubin (0.1-1.2) mg/dL Direct Bilirubin (0-0.2) mg/dL Total Protein (6.3-8.2) g/dL Albumin (3.9-5) g/dL Lipase (13-60) units/L Assessment and Plan - Patient Problems (1) CVA (cerebral vascular accident) Current Visit: Yes Status: Acute Qualifiers: CVA mechanism: unspecified Qualified Code(s): I63.9 - Cerebral infarction, unspecified Plan to address problem: Stroke protocol: Admit to telemetry, Neurology consulted in ED, CT head, MRI Brain, MRA Brain, Echo, Carotid Doppler, PT/OT/Speech therapy, Lipid panel, antiplatelet therapy, Case management consulted for D/C Planning and Placement. (2) Atrial fibrillation Current Visit: Yes Status: Acute Qualifiers: Atrial fibrillation type: persistent Qualified Code(s): I48.1 - Persistent atrial fibrillation Plan to address problem: Continue rate control with Metoprolol, Telemetry monitoring, screening EKG, continue therapeutic anticoagulation. (3) Cellulitis Current Visit: Yes Status: Acute Qualifiers: Site of cellulitis of extremity: lower extremity Laterality: left Plan to address problem: Empiric antibiotic therapy with meropenem, CT Left lower extremity ordered in ED. Results pending at time of exam. CBC, CMP ordered and reviewed in ED. (4) Acidosis Current Visit: Yes Status: Acute Plan to address problem: IVF resuscitation therapy, repeat bmp in AM. (5) HTN (hypertension) Current Visit: Yes Status: Acute Qualifiers: Hypertension type: essential hypertension Qualified Code(s): I10 - Essential (primary) hypertension Plan to address problem: Monitor bp q shift, supportive care, continue medical management, continue metoprolol. (6) Obesity hypoventilation syndrome Current Visit: Yes Status: Acute Plan to address problem: supplemental oxygen, NIPPV as clinically indicated, nebulizer therapy prn, pulse oximetry, early ambulation, chest x ray reviewed, incentive spirometry. (7) Hyponatremia syndrome Current Visit: Yes Status: Acute Plan to address problem: Repeat BMP, monitor uop q shift, IVF resuscitation as tolerated, (8) Debility Current Visit: Yes Status: Acute Plan to address problem: PT consulted, Case management consulted regarding D/C planning/placement. (9) DVT prophylaxis Current Visit: Yes Status: Acute Plan to address problem: SCD to BLE while in bed, continue therapeutic anticoagulation.
[2018-05-04] MEDS ORDERED: MAGNESIUM SULFATE 2GM/50ML 2 GM/50 ML BAG IV ONE (12:13)
[2018-05-04] MEDS ORDERED: PROTONIX IV ONE (12:13)
[2018-05-04] MEDS ORDERED: MERREM 1,000 MG in NACL 0.9% 100 ML IV ONE (12:30)
[2018-05-04] MEDS ORDERED: VANCOMYCIN PHARMACY TO DOSE IV SCH (13:00)
[2018-05-04] MEDS ORDERED: MILK OF MAGNESIA PO PRN (13:14)
[2018-05-04] MEDS ORDERED: PHENERGAN PR PRN (13:14)
[2018-05-04] MEDS ORDERED: SODIUM CHLORIDE FLUSH SYRINGE 10 ML IV PRN (13:14)
[2018-05-04] MEDS ORDERED: DULCOLAX PR PRN (13:14)
[2018-05-04] MEDS ORDERED: REGLAN PO PRN (13:14)
[2018-05-04] MEDS ORDERED: VANCOMYCIN 2,000 MG in NACL 0.9% 500 ML 500 ML IV ONE (14:00)
[2018-05-04 17:37] LABS: Bacteria,Urine 2+ /HPF (Negative); Bilirubin,Urine NEG (Negative); Blood,Urine SM (Negative); Color,Urine Amber (Yellow); Hyaline Casts,Urine 5 /LPF; Mucus,Urine FEW /HPF
[2018-05-04 17:40] LABS: WBC,Urine > 182.0 /HPF (0.0-6.0)
--- NOTE | 2018-05-04 18:24 | Cat Scan Report ---
PROCEDURE: CT LOWER EXTREMITY LT W CON TECHNIQUE: Spiral imaging of the lower extremities was obtained during the administration of IV cont rast. Computer generated sagittal and coronal reconstructions are created and displayed for review. HISTORY: LLE Cellulitis COMPARISONS: FINDINGS: Diffuse subcutaneous edema is visualized as well as skin thickening consistent with a history of cell ulitis. This extends from the thighs and into the feet diffusely. Noninfectious edema could present i n this manner as well. There is an indeterminate cutaneous nodule visualized medial aspect left calf posteriorly seen on axial image 315 series 2 measuring 4.0 x 2.1 cm. Correlation with physical exam i s recommended. Diffuse vascular calcifications are present throughout the lower extremities. No evide nce of fracture. There is no dislocation. No focal bone loss or abnormal periosteal reaction is seen that would suggest osteomyelitis. IMPRESSION: Skin thickening and subcutaneous edema visualized which can be associated with cellulitis. Noninfecti ous edema can present in this manner. No focal bone loss is seen that would suggest osteomyelitis. If there is concern for osteomyelitis co nsider three-phase bone scan. Indeterminate cutaneous/subcutaneous nodule posterior medial aspect left calf as described. Correlati on with physical exam recommended. Please see above image reference numbers. This document is electronically signed by Wesley Hooker MD., May 04 2018 06:22:14 PM ET
--- NOTE | 2018-05-04 18:32 | Magnetic Resonance Report ---
PROCEDURE: MRA HEAD WO CON TECHNIQUE: MRA examination of the brain without IV contrast HISTORY: stroke COMPARISONS: Brain MRI 05/04/2018 FINDINGS: Internal carotid arteries: Normal. Anterior cerebral arteries: Normal. Developmental variation with dominant left side Middle cerebral arteries: Normal. Vertebral arteries: Normal. Developmental variation with dominant right-sided Basilar artery: Normal. Posterior cerebral arteries: Normal. Occlusion: None. Vascular malformations: None. Aneurysm: None. IMPRESSION: No MRA evidence of brain vascular pathology This document is electronically signed by Bimal Valenzuela MD., May 04 2018 06:30:11 PM ET
--- NOTE | 2018-05-04 18:35 | Magnetic Resonance Report ---
PROCEDURE: MR BRAIN WO CON TECHNIQUE: MRI examination of the brain without IV contrast HISTORY: stroke COMPARISONS: None FINDINGS: The included air filled sinuses contain no acute fluid level. There is ventricular and sulcal prominence compatible with global symmetric cerebrocortical atrophy. The brain is without mass, mass effect, hemorrhage, or acute infarct. There are no areas of brain restricted diffusion to suggest an acute ischemic infarct. There is no midline shift or brain edema. IMPRESSION: No acute CVA or brain mass This document is electronically signed by Bimal Valenzuela MD., May 04 2018 06:34:01 PM ET
--- NOTE | 2018-05-04 20:44 | Consultation ---
History of Present Illness Consult date: 05/04/18 Requesting physician: QUINTEN SHOEMAKER Reason for Consult: bilateral leg weakness Chief complaint: bilateral leg weakness preceded by lightheadedness History of present illness: This 63-year-old right-handed white male was hospitalized here for esophageal bleeding last month leading to endoscopy and clipping but was then transferred to [facility] where he had an esophageal stent. Was to go to rehabilitation and instead went to his mother's house across the street from the hospital yesterday but felt lightheaded walking in the driveway and then fell. He has had no numbness or tingling. He has some nausea which is gone since getting shots here. He still feels weak in the legs without numbness or tingling or loss of bowel or bladder control. He did not have any medications last night and came here this morning. MRI brain is negative on diffusion, no Chiari malformation, negative GRE, mild cerebellar and moderate cerebral atrophy. MRA shows to me thin left vertebral artery which may end a little before joining the basilar artery. 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 denies: smoking, alcohol abuse, prescription drug abuse Family history: diabetes (parents), hypertension (father, mother, brother), other (no history of epilepsy). denies: stroke Medications and Allergies Allergies Allergy/AdvReac Type Severity Reaction Status Date / Time Penicillins Allergy Severe Anaphylaxis Verified 05/04/18 10:55 cyclobenzaprine Allergy Hives Verified 05/04/18 10:55 [From Flexeril] Home Medications Medication Instructions Recorded Confirmed Last Taken Type Apixaban [Eliquis] 2.5 mg PO DAILY 04/10/18 05/04/18 04/10/18 History Gabapentin [Neurontin] 300 mg PO BID 04/10/18 05/04/18 04/10/18 History Hydroxyzine HCl [hydrOXYzine] 25 mg PO DAILY 04/10/18 05/04/18 04/10/18 History Lansoprazole [Prevacid] 30 mg PO DAILY 04/10/18 05/04/18 04/10/18 History Lisinopril [Zestril] 5 mg PO QDAY 04/10/18 05/04/18 04/10/18 History Metoprolol [Lopressor] 25 mg PO BID 04/10/18 05/04/18 04/10/18 History Active Meds: Active Medications Acetaminophen (Tylenol) 650 mg PO Q4H PRN PRN Reason: Pain, Mild (1-3) Apixaban (Eliquis) 2.5 mg PO DAILY [facility]; Protocol Aspirin (Aspirin) 325 mg PO QDAY [facility] Atorvastatin Calcium (Lipitor) 40 mg PO QHS [facility] Bisacodyl (Dulcolax) 10 mg NM QDAY PRN PRN Reason: Constipation Gabapentin (Neurontin) 300 mg PO BID [facility] Hydroxyzine HCl (Atarax) 25 mg PO QDAY [facility] Sodium Chloride (Nacl 0.9% 1000 Ml) 1,000 mls @ 50 mls/hr IV ONCE ONE Stop: 05/05/18 07:02 Last Admin: 05/04/18 11:41 Dose: 50 mls/hr Documented by: Vancomycin HCl 1,750 mg/ (Sodium Chloride) 535 mls @ 333.333 mls/hr IV Q12H [facility] Sodium Chloride (Nacl 0.45%) 1,000 mls @ 50 mls/hr IV DIRECT [facility] Lisinopril (Zestril) 5 mg PO QDAY [facility] Magnesium Hydroxide (Milk Of Magnesia) 30 ml PO Q4H PRN PRN Reason: Constipation Metoclopramide HCl (Reglan) 10 mg PO Q6H PRN PRN Reason: Nausea And Vomiting Metoprolol Tartrate (Lopressor) 25 mg PO BID [facility] Ondansetron HCl (Zofran) 4 mg IV Q8H PRN PRN Reason: Nausea And Vomiting Pantoprazole Sodium (Protonix) 40 mg PO DAILY [facility] Promethazine HCl (Phenergan) 25 mg NM Q6H PRN PRN Reason: Nausea And Vomiting Sodium Chloride (Sodium Chloride Flush Syringe 10 Ml) 10 ml IV PRN PRN PRN Reason: LINE FLUSH Review of Systems All systems: negative (no headaches or dizziness usually, loud snoring but no pauses noted though told he needs to get tested., 45-60 minutes and sometimes feels better, not sleepy driving, sleeps 4-6 hours and then feels ok, poor remote and STM since hospitalization. No paresthesias.) Physical Examination - Vital Signs Vital Signs: Vital Signs Temp Pulse Resp BP Pulse Ox 98 F 67 17 106/49 100 05/04/18 10:26 05/04/18 10:26 05/04/18 10:26 05/04/18 10:05/04/18 10:26 - Physical Exam Narrative exam: General Appearance: well developed but obese (per BMI) early 60's white male in [facility]. HEENT: atraumatic, normocephalic; no bruits, 2+ Luis Alberto without soreness or induration or enlargement, sclerae nonicteric. Oropharynx pink and moist. Scaling of face which he says is rosacea, uses Metrogel cream. Neck: supple, no bruits. Heart: no murmur or extra sounds. Extremities: no clubbing or cyanosis but has 4+ pretibial and pedal edema. Cannot feel posterior tibial or dorsalis pedis pulses on either side. Neurologic Exam: Mental Status: Awake, alert, oriented to April 29 (instead of )2018 but not day of week, speech is clear, names pen and tip of pen, and abstracts well. Names President and Fresh Food Manager, serial 7's poor and gives 5+7=14, no right- left confusion but uses index finger instead of thumb as had been instructed, gets 3 of 3 objects at 3 minutes, spells WORLD backwards correctly. Cranial Nerves: chavis full, no papilledema, SVPs present, PERRLA, EOMs full without nystagmus or diplopia, facial sensation intact to pinprick and light touch, no facial weakness, Worrell is midline, palate rises symmetrically to phonation OR gags are positive, shoulder shrug is 5 X 2, tongue protrudes midline. Cerebellar: finger to nose off target X 2, heel to velarde are normal. Sensory: intact to light touch, pinprick, and vibrations. Double simultaneous stimulation is intact. Motor Exam Upper Extremities: no drift or pronation, Claudia intact. Head Loft Worker are 5 X 2, tone is normal. No atrophy or fasciculations are noted visually.Strength is 5 except: deltoid is 4- left, biceps is 5- right and 4- left, triceps is 4 right and 4- left, wrist extensor 4+ left, finger extensors and flexors 5- left, and ADMs are 5- X 2. Motor Exam Lower Extremities: walks well on heels and toes and hops equally on both sides OR no leg lag, quadriceps and anterior tibials and gastrocnemius are 5 X 2. Claudia intact. Tone is normal. No atrophy or fasciculations are noted visually. Iliopsoas are 5, quadriceps are 4+, hamstrings are 5- , anterior tibials are 5 right and 5- left, gastrocnemius are 5- bilaterally. Reflexes: Palmomental, snout and jaw jerk are negative. Triceps are 2+ right into left, biceps are 1+ right and 1 left and brachioradialis are 1 bilaterally. Obed's is negative bilaterally. Knee jerks are 2+ and ankle jerks are 2+ clinically but with provocative maneuver 4 right (with 4 beats of clonus) and 5 left (with 5 beats or more of clonus). Toes are upgoing right and downgoing left to Babinski testing. Results - Laboratory Findings CBC and BMP: 05/04/18 11:06 05/04/18 11:06 Abnormal Lab Findings: Abnormal Labs 05/04/18 05/04/18 05/04/18 11:06 11:06 11:06 RBC 3.13 L Hgb 9.8 L Hct 29.4 L RDW 17.6 H Seg Neutrophils % 72.6 H PT 26.0 H INR 2.21 H APTT 41.7 H Sodium 132 L Chloride 93.2 L Carbon Dioxide 31 H Glucose 138 H Lactic Acid Calcium 7.7 L Magnesium Total Bilirubin 1.40 H Direct Bilirubin 0.5 H Total Protein 5.3 L Albumin 1.9 L Lipase 9 L Ur Specific [place] Urine WBC (Auto) 05/04/18 05/04/18 05/04/18 11:06 11:06 16:53 RBC Hgb Hct RDW Seg Neutrophils % PT INR APTT Sodium Chloride Carbon Dioxide Glucose Lactic Acid 2.30 H* Calcium Magnesium 1.60 L Total Bilirubin Direct Bilirubin Total Protein Albumin Lipase Ur Specific [place] 1.033 H Urine WBC (Auto) > 182.0 H Assessment and Plan Impression: 1. Hypotension and possibly orthostatic 2. Left arm weakness 3. Bilateral leg weakness 4. Myelopathy Plan: 1. May need fluids or more blood to keep him with better blood pressure to see if that helps his weakness. 2. Will check CPK, lactic acid and aldolase. 3. If he does not improve with fluids are more blood, should get cervical, thoracic and lumbar spine MRIs but probably cannot do it here since Dr. Barriga felt was only safe because of the metal in the esophageal stent, to do a brain MRI. It might be you would allow lumbar spine MRI but that would not address the left arm weakness. May need to be transferred to [place] to see if they are able to do an MRI. If they cannot, could do a CT myelogram of entire spine either here or elsewhere. Discussed this with Dr. Shoemaker except for the CT myelogram. 4. Probably needs sleep apnea testing as outpatient too. 60 min spent including explanation of need for muscle blood tests and possibly spine MRIs elsewhere. CT myelogram was not discussed.
[2018-05-04] MEDS: NEURONTIN PO SCH (23:36)
[2018-05-04] MEDS: LOPRESSOR PO SCH (23:37)
[2018-05-05] MEDS: ZOFRAN IV PRN ×2 (00:43→19:22)
[2018-05-05] MEDS ORDERED: VANCOMYCIN 1,750 MG in NACL 0.9% 500 ML 500 ML IV SCH (02:00)
--- NOTE | 2018-05-05 09:31 | Vascular Lab Report ---
PROCEDURE: VL CAROTID DUPLEX BILAT TECHNIQUE: Duplex Doppler ultrasound of the common, internal and external carotid arteries and the v ertebral arteries was performed bilaterally. Cunningham scale imaging, velocity spectral waveform analysis, and color flow Doppler were employed. HISTORY: stroke COMPARISONS: None . Note: Measurement of carotid stenosis is based on flow velocity values that correlate with the [place] Symptomatic Carotid Endarterectomy Trial (NASCET) based stenosis criteria using the internal carotid artery diameter as the denominator for stenosis calculation. FINDINGS: RIGHT carotid artery: Velocities: ICA PSV: 86 cm/sec ICA End diastolic: 18 cm/sec CCA PSV: 100 cm/sec IC/CC ratio: 0.8 6 Plaque/color flow: Mild heterogeneous plaque without significant spectral broadening or abnormal col or flow . RIGHT vertebral artery: Antegrade systolic and diastolic flow LEFT carotid artery: Velocities: ICA PSV: 89 cm/sec ICA End diastolic: 31 cm/sec CCA PSV: 129 cm/sec IC/CC ratio: 0.6 9 Plaque/color flow: Mild heterogeneous plaque without significant spectral broadening or abnormal col or flow . LEFT vertebral artery: Antegrade systolic and diastolic flow IMPRESSION: 1. RIGHT carotid: No hemodynamically significant (less than 50 percent) internal carotid artery kourtney nosis. 2. LEFT carotid: No hemodynamically significant (less than 50 percent) internal carotid artery sten osis. 3. Vertebral arteries: Bilaterally antegrade. This document is electronically signed by Dagoberto Leahy MD., May 05 2018 09:28:56 AM ET
[2018-05-05] MEDS ORDERED: ELIQUIS PO SCH (10:00)
[2018-05-05] MEDS ORDERED: HYDROXYZINE HCL 25 MG PO SCH (10:00)
[2018-05-05] MEDS ORDERED: NON-FORMULARY (Lansoprazole 30 MG) PO SCH (10:00)
--- NOTE | 2018-05-05 11:04 | Progress Note ---
Assessment and Plan Assessment and plan: Bilateral lower extremity and left arm weakness. Neurology recommended a CT myelogram. However, I discussed the case with the radiologist, Dr. Pantoja who recommends MRI as adequate testing Atrial fibrillation. Continue rate control with metoprolol. Telemetry monitoring. Cellulitis. Continue empiric antibiotics. Hypertension. Continue antihypertensive medications. OHS. Continue supplemental oxygen. BiPAP is clinically indicated. Debility/deconditioning. PT consult. DVT prophylaxis. History Interval history: No new issues overnight. Hospitalist Physical - Constitutional Vitals: Temp Pulse Resp BP Pulse Ox 98.3 F 66 16 121/46 92 05/05/18 08:07 05/05/18 08:07 05/05/18 08:07 05/05/18 08:07 05/05/18 08:07 General appearance: Present: no acute distress, well-nourished - EENT Eyes: Present: PERRL, EOM intact ENT: hearing intact, clear oral mucosa, dentition normal - Neck Neck: Present: supple, normal ROM - Respiratory Respiratory effort: normal Respiratory: bilateral: CTA - Cardiovascular Rhythm: regular Heart Sounds: Present: S1 & S2. Absent: gallop, rub - Extremities Extremities: no ischemia, No edema, Full ROM - Abdominal General gastrointestinal: soft, non-tender, non-distended, normal bowel sounds - Integumentary Integumentary: Present: clear, warm, dry - Neurologic Neurologic: CNII-XII intact, moves all extremities Results - Labs CBC & Chem 7: 05/04/18 11:06 05/04/18 11:06 Labs: Laboratory Last Values WBC 7.8 K/mm3 (4.5-11.0) 05/04/18 11:06 RBC 3.13 M/mm3 (3.65-5.03) L 05/04/18 11:06 Hgb 9.8 gm/dl (11.8-15.2) L 05/04/18 11:06 Hct 29.4 % (35.5-45.6) L 05/04/18 11:06 MCV 94 fl (84-94) 05/04/18 11:06 MCH 31 pg (28-32) 05/04/18 11:06 MCHC 34 % (32-34) 05/04/18 11:06 RDW 17.6 % (13.2-15.2) H 05/04/18 11:06 Plt Count 186 K/mm3 (140-440) 05/04/18 11:06 Lymph % (Auto) 17.8 % (13.4-35.0) 05/04/18 11:06 [place] % (Auto) 6.7 % (0.0-7.3) 05/04/18 11:06 Eos % (Auto) 2.3 % (0.0-4.3) 05/04/18 11:06 Baso % (Auto) 0.6 % (0.0-1.8) 05/04/18 11:06 Lymph # 1.4 K/mm3 (1.2-5.4) 05/04/18 11:06 [place] # 0.5 K/mm3 (0.0-0.8) 05/04/18 11:06 Eos # 0.2 K/mm3 (0.0-0.4) 05/04/18 11:06 Baso # 0.1 K/mm3 (0.0-0.1) 05/04/18 11:06 Seg Neutrophils % 72.6 % (40.0-70.0) H 05/04/18 11:06 Seg Neutrophils # 5.7 K/mm3 (1.8-7.7) 05/04/18 11:06 PT 26.0 Sec. (12.2-14.9) H 05/04/18 11:06 INR 2.21 (0.87-1.13) H 05/04/18 11:06 APTT 41.7 Sec. (24.2-36.6) H 05/04/18 11:06 Sodium 132 mmol/L (137-145) L 05/04/18 11:06 Potassium 3.8 mmol/L (3.6-5.0) 05/04/18 11:06 Chloride 93.2 mmol/L (98-107) L 05/04/18 11:06 Carbon Dioxide 31 mmol/L (22-30) H 05/04/18 11:06 Anion Gap 12 mmol/L 05/04/18 11:06 BUN 9 mg/dL (9-20) 05/04/18 11:06 Creatinine 1.2 mg/dL (0.8-1.5) 05/04/18 11:06 Estimated GFR > 60 ml/min 05/04/18 11:06 BUN/Creatinine Ratio 8 % 05/04/18 11:06 Glucose 138 mg/dL (75-100) H 05/04/18 11:06 Lactic Acid 1.40 mmol/L (0.7-2.0) 05/04/18 21:23 Calcium 7.7 mg/dL (8.4-10.2) L 05/04/18 11:06 Magnesium 1.60 mg/dL (1.7-2.3) L 05/04/18 11:06 Total Bilirubin 1.40 mg/dL (0.1-1.2) H 05/04/18 11:06 Direct Bilirubin 0.5 mg/dL (0-0.2) H 05/04/18 11:06 Indirect Bilirubin 0.9 mg/dL 05/04/18 11:06 AST 20 units/L (5-40) 05/04/18 11:06 ALT 8 units/L (7-56) 05/04/18 11:06 Alkaline Phosphatase 66 units/L (35-129) 05/04/18 11:06 Total Creatine Kinase 161 units/L (55-170) 05/04/18 21:23 NT-Pro-B Natriuret Pep 874.7 pg/mL (0-900) 05/04/18 11:06 Total Protein 5.3 g/dL (6.3-8.2) L 05/04/18 11:06 Albumin 1.9 g/dL (3.9-5) L 05/04/18 11:06 Albumin/Globulin Ratio 0.6 % 05/04/18 11:06 Lipase 9 units/L (13-60) L 05/04/18 11:06 Urine Color [place] (Yellow) 05/04/18 16:53 Urine Turbidity Slightly-cloudy (Clear) 05/04/18 16:53 Urine pH 5.0 (5.0-7.0) 05/04/18 16:53 Ur Specific [place] 1.033 (1.003-1.030) H 05/04/18 16:53 Urine Protein 30 mg/dl mg/dL (Negative) 05/04/18 16:53 Urine Glucose (UA) Neg mg/dL (Negative) 05/04/18 16:53 Urine Ketones Neg mg/dL (Negative) 05/04/18 16:53 Urine Blood Sm (Negative) 05/04/18 16:53 Urine Nitrite Pos (Negative) 05/04/18 16:53 Urine Bilirubin Neg (Negative) 05/04/18 16:53 Urine Urobilinogen 2.0 mg/dL (<2.0) 05/04/18 16:53 Ur Leukocyte Esterase Lg (Negative) 05/04/18 16:53 Urine WBC (Auto) > 182.0 /HPF (0.0-6.0) H 05/04/18 16:53 Urine RBC (Auto) 15.0 /HPF (0.0-6.0) 05/04/18 16:53 U Epithel Cells (Auto) 2.0 /HPF (0-13.0) 05/04/18 16:53 Urine Bacteria (Auto) 2+ /HPF (Negative) 05/04/18 16:53 Hyaline Casts 5 /LPF 05/04/18 16:53 Urine Mucus Few /HPF 05/04/18 16:53 Active Medications - Current Medications Current Medications: Generic Name Dose Route Start Last Admin Trade Name Freq PRN Reason Stop Dose Admin Acetaminophen 650 mg 05/04/18 13:14 Tylenol PO Q4H PRN Pain, Mild (1-3) Apixaban 2.5 mg 05/05/18 10:00 Eliquis PO DAILY [facility] Protocol Aspirin 325 mg 05/05/18 10:00 Aspirin PO QDAY [facility] Atorvastatin Calcium 40 mg 05/04/18 22:00 05/04/18 23:36 Lipitor PO 40 mg QHS [facility] Administration Bisacodyl 10 mg 05/04/18 13:14 Dulcolax [place] QDAY PRN Constipation Gabapentin 300 mg 05/04/18 22:00 05/04/18 23:36 Neurontin PO 300 mg BID [facility] Administration Hydroxyzine HCl 25 mg 05/05/18 10:00 Atarax PO QDAY [facility] Sodium Chloride 1,000 mls @ 50 mls/hr 05/04/18 16:00 Nacl 0.45% IV DIRECT [facility] Vancomycin HCl 1,750 mg/ 535 mls @ 333.333 mls/hr 05/06/18 10:00 Sodium Chloride IV Q24HR [facility] Lisinopril 5 mg 05/05/18 10:00 Zestril PO QDAY [facility] Magnesium Hydroxide 30 ml 05/04/18 13:14 Milk Of Magnesia PO Q4H PRN Constipation Metoclopramide HCl 10 mg 05/04/18 13:14 Reglan PO Q6H PRN Nausea And Vomiting Metoprolol Tartrate 25 mg 05/04/18 22:00 05/04/18 23:37 Lopressor PO 25 mg BID [facility] Administration Ondansetron HCl 4 mg 05/04/18 13:14 05/05/18 00:43 Zofran IV 4 mg Q8H PRN Administration Nausea And Vomiting Pantoprazole Sodium 40 mg 05/05/18 10:00 Protonix PO DAILY [facility] Promethazine HCl 25 mg 05/04/18 13:14 Phenergan [place] Q6H PRN Nausea And Vomiting Sodium Chloride 10 ml 05/04/18 13:14 Sodium Chloride Flush Syringe 10 Ml IV PRN PRN LINE FLUSH
[2018-05-05] MEDS: ZESTRIL PO SCH (11:46)
[2018-05-05] MEDS: ATARAX PO SCH (11:46)
[2018-05-05] MEDS: PROTONIX PO SCH (11:46)
[2018-05-05] MEDS: NEURONTIN PO SCH ×2 (11:46→22:23)
[2018-05-05] MEDS: LOPRESSOR PO SCH ×2 (11:47→22:23)
[2018-05-05] MEDS: ASPIRIN PO SCH (11:47)
[2018-05-05] MEDS: ELIQUIS PO SCH (22:22)
[2018-05-05] MEDS: NACL 0.45% 1,000 ML IV SCH (22:24)
[2018-05-06] MEDS: ZOFRAN IV PRN ×2 (10:11→22:35)
[2018-05-06] MEDS: NACL 0.45% 1,000 ML IV SCH (11:04)
[2018-05-06] MEDS: ATARAX PO SCH (11:15)
[2018-05-06] MEDS: NEURONTIN PO SCH ×2 (11:15→22:35)
[2018-05-06] MEDS: PROTONIX PO SCH (11:15)
[2018-05-06] MEDS: LOPRESSOR PO SCH ×2 (11:15→22:35)
[2018-05-06] MEDS: ZESTRIL PO SCH (11:15)
[2018-05-06] MEDS: ELIQUIS PO SCH ×2 (11:15→22:35)
[2018-05-06] MEDS: ASPIRIN PO SCH (11:15)
[2018-05-06] MEDS: VANCOMYCIN 1,750 MG in NACL 0.9% 500 ML 500 ML IV SCH (11:19)
[2018-05-06 11:44] LABS: INR 1.53 (0.87-1.13)
[2018-05-06 11:45] LABS: Partial Thromboplastin Time 35.4 Sec. (24.2-36.6)
--- NOTE | 2018-05-06 14:05 | Progress Note ---
Assessment and Plan Assessment and plan: Bilateral lower extremity and left arm weakness. MRI lumbar spnie Atrial fibrillation. Continue rate control with metoprolol. Telemetry monitoring. Cellulitis. Continue empiric antibiotics. Hypertension. Continue antihypertensive medications. OHS. Continue supplemental oxygen. BiPAP is clinically indicated. Debility/deconditioning. PT recommends EMILIE DVT prophylaxis. History Interval history: No new issues overnight. Hospitalist Physical - Constitutional Vitals: Temp Pulse Resp BP Pulse Ox 98.1 F 70 18 106/41 97 05/06/18 08:05 05/06/18 12:12 05/06/18 08:05 05/06/18 12:12 05/06/18 12:12 General appearance: Present: no acute distress, well-nourished - EENT Eyes: Present: PERRL, EOM intact ENT: hearing intact, clear oral mucosa, dentition normal - Neck Neck: Present: supple, normal ROM - Respiratory Respiratory effort: normal Respiratory: bilateral: CTA - Cardiovascular Rhythm: regular Heart Sounds: Present: S1 & S2. Absent: gallop, rub - Extremities Extremities: no ischemia, No edema, Full ROM - Abdominal General gastrointestinal: soft, non-tender, non-distended, normal bowel sounds - Integumentary Integumentary: Present: clear, warm, dry - Neurologic Neurologic: CNII-XII intact, moves all extremities Results - Labs CBC & Chem 7: 05/06/18 10:30 05/04/18 11:06 Labs: Laboratory Last Values WBC 7.8 K/mm3 (4.5-11.0) 05/04/18 11:06 RBC 3.13 M/mm3 (3.65-5.03) L 05/04/18 11:06 Hgb 9.8 gm/dl (11.8-15.2) L 05/04/18 11:06 Hct 29.4 % (35.5-45.6) L 05/04/18 11:06 MCV 94 fl (84-94) 05/04/18 11:06 MCH 31 pg (28-32) 05/04/18 11:06 MCHC 34 % (32-34) 05/04/18 11:06 RDW 17.6 % (13.2-15.2) H 05/04/18 11:06 Plt Count 148 K/mm3 (140-440) 05/06/18 10:30 Lymph % (Auto) 17.8 % (13.4-35.0) 05/04/18 11:06 [place] % (Auto) 6.7 % (0.0-7.3) 05/04/18 11:06 Eos % (Auto) 2.3 % (0.0-4.3) 05/04/18 11:06 Baso % (Auto) 0.6 % (0.0-1.8) 05/04/18 11:06 Lymph # 1.4 K/mm3 (1.2-5.4) 05/04/18 11:06 [place] # 0.5 K/mm3 (0.0-0.8) 05/04/18 11:06 Eos # 0.2 K/mm3 (0.0-0.4) 05/04/18 11:06 Baso # 0.1 K/mm3 (0.0-0.1) 05/04/18 11:06 Seg Neutrophils % 72.6 % (40.0-70.0) H 05/04/18 11:06 Seg Neutrophils # 5.7 K/mm3 (1.8-7.7) 05/04/18 11:06 PT 19.4 Sec. (12.2-14.9) H 05/06/18 09:57 INR 1.53 (0.87-1.13) H 05/06/18 09:57 APTT 35.4 Sec. (24.2-36.6) 05/06/18 09:57 Sodium 132 mmol/L (137-145) L 05/04/18 11:06 Potassium 3.8 mmol/L (3.6-5.0) 05/04/18 11:06 Chloride 93.2 mmol/L (98-107) L 05/04/18 11:06 Carbon Dioxide 31 mmol/L (22-30) H 05/04/18 11:06 Anion Gap 12 mmol/L 05/04/18 11:06 BUN 9 mg/dL (9-20) 05/04/18 11:06 Creatinine 1.2 mg/dL (0.8-1.5) 05/04/18 11:06 Estimated GFR > 60 ml/min 05/04/18 11:06 BUN/Creatinine Ratio 8 % 05/04/18 11:06 Glucose 138 mg/dL (75-100) H 05/04/18 11:06 Lactic Acid 1.40 mmol/L (0.7-2.0) 05/04/18 21:23 Calcium 7.7 mg/dL (8.4-10.2) L 05/04/18 11:06 Magnesium 1.60 mg/dL (1.7-2.3) L 05/04/18 11:06 Total Bilirubin 1.40 mg/dL (0.1-1.2) H 05/04/18 11:06 Direct Bilirubin 0.5 mg/dL (0-0.2) H 05/04/18 11:06 Indirect Bilirubin 0.9 mg/dL 05/04/18 11:06 AST 20 units/L (5-40) 05/04/18 11:06 ALT 8 units/L (7-56) 05/04/18 11:06 Alkaline Phosphatase 66 units/L (35-129) 05/04/18 11:06 Total Creatine Kinase 161 units/L (55-170) 05/04/18 21:23 NT-Pro-B Natriuret Pep 874.7 pg/mL (0-900) 05/04/18 11:06 Total Protein 5.3 g/dL (6.3-8.2) L 05/04/18 11:06 Albumin 1.9 g/dL (3.9-5) L 05/04/18 11:06 Albumin/Globulin Ratio 0.6 % 05/04/18 11:06 Lipase 9 units/L (13-60) L 05/04/18 11:06 Urine Color [place] (Yellow) 05/04/18 16:53 Urine Turbidity Slightly-cloudy (Clear) 05/04/18 16:53 Urine pH 5.0 (5.0-7.0) 05/04/18 16:53 Ur Specific [place] 1.033 (1.003-1.030) H 05/04/18 16:53 Urine Protein 30 mg/dl mg/dL (Negative) 05/04/18 16:53 Urine Glucose (UA) Neg mg/dL (Negative) 05/04/18 16:53 Urine Ketones Neg mg/dL (Negative) 05/04/18 16:53 Urine Blood Sm (Negative) 05/04/18 16:53 Urine Nitrite Pos (Negative) 05/04/18 16:53 Urine Bilirubin Neg (Negative) 05/04/18 16:53 Urine Urobilinogen 2.0 mg/dL (<2.0) 05/04/18 16:53 Ur Leukocyte Esterase Lg (Negative) 05/04/18 16:53 Urine WBC (Auto) > 182.0 /HPF (0.0-6.0) H 05/04/18 16:53 Urine RBC (Auto) 15.0 /HPF (0.0-6.0) 05/04/18 16:53 U Epithel Cells (Auto) 2.0 /HPF (0-13.0) 05/04/18 16:53 Urine Bacteria (Auto) 2+ /HPF (Negative) 05/04/18 16:53 Hyaline Casts 5 /LPF 05/04/18 16:53 Urine Mucus Few /HPF 05/04/18 16:53 Active Medications - Current Medications Current Medications: Generic Name Dose Route Start Last Admin Trade Name Freq PRN Reason Stop Dose Admin Acetaminophen 650 mg 05/04/18 13:14 Tylenol PO Q4H PRN Pain, Mild (1-3) Apixaban 2.5 mg 05/05/18 22:00 05/06/18 11:15 Eliquis PO 2.5 mg BID GABE Administration Protocol Aspirin 325 mg 05/05/18 10:00 05/06/18 11:15 Aspirin PO 325 mg QDAY GABE Administration Atorvastatin Calcium 40 mg 05/04/18 22:00 05/05/18 22:22 Lipitor PO 40 mg QHS GABE Administration Bisacodyl 10 mg 05/04/18 13:14 Dulcolax [place] QDAY PRN Constipation Gabapentin 300 mg 05/04/18 22:00 05/06/18 11:15 Neurontin PO 300 mg BID GABE Administration Hydroxyzine HCl 25 mg 05/05/18 10:00 05/06/18 11:15 Atarax PO 25 mg QDAY GABE Administration Sodium Chloride 1,000 mls @ 50 mls/hr 05/04/18 16:00 05/06/18 11:04 Nacl 0.45% IV 50 mls/hr DIRECT GABE Administration Vancomycin HCl 1,750 mg/ 535 mls @ 333.333 mls/hr 05/06/18 10:00 05/06/18 11:19 Sodium Chloride IV 333.333 mls/hr Q24HR GABE Administration Lisinopril 5 mg 05/05/18 10:00 05/06/18 11:15 Zestril PO 5 mg QDAY GABE Administration Magnesium Hydroxide 30 ml 05/04/18 13:14 Milk Of Magnesia PO Q4H PRN Constipation Metoclopramide HCl 10 mg 05/04/18 13:14 Reglan PO Q6H PRN Nausea And Vomiting Metoprolol Tartrate 25 mg 05/04/18 22:00 05/06/18 11:15 Lopressor PO 25 mg BID GABE Administration Ondansetron HCl 4 mg 05/04/18 13:14 05/06/18 10:11 Zofran IV 4 mg Q8H PRN Administration Nausea And Vomiting Pantoprazole Sodium 40 mg 05/05/18 10:00 05/06/18 11:15 Protonix PO 40 mg DAILY GABE Administration Promethazine HCl 25 mg 05/04/18 13:14 Phenergan [place] Q6H PRN Nausea And Vomiting Sodium Chloride 10 ml 05/04/18 13:14 Sodium Chloride Flush Syringe 10 Ml IV PRN PRN LINE FLUSH Nutrition/Malnutrition Assess - Dietary Evaluation Nutrition/Malnutrition Findings: Nutrition Notes Start: 05/05/18 16:55 Freq: Status: Active Protocol: Document 05/05/18 16:55 RM (Rec: 05/05/18 17:04 RM [id number]) Nutrition Notes Need for Assessment generated from: crew lead Initial or Follow up Assessment Current Diagnosis Hypertension,Stroke Other Pertinent Diagnosis Obesity, Achalasia, Cellulitis , Debility Current Diet No diet ordered Labs/Tests Reviewed Pertinent Medications Reviewed Height 5 ft 9 in Weight 117.7 kg [place] Body Weight (kg) 72.72 BMI 38.3 Subjective/Other Information Screened for skin risk. [place] 13 points. Pt stated that he transferred from [facility] to here. Stated that at [facility] his appetite was poor d/t nausea and that he ate 50% of his meals. Stated that he would like to eat. Declined regular ONS and Ensure Clear d/t disliking the taste. Burn Absent Trauma Absent #1 Nutrition Diagnosis Predicted suboptimal energy intake Etiology nausea As Evidenced by Signs and Symptoms pt statement that he ate 50% of his meals at [facility] Is patient on ventilator? No Is Patient Ambulatory and/or Out of Bed No REE-([place]-confined to bed) 2359.488 Kcal/Kg value to use for calculation 17 Approximate Energy Requirements Using 2001 kcal/Kg Calculation Used for Recommendations Kcal/kg Additional Notes Protein Needs: 114-143g (1.2-1 .5g/kg 95kg adjBW) Fluid Needs: 1 ml/kcal Nutrition Intervention Change Diet Order: Advance diet when medically able Goal #1 Meet at least 75% of calorie and protein needs via PO intakes Anticipated Discharge Needs: Unable to determine at this time Follow-Up By: 05/07/18 Additional Comments Follow for PO intakes
[2018-05-06] MEDS: TYLENOL PO PRN (22:33)
[2018-05-07] MEDS: NORCO 5/325 PO PRN (01:00)
[2018-05-07] MEDS ORDERED: MORPHINE IM ONE (03:42)
[2018-05-07] MEDS: NACL 0.45% 1,000 ML IV SCH (04:03)
[2018-05-07] MEDS: ATARAX PO SCH (10:31)
[2018-05-07] MEDS: PROTONIX PO SCH (10:31)
[2018-05-07] MEDS: NEURONTIN PO SCH ×2 (10:31→22:42)
[2018-05-07] MEDS: ELIQUIS PO SCH ×2 (10:31→22:41)
[2018-05-07] MEDS: ZESTRIL PO SCH (10:31)
[2018-05-07] MEDS: ASPIRIN PO SCH (10:31)
[2018-05-07] MEDS: LOPRESSOR PO SCH ×2 (10:31→22:43)
--- NOTE | 2018-05-07 11:51 | Progress Note ---
Assessment and Plan Assessment and plan: Bilateral lower extremity and left arm weakness. MRI lumbar spine today Atrial fibrillation. Continue rate control with metoprolol. Telemetry monitoring. Cellulitis. Continue empiric antibiotics. Hypertension. Continue antihypertensive medications. OHS. Continue supplemental oxygen. BiPAP is clinically indicated. Debility/deconditioning. PT recommends EMLIIE DVT prophylaxis. Disposition. Awaiting placement. History Interval history: No new issues overnight. Hospitalist Physical - Constitutional Vitals: Temp Pulse Resp BP Pulse Ox 98.2 F 68 18 80/41 94 05/07/18 11:19 05/07/18 11:19 05/07/18 11:19 05/07/18 11:19 05/07/18 11:19 General appearance: Present: no acute distress, well-nourished - EENT Eyes: Present: PERRL, EOM intact ENT: hearing intact, clear oral mucosa, dentition normal - Neck Neck: Present: supple, normal ROM - Respiratory Respiratory effort: normal Respiratory: bilateral: CTA - Cardiovascular Rhythm: regular Heart Sounds: Present: S1 & S2. Absent: gallop, rub - Extremities Extremities: no ischemia, No edema, Full ROM - Abdominal General gastrointestinal: soft, non-tender, non-distended, normal bowel sounds - Integumentary Integumentary: Present: clear, warm, dry - Neurologic Neurologic: CNII-XII intact, moves all extremities Results - Labs CBC & Chem 7: 05/06/18 10:30 05/04/18 11:06 Labs: Laboratory Last Values WBC 7.8 K/mm3 (4.5-11.0) 05/04/18 11:06 RBC 3.13 M/mm3 (3.65-5.03) L 05/04/18 11:06 Hgb 9.8 gm/dl (11.8-15.2) L 05/04/18 11:06 Hct 29.4 % (35.5-45.6) L 05/04/18 11:06 MCV 94 fl (84-94) 05/04/18 11:06 MCH 31 pg (28-32) 05/04/18 11:06 MCHC 34 % (32-34) 05/04/18 11:06 RDW 17.6 % (13.2-15.2) H 05/04/18 11:06 Plt Count 148 K/mm3 (140-440) 05/06/18 10:30 Lymph % (Auto) 17.8 % (13.4-35.0) 05/04/18 11:06 [place] % (Auto) 6.7 % (0.0-7.3) 05/04/18 11:06 Eos % (Auto) 2.3 % (0.0-4.3) 05/04/18 11:06 Baso % (Auto) 0.6 % (0.0-1.8) 05/04/18 11:06 Lymph # 1.4 K/mm3 (1.2-5.4) 05/04/18 11:06 [place] # 0.5 K/mm3 (0.0-0.8) 05/04/18 11:06 Eos # 0.2 K/mm3 (0.0-0.4) 05/04/18 11:06 Baso # 0.1 K/mm3 (0.0-0.1) 05/04/18 11:06 Seg Neutrophils % 72.6 % (40.0-70.0) H 05/04/18 11:06 Seg Neutrophils # 5.7 K/mm3 (1.8-7.7) 05/04/18 11:06 PT 19.4 Sec. (12.2-14.9) H 05/06/18 09:57 INR 1.53 (0.87-1.13) H 05/06/18 09:57 APTT 35.4 Sec. (24.2-36.6) 05/06/18 09:57 Sodium 132 mmol/L (137-145) L 05/04/18 11:06 Potassium 3.8 mmol/L (3.6-5.0) 05/04/18 11:06 Chloride 93.2 mmol/L (98-107) L 05/04/18 11:06 Carbon Dioxide 31 mmol/L (22-30) H 05/04/18 11:06 Anion Gap 12 mmol/L 05/04/18 11:06 BUN 9 mg/dL (9-20) 05/04/18 11:06 Creatinine 1.2 mg/dL (0.8-1.5) 05/04/18 11:06 Estimated GFR > 60 ml/min 05/04/18 11:06 BUN/Creatinine Ratio 8 % 05/04/18 11:06 Glucose 138 mg/dL (75-100) H 05/04/18 11:06 Lactic Acid 1.40 mmol/L (0.7-2.0) 05/04/18 21:23 Calcium 7.7 mg/dL (8.4-10.2) L 05/04/18 11:06 Magnesium 1.60 mg/dL (1.7-2.3) L 05/04/18 11:06 Total Bilirubin 1.40 mg/dL (0.1-1.2) H 05/04/18 11:06 Direct Bilirubin 0.5 mg/dL (0-0.2) H 05/04/18 11:06 Indirect Bilirubin 0.9 mg/dL 05/04/18 11:06 AST 20 units/L (5-40) 05/04/18 11:06 ALT 8 units/L (7-56) 05/04/18 11:06 Alkaline Phosphatase 66 units/L (35-129) 05/04/18 11:06 Total Creatine Kinase 161 units/L (55-170) 05/04/18 21:23 NT-Pro-B Natriuret Pep 874.7 pg/mL (0-900) 05/04/18 11:06 Total Protein 5.3 g/dL (6.3-8.2) L 05/04/18 11:06 Albumin 1.9 g/dL (3.9-5) L 05/04/18 11:06 Albumin/Globulin Ratio 0.6 % 05/04/18 11:06 Lipase 9 units/L (13-60) L 05/04/18 11:06 Urine Color [place] (Yellow) 05/04/18 16:53 Urine Turbidity Slightly-cloudy (Clear) 05/04/18 16:53 Urine pH 5.0 (5.0-7.0) 05/04/18 16:53 Ur Specific [place] 1.033 (1.003-1.030) H 05/04/18 16:53 Urine Protein 30 mg/dl mg/dL (Negative) 05/04/18 16:53 Urine Glucose (UA) Neg mg/dL (Negative) 05/04/18 16:53 Urine Ketones Neg mg/dL (Negative) 05/04/18 16:53 Urine Blood Sm (Negative) 05/04/18 16:53 Urine Nitrite Pos (Negative) 05/04/18 16:53 Urine Bilirubin Neg (Negative) 05/04/18 16:53 Urine Urobilinogen 2.0 mg/dL (<2.0) 05/04/18 16:53 Ur Leukocyte Esterase Lg (Negative) 05/04/18 16:53 Urine WBC (Auto) > 182.0 /HPF (0.0-6.0) H 05/04/18 16:53 Urine RBC (Auto) 15.0 /HPF (0.0-6.0) 05/04/18 16:53 U Epithel Cells (Auto) 2.0 /HPF (0-13.0) 05/04/18 16:53 Urine Bacteria (Auto) 2+ /HPF (Negative) 05/04/18 16:53 Hyaline Casts 5 /LPF 05/04/18 16:53 Urine Mucus Few /HPF 05/04/18 16:53 Active Medications - Current Medications Current Medications: Generic Name Dose Route Start Last Admin Trade Name Freq PRN Reason Stop Dose Admin Acetaminophen 650 mg 05/04/18 13:14 Tylenol PO Q4H PRN Pain, Mild (1-3) Acetaminophen/Hydrocodone Bitart 1 each 05/07/18 00:48 05/07/18 01:00 [place] 5/325 PO 1 each Q6H PRN Administration Pain, Moderate (4-6) Apixaban 2.5 mg 05/05/18 22:00 05/07/18 10:31 Eliquis PO 2.5 mg BID GABE Administration Protocol Aspirin 325 mg 05/05/18 10:00 05/07/18 10:31 Aspirin PO 325 mg QDAY GABE Administration Atorvastatin Calcium 40 mg 05/04/18 22:00 05/06/18 22:35 Lipitor PO 40 mg QHS GABE Administration Bisacodyl 10 mg 05/04/18 13:14 Dulcolax [place] QDAY PRN Constipation Gabapentin 300 mg 05/04/18 22:00 05/07/18 10:31 Neurontin PO 300 mg BID GABE Administration Hydroxyzine HCl 25 mg 05/05/18 10:00 05/07/18 10:31 Atarax PO 25 mg QDAY GABE Administration Sodium Chloride 1,000 mls @ 50 mls/hr 05/04/18 16:00 05/07/18 04:03 Nacl 0.45% IV 50 mls/hr DIRECT GABE Administration Vancomycin HCl 1,750 mg/ 535 mls @ 333.333 mls/hr 05/06/18 10:00 05/06/18 11:19 Sodium Chloride IV 333.333 mls/hr Q24HR GABE Administration Lisinopril 5 mg 05/05/18 10:00 05/07/18 10:31 Zestril PO 5 mg QDAY GABE Administration Magnesium Hydroxide 30 ml 05/04/18 13:14 Milk Of Magnesia PO Q4H PRN Constipation Metoclopramide HCl 10 mg 05/04/18 13:14 Reglan PO Q6H PRN Nausea And Vomiting Metoprolol Tartrate 25 mg 05/04/18 22:00 05/07/18 10:31 Lopressor PO 25 mg BID GABE Administration Ondansetron HCl 4 mg 05/04/18 13:14 05/06/18 22:35 Zofran IV 4 mg Q8H PRN Administration Nausea And Vomiting Pantoprazole Sodium 40 mg 05/05/18 10:00 05/07/18 10:31 Protonix PO 40 mg DAILY GABE Administration Promethazine HCl 25 mg 05/04/18 13:14 Phenergan [place] Q6H PRN Nausea And Vomiting Sodium Chloride 10 ml 05/04/18 13:14 Sodium Chloride Flush Syringe 10 Ml IV PRN PRN LINE FLUSH Nutrition/Malnutrition Assess - Dietary Evaluation Nutrition/Malnutrition Findings: Nutrition Notes Start: 05/05/18 16:55 Freq: Status: Active Protocol: Document 05/05/18 16:55 RM (Rec: 05/05/18 17:04 RM [id number]) Nutrition Notes Need for Assessment generated from: recording clerk Initial or Follow up Assessment Current Diagnosis Hypertension,Stroke Other Pertinent Diagnosis Obesity, Achalasia, Cellulitis , Debility Current Diet No diet ordered Labs/Tests Reviewed Pertinent Medications Reviewed Height 5 ft 9 in Weight 117.7 kg [place] Body Weight (kg) 72.72 BMI 38.3 Subjective/Other Information Screened for skin risk. Sampson 13 points. Pt stated that he transferred from [facility] to here. Stated that at [facility] his appetite was poor d/t nausea and that he ate 50% of his meals. Stated that he would like to eat. Declined regular ONS and Ensure Clear d/t disliking the taste. Burn Absent Trauma Absent #1 Nutrition Diagnosis Predicted suboptimal energy intake Etiology nausea As Evidenced by Signs and Symptoms pt statement that he ate 50% of his meals at [facility] Is patient on ventilator? No Is Patient Ambulatory and/or Out of Bed No REE-([facility]-confined to bed) 2359.488 Kcal/Kg value to use for calculation 17 Approximate Energy Requirements Using 2000 kcal/Kg Calculation Used for Recommendations Kcal/kg Additional Notes Protein Needs: 114-143g (1.2-1 .5g/kg 95kg adjBW) Fluid Needs: 1 ml/kcal Nutrition Intervention Change Diet Order: Advance diet when medically able Goal #1 Meet at least 75% of calorie and protein needs via PO intakes Anticipated Discharge Needs: Unable to determine at this time Follow-Up By: 05/07/18 Additional Comments Follow for PO intakes
[2018-05-07] MEDS ORDERED: MORPHINE IV ONE (14:05)
--- NOTE | 2018-05-07 14:16 | Consultation ---
History of Present Illness Consult date: 05/07/18 Chief complaint: hematoma - History of present illness History of present illness: 63 yo M with extensive PMHx presented to ER s/p fall. He developed multiple bruises on various parts of his body. He was found to have a left lower extremity hematoma with overlying blister on exam by retort loader. He is on anticoagulation. Surgery is consulted to evaluate for evacuation of hematoma. Pt does c/o pain surrounding the area of the hematoma when he tried to put his leg down as it is on posterior aspect of calf. 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 denies: smoking, alcohol abuse, prescription drug abuse Family history: diabetes (parents), hypertension (father, mother, brother), other (no history of epilepsy). denies: stroke Medications and Allergies Allergies Allergy/AdvReac Type Severity Reaction Status Date / Time Penicillins Allergy Severe Anaphylaxis Verified 05/04/18 10:55 cyclobenzaprine Allergy Hives Verified 05/04/18 10:55 [From Flexeril] Home Medications Medication Instructions Recorded Confirmed Last Taken Type Apixaban [Eliquis] 2.5 mg PO DAILY 04/10/18 05/04/18 04/10/18 History Gabapentin [Neurontin] 300 mg PO BID 04/10/18 05/04/18 04/10/18 History Hydroxyzine HCl [hydrOXYzine] 25 mg PO DAILY 04/10/18 05/04/18 04/10/18 History Lansoprazole [Prevacid] 30 mg PO DAILY 04/10/18 05/04/18 04/10/18 History Lisinopril [Zestril] 5 mg PO QDAY 04/10/18 05/04/18 04/10/18 History Metoprolol [Lopressor] 25 mg PO BID 04/10/18 05/04/18 04/10/18 History Active Meds: Active Medications Acetaminophen (Tylenol) 650 mg PO Q4H PRN PRN Reason: Pain, Mild (1-3) Acetaminophen/Hydrocodone Bitart ([place] 5/325) 1 each PO Q6H PRN PRN Reason: Pain, Moderate (4-6) Last Admin: 05/07/18 01:00 Dose: 1 each Documented by: Apixaban (Eliquis) 2.5 mg PO BID [facility]; Protocol Last Admin: 05/07/18 10:31 Dose: 2.5 mg Documented by: Aspirin (Aspirin) 325 mg PO QDAY [facility] Last Admin: 05/07/18 10:31 Dose: 325 mg Documented by: Atorvastatin Calcium (Lipitor) 40 mg PO QHS [facility] Last Admin: 05/06/18 22:35 Dose: 40 mg Documented by: Bisacodyl (Dulcolax) 10 mg [place] QDAY PRN PRN Reason: Constipation Gabapentin (Neurontin) 300 mg PO BID [facility] Last Admin: 05/07/18 10:31 Dose: 300 mg Documented by: Hydroxyzine HCl (Atarax) 25 mg PO QDAY [facility] Last Admin: 05/07/18 10:31 Dose: 25 mg Documented by: Sodium Chloride (Nacl 0.45%) 1,000 mls @ 50 mls/hr IV DIRECT [facility] Last Admin: 05/07/18 04:03 Dose: 50 mls/hr Documented by: Vancomycin HCl 1,750 mg/ (Sodium Chloride) 535 mls @ 333.333 mls/hr IV Q24HR [facility] Last Admin: 05/06/18 11:19 Dose: 333.333 mls/hr Documented by: Lisinopril (Zestril) 5 mg PO QDAY [facility] Last Admin: 05/07/18 10:31 Dose: 5 mg Documented by: Magnesium Hydroxide (Milk Of Magnesia) 30 ml PO Q4H PRN PRN Reason: Constipation Metoclopramide HCl (Reglan) 10 mg PO Q6H PRN PRN Reason: Nausea And Vomiting Metoprolol Tartrate (Lopressor) 25 mg PO BID [facility] Last Admin: 05/07/18 10:31 Dose: 25 mg Documented by: Ondansetron HCl (Zofran) 4 mg IV Q8H PRN PRN Reason: Nausea And Vomiting Last Admin: 05/06/18 22:35 Dose: 4 mg Documented by: Pantoprazole Sodium (Protonix) 40 mg PO DAILY GABE Last Admin: 05/07/18 10:31 Dose: 40 mg Documented by: Promethazine HCl (Phenergan) 25 mg [place] Q6H PRN PRN Reason: Nausea And Vomiting Sodium Chloride (Sodium Chloride Flush Syringe 10 Ml) 10 ml IV PRN PRN PRN Reason: LINE FLUSH Review of Systems All systems: negative (10 pt ROS performed and negative except for that listed in HPI) Exam Vital Signs Temp Pulse Resp BP Pulse Ox 98 F 67 17 106/49 100 05/04/18 10:26 05/04/18 10:26 05/04/18 10:26 05/04/18 10:26 05/04/18 10:26 Narrative exam: gen: AAOx3. NAD CV: s1, S2+ resp: even and unlabored Ext; generalized edema. 4 cm hematoma of left posterior calf with surrounding ecchymosis, no bleeding. Moderately TTP in area of ecchymosis, insensate over devitalized skin in center Results - Labs 05/06/18 10:30 05/04/18 11:06 Assessment and Plan 63 yo M with 1. LLE hematoma and blister s/p fall Plan; 1. Will unroof blister to allow for drainage. Discussed this with the patient and explained that I cannot be too aggressive because he is at increased risk of bleeding from the wound. He understands. Consent obtained. 2. c/w daily wound care to the left lower extremity 3. warm compress to area of hematoma 4. prn PO pain control as per primary Thank you, please call with questions.
[2018-05-07] MEDS: VANCOMYCIN 1,750 MG in NACL 0.9% 500 ML 500 ML IV SCH (15:17)
--- NOTE | 2018-05-07 16:09 | Procedure Note ---
Date of procedure: 05/07/18 Pre-op diagnosis: left lower extremity hematoma and blister Post-op diagnosis: same Procedure: excisional debridement of blister with evacuation of hematoma of left lower extremity Findings: Consent obtained from patient. Time out performed. The left leg over the area of blister and hematoma was prepped with betadine in sterile fashion. The area is insensate. The devitalized skin was unroofed using a 15 blade and the hematoma was easily seen. Old formed blood clots were removed using blunt dissection. The wound was irrigated with saline and hemostasis achieved with pressure. The wound measured 3cm x 3cm x 2 cm with undermining of about 0.5 cm circumfrentially. The periwound skin is ecchymotic. The wound was packed with one piece of mesalt packing. Covered with adaptic, 4x4 gauze, ABD pads and wrapped with kerlix as a compression dressing. The patient tolerated the procedure well. All sharps were disposed of appropriately. Anesthesia: none (insensate) Surgeon: CHUCK LARKIN Estimated blood loss: minimal Pathology: none Condition: stable Disposition: no change
[2018-05-08] MEDS: ASPIRIN PO SCH (11:26)
[2018-05-08] MEDS: PROTONIX PO SCH (11:27)
[2018-05-08] MEDS: NEURONTIN PO SCH ×2 (11:27→21:45)
[2018-05-08] MEDS: ELIQUIS PO SCH ×2 (11:27→21:45)
[2018-05-08] MEDS: ZESTRIL PO SCH (11:29)
[2018-05-08] MEDS: ATARAX PO SCH (11:30)
[2018-05-08] MEDS: LOPRESSOR PO SCH ×2 (11:37→21:04)
[2018-05-08] MEDS: VANCOMYCIN 1,750 MG in NACL 0.9% 500 ML 500 ML IV SCH (11:37)
--- NOTE | 2018-05-08 11:37 | Progress Note ---
Assessment and Plan Assessment and plan: Bilateral lower extremity and left arm weakness. Unable to perform MRI lumbar spine due to body habitus. Consider CT myelogram. Atrial fibrillation. Continue rate control with metoprolol. Telemetry m onitoring. Cellulitis. Continue empiric antibiotics. Left lower extremity hematoma. Status post excisional debridement of blister with evacuation of hematoma of left lower extremity Hypertension. Continue antihypertensive medications. OHS. Continue supplemental oxygen. BiPAP is clinically indicated. Debility/deconditioning. PT recommends EMILIE DVT prophylaxis. Disposition. Awaiting placement. History Interval history: No new issues overnight. Hospitalist Physical - Constitutional Vitals: Temp Pulse Resp BP Pulse Ox 98.5 F 84 20 102/33 88 05/08/18 07:55 05/08/18 11:29 05/08/18 07:55 05/08/18 11:29 05/08/18 07:55 General appearance: Present: no acute distress, well-nourished - EENT Eyes: Present: PERRL, EOM intact ENT: hearing intact, clear oral mucosa, dentition normal - Neck Neck: Present: supple, normal ROM - Respiratory Respiratory effort: normal Respiratory: bilateral: CTA - Cardiovascular Rhythm: regular Heart Sounds: Present: S1 & S2. Absent: gallop, rub - Extremities Extremities: no ischemia, No edema, Full ROM - Abdominal General gastrointestinal: soft, non-tender, non-distended, normal bowel sounds - Integumentary Integumentary: Present: clear, warm, dry - Neurologic Neurologic: CNII-XII intact, moves all extremities Results - Labs CBC & Chem 7: 05/06/18 10:30 05/04/18 11:06 Labs: Laboratory Last Values WBC 7.8 K/mm3 (4.5-11.0) 05/04/18 11:06 RBC 3.13 M/mm3 (3.65-5.03) L 05/04/18 11:06 Hgb 9.8 gm/dl (11.8-15.2) L 05/04/18 11:06 Hct 29.4 % (35.5-45.6) L 05/04/18 11:06 MCV 94 fl (84-94) 05/04/18 11:06 MCH 31 pg (28-32) 05/04/18 11:06 MCHC 34 % (32-34) 05/04/18 11:06 RDW 17.6 % (13.2-15.2) H 05/04/18 11:06 Plt Count 148 K/mm3 (140-440) 05/06/18 10:30 Lymph % (Auto) 17.8 % (13.4-35.0) 05/04/18 11:06 [place] % (Auto) 6.7 % (0.0-7.3) 05/04/18 11:06 Eos % (Auto) 2.3 % (0.0-4.3) 05/04/18 11:06 Baso % (Auto) 0.6 % (0.0-1.8) 05/04/18 11:06 Lymph # 1.4 K/mm3 (1.2-5.4) 05/04/18 11:06 [place] # 0.5 K/mm3 (0.0-0.8) 05/04/18 11:06 Eos # 0.2 K/mm3 (0.0-0.4) 05/04/18 11:06 Baso # 0.1 K/mm3 (0.0-0.1) 05/04/18 11:06 Seg Neutrophils % 72.6 % (40.0-70.0) H 05/04/18 11:06 Seg Neutrophils # 5.7 K/mm3 (1.8-7.7) 05/04/18 11:06 PT 19.4 Sec. (12.2-14.9) H 05/06/18 09:57 INR 1.53 (0.87-1.13) H 05/06/18 09:57 APTT 35.4 Sec. (24.2-36.6) 05/06/18 09:57 Sodium 132 mmol/L (137-145) L 05/04/18 11:06 Potassium 3.8 mmol/L (3.6-5.0) 05/04/18 11:06 Chloride 93.2 mmol/L (98-107) L 05/04/18 11:06 Carbon Dioxide 31 mmol/L (22-30) H 05/04/18 11:06 Anion Gap 12 mmol/L 05/04/18 11:06 BUN 9 mg/dL (9-20) 05/04/18 11:06 Creatinine 1.2 mg/dL (0.8-1.5) 05/04/18 11:06 Estimated GFR > 60 ml/min 05/04/18 11:06 BUN/Creatinine Ratio 8 % 05/04/18 11:06 Glucose 138 mg/dL (75-100) H 05/04/18 11:06 Lactic Acid 1.40 mmol/L (0.7-2.0) 05/04/18 21:23 Calcium 7.7 mg/dL (8.4-10.2) L 05/04/18 11:06 Magnesium 1.60 mg/dL (1.7-2.3) L 05/04/18 11:06 Total Bilirubin 1.40 mg/dL (0.1-1.2) H 05/04/18 11:06 Direct Bilirubin 0.5 mg/dL (0-0.2) H 05/04/18 11:06 Indirect Bilirubin 0.9 mg/dL 05/04/18 11:06 AST 20 units/L (5-40) 05/04/18 11:06 ALT 8 units/L (7-56) 05/04/18 11:06 Alkaline Phosphatase 66 units/L (35-129) 05/04/18 11:06 Total Creatine Kinase 161 units/L (55-170) 05/04/18 21:23 NT-Pro-B Natriuret Pep 874.7 pg/mL (0-900) 05/04/18 11:06 Total Protein 5.3 g/dL (6.3-8.2) L 05/04/18 11:06 Albumin 1.9 g/dL (3.9-5) L 05/04/18 11:06 Albumin/Globulin Ratio 0.6 % 05/04/18 11:06 Lipase 9 units/L (13-60) L 05/04/18 11:06 Urine Color [place] (Yellow) 05/04/18 16:53 Urine Turbidity Slightly-cloudy (Clear) 05/04/18 16:53 Urine pH 5.0 (5.0-7.0) 05/04/18 16:53 Ur Specific [place] 1.033 (1.003-1.030) H 05/04/18 16:53 Urine Protein 30 mg/dl mg/dL (Negative) 05/04/18 16:53 Urine Glucose (UA) Neg mg/dL (Negative) 05/04/18 16:53 Urine Ketones Neg mg/dL (Negative) 05/04/18 16:53 Urine Blood Sm (Negative) 05/04/18 16:53 Urine Nitrite Pos (Negative) 05/04/18 16:53 Urine Bilirubin Neg (Negative) 05/04/18 16:53 Urine Urobilinogen 2.0 mg/dL (<2.0) 05/04/18 16:53 Ur Leukocyte Esterase Lg (Negative) 05/04/18 16:53 Urine WBC (Auto) > 182.0 /HPF (0.0-6.0) H 05/04/18 16:53 Urine RBC (Auto) 15.0 /HPF (0.0-6.0) 05/04/18 16:53 U Epithel Cells (Auto) 2.0 /HPF (0-13.0) 05/04/18 16:53 Urine Bacteria (Auto) 2+ /HPF (Negative) 05/04/18 16:53 Hyaline Casts 5 /LPF 05/04/18 16:53 Urine Mucus Few /HPF 05/04/18 16:53 Active Medications - Current Medications Current Medications: Generic Name Dose Route Start Last Admin Trade Name Freq PRN Reason Stop Dose Admin Acetaminophen 650 mg 05/04/18 13:14 Tylenol PO Q4H PRN Pain, Mild (1-3) Acetaminophen/Hydrocodone Bitart 1 each 05/07/18 00:48 05/07/18 01:00 [place] 5/325 PO 1 each Q6H PRN Administration Pain, Moderate (4-6) Apixaban 2.5 mg 05/05/18 22:00 05/08/18 11:27 Eliquis PO 2.5 mg BID GABE Administration Protocol Aspirin 325 mg 05/05/18 10:00 05/08/18 11:26 Aspirin PO 325 mg QDAY GABE Administration Atorvastatin Calcium 40 mg 05/04/18 22:00 05/07/18 22:41 Lipitor PO 40 mg QHS GABE Administration Bisacodyl 10 mg 05/04/18 13:14 Dulcolax [place] QDAY PRN Constipation Gabapentin 300 mg 05/04/18 22:00 05/08/18 11:27 Neurontin PO 300 mg BID GABE Administration Hydroxyzine HCl 25 mg 05/05/18 10:00 05/08/18 11:30 Atarax PO 25 mg QDAY GABE Administration Sodium Chloride 1,000 mls @ 50 mls/hr 05/04/18 16:00 05/07/18 04:03 Nacl 0.45% IV 50 mls/hr DIRECT GABE Administration Vancomycin HCl 1,750 mg/ 535 mls @ 333.333 mls/hr 05/06/18 10:00 05/07/18 15:17 Sodium Chloride IV 333.333 mls/hr Q24HR GABE Administration Lisinopril 5 mg 05/05/18 10:00 05/08/18 11:29 Zestril PO Not Given QDAY GABE Magnesium Hydroxide 30 ml 05/04/18 13:14 Milk Of Magnesia PO Q4H PRN Constipation Metoclopramide HCl 10 mg 05/04/18 13:14 Reglan PO Q6H PRN Nausea And Vomiting Metoprolol Tartrate 25 mg 05/04/18 22:00 05/07/18 22:43 Lopressor PO Not Given BID GABE Ondansetron HCl 4 mg 05/04/18 13:14 05/06/18 22:35 Zofran IV 4 mg Q8H PRN Administration Nausea And Vomiting Pantoprazole Sodium 40 mg 05/05/18 10:00 05/08/18 11:27 Protonix PO 40 mg DAILY GABE Administration Promethazine HCl 25 mg 05/04/18 13:14 Phenergan [place] Q6H PRN Nausea And Vomiting Sodium Chloride 10 ml 05/04/18 13:14 Sodium Chloride Flush Syringe 10 Ml IV PRN PRN LINE FLUSH Nutrition/Malnutrition Assess - Dietary Evaluation Nutrition/Malnutrition Findings: Nutrition Notes Start: 05/05/18 16:55 Freq: Status: Active Protocol: Document 05/07/18 15:08 RM (Rec: 05/07/18 15:12 RM [id number]) Nutrition Notes Initial or Follow up Reassessment Current Diagnosis Hypertension,Stroke Other Pertinent Diagnosis Obesity, Achalasia, Cellulitis , Debility Current Diet Regular Labs/Tests Reviewed Pertinent Medications Reviewed Height 5 ft 9 in Weight 117.7 kg [place] Body Weight (kg) 72.72 BMI 38.3 Subjective/Other Information Pt stated that he eats 1/3 of his meals. Noted preferences. Percent of energy/protein needs met: 39%/25% Burn Absent Trauma Absent #1 Nutrition Diagnosis Predicted suboptimal energy intake Diagnosis Progress(for reassessment Continues documentation) Is patient on ventilator? No Is Patient Ambulatory and/or Out of Bed No REE-([facility] or-confined to bed) 2359.488 Kcal/Kg value to use for calculation 17 Approximate Energy Requirements Using 2001 kcal/Kg Calculation Used for Recommendations Kcal/kg Additional Notes Protein Needs: 114-143g (1.2-1 .5g/kg 95kg adjBW) Fluid Needs: 1 ml/kcal Nutrition Intervention Change Diet Order: Continue current Goal #1 Meet at least 75% of calorie and protein needs via PO intakes Anticipated Discharge Needs: Regular diet Follow-Up By: 05/11/18 Additional Comments Follow for PO and ONS intakes
--- NOTE | 2018-05-08 15:30 | Progress Note ---
Assessment and Plan 63 yo M with 1. LLE hematoma and blister s/p debridement and drainage of hematoma POD 1 2. chronic LE edema Plan; 1. every other day dressing changes by nursing - orders written 2. continued elevation of bilateral lower extremities 3. warm compress to posterior left calf 4. Patient will benefit from compression to bilateral lower extemities as he has chronic LE edema. He has a vascular physician at [facility]. He may follow up with them as outpatient for vascular studies and evaluation for compression stockings. 5. prn pain control Patient may follow up at [facility] wound care center after discharge. Will s/o. Thank you, please call with questions. Subjective Date of service: 05/08/18 Narrative: Pt seen and examined. No acute complaints. No f/c. Objective Vital Signs - 12hr 05/08/18 05/08/18 05/08/18 05:19 07:55 11:29 Temperature 98.0 F 98.5 F Pulse Rate 73 84 84 Respiratory 20 20 Rate Blood Pressure 95/27 95/43 102/33 Blood Pressure [Left] O2 Sat by Pulse 99 88 Oximetry 05/08/18 05/08/18 11:37 13:54 Temperature 99.1 F Pulse Rate 84 82 Respiratory 20 Rate Blood Pressure 102/33 Blood Pressure 103/31 [Left] O2 Sat by Pulse 90 Oximetry - General physical appearance Narrative Exam: Gen; AAOx3. NAD Ext: LLE dressing removed and one piece of packing removed from wound. There are some retained blood clots. periwound with ecchymosis. No active bleeding. Wound cleansed and packed with one piece of alginate. Covered with 4x4 gauze and wrapped with kerlex. 4+ pitting edema of bilateral lower extremity. - Labs 05/06/18 10:30 05/04/18 11:06
[2018-05-08] MEDS: ZOFRAN IV PRN (17:16)
[2018-05-08] MEDS: NACL 0.45% 1,000 ML IV SCH (19:25)
--- NOTE | 2018-05-09 09:54 | Progress Note ---
Assessment and Plan Assessment and plan: Bilateral lower extremity and left arm weakness. Unable to perform MRI lumbar spine due to body habitus. Consider CT myelogram. Atrial fibrillation. Continue rate control with metoprolol. Telemetry m onitoring. Cellulitis. Continue empiric antibiotics. Left lower extremity hematoma. Status post excisional debridement of blister with evacuation of hematoma of left lower extremity Hypertension. Continue antihypertensive medications. OHS. Continue supplemental oxygen. BiPAP is clinically indicated. Debility/deconditioning. PT recommends EMILIE DVT prophylaxis. Disposition. Awaiting placement. History Interval history: No new issues overnight. Hospitalist Physical - Constitutional Vitals: Temp Pulse Resp BP Pulse Ox 98.1 F 76 18 113/37 95 05/09/18 08:54 05/09/18 08:54 05/09/18 08:54 05/09/18 08:54 05/09/18 08:54 General appearance: Present: no acute distress, well-nourished - EENT Eyes: Present: PERRL, EOM intact ENT: hearing intact, clear oral mucosa, dentition normal - Neck Neck: Present: supple, normal ROM - Respiratory Respiratory effort: normal Respiratory: bilateral: CTA - Cardiovascular Rhythm: regular Heart Sounds: Present: S1 & S2. Absent: gallop, rub - Extremities Extremities: no ischemia, No edema, Full ROM - Abdominal General gastrointestinal: soft, non-tender, non-distended, normal bowel sounds - Integumentary Integumentary: Present: clear, warm, dry - Neurologic Neurologic: CNII-XII intact, moves all extremities Results - Labs CBC & Chem 7: 05/06/18 10:30 05/04/18 11:06 Labs: Laboratory Last Values WBC 7.8 K/mm3 (4.5-11.0) 05/04/18 11:06 RBC 3.13 M/mm3 (3.65-5.03) L 05/04/18 11:06 Hgb 9.8 gm/dl (11.8-15.2) L 05/04/18 11:06 Hct 29.4 % (35.5-45.6) L 05/04/18 11:06 MCV 94 fl (84-94) 05/04/18 11:06 MCH 31 pg (28-32) 05/04/18 11:06 MCHC 34 % (32-34) 05/04/18 11:06 RDW 17.6 % (13.2-15.2) H 05/04/18 11:06 Plt Count 148 K/mm3 (140-440) 05/06/18 10:30 Lymph % (Auto) 17.8 % (13.4-35.0) 05/04/18 11:06 [place] % (Auto) 6.7 % (0.0-7.3) 05/04/18 11:06 Eos % (Auto) 2.3 % (0.0-4.3) 05/04/18 11:06 Baso % (Auto) 0.6 % (0.0-1.8) 05/04/18 11:06 Lymph # 1.4 K/mm3 (1.2-5.4) 05/04/18 11:06 [place] # 0.5 K/mm3 (0.0-0.8) 05/04/18 11:06 Eos # 0.2 K/mm3 (0.0-0.4) 05/04/18 11:06 Baso # 0.1 K/mm3 (0.0-0.1) 05/04/18 11:06 Seg Neutrophils % 72.6 % (40.0-70.0) H 05/04/18 11:06 Seg Neutrophils # 5.7 K/mm3 (1.8-7.7) 05/04/18 11:06 PT 19.4 Sec. (12.2-14.9) H 05/06/18 09:57 INR 1.53 (0.87-1.13) H 05/06/18 09:57 APTT 35.4 Sec. (24.2-36.6) 05/06/18 09:57 Sodium 132 mmol/L (137-145) L 05/04/18 11:06 Potassium 3.8 mmol/L (3.6-5.0) 05/04/18 11:06 Chloride 93.2 mmol/L (98-107) L 05/04/18 11:06 Carbon Dioxide 31 mmol/L (22-30) H 05/04/18 11:06 Anion Gap 12 mmol/L 05/04/18 11:06 BUN 9 mg/dL (9-20) 05/04/18 11:06 Creatinine 1.2 mg/dL (0.8-1.5) 05/04/18 11:06 Estimated GFR > 60 ml/min 05/04/18 11:06 BUN/Creatinine Ratio 8 % 05/04/18 11:06 Glucose 138 mg/dL (75-100) H 05/04/18 11:06 Lactic Acid 1.40 mmol/L (0.7-2.0) 05/04/18 21:23 Calcium 7.7 mg/dL (8.4-10.2) L 05/04/18 11:06 Magnesium 1.60 mg/dL (1.7-2.3) L 05/04/18 11:06 Total Bilirubin 1.40 mg/dL (0.1-1.2) H 05/04/18 11:06 Direct Bilirubin 0.5 mg/dL (0-0.2) H 05/04/18 11:06 Indirect Bilirubin 0.9 mg/dL 05/04/18 11:06 AST 20 units/L (5-40) 05/04/18 11:06 ALT 8 units/L (7-56) 05/04/18 11:06 Alkaline Phosphatase 66 units/L (35-129) 05/04/18 11:06 Total Creatine Kinase 161 units/L (55-170) 05/04/18 21:23 NT-Pro-B Natriuret Pep 874.7 pg/mL (0-900) 05/04/18 11:06 Total Protein 5.3 g/dL (6.3-8.2) L 05/04/18 11:06 Albumin 1.9 g/dL (3.9-5) L 05/04/18 11:06 Albumin/Globulin Ratio 0.6 % 05/04/18 11:06 Lipase 9 units/L (13-60) L 05/04/18 11:06 Urine Color [place] (Yellow) 05/04/18 16:53 Urine Turbidity Slightly-cloudy (Clear) 05/04/18 16:53 Urine pH 5.0 (5.0-7.0) 05/04/18 16:53 Ur Specific [place] 1.033 (1.003-1.030) H 05/04/18 16:53 Urine Protein 30 mg/dl mg/dL (Negative) 05/04/18 16:53 Urine Glucose (UA) Neg mg/dL (Negative) 05/04/18 16:53 Urine Ketones Neg mg/dL (Negative) 05/04/18 16:53 Urine Blood Sm (Negative) 05/04/18 16:53 Urine Nitrite Pos (Negative) 05/04/18 16:53 Urine Bilirubin Neg (Negative) 05/04/18 16:53 Urine Urobilinogen 2.0 mg/dL (<2.0) 05/04/18 16:53 Ur Leukocyte Esterase Lg (Negative) 05/04/18 16:53 Urine WBC (Auto) > 182.0 /HPF (0.0-6.0) H 05/04/18 16:53 Urine RBC (Auto) 15.0 /HPF (0.0-6.0) 05/04/18 16:53 U Epithel Cells (Auto) 2.0 /HPF (0-13.0) 05/04/18 16:53 Urine Bacteria (Auto) 2+ /HPF (Negative) 05/04/18 16:53 Hyaline Casts 5 /LPF 05/04/18 16:53 Urine Mucus Few /HPF 05/04/18 16:53 Active Medications - Current Medications Current Medications: Generic Name Dose Route Start Last Admin Trade Name Freq PRN Reason Stop Dose Admin Acetaminophen 650 mg 05/04/18 13:14 Tylenol PO Q4H PRN Pain, Mild (1-3) Acetaminophen/Hydrocodone Bitart 1 each 05/07/18 00:48 05/07/18 01:00 [place] 5/325 PO 1 each Q6H PRN Administration Pain, Moderate (4-6) Apixaban 2.5 mg 05/05/18 22:00 05/08/18 21:45 Eliquis PO 2.5 mg BID GABE Administration Protocol Aspirin 325 mg 05/05/18 10:00 05/08/18 11:26 Aspirin PO 325 mg QDAY GABE Administration Atorvastatin Calcium 40 mg 05/04/18 22:00 05/08/18 21:45 Lipitor PO 40 mg QHS GABE Administration Bisacodyl 10 mg 05/04/18 13:14 Dulcolax [place] QDAY PRN Constipation Gabapentin 300 mg 05/04/18 22:00 05/08/18 21:45 Neurontin PO 300 mg BID GABE Administration Hydroxyzine HCl 25 mg 05/05/18 10:00 05/08/18 11:30 Atarax PO 25 mg QDAY GABE Administration Sodium Chloride 1,000 mls @ 50 mls/hr 05/04/18 16:00 05/08/18 19:25 Nacl 0.45% IV 50 mls/hr DIRECT GABE Administration Vancomycin HCl 1,750 mg/ 535 mls @ 333.333 mls/hr 05/06/18 10:00 05/08/18 11:37 Sodium Chloride IV 05/09/18 23:59 333.333 mls/hr Q24HR GABE Administration Lisinopril 5 mg 05/05/18 10:00 05/08/18 11:29 Zestril PO Not Given QDAY GABE Magnesium Hydroxide 30 ml 05/04/18 13:14 05/08/18 17:18 Milk Of Magnesia PO 30 ml Q4H PRN Administration Constipation Metoclopramide HCl 10 mg 05/04/18 13:14 05/08/18 20:05 Reglan PO 10 mg Q6H PRN Administration Nausea And Vomiting Metoprolol Tartrate 25 mg 05/04/18 22:00 05/08/18 21:04 Lopressor PO Not Given BID GABE Ondansetron HCl 4 mg 05/04/18 13:14 05/08/18 17:16 Zofran IV 4 mg Q8H PRN Administration Nausea And Vomiting Pantoprazole Sodium 40 mg 05/05/18 10:00 05/08/18 11:27 Protonix PO 40 mg DAILY GABE Administration Promethazine HCl 25 mg 05/04/18 13:14 Phenergan [place] Q6H PRN Nausea And Vomiting Sodium Chloride 10 ml 05/04/18 13:14 Sodium Chloride Flush Syringe 10 Ml IV PRN PRN LINE FLUSH Nutrition/Malnutrition Assess - Dietary Evaluation Nutrition/Malnutrition Findings: Nutrition Notes Start: 05/05/18 16:55 Freq: Status: Active Protocol: Document 05/07/18 15:08 RM (Rec: 05/07/18 15:12 RM [id number]) Nutrition Notes Initial or Follow up Reassessment Current Diagnosis Hypertension,Stroke Other Pertinent Diagnosis Obesity, Achalasia, Cellulitis , Debility Current Diet Regular Labs/Tests Reviewed Pertinent Medications Reviewed Height 5 ft 9 in Weight 117.7 kg [place] Body Weight (kg) 72.72 BMI 38.3 Subjective/Other Information Pt stated that he eats 1/3 of his meals. Noted preferences. Percent of energy/protein needs met: 39%/25% Burn Absent Trauma Absent #1 Nutrition Diagnosis Predicted suboptimal energy intake Diagnosis Progress(for reassessment Continues documentation) Is patient on ventilator? No Is Patient Ambulatory and/or Out of Bed No REE-([facility]-confined to bed) 2359.488 Kcal/Kg value to use for calculation 17 Approximate Energy Requirements Using 2001 kcal/Kg Calculation Used for Recommendations Kcal/kg Additional Notes Protein Needs: 114-143g (1.2-1 .5g/kg 95kg adjBW) Fluid Needs: 1 ml/kcal Nutrition Intervention Change Diet Order: Continue current Goal #1 Meet at least 75% of calorie and protein needs via PO intakes Anticipated Discharge Needs: Regular diet Follow-Up By: 05/11/18 Additional Comments Follow for PO and ONS intakes
[2018-05-09] MEDS: NEURONTIN PO SCH ×2 (10:05→21:47)
[2018-05-09] MEDS: PROTONIX PO SCH (10:05)
[2018-05-09] MEDS: ZOFRAN IV PRN (10:05)
[2018-05-09] MEDS: ZESTRIL PO SCH (10:05)
[2018-05-09] MEDS: ELIQUIS PO SCH ×2 (10:05→21:47)
[2018-05-09] MEDS: ATARAX PO SCH (10:05)
[2018-05-09] MEDS: ASPIRIN PO SCH (10:05)
[2018-05-09] MEDS: LOPRESSOR PO SCH ×2 (10:06→21:47)
[2018-05-09] MEDS: VANCOMYCIN 1,750 MG in NACL 0.9% 500 ML 500 ML IV SCH (10:10)
[2018-05-09 14:17] LABS: Calcium 6.3 mg/dL (8.4-10.2)
[2018-05-09 14:21] LABS: Basophils % (Auto) 0.4 % (0.0-1.8); Eosinophils # (Auto) 0.2 K/mm3 (0.0-0.4); Eosinophils % (Auto) 2.1 % (0.0-4.3); Hemoglobin 8.8 gm/dl (11.8-15.2); Lymphocytes # (Auto) 0.8 K/mm3 (1.2-5.4); Lymphocytes % (Auto) 8.7 % (13.4-35.0); Mean Corpuscular HGB Conc 34 % (32-34); Mean Corpuscular Volume 93 fl (84-94); Monocytes # (Auto) 0.4 K/mm3 (0.0-0.8); Monocytes % (Auto) 4.2 % (0.0-7.3); Platelet Count 115 K/mm3 (140-440); Red Blood Count 2.79 M/mm3 (3.65-5.03); Red Cell Distribution Width 19.5 % (13.2-15.2)
[2018-05-09] MEDS: NACL 0.45% 1,000 ML IV SCH (17:14)
[2018-05-10] MEDS: NORCO 5/325 PO PRN (01:14)
[2018-05-10] MEDS: NACL 0.45% 1,000 ML IV SCH ×2 (03:52→14:42)
[2018-05-10] MEDS: NEURONTIN PO SCH ×2 (09:21→21:28)
[2018-05-10] MEDS: ELIQUIS PO SCH ×2 (09:21→21:28)
[2018-05-10] MEDS: LOPRESSOR PO SCH ×2 (09:21→21:34)
[2018-05-10] MEDS: ASPIRIN PO SCH (09:21)
[2018-05-10] MEDS: PROTONIX PO SCH (09:21)
[2018-05-10] MEDS: ZESTRIL PO SCH (09:21)
[2018-05-10] MEDS: ATARAX PO SCH (09:21)
--- NOTE | 2018-05-10 11:53 | Progress Note ---
Assessment and Plan Assessment and plan: Bilateral lower extremity and left arm weakness. Unable to perform MRI lumbar spine due to body habitus. Checked with radiology (Dr. Barriga) who recommends MRI of lumbar spine--pt attempted on 05/07 but stated he was uncomfortable because of tight fit. Consider premedicating and trying again. Otherwise, consider CT myelogram of cervical, thoracis, lumbar spine but will need to be off eliquis for 2 days and aspirin for minimum 4 days, per Radiology Atrial fibrillation. Continue rate control with metoprolol. Telemetry monitoring. Cellulitis. Continue empiric antibiotics. Left lower extremity hematoma. Status post excisional debridement of blister with evacuation of hematoma of left lower extremity Hypertension. Continue antihypertensive medications. OHS. Continue supplemental oxygen. BiPAP is clinically indicated. Debility/deconditioning. PT recommends EMILIE DVT prophylaxis. Disposition. Awaiting placement. History Interval history: No new issues overnight. Hospitalist Physical - Constitutional Vitals: Temp Pulse Resp BP Pulse Ox 98.5 F 74 21 92/31 87 05/10/18 08:41 05/10/18 08:41 05/10/18 08:41 05/10/18 08:41 05/10/18 08:41 General appearance: Present: no acute distress, well-nourished - EENT Eyes: Present: PERRL, EOM intact ENT: hearing intact, clear oral mucosa, dentition normal - Neck Neck: Present: supple, normal ROM - Respiratory Respiratory effort: normal Respiratory: bilateral: CTA - Cardiovascular Rhythm: regular Heart Sounds: Present: S1 & S2. Absent: gallop, rub - Extremities Extremities: no ischemia, No edema, Full ROM - Abdominal General gastrointestinal: soft, non-tender, non-distended, normal bowel sounds - Integumentary Integumentary: Present: clear, warm, dry - Neurologic Neurologic: CNII-XII intact, moves all extremities Results - Labs CBC & Chem 7: 05/09/18 13:19 05/09/18 13:19 Labs: Laboratory Last Values WBC 8.7 K/mm3 (4.5-11.0) 05/09/18 13:19 RBC 2.79 M/mm3 (3.65-5.03) L 05/09/18 13:19 Hgb 8.8 gm/dl (11.8-15.2) L 05/09/18 13:19 Hct 26.0 % (35.5-45.6) L 05/09/18 13:19 MCV 93 fl (84-94) 05/09/18 13:19 MCH 32 pg (28-32) 05/09/18 13:19 MCHC 34 % (32-34) 05/09/18 13:19 RDW 19.5 % (13.2-15.2) H 05/09/18 13:19 Plt Count 115 K/mm3 (140-440) L 05/09/18 13:19 Lymph % (Auto) 8.7 % (13.4-35.0) L 05/09/18 13:19 [place] % (Auto) 4.2 % (0.0-7.3) 05/09/18 13:19 Eos % (Auto) 2.1 % (0.0-4.3) 05/09/18 13:19 Baso % (Auto) 0.4 % (0.0-1.8) 05/09/18 13:19 Lymph # 0.8 K/mm3 (1.2-5.4) L 05/09/18 13:19 [place] # 0.4 K/mm3 (0.0-0.8) 05/09/18 13:19 Eos # 0.2 K/mm3 (0.0-0.4) 05/09/18 13:19 Baso # 0.0 K/mm3 (0.0-0.1) 05/09/18 13:19 Seg Neutrophils % 84.6 % (40.0-70.0) H 05/09/18 13:19 Seg Neutrophils # 7.4 K/mm3 (1.8-7.7) 05/09/18 13:19 PT 19.4 Sec. (12.2-14.9) H 05/06/18 09:57 INR 1.53 (0.87-1.13) H 05/06/18 09:57 APTT 35.4 Sec. (24.2-36.6) 05/06/18 09:57 Sodium 131 mmol/L (137-145) L 05/09/18 13:19 Potassium 4.5 mmol/L (3.6-5.0) 05/09/18 13:19 Chloride 98.0 mmol/L (98-107) 05/09/18 13:19 Carbon Dioxide 22 mmol/L (22-30) 05/09/18 13:19 Anion Gap 16 mmol/L 05/09/18 13:19 BUN 19 mg/dL (9-20) 05/09/18 13:19 Creatinine 4.3 mg/dL (0.8-1.5) H 05/09/18 13:19 Estimated GFR 14 ml/min 05/09/18 13:19 BUN/Creatinine Ratio 4 % 05/09/18 13:19 Glucose 128 mg/dL (75-100) H 05/09/18 13:19 Lactic Acid 1.40 mmol/L (0.7-2.0) 05/04/18 21:23 Calcium 6.3 mg/dL (8.4-10.2) L 05/09/18 13:19 Magnesium 1.60 mg/dL (1.7-2.3) L 05/04/18 11:06 Total Bilirubin 1.40 mg/dL (0.1-1.2) H 05/04/18 11:06 Direct Bilirubin 0.5 mg/dL (0-0.2) H 05/04/18 11:06 Indirect Bilirubin 0.9 mg/dL 05/04/18 11:06 AST 20 units/L (5-40) 05/04/18 11:06 ALT 8 units/L (7-56) 05/04/18 11:06 Alkaline Phosphatase 66 units/L (35-129) 05/04/18 11:06 Total Creatine Kinase 161 units/L (55-170) 05/04/18 21:23 NT-Pro-B Natriuret Pep 874.7 pg/mL (0-900) 05/04/18 11:06 Total Protein 5.3 g/dL (6.3-8.2) L 05/04/18 11:06 Albumin 1.9 g/dL (3.9-5) L 05/04/18 11:06 Albumin/Globulin Ratio 0.6 % 05/04/18 11:06 Lipase 9 units/L (13-60) L 05/04/18 11:06 Urine Color [place] (Yellow) 05/04/18 16:53 Urine Turbidity Slightly-cloudy (Clear) 05/04/18 16:53 Urine pH 5.0 (5.0-7.0) 05/04/18 16:53 Ur Specific [place] 1.033 (1.003-1.030) H 05/04/18 16:53 Urine Protein 30 mg/dl mg/dL (Negative) 05/04/18 16:53 Urine Glucose (UA) Neg mg/dL (Negative) 05/04/18 16:53 Urine Ketones Neg mg/dL (Negative) 05/04/18 16:53 Urine Blood Sm (Negative) 05/04/18 16:53 Urine Nitrite Pos (Negative) 05/04/18 16:53 Urine Bilirubin Neg (Negative) 05/04/18 16:53 Urine Urobilinogen 2.0 mg/dL (<2.0) 05/04/18 16:53 Ur Leukocyte Esterase Lg (Negative) 05/04/18 16:53 Urine WBC (Auto) > 182.0 /HPF (0.0-6.0) H 05/04/18 16:53 Urine RBC (Auto) 15.0 /HPF (0.0-6.0) 05/04/18 16:53 U Epithel Cells (Auto) 2.0 /HPF (0-13.0) 05/04/18 16:53 Urine Bacteria (Auto) 2+ /HPF (Negative) 05/04/18 16:53 Hyaline Casts 5 /LPF 05/04/18 16:53 Urine Mucus Few /HPF 05/04/18 16:53 Active Medications - Current Medications Current Medications: Generic Name Dose Route Start Last Admin Trade Name Freq PRN Reason Stop Dose Admin Acetaminophen 650 mg 05/04/18 13:14 Tylenol PO Q4H PRN Pain, Mild (1-3) Acetaminophen/Hydrocodone Bitart 1 each 05/07/18 00:48 05/10/18 01:14 [place] 5/325 PO 1 each Q6H PRN Administration Pain, Moderate (4-6) Apixaban 2.5 mg 05/05/18 22:00 05/10/18 09:21 Eliquis PO 2.5 mg BID GABE Administration Protocol Aspirin 325 mg 05/05/18 10:00 05/10/18 09:21 Aspirin PO 325 mg QDAY GABE Administration Atorvastatin Calcium 40 mg 05/04/18 22:00 05/09/18 21:47 Lipitor PO 40 mg QHS GABE Administration Bisacodyl 10 mg 05/04/18 13:14 Dulcolax [place] QDAY PRN Constipation Gabapentin 300 mg 05/04/18 22:00 05/10/18 09:21 Neurontin PO 300 mg BID GABE Administration Hydroxyzine HCl 25 mg 05/05/18 10:00 05/10/18 09:21 Atarax PO 25 mg QDAY GABE Administration Sodium Chloride 1,000 mls @ 50 mls/hr 05/04/18 16:00 05/10/18 03:52 Nacl 0.45% IV 50 mls/hr DIRECT GABE Administration Lisinopril 5 mg 05/05/18 10:00 05/10/18 09:21 Zestril PO 5 mg QDAY GABE Administration Magnesium Hydroxide 30 ml 05/04/18 13:14 05/08/18 17:18 Milk Of Magnesia PO 30 ml Q4H PRN Administration Constipation Metoclopramide HCl 10 mg 05/04/18 13:14 05/08/18 20:05 Reglan PO 10 mg Q6H PRN Administration Nausea And Vomiting Metoprolol Tartrate 25 mg 05/04/18 22:00 05/10/18 09:21 Lopressor PO 25 mg BID GABE Administration Ondansetron HCl 4 mg 05/04/18 13:14 05/09/18 10:05 Zofran IV 4 mg Q8H PRN Administration Nausea And Vomiting Pantoprazole Sodium 40 mg 05/05/18 10:00 05/10/18 09:21 Protonix PO 40 mg DAILY GABE Administration Promethazine HCl 25 mg 05/04/18 13:14 Phenergan [place] Q6H PRN Nausea And Vomiting Sodium Chloride 10 ml 05/04/18 13:14 05/09/18 10:05 Sodium Chloride Flush Syringe 10 Ml IV 10 ml PRN PRN Administration LINE FLUSH Nutrition/Malnutrition Assess - Dietary Evaluation Nutrition/Malnutrition Findings: Nutrition Notes Start: 05/05/18 16:55 Freq: Status: Active Protocol: Document 05/07/18 15:08 RM (Rec: 05/07/18 15:12 RM [id number]) Nutrition Notes Initial or Follow up Reassessment Current Diagnosis Hypertension,Stroke Other Pertinent Diagnosis Obesity, Achalasia, Cellulitis , Debility Current Diet Regular Labs/Tests Reviewed Pertinent Medications Reviewed Height 5 ft 9 in Weight 117.7 kg [place] Body Weight (kg) 72.72 BMI 38.3 Subjective/Other Information Pt stated that he eats 1/3 of his meals. Noted preferences. Percent of energy/protein needs met: 39%/25% Burn Absent Trauma Absent #1 Nutrition Diagnosis Predicted suboptimal energy intake Diagnosis Progress(for reassessment Continues documentation) Is patient on ventilator? No Is Patient Ambulatory and/or Out of Bed No REE-([place]-confined to bed) 2359.488 Kcal/Kg value to use for calculation 17 Approximate Energy Requirements Using 2001 kcal/Kg Calculation Used for Recommendations Kcal/kg Additional Notes Protein Needs: 114-143g (1.2-1 .5g/kg 95kg adjBW) Fluid Needs: 1 ml/kcal Nutrition Intervention Change Diet Order: Continue current Goal #1 Meet at least 75% of calorie and protein needs via PO intakes Anticipated Discharge Needs: Regular diet Follow-Up By: 05/11/18 Additional Comments Follow for PO and ONS intakes
[2018-05-11] MEDS: NACL 0.45% 1,000 ML IV SCH (05:02)
[2018-05-11] MEDS: ASPIRIN PO SCH (09:20)
[2018-05-11] MEDS: PROTONIX PO SCH (09:20)
[2018-05-11] MEDS: ATARAX PO SCH ×2 (09:20→21:47)
[2018-05-11] MEDS: NEURONTIN PO SCH ×2 (09:20→21:47)
[2018-05-11] MEDS: ZESTRIL PO SCH (09:21)
[2018-05-11] MEDS: ELIQUIS PO SCH ×2 (09:21→21:47)
[2018-05-11] MEDS: LOPRESSOR PO SCH (09:21)
[2018-05-11] MEDS ORDERED: NEURONTIN PO SCH (12:26)
[2018-05-11] MEDS ORDERED: LOPRESSOR PO SCH (14:25)
--- NOTE | 2018-05-11 15:08 | Progress Note ---
Assessment and Plan Assessment and plan: Bilateral lower extremity and left arm weakness. Unable to perform MRI lumbar spine due to body habitus. Checked with radiology (Dr. Barriga) who recommends MRI of lumbar spine. pt attempted on 05/07 but stated he was uncomfortable because of tight fit. Atrial fibrillation. Continue rate control with metoprolol and eliquis. Telemetry monitoring. Cellulitis. Continue empiric antibiotics. Left lower extremity hematoma. Status post excisional debridement of blister with evacuation of hematoma of left lower extremity Hypertension. Continue antihypertensive medications. OHS. Continue supplemental oxygen. BiPAP is clinically indicated. Debility/deconditioning. PT recommends EMILIE DVT prophylaxis. Disposition. Awaiting placement. History Interval history: Patient was seen and evaluated this morning, patient was alert and oriented. No new complaints. Hospitalist Physical - Physical exam Narrative exam: Not in cardiopulmonary distress. The patient is morbidly obese. Vital signs as documented. Head exam is unremarkable. No scleral icterus . Neck is without jugular venous distension, thyromegaly, or carotid bruits. Lungs are clear to auscultation. Cardiac exam reveals regular rate and Rhythm. Abdominal exam reveals normal bowel sounds. Extremities are nonedematous and both femoral and pedal pulses are normal. 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 No focal weakness. - Constitutional Vitals: Temp Pulse Resp BP Pulse Ox 97.7 F 74 16 83/32 94 05/11/18 14:09 05/11/18 14:09 05/11/18 14:09 05/11/18 14:09 05/11/18 14:09 General appearance: Present: no acute distress, well-nourished Results - Labs CBC & Chem 7: 05/09/18 13:19 05/09/18 13:19 Labs: Laboratory Last Values WBC 8.7 K/mm3 (4.5-11.0) 05/09/18 13:19 RBC 2.79 M/mm3 (3.65-5.03) L 05/09/18 13:19 Hgb 8.8 gm/dl (11.8-15.2) L 05/09/18 13:19 Hct 26.0 % (35.5-45.6) L 05/09/18 13:19 MCV 93 fl (84-94) 05/09/18 13:19 MCH 32 pg (28-32) 05/09/18 13:19 MCHC 34 % (32-34) 05/09/18 13:19 RDW 19.5 % (13.2-15.2) H 05/09/18 13:19 Plt Count 115 K/mm3 (140-440) L 05/09/18 13:19 Lymph % (Auto) 8.7 % (13.4-35.0) L 05/09/18 13:19 [place] % (Auto) 4.2 % (0.0-7.3) 05/09/18 13:19 Eos % (Auto) 2.1 % (0.0-4.3) 05/09/18 13:19 Baso % (Auto) 0.4 % (0.0-1.8) 05/09/18 13:19 Lymph # 0.8 K/mm3 (1.2-5.4) L 05/09/18 13:19 [place] # 0.4 K/mm3 (0.0-0.8) 05/09/18 13:19 Eos # 0.2 K/mm3 (0.0-0.4) 05/09/18 13:19 Baso # 0.0 K/mm3 (0.0-0.1) 05/09/18 13:19 Seg Neutrophils % 84.6 % (40.0-70.0) H 05/09/18 13:19 Seg Neutrophils # 7.4 K/mm3 (1.8-7.7) 05/09/18 13:19 PT 19.4 Sec. (12.2-14.9) H 05/06/18 09:57 INR 1.53 (0.87-1.13) H 05/06/18 09:57 APTT 35.4 Sec. (24.2-36.6) 05/06/18 09:57 Sodium 131 mmol/L (137-145) L 05/09/18 13:19 Potassium 4.5 mmol/L (3.6-5.0) 05/09/18 13:19 Chloride 98.0 mmol/L (98-107) 05/09/18 13:19 Carbon Dioxide 22 mmol/L (22-30) 05/09/18 13:19 Anion Gap 16 mmol/L 05/09/18 13:19 BUN 19 mg/dL (9-20) 05/09/18 13:19 Creatinine 4.3 mg/dL (0.8-1.5) H 05/09/18 13:19 Estimated GFR 14 ml/min 05/09/18 13:19 BUN/Creatinine Ratio 4 % 05/09/18 13:19 Glucose 128 mg/dL (75-100) H 05/09/18 13:19 Lactic Acid 1.40 mmol/L (0.7-2.0) 05/04/18 21:23 Calcium 6.3 mg/dL (8.4-10.2) L 05/09/18 13:19 Magnesium 1.60 mg/dL (1.7-2.3) L 05/04/18 11:06 Total Bilirubin 1.40 mg/dL (0.1-1.2) H 05/04/18 11:06 Direct Bilirubin 0.5 mg/dL (0-0.2) H 05/04/18 11:06 Indirect Bilirubin 0.9 mg/dL 05/04/18 11:06 AST 20 units/L (5-40) 05/04/18 11:06 ALT 8 units/L (7-56) 05/04/18 11:06 Alkaline Phosphatase 66 units/L (35-129) 05/04/18 11:06 Total Creatine Kinase 161 units/L (55-170) 05/04/18 21:23 NT-Pro-B Natriuret Pep 874.7 pg/mL (0-900) 05/04/18 11:06 Total Protein 5.3 g/dL (6.3-8.2) L 05/04/18 11:06 Albumin 1.9 g/dL (3.9-5) L 05/04/18 11:06 Albumin/Globulin Ratio 0.6 % 05/04/18 11:06 Lipase 9 units/L (13-60) L 05/04/18 11:06 Urine Color [place] (Yellow) 05/04/18 16:53 Urine Turbidity Slightly-cloudy (Clear) 05/04/18 16:53 Urine pH 5.0 (5.0-7.0) 05/04/18 16:53 Ur Specific [place] 1.033 (1.003-1.030) H 05/04/18 16:53 Urine Protein 30 mg/dl mg/dL (Negative) 05/04/18 16:53 Urine Glucose (UA) Neg mg/dL (Negative) 05/04/18 16:53 Urine Ketones Neg mg/dL (Negative) 05/04/18 16:53 Urine Blood Sm (Negative) 05/04/18 16:53 Urine Nitrite Pos (Negative) 05/04/18 16:53 Urine Bilirubin Neg (Negative) 05/04/18 16:53 Urine Urobilinogen 2.0 mg/dL (<2.0) 05/04/18 16:53 Ur Leukocyte Esterase Lg (Negative) 05/04/18 16:53 Urine WBC (Auto) > 182.0 /HPF (0.0-6.0) H 05/04/18 16:53 Urine RBC (Auto) 15.0 /HPF (0.0-6.0) 05/04/18 16:53 U Epithel Cells (Auto) 2.0 /HPF (0-13.0) 05/04/18 16:53 Urine Bacteria (Auto) 2+ /HPF (Negative) 05/04/18 16:53 Hyaline Casts 5 /LPF 05/04/18 16:53 Urine Mucus Few /HPF 05/04/18 16:53 Active Medications - Current Medications Current Medications: Generic Name Dose Route Start Last Admin Trade Name Freq PRN Reason Stop Dose Admin Acetaminophen 650 mg 05/04/18 13:14 Tylenol PO Q4H PRN Pain, Mild (1-3) Apixaban 2.5 mg 05/05/18 22:00 05/11/18 09:21 Eliquis PO 2.5 mg BID GABE Administration Protocol Aspirin 325 mg 05/05/18 10:00 05/11/18 09:20 Aspirin PO 325 mg QDAY GABE Administration Atorvastatin Calcium 40 mg 05/04/18 22:00 05/10/18 21:28 Lipitor PO 40 mg QHS GABE Administration Bisacodyl 10 mg 05/04/18 13:14 Dulcolax [place] QDAY PRN Constipation Gabapentin 100 mg 05/11/18 22:00 Neurontin PO BID GABE Hydroxyzine HCl 25 mg 05/11/18 22:00 Atarax PO QHS [facility] Sodium Chloride 1,000 mls @ 50 mls/hr 05/04/18 16:00 05/11/18 05:02 Nacl 0.45% IV 50 mls/hr DIRECT GABE Administration Magnesium Hydroxide 30 ml 05/04/18 13:14 05/08/18 17:18 Milk Of Magnesia PO 30 ml Q4H PRN Administration Constipation Metoclopramide HCl 10 mg 05/04/18 13:14 05/08/18 20:05 Reglan PO 10 mg Q6H PRN Administration Nausea And Vomiting Metoprolol Tartrate 12.5 mg 05/11/18 14:25 Lopressor PO BID GABE Ondansetron HCl 4 mg 05/04/18 13:14 05/09/18 10:05 Zofran IV 4 mg Q8H PRN Administration Nausea And Vomiting Pantoprazole Sodium 40 mg 05/05/18 10:00 05/11/18 09:20 Protonix PO 40 mg DAILY GABE Administration Promethazine HCl 25 mg 05/04/18 13:14 Phenergan [place] Q6H PRN Nausea And Vomiting Sodium Chloride 10 ml 05/04/18 13:14 05/09/18 10:05 Sodium Chloride Flush Syringe 10 Ml IV 10 ml PRN PRN Administration LINE FLUSH Nutrition/Malnutrition Assess - Dietary Evaluation Nutrition/Malnutrition Findings: Nutrition Notes Start: 05/05/18 16:55 Freq: Status: Active Protocol: Document 05/11/18 14:43 RD (Rec: 05/11/18 15:02 RD [id number]) Co-Sign 05/11/18 14:43 LP Nutrition Notes Initial or Follow up Reassessment Current Diagnosis Hypertension,Stroke Other Pertinent Diagnosis Obesity, Achalasia, Cellulitis , Debility Current Diet Regular Labs/Tests Reviewed Pertinent Medications Reviewed Height 5 ft 9 in Weight 117.7 kg [place] Body Weight (kg) 72.72 BMI 38.3 Subjective/Other Information Pt stated he is not eating well, only ate a few bites of grits and drank OJ for breakfast. Pt is not receiving supplement. Pt stated he is not receiving phone calls for menu preferences, internal sales engineer brought menu papers to room. Percent of energy/protein needs met: 12%/ 8% Burn Absent Trauma Absent #1 Nutrition Diagnosis Inadequate oral intake Etiology poor appetite As Evidenced by Signs and Symptoms consuming less than 25% of meals Is patient on ventilator? No Is Patient Ambulatory and/or Out of Bed No REE-([facility]-confined to bed) 2359.488 Kcal/Kg value to use for calculation 17 Approximate Energy Requirements Using 2001 kcal/Kg Calculation Used for Recommendations Kcal/kg Additional Notes Protein Needs: 114-143g (1.2-1 .5g/kg 95kg adjBW) Fluid Needs: 1 ml/kcal Nutrition Intervention Change Diet Order: Continue current Add Supplement/Snack (indicate name/kcal Ensure Enlive TID /protein ) Provides kCal: 1,050 Provides Protein (gm) 60 Goal #1 Meet at least 75% of calorie and protein needs via PO intakes Anticipated Discharge Needs: Regular diet Follow-Up By: 05/13/18 Additional Comments Follow for PO and ONS intakes
[2018-05-11] MEDS ORDERED: LEVAQUIN PO SCH (16:00)
[2018-05-11] MEDS ORDERED: NACL 0.9% 1000 ML 500 ML IV SCH (16:00)
[2018-05-12 06:09] LABS: Hemoglobin 7.8 gm/dl (11.8-15.2)
[2018-05-12 06:34] LABS: Calcium 6.5 mg/dL (8.4-10.2)
[2018-05-12] MEDS: PROTONIX PO SCH (09:16)
[2018-05-12] MEDS: ELIQUIS PO SCH ×2 (09:16→23:04)
[2018-05-12] MEDS: NEURONTIN PO SCH ×2 (09:17→23:04)
[2018-05-12] MEDS: ASPIRIN PO SCH (09:17)
[2018-05-12] MEDS: TYLENOL PO PRN (09:17)
[2018-05-12] MEDS ORDERED: CALCIUM GLUCONATE 2,000 MG in NACL 0.9% 100 ML IV ONE (10:00)
--- NOTE | 2018-05-12 12:46 | Consultation ---
History of Present Illness - Reason for Consult Consult date: 05/12/18 acute renal failure - History of Present Illness This is a 63 year old male who presents to the hospital with a chief complaint of weakness which resulted in him falling. On evaluation patient was found to have Cellulitis to his left leg. Patient has history of Hypertension, Diabetes Mellitus, CVA, Afib on Eliquis and Achlasia for which he has underwent esophageal surgery. Serum creatinine on admission was 1.2 but it has kay to 6.1 today. We are being consulted for management of this patient's Acute Renal F ailure. 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 denies: smoking, alcohol abuse, prescription drug abuse Family history: diabetes (parents), hypertension (father, mother, brother), other (no history of epilepsy). denies: stroke Medications and Allergies Allergies Allergy/AdvReac Type Severity Reaction Status Date / Time Penicillins Allergy Severe Anaphylaxis Verified 05/04/18 10:55 cyclobenzaprine Allergy Hives Verified 05/04/18 10:55 [From Flexeril] Home Medications Medication Instructions Recorded Confirmed Last Taken Type Apixaban [Eliquis] 2.5 mg PO DAILY 04/10/18 05/04/18 04/10/18 History Gabapentin [Neurontin] 300 mg PO BID 04/10/18 05/04/18 04/10/18 History Hydroxyzine HCl [hydrOXYzine] 25 mg PO DAILY 04/10/18 05/04/18 04/10/18 History Lansoprazole [Prevacid] 30 mg PO DAILY 04/10/18 05/04/18 04/10/18 History Lisinopril [Zestril] 5 mg PO QDAY 04/10/18 05/04/18 04/10/18 History Metoprolol [Lopressor] 25 mg PO BID 04/10/18 05/04/18 04/10/18 History Active Meds: Active Medications Acetaminophen (Tylenol) 650 mg PO Q4H PRN PRN Reason: Pain, Mild (1-3) Last Admin: 05/12/18 09:17 Dose: 650 mg Documented by: Apixaban (Eliquis) 2.5 mg PO BID [facility]; Protocol Last Admin: 05/12/18 09:16 Dose: 2.5 mg Documented by: Aspirin (Aspirin) 325 mg PO QDAY [facility] Last Admin: 05/12/18 09:17 Dose: 325 mg Documented by: Atorvastatin Calcium (Lipitor) 40 mg PO QHS [facility] Last Admin: 05/11/18 21:47 Dose: 40 mg Documented by: Bisacodyl (Dulcolax) 10 mg [place] QDAY PRN PRN Reason: Constipation Gabapentin (Neurontin) 100 mg PO BID [facility] Last Admin: 05/12/18 09:17 Dose: 100 mg Documented by: Hydroxyzine HCl (Atarax) 25 mg PO QHS [facility] Last Admin: 05/11/18 21:47 Dose: 25 mg Documented by: Sodium Chloride (Nacl 0.9% 1000 Ml) 500 mls @ 999 mls/hr IV DIRECT [facility] Levofloxacin (Levaquin) 250 mg PO Q48HR [facility] Magnesium Hydroxide (Milk Of Magnesia) 30 ml PO Q4H PRN PRN Reason: Constipation Last Admin: 05/08/18 17:18 Dose: 30 ml Documented by: Metoclopramide HCl (Reglan) 10 mg PO Q6H PRN PRN Reason: Nausea And Vomiting Last Admin: 05/08/18 20:05 Dose: 10 mg Documented by: Midodrine (Proamatine) 10 mg PO TID@0800,1200,1600 [facility] Ondansetron HCl (Zofran) 4 mg IV Q8H PRN PRN Reason: Nausea And Vomiting Last Admin: 05/09/18 10:05 Dose: 4 mg Documented by: Pantoprazole Sodium (Protonix) 40 mg PO DAILY [facility] Last Admin: 05/12/18 09:16 Dose: 40 mg Documented by: Promethazine HCl (Phenergan) 25 mg [place] Q6H PRN PRN Reason: Nausea And Vomiting Sodium Chloride (Sodium Chloride Flush Syringe 10 Ml) 10 ml IV PRN PRN PRN Reason: LINE FLUSH Last Admin: 05/09/18 10:05 Dose: 10 ml Documented by: Review of Systems Constitutional: fatigue, weakness, no weight loss, no weight gain, no fever, no chills, no sweats Cardiovascular: edema, no chest pain, no orthopnea, no palpitations, no rapid/irregular heart beat Respiratory: no cough with sputum, no excessive sputum, no hemoptysis, no shortness of breath Gastrointestinal: no abdominal pain, no nausea, no vomiting, no diarrhea, no c onstipation Rectal: no pain, no incontinence, no bleeding Musculoskeletal: muscle weakness, limitation of motion Integumentary: foot/leg ulcers, no rash, no pruritis, no redness Neurological: weakness, no transient paralysis, no paralysis, no seizures, no syncope Psychiatric: memory loss, no change in sleep habits, no sleep disturbances, no insomnia Endocrine: no cold intolerance, no heat intolerance, no polyphagia, no excessive thirst, no polyuria Exam - Vital Signs Vital signs: Vital Signs Temp Pulse Resp BP Pulse Ox 98 F 67 17 106/49 100 05/04/18 10:26 05/04/18 10:26 05/04/18 10:26 05/04/18 10:05/04/18 10:26 - General Appearance General appearance: well-developed, obese, fatigue EENT: ATNC, PERRL, hearing intact, vision intact Neck: Present: neck supple, trachea midline Respiratory: Decreased Breath Sounds Heart: regular, S1S2 Gastrointestinal: Present: normoactive bowel sounds, obese Integumentary: ulcer, other Neurologic: other (Awake and alert.) Musculoskeletal: Present: joint swelling, other (Has 1+ edema to upepr extremitties and has 2-3+ edema to lower extremities) Results - Lab Results 05/12/18 05:17 05/12/18 12:59 Most recent lab results Calcium 6.5 mg/dL (8.4-10.2) L 05/12/18 05:17 Magnesium 1.60 mg/dL (1.7-2.3) L 05/04/18 11:06 Assessment and Plan Acute Renal Failure possibly secondary to prerenal vs ATN from Hypotension, rule out AIN: Anasarca: -Serum creatinine noted to be 6.1 today, yesterday's was 4.3, admission serum creatinine was 1.2 -Obtain renal ultrasound to rule out obstruction -Obtain urine lytes-urine eosinophils, urine protein and urine creatinine -Obtain GN work-up as well -D/C IVF as patient is volume overloaded -Obtain CXR today -Obtain daily weights -Monitor I/O's -Discuss hemodialysis initiation with patient as in addition to his advanced renal failure he is volume overloaded, patient states he wants to talk with his brother first -Updated weight control lecturer as well -Will monitor renal function closely Atrial fibrillation: -On Metoprolol and Eliquis. -As per primary team Cellulitis: -On IV Levaquin -As per primary team Left lower extremity hematoma: -S/P excisional debridement and drainage of hematoma -As per General surgeon Hypotension: -On Midodrine 10 mg po TID -Monitor BP
[2018-05-12 14:05] LABS: Calcium 6.9 mg/dL (8.4-10.2)
--- NOTE | 2018-05-12 14:10 | Progress Note ---
Assessment and Plan Assessment and plan: Bilateral lower extremity and left arm weakness. Unable to perform MRI lumbar spine due to body habitus. Atrial fibrillation. Continue rate control with metoprolol and eliquis. Telemetry monitoring. Cellulitis. Continue empiric antibiotics. Left lower extremity hematoma. Status post excisional debridement of blister with evacuation of hematoma of left lower extremity Hypotension; chronic. Midodrine on 05/12/18, stop BP meds on 05/11/18. will monitor UTI; on levaquin 250 q48h started on 04/13, F/U blood culture Acute renal failure; Cr is 6.1 today, was 1.2 two days ago. Nephrology consulted and considering dialysis. anemia 2/2 GI bleed , was treated at [facility]. Hemoglobin this morning was 7.8. Will monitor closely. OHS. Continue supplemental oxygen. BiPAP is clinically indicated. Debility/deconditioning. PT recommends EMILIE DVT prophylaxis. Disposition. continue inpatient car. History Interval history: Patient was seen and evaluated this morning, patient was alert and oriented. Patient complains pain. Hospitalist Physical - Physical exam Narrative exam: Not in cardiopulmonary distress. The patient is morbidly obese. Vital signs as documented. Head exam is unremarkable. No scleral icterus . Neck is without jugular venous distension, thyromegaly, or carotid bruits. Lungs are clear to auscultation. Cardiac exam reveals regular rate and Rhythm. Abdominal exam reveals normal bowel sounds. Extremities trace edema, clean dressing on the left leg, some rddis discoloration in the arm. 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 No focal weakness. - Constitutional Vitals: Temp Pulse Resp BP Pulse Ox 98.3 F 75 16 84/33 94 05/12/18 12:58 05/12/18 12:58 05/12/18 12:58 05/12/18 12:58 05/12/18 12:58 General appearance: Present: no acute distress, well-nourished Results - Labs CBC & Chem 7: 05/12/18 05:17 05/12/18 05:17 Labs: Laboratory Last Values WBC 8.7 K/mm3 (4.5-11.0) 05/09/18 13:19 RBC 2.79 M/mm3 (3.65-5.03) L 05/09/18 13:19 Hgb 7.8 gm/dl (11.8-15.2) L 05/12/18 05:17 Hct 23.0 % (35.5-45.6) L 05/12/18 05:17 MCV 93 fl (84-94) 05/09/18 13:19 MCH 32 pg (28-32) 05/09/18 13:19 MCHC 34 % (32-34) 05/09/18 13:19 RDW 19.5 % (13.2-15.2) H 05/09/18 13:19 Plt Count 115 K/mm3 (140-440) L 05/09/18 13:19 Lymph % (Auto) 8.7 % (13.4-35.0) L 05/09/18 13:19 [place] % (Auto) 4.2 % (0.0-7.3) 05/09/18 13:19 Eos % (Auto) 2.1 % (0.0-4.3) 05/09/18 13:19 Baso % (Auto) 0.4 % (0.0-1.8) 05/09/18 13:19 Lymph # 0.8 K/mm3 (1.2-5.4) L 05/09/18 13:19 [place] # 0.4 K/mm3 (0.0-0.8) 05/09/18 13:19 Eos # 0.2 K/mm3 (0.0-0.4) 05/09/18 13:19 Baso # 0.0 K/mm3 (0.0-0.1) 05/09/18 13:19 Seg Neutrophils % 84.6 % (40.0-70.0) H 05/09/18 13:19 Seg Neutrophils # 7.4 K/mm3 (1.8-7.7) 05/09/18 13:19 PT 19.4 Sec. (12.2-14.9) H 05/06/18 09:57 INR 1.53 (0.87-1.13) H 05/06/18 09:57 APTT 35.4 Sec. (24.2-36.6) 05/06/18 09:57 Sodium 131 mmol/L (137-145) L 05/12/18 05:17 Potassium 4.7 mmol/L (3.6-5.0) 05/12/18 05:17 Chloride 98.1 mmol/L (98-107) 05/12/18 05:17 Carbon Dioxide 24 mmol/L (22-30) 05/12/18 05:17 Anion Gap 14 mmol/L 05/12/18 05:17 BUN 32 mg/dL (9-20) H 05/12/18 05:17 Creatinine 6.1 mg/dL (0.8-1.5) H 05/12/18 05:17 Estimated GFR 9 ml/min 05/12/18 05:17 BUN/Creatinine Ratio 5 % 05/12/18 05:17 Glucose 62 mg/dL (75-100) L 05/12/18 05:17 Lactic Acid 1.40 mmol/L (0.7-2.0) 05/04/18 21:23 Calcium 6.5 mg/dL (8.4-10.2) L 05/12/18 05:17 Magnesium 1.60 mg/dL (1.7-2.3) L 05/04/18 11:06 Total Bilirubin 1.40 mg/dL (0.1-1.2) H 05/04/18 11:06 Direct Bilirubin 0.5 mg/dL (0-0.2) H 05/04/18 11:06 Indirect Bilirubin 0.9 mg/dL 05/04/18 11:06 AST 20 units/L (5-40) 05/04/18 11:06 ALT 8 units/L (7-56) 05/04/18 11:06 Alkaline Phosphatase 66 units/L (35-129) 05/04/18 11:06 Total Creatine Kinase 161 units/L (55-170) 05/04/18 21:23 NT-Pro-B Natriuret Pep 874.7 pg/mL (0-900) 05/04/18 11:06 Total Protein 5.3 g/dL (6.3-8.2) L 05/04/18 11:06 Albumin 1.9 g/dL (3.9-5) L 05/04/18 11:06 Albumin/Globulin Ratio 0.6 % 05/04/18 11:06 Lipase 9 units/L (13-60) L 05/04/18 11:06 Urine Color [place] (Yellow) 05/04/18 16:53 Urine Turbidity Slightly-cloudy (Clear) 05/04/18 16:53 Urine pH 5.0 (5.0-7.0) 05/04/18 16:53 Ur Specific [place] 1.033 (1.003-1.030) H 05/04/18 16:53 Urine Protein 30 mg/dl mg/dL (Negative) 05/04/18 16:53 Urine Glucose (UA) Neg mg/dL (Negative) 05/04/18 16:53 Urine Ketones Neg mg/dL (Negative) 05/04/18 16:53 Urine Blood Sm (Negative) 05/04/18 16:53 Urine Nitrite Pos (Negative) 05/04/18 16:53 Urine Bilirubin Neg (Negative) 05/04/18 16:53 Urine Urobilinogen 2.0 mg/dL (<2.0) 05/04/18 16:53 Ur Leukocyte Esterase Lg (Negative) 05/04/18 16:53 Urine WBC (Auto) > 182.0 /HPF (0.0-6.0) H 05/04/18 16:53 Urine RBC (Auto) 15.0 /HPF (0.0-6.0) 05/04/18 16:53 U Epithel Cells (Auto) 2.0 /HPF (0-13.0) 05/04/18 16:53 Urine Bacteria (Auto) 2+ /HPF (Negative) 05/04/18 16:53 Hyaline Casts 5 /LPF 05/04/18 16:53 Urine Mucus Few /HPF 05/04/18 16:53 Active Medications - Current Medications Current Medications: Generic Name Dose Route Start Last Admin Trade Name Freq PRN Reason Stop Dose Admin Acetaminophen 650 mg 05/04/18 13:14 05/12/18 09:17 Tylenol PO 650 mg Q4H PRN Administration Pain, Mild (1-3) Apixaban 2.5 mg 05/05/18 22:00 05/12/18 09:16 Eliquis PO 2.5 mg BID GABE Administration Protocol Aspirin 325 mg 05/05/18 10:00 05/12/18 09:17 Aspirin PO 325 mg QDAY GABE Administration Atorvastatin Calcium 40 mg 05/04/18 22:00 05/11/18 21:47 Lipitor PO 40 mg QHS GABE Administration Bisacodyl 10 mg 05/04/18 13:14 Dulcolax [place] QDAY PRN Constipation Gabapentin 100 mg 05/11/18 22:00 05/12/18 09:17 Neurontin PO 100 mg BID GABE Administration Hydroxyzine HCl 25 mg 05/11/18 22:00 05/11/18 21:47 Atarax PO 25 mg QHS GABE Administration Sodium Chloride 500 mls @ 999 mls/hr 05/11/18 16:00 Nacl 0.9% 1000 Ml IV DIRECT GABE Levofloxacin 250 mg 05/14/18 10:00 Levaquin PO Q48HR GABE Magnesium Hydroxide 30 ml 05/04/18 13:14 05/08/18 17:18 Milk Of Magnesia PO 30 ml Q4H PRN Administration Constipation Metoclopramide HCl 10 mg 05/04/18 13:14 05/08/18 20:05 Reglan PO 10 mg Q6H PRN Administration Nausea And Vomiting Midodrine 10 mg 05/12/18 12:00 Proamatine PO TID@0800,1200,1600 GABE Ondansetron HCl 4 mg 05/04/18 13:14 05/09/18 10:05 Zofran IV 4 mg Q8H PRN Administration Nausea And Vomiting Pantoprazole Sodium 40 mg 05/05/18 10:00 05/12/18 09:16 Protonix PO 40 mg DAILY GABE Administration Promethazine HCl 25 mg 05/04/18 13:14 Phenergan [place] Q6H PRN Nausea And Vomiting Sodium Chloride 10 ml 05/04/18 13:14 05/09/18 10:05 Sodium Chloride Flush Syringe 10 Ml IV 10 ml PRN PRN Administration LINE FLUSH Nutrition/Malnutrition Assess - Dietary Evaluation Nutrition/Malnutrition Findings: Nutrition Notes Start: 05/05/18 16:55 Freq: Status: Active Protocol: Document 05/11/18 14:43 RD (Rec: 05/11/18 15:02 RD [email or web address]) Co-Sign 05/11/18 14:43 LP Nutrition Notes Initial or Follow up Reassessment Current Diagnosis Hypertension,Stroke Other Pertinent Diagnosis Obesity, Achalasia, Cellulitis , Debility Current Diet Regular Labs/Tests Reviewed Pertinent Medications Reviewed Height 5 ft 9 in Weight 117.7 kg [place] Body Weight (kg) 72.72 BMI 38.3 Subjective/Other Information Pt stated he is not eating well, only ate a few bites of grits and drank OJ for breakfast. Pt is not receiving supplement. Pt stated he is not receiving phone calls for menu preferences, internet marketing manager brought menu papers to room. Percent of energy/protein needs met: 12%/ 8% Burn Absent Trauma Absent #1 Nutrition Diagnosis Inadequate oral intake Etiology poor appetite As Evidenced by Signs and Symptoms consuming less than 25% of meals Is patient on ventilator? No Is Patient Ambulatory and/or Out of Bed No REE-([facility]-confined to bed) 2359.488 Kcal/Kg value to use for calculation 17 Approximate Energy Requirements Using 2001 kcal/Kg Calculation Used for Recommendations Kcal/kg Additional Notes Protein Needs: 114-143g (1.2-1 .5g/kg 95kg adjBW) Fluid Needs: 1 ml/kcal Nutrition Intervention Change Diet Order: Continue current Add Supplement/Snack (indicate name/kcal Ensure Enlive TID /protein ) Provides kCal: 1,050 Provides Protein (gm) 60 Goal #1 Meet at least 75% of calorie and protein needs via PO intakes Anticipated Discharge Needs: Regular diet Follow-Up By: 05/13/18 Additional Comments Follow for PO and ONS intakes
[2018-05-12] MEDS: PROAMATINE PO SCH ×2 (14:17→18:20)
[2018-05-12 22:05] LABS: Hepatitis B Surface Antigen Non-Reactive (Negative); Hepatitis C Virus Antibody Non-Reactive (NonReactive)
[2018-05-12] MEDS: ATARAX PO SCH (23:04)
[2018-05-13] MEDS ORDERED: NACL 0.9% 250ML 250 ML IV ONE (00:23)
[2018-05-13 06:04] LABS: Basophils % (Auto) 0.8 % (0.0-1.8); Eosinophils # (Auto) 0.3 K/mm3 (0.0-0.4); Eosinophils % (Auto) 5.9 % (0.0-4.3); Hematocrit 22.5 % (35.5-45.6); Hemoglobin 7.7 gm/dl (11.8-15.2); Lymphocytes # (Auto) 1.3 K/mm3 (1.2-5.4); Lymphocytes % (Auto) 25.9 % (13.4-35.0); Mean Corpuscular HGB Conc 34 % (32-34); Mean Corpuscular Volume 94 fl (84-94); Monocytes # (Auto) 0.4 K/mm3 (0.0-0.8); Monocytes % (Auto) 8.4 % (0.0-7.3); Platelet Count 126 K/mm3 (140-440); Red Blood Count 2.41 M/mm3 (3.65-5.03); Red Cell Distribution Width 18.5 % (13.2-15.2)
[2018-05-13 06:18] LABS: Albumin 1.4 g/dL (3.9-5); Calcium 7.2 mg/dL (8.4-10.2)
[2018-05-13] MEDS: PROAMATINE PO SCH ×3 (08:19→19:10)
[2018-05-13] MEDS: ASPIRIN PO SCH (09:21)
[2018-05-13] MEDS: ELIQUIS PO SCH ×2 (09:21→21:15)
[2018-05-13] MEDS: NEURONTIN PO SCH ×2 (09:22→21:15)
[2018-05-13] MEDS: PROTONIX PO SCH (09:22)
--- NOTE | 2018-05-13 10:01 | XRay Report ---
AP CHEST: HISTORY: Fluid overload, renal failure Mild increase in pulmonary venous congestion is demonstrated since 05/04/18. The lungs are clear. There is no evidence for pleural effusion, infiltrate or pneumothorax. Heart size is at the upper limits of normal. IMPRESSION: Mild pulmonary venous congestion.
--- NOTE | 2018-05-13 10:10 | Progress Note ---
Assessment and Plan Acute Renal Failure possibly secondary to prerenal vs ATN from Hypotension, rule out AIN: Anasarca: -Serum creatinine noted to be 6.2 today, yesterday's was 5.9, admission serum creatinine was 1.2 -Renal ultrasound-pending -CXR shows- Mild pulmonary venous congestion -Obtain urine lytes and urine eosinophils -Urine protein- 30 -Obtain GN work-up as well, so far Hepatitis panel and HIV labs are negative -D/C IVF as patient is volume overloaded -Obtain daily weights -Monitor I/O's -Discuss hemodialysis initiation with patient and his brother and brother's at bedside today as in addition to his advanced renal failure he is volume overloaded, patient and family now agreeable to hemodialysis. -Will consult vascular surgeon Dr. Jung for vasc cath placement and will initiate hemodialysis today after it is placed -Monitor for renal recovery Hypotension: -On Midodrine 10 mg po TID -IV Albumin with hemodialysis for BP support -Monitor BP Atrial fibrillation: -On Metoprolol and Eliquis. -As per primary team Cellulitis: -On IV Levaquin -As per primary team Left lower extremity hematoma: -S/P excisional debridement and drainage of hematoma -As per General surgeon Subjective Date of service: 05/13/18 Principal diagnosis: ARF Interval history: Patient seen lying in bed. Brother and other family at bedside. Discussed hemodialysis. Objective - Vital Signs Vital signs: Vital Signs - 12hr 05/13/18 05/13/18 05/13/18 00:05 00:18 01:11 Temperature 98.0 F Pulse Rate 74 75 Respiratory 20 18 Rate Respiratory 18 Rate [Left Posterior Leg] Blood Pressure 74/25 97/22 Blood Pressure [Left] O2 Sat by Pulse 93 93 Oximetry 05/13/18 05/13/18 06:52 08:15 Temperature 98.0 F 98.0 F Pulse Rate 74 77 Respiratory 20 12 Rate Respiratory Rate [Left Posterior Leg] Blood Pressure 82/28 Blood Pressure 84/23 [Left] O2 Sat by Pulse 94 92 Oximetry - General Appearance General appearance: well-developed, appears stated age, obese, fatigue EENT: ATNC, hearing intact, vision intact Neck: no JVD, supple Respiratory: Present: Decreased Breath Sounds Cardiology: S1S2 Gastrointestinal: normoactive bowel sounds, obese Integumentary: warm and dry, other (Has PVD and cellulitis) Neurologic: alert and oriented x3 Musculoskeletal: other (Has 2+ edema to BLE) Psychiatric: cooperative - Lab 05/13/18 05:20 05/13/18 05:20 Most recent lab results Calcium 7.2 mg/dL (8.4-10.2) L 05/13/18 05:20 Magnesium 1.60 mg/dL (1.7-2.3) L 05/04/18 11:06 Medications & Allergies - Medications Allergies/Adverse Reactions: Allergies Penicillins Allergy (Severe, Verified 05/04/18 10:55) Anaphylaxis cyclobenzaprine [From Flexeril] Allergy (Verified 05/04/18 10:55) Hives Home Medications: Home Medications Medication Instructions Recorded Confirmed Last Taken Type Apixaban [Eliquis] 2.5 mg PO DAILY 04/10/18 05/04/18 04/10/18 History Gabapentin [Neurontin] 300 mg PO BID 04/10/18 05/04/18 04/10/18 History Hydroxyzine HCl [hydrOXYzine] 25 mg PO DAILY 04/10/18 05/04/18 04/10/18 History Lansoprazole [Prevacid] 30 mg PO DAILY 04/10/18 05/04/18 04/10/18 History Lisinopril [Zestril] 5 mg PO QDAY 04/10/18 05/04/18 04/10/18 History Metoprolol [Lopressor] 25 mg PO BID 04/10/18 05/04/18 04/10/18 History Active Medications: Generic Name Dose Route Start Last Admin Trade Name Freq PRN Reason Stop Dose Admin Acetaminophen 650 mg 05/04/18 13:14 05/12/18 09:17 Tylenol PO 650 mg Q4H PRN Administration Pain, Mild (1-3) Apixaban 2.5 mg 05/05/18 22:00 05/13/18 09:21 Eliquis PO 2.5 mg BID GABE Administration Protocol Aspirin 325 mg 05/05/18 10:00 05/13/18 09:21 Aspirin PO 325 mg QDAY GABE Administration Atorvastatin Calcium 40 mg 05/04/18 22:00 05/12/18 23:04 Lipitor PO 40 mg QHS GABE Administration Bisacodyl 10 mg 05/04/18 13:14 Dulcolax MD QDAY PRN Constipation Gabapentin 100 mg 05/11/18 22:00 05/13/18 09:22 Neurontin PO 100 mg BID GABE Administration Hydroxyzine HCl 25 mg 05/11/18 22:00 05/12/18 23:04 Atarax PO 25 mg QHS GABE Administration Magnesium Hydroxide 30 ml 05/04/18 13:14 05/08/18 17:18 Milk Of Magnesia PO 30 ml Q4H PRN Administration Constipation Metoclopramide HCl 10 mg 05/04/18 13:14 05/08/18 20:05 Reglan PO 10 mg Q6H PRN Administration Nausea And Vomiting Midodrine 10 mg 05/12/18 12:00 05/13/18 08:19 Proamatine PO 10 mg TID@0800,1200,1600 GABE Administration Ondansetron HCl 4 mg 05/04/18 13:14 05/09/18 10:05 Zofran IV 4 mg Q8H PRN Administration Nausea And Vomiting Pantoprazole Sodium 40 mg 05/05/18 10:00 05/13/18 09:22 Protonix PO 40 mg DAILY GABE Administration Promethazine HCl 25 mg 05/04/18 13:14 Phenergan MD Q6H PRN Nausea And Vomiting Sodium Chloride 10 ml 05/04/18 13:14 05/09/18 10:05 Sodium Chloride Flush Syringe 10 Ml IV 10 ml PRN PRN Administration LINE FLUSH
[2018-05-13] MEDS ORDERED: NACL 0.9% 100 ML IV PRN (10:23)
[2018-05-13] MEDS ORDERED: PROCRIT IV PRN (10:23)
[2018-05-13] MEDS ORDERED: ALBURX 25% (ALBUMIN) IV PRN (10:23)
[2018-05-13] MEDS ORDERED: HEPARIN/NS 5000 UNIT/500ML(CATH LAB) 500 ML IR ONE (13:08)
[2018-05-13] MEDS ORDERED: XYLOCAINE 1%/ EPI 1:100,000 INFILTRATI ONE (13:08)
[2018-05-13] MEDS ORDERED: SUBLIMAZE ONE (13:09)
[2018-05-13] MEDS ORDERED: VERSED ONE (13:09)
[2018-05-13] MEDS ORDERED: NACL 0.9% 250ML 250 ML ONE (13:31)
--- NOTE | 2018-05-13 13:53 | Progress Note ---
Assessment and Plan Assessment and plan: Hypotension with dizziness - Patient is on Midodrine with no improvement - Patient needs pressors and will be transferred to ICU Acute kidney injury cause is unknown - Nephrology consulted will do dialysis after the vasc cath today, discussed with Dr Jung and will put triple lumen so that he can get pressors - Patient's BP is low and will need pressors Bilateral lower extremity and left arm weakness. Unable to perform MRI lumbar spine due to body habitus. Atrial fibrillation. Continue rate control with metoprolol and eliquis. Telemetry monitoring. Cellulitis. Continue empiric antibiotics. Left lower extremity hematoma. Status post excisional debridement of blister with evacuation of hematoma of left lower extremity Hypotension; chronic. Midodrine on 05/12/18, stop BP meds on 05/11/18. will monitor UTI; was treated with antibiotics Anemia 2/2 GI bleed , was treated at [facility]. Hemoglobin this morning was 7.7. Will monitor closely. OHS. Continue supplemental oxygen. BiPAP is clinically indicated. Debility/deconditioning. PT recommends EMILIE when stable. DVT prophylaxis. Disposition; Transfer to ICU. Discussed with Dr Emerson History Interval history: Patient was seen and evaluated this morning, patient is complaining dizziness. Hospitalist Physical - Physical exam Narrative exam: Not in cardiopulmonary distress. The patient is morbidly obese. Vital signs as documented. Head exam is unremarkable. No scleral icterus . Neck is without jugular venous distension, thyromegaly, or carotid bruits. Lungs are clear to auscultation. Cardiac exam reveals regular rate and Rhythm. Abdominal exam reveals normal bowel sounds. Extremities trace edema, clean dressing on the left leg, some rddis discoloration in the arm. 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 No focal weakness. - Constitutional Vitals: Temp Pulse Resp BP Pulse Ox 97.9 F 72 16 79/24 96 05/13/18 11:55 05/13/18 11:55 05/13/18 11:55 05/13/18 11:55 05/13/18 11:55 General appearance: Present: no acute distress, well-nourished Results - Labs CBC & Chem 7: 05/13/18 05:20 05/13/18 05:20 Labs: Laboratory Last Values WBC 5.2 K/mm3 (4.5-11.0) 05/13/18 05:20 RBC 2.41 M/mm3 (3.65-5.03) L 05/13/18 05:20 Hgb 7.7 gm/dl (11.8-15.2) L 05/13/18 05:20 Hct 22.5 % (35.5-45.6) L 05/13/18 05:20 MCV 94 fl (84-94) 05/13/18 05:20 MCH 32 pg (28-32) 05/13/18 05:20 MCHC 34 % (32-34) 05/13/18 05:20 RDW 18.5 % (13.2-15.2) H 05/13/18 05:20 Plt Count 126 K/mm3 (140-440) L 05/13/18 05:20 Lymph % (Auto) 25.9 % (13.4-35.0) 05/13/18 05:20 [place] % (Auto) 8.4 % (0.0-7.3) H 05/13/18 05:20 Eos % (Auto) 5.9 % (0.0-4.3) H 05/13/18 05:20 Baso % (Auto) 0.8 % (0.0-1.8) 05/13/18 05:20 Lymph # 1.3 K/mm3 (1.2-5.4) 05/13/18 05:20 [place] # 0.4 K/mm3 (0.0-0.8) 05/13/18 05:20 Eos # 0.3 K/mm3 (0.0-0.4) 05/13/18 05:20 Baso # 0.0 K/mm3 (0.0-0.1) 05/13/18 05:20 Seg Neutrophils % 59.0 % (40.0-70.0) 05/13/18 05:20 Seg Neutrophils # 3.0 K/mm3 (1.8-7.7) 05/13/18 05:20 PT 19.4 Sec. (12.2-14.9) H 05/06/18 09:57 INR 1.53 (0.87-1.13) H 05/06/18 09:57 APTT 35.4 Sec. (24.2-36.6) 05/06/18 09:57 Sodium 132 mmol/L (137-145) L 05/13/18 05:20 Potassium 4.7 mmol/L (3.6-5.0) 05/13/18 05:20 Chloride 98.9 mmol/L (98-107) 05/13/18 05:20 Carbon Dioxide 22 mmol/L (22-30) 05/13/18 05:20 Anion Gap 16 mmol/L 05/13/18 05:20 BUN 36 mg/dL (9-20) H 05/13/18 05:20 Creatinine 6.2 mg/dL (0.8-1.5) H 05/13/18 05:20 Estimated GFR 9 ml/min 05/13/18 05:20 BUN/Creatinine Ratio 6 % 05/13/18 05:20 Glucose 81 mg/dL (75-100) 05/13/18 05:20 Lactic Acid 1.40 mmol/L (0.7-2.0) 05/04/18 21:23 Calcium 7.2 mg/dL (8.4-10.2) L 05/13/18 05:20 Magnesium 1.60 mg/dL (1.7-2.3) L 05/04/18 11:06 Total Bilirubin 0.70 mg/dL (0.1-1.2) 05/13/18 05:20 Direct Bilirubin 0.5 mg/dL (0-0.2) H 05/04/18 11:06 Indirect Bilirubin 0.9 mg/dL 05/04/18 11:06 AST 33 units/L (5-40) 05/13/18 05:20 ALT 9 units/L (7-56) 05/13/18 05:20 Alkaline Phosphatase 73 units/L (35-129) 05/13/18 05:20 Total Creatine Kinase 161 units/L (55-170) 05/04/18 21:23 NT-Pro-B Natriuret Pep 874.7 pg/mL (0-900) 05/04/18 11:06 Total Protein 4.9 g/dL (6.3-8.2) L 05/13/18 05:20 Albumin 1.4 g/dL (3.9-5) L 05/13/18 05:20 Albumin/Globulin Ratio 0.4 % 05/13/18 05:20 Lipase 9 units/L (13-60) L 05/04/18 11:06 Urine Color [place] (Yellow) 05/04/18 16:53 Urine Turbidity Slightly-cloudy (Clear) 05/04/18 16:53 Urine pH 5.0 (5.0-7.0) 05/04/18 16:53 Ur Specific [place] 1.033 (1.003-1.030) H 05/04/18 16:53 Urine Protein 30 mg/dl mg/dL (Negative) 05/04/18 16:53 Urine Glucose (UA) Neg mg/dL (Negative) 05/04/18 16:53 Urine Ketones Neg mg/dL (Negative) 05/04/18 16:53 Urine Blood Sm (Negative) 05/04/18 16:53 Urine Nitrite Pos (Negative) 05/04/18 16:53 Urine Bilirubin Neg (Negative) 05/04/18 16:53 Urine Urobilinogen 2.0 mg/dL (<2.0) 05/04/18 16:53 Ur Leukocyte Esterase Lg (Negative) 05/04/18 16:53 Urine WBC (Auto) > 182.0 /HPF (0.0-6.0) H 05/04/18 16:53 Urine RBC (Auto) 15.0 /HPF (0.0-6.0) 05/04/18 16:53 U Epithel Cells (Auto) 2.0 /HPF (0-13.0) 05/04/18 16:53 Urine Bacteria (Auto) 2+ /HPF (Negative) 05/04/18 16:53 Hyaline Casts 5 /LPF 05/04/18 16:53 Urine Mucus Few /HPF 05/04/18 16:53 Hepatitis A IgM Ab Non-reactive (NonReactive) 05/12/18 20:16 Hep Bs Antigen Non-reactive (Negative) 05/12/18 20:16 Hep B Core IgM Ab Non-reactive (NonReactive) 05/12/18 20:16 Hepatitis C Antibody Non-reactive (NonReactive) 05/12/18 20:16 HIV 1&2 Antibody Rapid Non react (Non React) 05/12/18 20:16 HIV P24 Antigen Non react (Non React) 05/12/18 20:16 Active Medications - Current Medications Current Medications: Generic Name Dose Route Start Last Admin Trade Name Freq PRN Reason Stop Dose Admin Acetaminophen 650 mg 05/04/18 13:14 05/12/18 09:17 Tylenol PO 650 mg Q4H PRN Administration Pain, Mild (1-3) Albumin Human 12.5 gm 05/13/18 10:23 [place] 25% (Albumin) IV BRIELLE PRN Hypotension Apixaban 2.5 mg 05/05/18 22:00 05/13/18 09:21 Eliquis PO 2.5 mg BID [facility] Administration Protocol Aspirin 325 mg 05/05/18 10:00 05/13/18 09:21 Aspirin PO 325 mg QDAY GABE Administration Atorvastatin Calcium 40 mg 05/04/18 22:00 05/12/18 23:04 Lipitor PO 40 mg QHS [facility] Administration Bisacodyl 10 mg 05/04/18 13:14 Dulcolax IN QDAY PRN Constipation Epoetin [place] 20,000 unit 05/13/18 10:23 Procrit IV BRIELLE PRN hemodialysis Gabapentin 100 mg 05/11/18 22:00 05/13/18 09:22 Neurontin PO 100 mg BID [facility] Administration Hydroxyzine HCl 25 mg 05/11/18 22:00 05/12/18 23:04 Atarax PO 25 mg QHS [facility] Administration Sodium Chloride 100 mls @ 999 mls/hr 05/13/18 10:23 Nacl 0.9% IV BRIELLE PRN Hypotension Magnesium Hydroxide 30 ml 05/04/18 13:14 05/08/18 17:18 Milk Of Magnesia PO 30 ml Q4H PRN Administration Constipation Metoclopramide HCl 10 mg 05/04/18 13:14 05/08/18 20:05 Reglan PO 10 mg Q6H PRN Administration Nausea And Vomiting Midodrine 10 mg 05/12/18 12:00 05/13/18 12:58 Proamatine PO Not Given TID@0800,1200,1600 [facility] Ondansetron HCl 4 mg 05/04/18 13:14 05/09/18 10:05 Zofran IV 4 mg Q8H PRN Administration Nausea And Vomiting Pantoprazole Sodium 40 mg 05/05/18 10:00 05/13/18 09:22 Protonix PO 40 mg DAILY [facility] Administration Promethazine HCl 25 mg 05/04/18 13:14 Phenergan IN Q6H PRN Nausea And Vomiting Sodium Chloride 10 ml 05/04/18 13:14 05/09/18 10:05 Sodium Chloride Flush Syringe 10 Ml IV 10 ml PRN PRN Administration LINE FLUSH Nutrition/Malnutrition Assess - Dietary Evaluation Nutrition/Malnutrition Findings: Nutrition Notes Start: 05/05/18 16:55 Freq: Status: Active Protocol: Document 05/13/18 12:01 RD (Rec: 05/13/18 12:51 RD [email or web address]) Co-Sign 05/13/18 12:01 LP Nutrition Notes Initial or Follow up Reassessment Current Diagnosis Hypertension,Stroke Other Pertinent Diagnosis Obesity, Achalasia, Cellulitis , Debility Current Diet Regular Labs/Tests Na 132 BUN 36 Creat 6.2 Pertinent Medications Reviewed Height 5 ft 9 in Weight 117.7 kg [place] Body Weight (kg) 72.72 BMI 38.3 Subjective/Other Information Pt asleep at time of visit, family at bedside able to provide information. Per family, pt eating only a few bites of food and doesn't want more. Per report, pt refusing meals. Pt to start dialysis soon. Pt does like oatmeal, grits, and fruit. Pt does not like chocolate Ensure. Percent of energy/protein needs met: 0%/0% Burn Absent Trauma Absent #1 Nutrition Diagnosis Inadequate oral intake Diagnosis Progress(for reassessment Continues documentation) Is patient on ventilator? No Is Patient Ambulatory and/or Out of Bed No REE-([facility]-confined to bed) 2559.488 Kcal/Kg value to use for calculation 17 Approximate Energy Requirements Using 2001 kcal/Kg Calculation Used for Recommendations Kcal/kg Additional Notes Protein Needs: 114-143g (1.2-1 .5g/kg 95kg adjBW) Fluid Needs: 1 ml/kcal Nutrition Intervention Change Diet Order: Change to renal Add Supplement/Snack (indicate name/kcal [place] TID /protein ) Provides kCal: 1,275 Provides Protein (gm) 57 Goal #1 Meet at least 75% of calorie and protein needs via PO intakes Anticipated Discharge Needs: Renal diet Follow-Up By: 05/17/18 Additional Comments f/u: PO and ONS intakes
[2018-05-13] MEDS: HEPARIN 10,000 UNITS/10 ML ONE ×2 (14:05→14:06)
--- NOTE | 2018-05-13 14:13 | Consultation ---
History of Present Illness - Reason for Consult Consult date: 05/13/18 ARF - History of Present Illness 63 year old white male who presents to the hospital with a chief complaint of weakness which resulted in him falling. On evaluation patient was found to have Cellulitis to his left leg. Patient has history of Hypertension, Diabetes Mellitus, CVA, Afib on Eliquis and Achlasia for which he has underwent esophageal surgery. Serum creatinine on admission was 1.2 but it has kay to 6.1 today. We are being consulted for management of this patient's Acute Renal Failure. Patient's creatinine has not declined. Patient is fluid overloaded. Vascular consulted for vascath placement. 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 denies: smoking, alcohol abuse, prescription drug abuse Family history: diabetes (parents), hypertension (father, mother, brother), other (no history of epilepsy). denies: stroke Medications and Allergies Allergies Allergy/AdvReac Type Severity Reaction Status Date / Time Penicillins Allergy Severe Anaphylaxis Verified 05/04/18 10:55 cyclobenzaprine Allergy Hives Verified 05/04/18 10:55 [From Flexeril] Home Medications Medication Instructions Recorded Confirmed Last Taken Type Apixaban [Eliquis] 2.5 mg PO DAILY 04/10/18 05/04/18 04/10/18 History Gabapentin [Neurontin] 300 mg PO BID 04/10/18 05/04/18 04/10/18 History Hydroxyzine HCl [hydrOXYzine] 25 mg PO DAILY 04/10/18 05/04/18 04/10/18 History Lansoprazole [Prevacid] 30 mg PO DAILY 04/10/18 05/04/18 04/10/18 History Lisinopril [Zestril] 5 mg PO QDAY 04/10/18 05/04/18 04/10/18 History Metoprolol [Lopressor] 25 mg PO BID 04/10/18 05/04/18 04/10/18 History Active Meds: Active Medications Acetaminophen (Tylenol) 650 mg PO Q4H PRN PRN Reason: Pain, Mild (1-3) Last Admin: 05/12/18 09:17 Dose: 650 mg Documented by: Albumin Human (Alburx 25% (Albumin)) 12.5 gm IV BRIELLE PRN PRN Reason: Hypotension Apixaban (Eliquis) 2.5 mg PO BID [facility]; Protocol Last Admin: 05/13/18 09:21 Dose: 2.5 mg Documented by: Aspirin (Aspirin) 325 mg PO QDAY [facility] Last Admin: 05/13/18 09:21 Dose: 325 mg Documented by: Atorvastatin Calcium (Lipitor) 40 mg PO QHS [facility] Last Admin: 05/12/18 23:04 Dose: 40 mg Documented by: Bisacodyl (Dulcolax) 10 mg ND QDAY PRN PRN Reason: Constipation Epoetin Kyrie (Procrit) 20,000 unit IV BRIELLE PRN PRN Reason: hemodialysis Gabapentin (Neurontin) 100 mg PO BID [facility] Last Admin: 05/13/18 09:22 Dose: 100 mg Documented by: Hydroxyzine HCl (Atarax) 25 mg PO QHS [facility] Last Admin: 05/12/18 23:04 Dose: 25 mg Documented by: Sodium Chloride (Nacl 0.9%) 100 mls @ 999 mls/hr IV BRIELLE PRN PRN Reason: Hypotension Magnesium Hydroxide (Milk Of Magnesia) 30 ml PO Q4H PRN PRN Reason: Constipation Last Admin: 05/08/18 17:18 Dose: 30 ml Documented by: Metoclopramide HCl (Reglan) 10 mg PO Q6H PRN PRN Reason: Nausea And Vomiting Last Admin: 05/08/18 20:05 Dose: 10 mg Documented by: Midodrine (Proamatine) 10 mg PO TID@0800,1200,1600 [facility] Last Admin: 05/13/18 12:58 Dose: Not Given Documented by: Ondansetron HCl (Zofran) 4 mg IV Q8H PRN PRN Reason: Nausea And Vomiting Last Admin: 05/09/18 10:05 Dose: 4 mg Documented by: Pantoprazole Sodium (Protonix) 40 mg PO DAILY [facility] Last Admin: 05/13/18 09:22 Dose: 40 mg Documented by: Promethazine HCl (Phenergan) 25 mg ND Q6H PRN PRN Reason: Nausea And Vomiting Sodium Chloride (Sodium Chloride Flush Syringe 10 Ml) 10 ml IV PRN PRN PRN Reason: LINE FLUSH Last Admin: 05/09/18 10:05 Dose: 10 ml Documented by: Review of Systems All systems: negative (see HPI) Exam - Constitutional Vitals: Temp Pulse Resp BP Pulse Ox 97.9 F 72 16 79/24 96 05/13/18 11:55 05/13/18 11:55 05/13/18 11:55 05/13/18 11:55 05/13/18 11:55 General appearance: Present: no acute distress - EENT Eyes: Present: EOM intact ENT: hearing intact - Respiratory Respiratory effort: normal - Psychiatric Psychiatric: appropriate mood/affect, cooperative Results - Labs CBC & Chem 7: 05/13/18 05:20 05/13/18 05:20 Labs: Abnormal lab results 05/13/18 05/13/18 Range/Units 05:20 05:20 RBC 2.41 L (3.65-5.03) M/mm3 Hgb 7.7 L (11.8-15.2) gm/dl Hct 22.5 L (35.5-45.6) % RDW 18.5 H (13.2-15.2) % Plt Count 126 L (140-440) K/mm3 Kimble % (Auto) 8.4 H (0.0-7.3) % Eos % (Auto) 5.9 H (0.0-4.3) % Sodium 132 L (137-145) mmol/L BUN 36 H (9-20) mg/dL Creatinine 6.2 H (0.8-1.5) mg/dL Calcium 7.2 L (8.4-10.2) mg/dL Total Protein 4.9 L (6.3-8.2) g/dL Albumin 1.4 L (3.9-5) g/dL Assessment and Plan 63-year-old male with multiple medical issues including acute renal failure did not respond to conservative therapy. Request for Vas-Cath. Patient is also intermittently hypotensive. We'll place a triple-lumen Vas-Cath for pressor support and dialysis issues.
--- NOTE | 2018-05-13 14:17 | Operative Report ---
Operative Report Operative Report: EXAM: 1. Ultrasound-guided puncture of the right internal jugular vein 2. Fluoroscopic-guided placement of a right internal jugular nontunneled noncuffed hemodialysis catheter. DATE: 05/13/18 INDICATION: Acute renal failure requiring hemodialysis. MEDICATIONS: Please see nursing report for full details. DEVICES: 15 cm triple lumen hemodialysis catheter METAL FURNITURE POLISHER: ANNIE SOLIS MD CONTRAST: None PROCEDURE: The risks, benefits, and alternatives were discussed and informed consent was obtained. The patient was transported to the angiography suite in satisfactory/stable condition and was transported onto the angiography table. The patient's right internal jugular vein was assessed with ultrasound and determined to be patent prior to procedure. The patient was prepped and draped in a sterile fashion. The puncture site was anesthetized. The right internal jugular vein was patent on ultrasound. Under sonographic guidance, the right internal jugular vein was punctured with a 21-gauge micropuncture needle and a 0.018 inch wire was advanced through the needle. Needle was exchanged for transitional dilator. The inner dilator and wire was removed and a 0.035 inch wire was advanced through the transitional dilator into the inferior vena cava. Over the 0.035 inch wire, serial dilatation was performed. The catheter was advanced over the wire and positioned centrally under fluoroscopic guidance. 2-0 ethilon suture was used to secure the catheter. The catheter was charged with heparin 1000 units/mL space in each dialysis lumen with heparin flush in the central lumen. Biopatch, and sterile dressing applied.. The patient was transferred from the angiography suite back to the floor in stable condition. FINDINGS: 1. Excellent flow was obtained through the dialysis catheter with 20 mL syringes. 2. The catheter tip is in the right atrium. IMPRESSION: 1. Successful sonographically and fluoroscopically guided placement of a right internal jugular nontunneled noncuffed hemodialysis catheter.
[2018-05-13] MEDS: LEVOPHED DRIP 4 MG/NS 250 ML 4 MG/250 ML BAG IV SCH ×2 (15:20→21:16)
[2018-05-13] MEDS: TYLENOL PO PRN (21:15)
[2018-05-13] MEDS: ATARAX PO SCH (21:15)
--- NOTE | 2018-05-13 22:12 | Ultrasound Report ---
PROCEDURE: US RENAL BILAT TECHNIQUE: Real-time sonography in multiple planes of the kidneys, ureters and urinary bladder was p erformed with image documentation. HISTORY: renal failure COMPARISONS: None . FINDINGS: Severely limited study due to patient's body habitus RIGHT kidney: Normal echotexture. No focal renal mass, calculus, or hydronephrosis. Length: 11.9 x 5 .7 x 5.1 cm. LEFT kidney: The patient was complaining of extreme emotional pain to touch in the left flank and lef t upper quadrant. Hence, left kidney was not evaluated. IMPRESSION: Grossly limited study due to patient's body habitus Patient was unable to cooperate for left kidney evaluation. Right kidney is unremarkable.. This document is electronically signed by Rhett Dumont MD., May 13 2018 10:10:07 PM ET
[2018-05-14] MEDS: ZOFRAN IV PRN ×2 (01:44→19:33)
[2018-05-14] MEDS: LEVOPHED DRIP 4 MG/NS 250 ML 4 MG/250 ML BAG IV SCH ×7 (02:00→23:11)
[2018-05-14 02:25] LABS: Hematocrit 24.1 % (35.5-45.6); Hemoglobin 8.2 gm/dl (11.8-15.2)
[2018-05-14] MEDS ORDERED: REGLAN IV ONE (03:30)
[2018-05-14] MEDS ORDERED: NACL 0.9% 500 ML 500 ML IV ONE (03:35)
[2018-05-14] MEDS ORDERED: PROTONIX 80 MG in NACL 0.9% 100 ML IV SCH ×2 (04:00→06:51)
[2018-05-14] MEDS ORDERED: PROTONIX IV SCH ×2 (04:00→10:00)
[2018-05-14] MEDS: NEO-SYNEPHRINE 100 MG in NACL 0.9% 90 ML IV SCH ×2 (06:19→22:08)
[2018-05-14] MEDS: PROAMATINE PO SCH ×2 (08:34→17:02)
--- NOTE | 2018-05-14 09:38 | Gastroenterology Consultation ---
History of Present Illness - Reason for Consult Consult date: 05/14/18 GI bleed Requesting physician: RAZ GONZALEZ - History of Present Illness Patient is a 63 y/o male who presented to ED for evaluation of confusion and progressive weakness s/p a fall. Upon admission, he was found to have LLE cellulitis and is currently in ICU on levophed drip being treated for hy potension, acute kidney failure (s/p vascath placement yesterday with dialysis pending for today), bilateral lower extremity/left arm weakness, and debility. GI has been consulted for a GI bleed after patient vomited up blood yesterday. Patient is previously known to our to our service from a consult last month for an upper GI bleed 2/2 an esophageal ulcer with visible vessel with bleeding unable to be controlled after multiple EGDs with control of bleeding measures (s/p endoclips and gold probe) requiring patient transfer to [facility] for esophageal stent placement by cardiothoracic surgeon. This morning patient was resting in bed with family at bedside. Reports 3 episodes of hematemesis overnight with last episode at 3am this morning. No melena or hematochezia. Admits to some continued nausea but denies fever, CP, SOB, abd pain, diarrhea or constipation. Upon exam, dried blood was noted around mouth. Rectal exam revealed brown stool. PMH significant for HTN, obesity, Afib (on Eliquis), and Achalasia with multiple prior esophageal surgeries. 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 denies: smoking, alcohol abuse, prescription drug abuse Family history: diabetes (parents), hypertension (father, mother, brother), other (no history of epilepsy). denies: stroke Medications and Allergies Allergies Allergy/AdvReac Type Severity Reaction Status Date / Time Penicillins Allergy Severe Anaphylaxis Verified 05/04/18 10:55 cyclobenzaprine Allergy Hives Verified 05/04/18 10:55 [From Flexeril] Home Medications Medication Instructions Recorded Confirmed Last Taken Type Apixaban [Eliquis] 2.5 mg PO DAILY 04/10/18 05/04/18 04/10/18 History Gabapentin [Neurontin] 300 mg PO BID 04/10/18 05/04/18 04/10/18 History Hydroxyzine HCl [hydrOXYzine] 25 mg PO DAILY 04/10/18 05/04/18 04/10/18 History Lansoprazole [Prevacid] 30 mg PO DAILY 04/10/18 05/04/18 04/10/18 History Lisinopril [Zestril] 5 mg PO QDAY 04/10/18 05/04/18 04/10/18 History Metoprolol [Lopressor] 25 mg PO BID 04/10/18 05/04/18 04/10/18 History Active Meds: Active Medications Acetaminophen (Tylenol) 650 mg PO Q4H PRN PRN Reason: Pain, Mild (1-3) Last Admin: 05/13/18 21:15 Dose: 650 mg Documented by: Albumin Human (Alburx 25% (Albumin)) 12.5 gm IV BRIELLE PRN PRN Reason: Hypotension Apixaban (Eliquis) 2.5 mg PO BID [facility]; Protocol Last Admin: 05/13/18 21:15 Dose: 2.5 mg Documented by: Aspirin (Aspirin) 325 mg PO QDAY [facility] Last Admin: 05/13/18 09:21 Dose: 325 mg Documented by: Atorvastatin Calcium (Lipitor) 40 mg PO QHS [facility] Last Admin: 05/13/18 21:15 Dose: 40 mg Documented by: Bisacodyl (Dulcolax) 10 mg AR QDAY PRN PRN Reason: Constipation Epoetin Kyrie (Procrit) 20,000 unit IV BRIELLE PRN PRN Reason: hemodialysis Gabapentin (Neurontin) 100 mg PO BID [facility] Last Admin: 05/13/18 21:15 Dose: 100 mg Documented by: Hydroxyzine HCl (Atarax) 25 mg PO QHS [facility] Last Admin: 05/13/18 21:15 Dose: 25 mg Documented by: Sodium Chloride (Nacl 0.9%) 100 mls @ 999 mls/hr IV BRIELLE PRN PRN Reason: Hypotension Norepinephrine (Levophed Drip 4 Mg/Ns 250 Ml) 4 mg in 250 mls @ 7.5 mls/hr IV TITR [facility]; Protocol Last Admin: 05/14/18 07:14 Dose: 30 mcg/min, 112.5 mls/hr Documented by: Phenylephrine HCl 100 mg/ (Sodium Chloride) 100 mls @ 3 mls/hr IV TITR [facility]; Protocol Last Titration: 05/14/18 08:33 Dose: 100 mcg/min, 6 mls/hr Documented by: Pantoprazole Sodium 80 mg/ (Sodium Chloride) 100 mls @ 10 mls/hr IV DIRECT [facility] Magnesium Hydroxide (Milk Of Magnesia) 30 ml PO Q4H PRN PRN Reason: Constipation Last Admin: 05/08/18 17:18 Dose: 30 ml Documented by: Metoclopramide HCl (Reglan) 10 mg PO Q6H PRN PRN Reason: Nausea And Vomiting Last Admin: 05/08/18 20:05 Dose: 10 mg Documented by: Midodrine (Proamatine) 10 mg PO TID@0800,1200,1600 [facility] Last Admin: 05/14/18 08:34 Dose: Not Given Documented by: Ondansetron HCl (Zofran) 4 mg IV Q8H PRN PRN Reason: Nausea And Vomiting Last Admin: 05/14/18 01:44 Dose: 4 mg Documented by: Promethazine HCl (Phenergan) 25 mg AR Q6H PRN PRN Reason: Nausea And Vomiting Sodium Chloride (Sodium Chloride Flush Syringe 10 Ml) 10 ml IV PRN PRN PRN Reason: LINE FLUSH Last Admin: 05/09/18 10:05 Dose: 10 ml Documented by: medications reviewed/updated as required Review of Systems - Review of Systems Gastrointestinal: nausea, hematemesis, no melena, no hematochezia Exam - Constitutional Vital Signs: Temp Pulse Resp BP Pulse Ox 98.0 F 85 17 106/34 100 05/14/18 08:00 05/14/18 08:15 05/14/18 08:15 05/14/18 08:15 05/14/18 09:01 General appearance: other (In ICU on pressor support) - EENT Eyes: PERRL, EOM intact ENT: hearing intact - Respiratory Respiratory effort: normal - Cardiovascular Rhythm: regular - Gastrointestinal General gastrointestinal: Present: soft, tender, non-distended, normal bowel win nds Rectal Exam: stool brown (career technical education instructor present during exam-Cher (tech)) - Neurologic Neurological: alert and oriented x3 - Labs CBC & Chem 7: 05/14/18 09:45 05/14/18 04:45 Lab Results: Laboratory Results - last 24 hr 05/14/18 05/14/18 05/14/18 01:50 04:00 04:45 Hgb 8.2 L Hct 24.1 L PTH Intact 31.45 Blood Type O NEGATIVE Antibody Screen Negative Crossmatch See Detail Assessment and Plan 1.GI bleed 2.hematemesis 3.H/O achalasia (s/p multiple esophageal surgeries; s/p esophageal stent placement 04/2018 2/2 bleeding esophageal ulcer) -plt 126, INR 1.53 -H/H 7.7/23.0-stable -patient with 3 episodes of hematemesis overnight w/ last episode at 3am. No melena or hematochezia. Rectal exam this am revealed brown stool. -patient had an UGIB last month 2/2 esophageal ulcer with bleeding unable to be controlled with endoscopic measures requiring transfer to [facility] with esophageal stent placed by cardiothoracic surgeon (Dr. Schofield) -s/p EGD 04/11/18 that showed large blood clot in lower esophagus extending to proximal stomach with visualization limited -s/p EGD 04/12/18 that revealed an esophageal ulcer with visible vessel and heme spots s/p clip placement and gold probe -s/p EGD 04/15/18 that showed prior esophageal ulcer with endoclips with no bleeding and Heller myotomy with partial gastric wrap and suture w/o bleeding -s/p EGD/colon 04/16 that showed healing esophageal ulcer and liquid dark brown stool in colon with no high risk lesions -clinically, patient is currently critically ill in ICU on levophed drip with continued hypotension. -recommend transfer to tertiary center ([facility]) for further management/treatment- hospitalist (Dr. Garza) aware -continue to monitor H/H and transfuse as needed -hold blood thinning medications (Eliquis) -Keep NPO -continue protonix drip -continue supportive care -will discuss with Dr. Vences with further recommendations to follow 4.Afib 5.acute kidney failure (s/p vascath placement w/ dialysis pending for today) 6.hypotension (on levophed drip)
[2018-05-14 09:51] LABS: Hemoglobin 7.7 gm/dl (11.8-15.2)
[2018-05-14] MEDS ORDERED: LEVAQUIN PO SCH (10:00)
--- NOTE | 2018-05-14 10:25 | Consultation ---
History of Present Illness Consult date: 05/14/18 Requesting physician: NUVIA BOWER Reason for consult: other (Hypotension requiring vasopressor support) History of present illness: 63 year old man knw to me from a recent hospitalization with hemorrhagic shock, s/p multiple endoscopes on a background of esophagectomy. Transferred to [facility] where an esophageal stent was placed. He was discharged and apparently fell at his daughter's home. Admitted for stabilization and possible discharge to inpatient rehab unti. Hospitalization complicated by renal failure, s/p ABUNDIO peraltacatkya. Developed hypotension requiring vasopressor support and Transferred to the ICU. I hav been consulted for critical care management. Patient was seen and examined. Vitals, labs, medications, chart were reviewed. His daughter an brother/ALCIDES are at the bedside. He denies any chest pain, no shortness of breath, no fevers or chills. He had hematemesis this morning and complains of vague abdominal pain. 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 denies: smoking, alcohol abuse, prescription drug abuse Family history: diabetes (parents), hypertension (father, mother, brother), other (no history of epilepsy). denies: stroke Medications and Allergies Allergies Allergy/AdvReac Type Severity Reaction Status Date / Time Penicillins Allergy Severe Anaphylaxis Verified 05/04/18 10:55 cyclobenzaprine Allergy Hives Verified 05/04/18 10:55 [From Flexeril] Home Medications Medication Instructions Recorded Confirmed Last Taken Type Apixaban [Eliquis] 2.5 mg PO DAILY 04/10/18 05/04/18 04/10/18 History Gabapentin [Neurontin] 300 mg PO BID 04/10/18 05/04/18 04/10/18 History Hydroxyzine HCl [hydrOXYzine] 25 mg PO DAILY 04/10/18 05/04/18 04/10/18 History Lansoprazole [Prevacid] 30 mg PO DAILY 04/10/18 05/04/18 04/10/18 History Lisinopril [Zestril] 5 mg PO QDAY 04/10/18 05/04/18 04/10/18 History Metoprolol [Lopressor] 25 mg PO BID 04/10/18 05/04/18 04/10/18 History Active Meds: Active Medications Acetaminophen (Tylenol) 650 mg PO Q4H PRN PRN Reason: Pain, Mild (1-3) Last Admin: 05/13/18 21:15 Dose: 650 mg Documented by: Albumin Human (Alburx 25% (Albumin)) 12.5 gm IV BRIELLE PRN PRN Reason: Hypotension Apixaban (Eliquis) 2.5 mg PO BID [facility]; Protocol Last Admin: 05/13/18 21:15 Dose: 2.5 mg Documented by: Aspirin (Aspirin) 325 mg PO QDAY [facility] Last Admin: 05/13/18 09:21 Dose: 325 mg Documented by: Atorvastatin Calcium (Lipitor) 40 mg PO QHS [facility] Last Admin: 05/13/18 21:15 Dose: 40 mg Documented by: Bisacodyl (Dulcolax) 10 mg HI QDAY PRN PRN Reason: Constipation Epoetin Kyrie (Procrit) 20,000 unit IV BRIELLE PRN PRN Reason: hemodialysis Gabapentin (Neurontin) 100 mg PO BID [facility] Last Admin: 05/13/18 21:15 Dose: 100 mg Documented by: Hydroxyzine HCl (Atarax) 25 mg PO QHS [facility] Last Admin: 05/13/18 21:15 Dose: 25 mg Documented by: Sodium Chloride (Nacl 0.9%) 100 mls @ 999 mls/hr IV BRIELLE PRN PRN Reason: Hypotension Norepinephrine (Levophed Drip 4 Mg/Ns 250 Ml) 4 mg in 250 mls @ 7.5 mls/hr IV TITR [facility]; Protocol Last Admin: 05/14/18 10:06 Dose: 30 mcg/min, 112.5 mls/hr Documented by: Phenylephrine HCl 100 mg/ (Sodium Chloride) 100 mls @ 3 mls/hr IV TITR [facility]; Protocol Last Titration: 05/14/18 09:45 Dose: 130 mcg/min, 7.8 mls/hr Documented by: Pantoprazole Sodium 80 mg/ (Sodium Chloride) 100 mls @ 10 mls/hr IV DIRECT GABE Magnesium Hydroxide (Milk Of Magnesia) 30 ml PO Q4H PRN PRN Reason: Constipation Last Admin: 05/08/18 17:18 Dose: 30 ml Documented by: Metoclopramide HCl (Reglan) 10 mg PO Q6H PRN PRN Reason: Nausea And Vomiting Last Admin: 05/08/18 20:05 Dose: 10 mg Documented by: Midodrine (Proamatine) 10 mg PO TID@0800,1200,1600 [facility] Last Admin: 05/14/18 08:34 Dose: Not Given Documented by: Ondansetron HCl (Zofran) 4 mg IV Q8H PRN PRN Reason: Nausea And Vomiting Last Admin: 05/14/18 01:44 Dose: 4 mg Documented by: Promethazine HCl (Phenergan) 25 mg HI Q6H PRN PRN Reason: Nausea And Vomiting Sodium Chloride (Sodium Chloride Flush Syringe 10 Ml) 10 ml IV PRN PRN PRN Reason: LINE FLUSH Last Admin: 05/09/18 10:05 Dose: 10 ml Documented by: Review of Systems Constitutional: fatigue, weakness, no weight loss, no weight gain, no fever, no chills, no sweats, no night sweats Cardiovascular: lightheadedness, no chest pain, no orthopnea, no palpitations, no rapid/irregular heart beat, no edema, no shortness of breath Respiratory: no cough, no cough with sputum, no hemoptysis, no shortness of breath Gastrointestinal: abdominal pain, nausea, vomiting, hematemesis Neurological: no weakness, no parathesias, no numbness, no tingling, no ataxia Psychiatric: depression, hopelessness Physical Examination Vital signs: Vital Signs Temp Pulse Resp BP Pulse Ox 98 F 67 17 106/49 100 05/04/18 10:26 05/04/18 10:26 05/04/18 10:26 05/04/18 10:26 05/04/18 10:26 General appearance: no acute distress, lethargic, other (chronically ill loooking, crsted blood around his mouth and in oral cavity) Eyes: non-icteric ENT: oropharynx dry Neck: supple, no lymphadenopathy, no JVD, other (RIJ Trialysis catheter) Effort: mildly labored Ascultation: Bilateral: diminished breath sounds Cardiovascular: other (Tachycardia, S1,S2, ) Gastrointestinal: hypoactive bowel sounds, soft, tender, other (distended, no peritoneal signs) Integumentary: other (facial eryhtemtous rash with flaking, lower extemity ecchymosis) Extremities: no edema, pulses normal, no ischemia or petechiae normal mental status, non-focal exam, pupils equal and round, CN II-XII normal depressed Results - Laboratory Findings CBC and BMP: 05/14/18 09:45 05/14/18 04:45 PT/INR, D-dimer PT 19.4 Sec. (12.2-14.9) H 05/06/18 09:57 INR 1.53 (0.87-1.13) H 05/06/18 09:57 Abnormal lab findings: Abnormal Labs 05/04/18 05/04/18 05/04/18 11:06 11:06 11:06 RBC 3.13 L Hgb 9.8 L Hct 29.4 L RDW 17.6 H Plt Count Lymph % (Auto) [place] % (Auto) Eos % (Auto) Lymph # Seg Neutrophils % 72.6 H PT 26.0 H INR 2.21 H APTT 41.7 H Sodium 132 L Chloride 93.2 L Carbon Dioxide 31 H BUN Creatinine Glucose 138 H Lactic Acid Calcium 7.7 L Magnesium Total Bilirubin 1.40 H Direct Bilirubin 0.5 H Total Protein 5.3 L Albumin 1.9 L Lipase 9 L Ur Specific [place] Urine WBC (Auto) Crossmatch 05/04/18 05/04/18 05/04/18 11:06 11:06 16:53 RBC Hgb Hct RDW Plt Count Lymph % (Auto) [place] % (Auto) Eos % (Auto) Lymph # Seg Neutrophils % PT INR APTT Sodium Chloride Carbon Dioxide BUN Creatinine Glucose Lactic Acid 2.30 H* Calcium Magnesium 1.60 L Total Bilirubin Direct Bilirubin Total Protein Albumin Lipase Ur Specific [place] 1.033 H Urine WBC (Auto) > 182.0 H Crossmatch 05/06/18 05/09/18 05/09/18 09:57 13:19 13:19 RBC 2.79 L Hgb 8.8 L Hct 26.0 L RDW 19.5 H Plt Count 115 L Lymph % (Auto) 8.7 L [place] % (Auto) Eos % (Auto) Lymph # 0.8 L Seg Neutrophils % 84.6 H PT 19.4 H INR 1.53 H APTT Sodium 131 L Chloride Carbon Dioxide BUN Creatinine 4.3 H Glucose 128 H Lactic Acid Calcium 6.3 L Magnesium Total Bilirubin Direct Bilirubin Total Protein Albumin Lipase Ur Specific [place] Urine WBC (Auto) Crossmatch 05/12/18 05/12/18 05/12/18 05:17 05:17 12:59 RBC Hgb 7.8 L Hct 23.0 L RDW Plt Count Lymph % (Auto) [place] % (Auto) Eos % (Auto) Lymph # Seg Neutrophils % PT INR APTT Sodium 131 L 128 L Chloride 97.6 L Carbon Dioxide 21 L BUN 32 H 33 H Creatinine 6.1 H 5.9 H Glucose 62 L Lactic Acid Calcium 6.5 L 6.9 L Magnesium Total Bilirubin Direct Bilirubin Total Protein Albumin Lipase Ur Specific [place] Urine WBC (Auto) Crossmatch 05/13/18 05/13/18 05/14/18 05:20 05:20 01:50 RBC 2.41 L Hgb 7.7 L 8.2 L Hct 22.5 L 24.1 L RDW 18.5 H Plt Count 126 L Lymph % (Auto) [place] % (Auto) 8.4 H Eos % (Auto) 5.9 H Lymph # Seg Neutrophils % PT INR APTT Sodium 132 L Chloride Carbon Dioxide BUN 36 H Creatinine 6.2 H Glucose Lactic Acid Calcium 7.2 L Magnesium Total Bilirubin Direct Bilirubin Total Protein 4.9 L Albumin 1.4 L Lipase Ur Specific [place] Urine WBC (Auto) Crossmatch 05/14/18 05/14/18 05/14/18 04:00 04:45 09:45 RBC Hgb 7.7 L Hct 23.0 L RDW Plt Count Lymph % (Auto) [place] % (Auto) Eos % (Auto) Lymph # Seg Neutrophils % PT INR APTT Sodium 134 L Chloride Carbon Dioxide 20 L BUN 38 H Creatinine 5.7 H Glucose 134 H Lactic Acid Calcium 7.0 L Magnesium Total Bilirubin Direct Bilirubin Total Protein Albumin Lipase Ur Specific [place] Urine WBC (Auto) Crossmatch See Detail - Diagnostic Findings Chest x-ray: image reviewed (Increased interstitial markings with globular heart) Assessment and Plan -Shock, multifactorial -Acute renal failure -UGIB -s/p esophageal stent, possible erosion/migration/perforation -Morbid obesity -Deconditioning -Depression -h/o Atrial fibrillation -Serial Hand H -Vasopresor suppor to keep MAP>65, add vasopressin. Currently on maximal doses of neosynephrine and norepinephrine -Needs invasive hemodynamic monitoring, place intra-arterial line -Volume resuscitation with albumin -Blood cultures, urinalysis with urine culture -Get procalcitonin levels -Empiric antibiotics for possible peritonitis His hemoglobin has not dropped significantly for the degree of hypotension he is has It is possible he is yet to equilibrate but will empirically treat for septic shock -Strict NPO -Therapeutic PPI -SCDs for VTE prophylaxis -Supportive HD as tolerated by hemodynamics -Discussed extensively with the GI service and the family. He is better served by transfer to [facility] for evaluation of the esophageal stent to ensure it has not migrated/eroded the wall. Continue with resuscitative measures and stabilization until a bed and transportation is available CONDITION: CRITICAL PROGNOSIS: GUARDED CODE STATUS: FULL CODE. The high probability of a clinically significant, sudden or life threatening deterioration of the [CV, renal, hematologic] system(s) required my full and direct attention, intervention and personal management. The aggregate critical care time was [45] minutes. This time is in addition to time spent performing reported procedures but includes the following: [x] Data Review and interpretation [x] Patient assessment and monitoring of vital signs [x] Documentation [x] Medication orders and management
[2018-05-14] MEDS: ASPIRIN PO SCH (11:09)
[2018-05-14] MEDS: ELIQUIS PO SCH (11:09)
[2018-05-14] MEDS: NEURONTIN PO SCH (11:09)
[2018-05-14] MEDS ORDERED: NACL 0.9% 1000 ML 2,000 ML ONE (11:21)
[2018-05-14] MEDS ORDERED: ALBUTEIN IV ONE ×2 (13:24→19:00)
[2018-05-14] MEDS ORDERED: VANCOMYCIN/NS 1 GM/250 ML 1 GM/250 ML BAG IV ONE (13:27)
--- NOTE | 2018-05-14 13:54 | Discharge Summary ---
Providers - Providers Date of Admission: 05/04/18 13:14 Attending physician: NUVIA BOWER MD 05/04/18 13:14 Consult to Case Management [CONS] Routine Services Needed at Discharge: Other Notified:: CASE MANAGEMENT Additional Physician Instructions: Please send out for SNF/Rehab placement Occupational Therapy Evaluate and Treat [CONS] Routine Comment: Reason For Exam: Neuro deficits Physical Therapy Evaluation and Treat [CONS] Routine Comment: Reason For Exam: Neuro deficits 05/04/18 13:15 Speech Therapy Evaluation and Treat [CONS] Routine Reason For Exam: swallow eval 05/04/18 13:18 Consult to Physician [CONS] Routine Comment: LI AWAREOF CONSULT 1400 Consulting Provider: ANNIE DOSHI Physician Instructions: Reason For Exam: cva 05/06/18 12:50 Consult to Wound/ET Nurse [CONS] Routine Reason For Exam: wound eval 05/07/18 10:17 Consult to Physician [CONS] Urgent Comment: Consulting Provider: CHUCK LARKIN Physician Instructions: Reason For Exam: EVALUATE HEMATOMA FOR POSSIBLE EVACUATION LEFT LEG 05/12/18 11:58 Consult to Physician [CONS] Routine Comment: Consulting Provider: RC BEGUM Physician Instructions: Reason For Exam: ZAID 05/13/18 10:21 Consult to Physician [CONS] Routine Comment: Consulting Provider: ANNIE SOLIS Physician Instructions: Reason For Exam: vac cath placement 05/14/18 02:03 Consult to Physician [CONS] Routine Comment: Consulting Provider: STACEY SCHILLING Physician Instructions: Reason For Exam: gib 05/14/18 09:52 Consult to Physician [CONS] Urgent Comment: Consulting Provider: TREVOR TOURE Physician Instructions: Reason For Exam: critical care [facility] Reason for admission: Shock, ZAID on dialysis, GI bleed Hospital course: Admission HPI 63 YO Male with HTN, Obesity, Obesity Hypoventilation, Atrial Fib currently on Therapeutic Anticoagulation (Eliquis), Achalasia S/P Esophageal Surgery, Esophageal Ulcer S/P Stent Placement presents to ED for evaluation. Pt states that he has experienced leg weakness over the past 1 day. Pt states that he was walking while at his daughters house on yesterday and experienced sudden onset of confusion and weakness which resulted in a fall. Pt states that he is unable to move his legs at this time. Pt also reports Right leg redness and ulceration. EMS notified, and upon arrival the patient was found to be in distress. Pt transported to [facility]. Initiated empiric IV antibiotic therapy. Pt admitted on 04/10/18 for GI Bleed, and Transferred to [facility] for persistent Upper GI Bleed. Patient denies fever, chills, CP, Palpitations, Abdominal Pain, productive cough, trauma, productive cough, or recent ill contacts. Patient was admitted to the floor and treated for cellulitis, couldn't do MRI of the spine because of his weight. Patient was evaluated by PT and recommended subacute rehab. patient's blood pressure was low especially the diastolic but patient was asymptomatic and was started with midodrine with minimal improvement. 3 days ago his cr went up to 4 and the day after it went to 6 and Nephrology was consulted and recommend dialysis, work up was negative and didn't know the cause of ZAID. yesterday vasc cath was placed and transferred to ICU to start him on pressors and started with 2 pressors and patient had dialysis this morning. Overnight he had 3 episodes of hematesmesis with no significant change in hemoglobin 7.7, from yesterday. GI was consulted and recommend to transfer the patient to [facility] where he had esophageal stent. Patient was alert and oriented, not in respiratory distress, not in pain. I have discussed the case with Dr Singh Hutson [facility] supportive employment case manager and acceppted the patient. Patient will be transferred by helicopter. Disposition: [id number] ANOTHER TYPE THCARE Time spent for discharge: 45 minutes - Discharge Diagnoses (1) Shock Status: Acute (2) GI bleed Status: Acute (3) Anemia Status: Acute Qualifiers: Anemia type: iron deficiency Iron deficiency anemia type: chronic blood loss Qualified Code(s): D50.0 - Iron deficiency anemia secondary to blood loss (chronic) (4) Acidosis Status: Acute (5) Alkalosis, metabolic Status: Acute (6) Anasarca Status: Acute (7) Anticoagulated Status: Acute (8) Atrial fibrillation Status: Acute Qualifiers: Atrial fibrillation type: persistent Qualified Code(s): I48.1 - Persistent atrial fibrillation (9) Cellulitis Status: Acute Qualifiers: Site of cellulitis of extremity: lower extremity Laterality: left (10) Morbid obesity Status: Acute (11) Weakness generalized Status: Acute Core Measure Documentation - Palliative Care Palliative Care/ Comfort Measures: Not Applicable - Core Measures Any of the following diagnoses?: none Exam - Physical Exam Narrative exam: Not in cardiopulmonary distress. The patient is morbidly obese. Vital signs as documented. Head exam is unremarkable. No scleral icterus . Neck is without jugular venous distension, thyromegaly, or carotid bruits. Lungs are clear to auscultation. Cardiac exam reveals regular rate and Rhythm. Abdominal exam reveals normal bowel sounds. Extremities trace edema, clean dressing on the left leg, some reddish discoloration in the arm. SEED CUTTER: Alert and oriented 3. No focal weakness. - Constitutional Vitals: Temp Pulse Resp BP Pulse Ox 98.3 F 92 H 15 87/35 99 05/14/18 12:00 05/14/18 11:45 05/14/18 10:15 05/14/18 11:45 05/14/18 10:00 Plan Activity: no restrictions Weight Bearing Status: Full Weight Bearing Diet: renal Follow up with: SARBJIT MURCIA MD [Primary Care Provider] - 3-5 Days
[2018-05-14] MEDS ORDERED: ZOSYN/NS 4.5GM/100ML 4.5 GM/100 ML VIAL IV ONE (14:00)
[2018-05-14] MEDS ORDERED: Vasostrict 20 UNIT in NACL 0.9% 100 ML IV SCH (14:00)
--- NOTE | 2018-05-14 15:58 | Progress Note ---
Assessment and Plan Acute Renal Failure possibly secondary to prerenal vs ATN from Hypotension, rule out AIN: Anasarca: -HD today for clearance and volume removal, did not tolerate much UF today, he may need CRRT when he arrives to [facility] -Obtain GN work-up as well, so far Hepatitis panel and HIV labs are negative -Obtain daily weights -Monitor I/O's -Monitor for renal recovery Hypotension: -On Midodrine 10 mg po TID -IV Albumin with hemodialysis for BP support -Monitor BP Atrial fibrillation: -On Metoprolol and Eliquis. -As per primary team Cellulitis: -On IV Levaquin -As per primary team Left lower extremity hematoma: -S/P excisional debridement and drainage of hematoma -As per General surgeon Subjective Date of service: 05/14/18 Principal diagnosis: ARF Interval history: tolerated HD this AM Objective - Vital Signs Vital signs: Vital Signs - 12hr 05/14/18 05/14/18 05/14/18 04:00 04:15 04:30 Temperature 98.7 F Pulse Rate 88 80 76 Respiratory 14 14 14 Rate Blood Pressure 72/25 87/29 82/29 O2 Sat by Pulse 97 97 98 Oximetry 05/14/18 05/14/18 05/14/18 04:45 05:00 05:15 Temperature Pulse Rate 77 77 79 Respiratory 14 14 13 Rate Blood Pressure 87/29 91/30 93/31 O2 Sat by Pulse 98 99 98 Oximetry 05/14/18 05/14/18 05/14/18 05:30 05:45 06:00 Temperature Pulse Rate 80 77 81 Respiratory 14 14 16 Rate Blood Pressure 94/29 87/28 88/32 O2 Sat by Pulse 99 99 100 Oximetry 05/14/18 05/14/18 05/14/18 06:15 06:30 06:45 Temperature Pulse Rate 81 79 78 Respiratory 13 13 13 Rate Blood Pressure 97/33 96/32 97/29 O2 Sat by Pulse 99 99 99 Oximetry 05/14/18 05/14/18 05/14/18 07:00 07:15 07:30 Temperature Pulse Rate 79 79 83 Respiratory 14 14 18 Rate Blood Pressure 100/34 105/35 101/36 O2 Sat by Pulse 99 100 100 Oximetry 05/14/18 05/14/18 05/14/18 07:45 08:00 08:15 Temperature 98.0 F Pulse Rate 83 83 85 Respiratory 14 14 17 Rate Blood Pressure 113/38 112/34 106/34 O2 Sat by Pulse 100 100 100 Oximetry 05/14/18 05/14/18 05/14/18 08:30 08:45 09:00 Temperature Pulse Rate 85 89 89 Respiratory 14 16 15 Rate Blood Pressure 106/40 113/34 91/33 O2 Sat by Pulse 100 100 100 Oximetry 05/14/18 05/14/18 05/14/18 09:01 09:16 09:30 Temperature Pulse Rate 94 H 88 Respiratory 17 16 Rate Blood Pressure 83/32 111/34 O2 Sat by Pulse 100 96 99 Oximetry 05/14/18 05/14/18 05/14/18 09:45 10:00 10:15 Temperature 98.9 F Pulse Rate 87 87 89 Respiratory 17 15 17 Rate Blood Pressure 119/36 113/35 111/36 O2 Sat by Pulse 99 99 99 Oximetry 05/14/18 05/14/18 05/14/18 10:30 10:45 10:46 Temperature Pulse Rate 84 91 H 94 H Respiratory 15 15 Rate Blood Pressure 111/33 87/34 73/30 O2 Sat by Pulse 100 99 Oximetry 05/14/18 05/14/18 05/14/18 11:00 11:15 11:30 Temperature Pulse Rate 84 85 87 Respiratory 16 16 16 Rate Blood Pressure 103/42 111/41 107/38 O2 Sat by Pulse 99 99 99 Oximetry 05/14/18 05/14/18 05/14/18 11:45 12:00 12:15 Temperature 98.3 F Pulse Rate 92 H 95 H 99 H Respiratory 15 15 16 Rate Blood Pressure 87/35 82/37 101/39 O2 Sat by Pulse 99 98 99 Oximetry 05/14/18 05/14/18 05/14/18 12:30 12:45 13:00 Temperature Pulse Rate 107 H 107 H 108 H Respiratory 16 17 18 Rate Blood Pressure 85/40 80/35 79/39 O2 Sat by Pulse 99 99 99 Oximetry 05/14/18 05/14/18 05/14/18 13:15 13:30 13:45 Temperature Pulse Rate 109 H 113 H 112 H Respiratory 18 18 18 Rate Blood Pressure 86/42 95/43 94/39 O2 Sat by Pulse 100 97 99 Oximetry 05/14/18 05/14/18 05/14/18 14:00 14:16 14:30 Temperature Pulse Rate 113 H 113 H 115 H Respiratory 18 21 20 Rate Blood Pressure 84/50 117/43 113/47 O2 Sat by Pulse 100 98 98 Oximetry 05/14/18 05/14/18 14:45 15:00 Temperature Pulse Rate 123 H 110 H Respiratory 24 22 Rate Blood Pressure 113/56 104/62 O2 Sat by Pulse 97 98 Oximetry - General Appearance General appearance: well-developed, well-nourished EENT: ATNC, PERRL Neck: no JVD, no carotid bruit Respiratory: Present: Rales, Decreased Breath Sounds Cardiology: regular, S1S2 Gastrointestinal: normoactive bowel sounds Integumentary: warm and dry Neurologic: no focal deficit, no asterixis, alert and oriented x3 Musculoskeletal: other (2+ pitting edema in BLE) Psychiatric: cooperative - Lab 05/14/18 09:45 05/14/18 04:45 Most recent lab results Calcium 7.0 mg/dL (8.4-10.2) L 05/14/18 04:45 Phosphorus 2.80 mg/dL (2.5-4.5) 05/14/18 04:45 Magnesium 1.60 mg/dL (1.7-2.3) L 05/04/18 11:06 Medications & Allergies - Medications Allergies/Adverse Reactions: Allergies Penicillins Allergy (Severe, Verified 05/04/18 10:55) Anaphylaxis cyclobenzaprine [From Flexeril] Allergy (Verified 05/04/18 10:55) Hives Home Medications: Home Medications Medication Instructions Recorded Confirmed Last Taken Type Apixaban [Eliquis] 2.5 mg PO DAILY 04/10/18 05/04/18 04/10/18 History Gabapentin [Neurontin] 300 mg PO BID 04/10/18 05/04/18 04/10/18 History Hydroxyzine HCl [hydrOXYzine] 25 mg PO DAILY 04/10/18 05/04/18 04/10/18 History Lansoprazole [Prevacid] 30 mg PO DAILY 04/10/18 05/04/18 04/10/18 History Lisinopril [Zestril] 5 mg PO QDAY 04/10/18 05/04/18 04/10/18 History Metoprolol [Lopressor] 25 mg PO BID 04/10/18 05/04/18 04/10/18 History Active Medications: Generic Name Dose Route Start Last Admin Trade Name Freq PRN Reason Stop Dose Admin Acetaminophen 650 mg 05/04/18 13:14 05/13/18 21:15 Tylenol PO 650 mg Q4H PRN Administration Pain, Mild (1-3) Albumin Human 12.5 gm 05/13/18 10:23 Alburx 25% (Albumin) IV BRIELLE PRN Hypotension Apixaban 2.5 mg 05/05/18 22:00 05/14/18 11:09 Eliquis PO Not Given BID [facility] Protocol Aspirin 325 mg 05/05/18 10:00 05/14/18 11:09 Aspirin PO Not Given QDAY [facility] Atorvastatin Calcium 40 mg 05/04/18 22:00 05/13/18 21:15 Lipitor PO 40 mg QHS [facility] Administration Bisacodyl 10 mg 05/04/18 13:[address] QDAY PRN Constipation Epoetin Kyrie 20,000 unit 05/13/18 10:23 05/14/18 12:00 Procrit IV 20,000 unit RBIELLE PRN Administration hemodialysis Gabapentin 100 mg 05/11/18 22:00 05/14/18 11:09 Neurontin PO Not Given BID [facility] Hydroxyzine HCl 25 mg 05/11/18 22:00 05/13/18 21:15 Atarax PO 25 mg QHS [facility] Administration Sodium Chloride 100 mls @ 999 mls/hr 05/13/18 10:23 Nacl 0.9% IV BRIELLE PRN Hypotension Norepinephrine 4 mg in 250 mls @ 7.5 mls/hr 05/13/18 15:00 05/14/18 10:06 Levophed Drip 4 Mg/Ns 250 Ml IV 30 mcg/min TITR [facility] 112.5 mls/hr Administration Protocol 2 MCG/MIN Phenylephrine HCl 100 mg/ 100 mls @ 3 mls/hr 05/14/18 06:00 05/14/18 11:09 Sodium Chloride IV 180 mcg/min TITR [facility] 10.8 mls/hr Titration Protocol 50 MCG/MIN Pantoprazole Sodium 80 mg/ 100 mls @ 10 mls/hr 05/14/18 06:51 Sodium Chloride IV DIRECT [facility] 8 MG/HR Vasopressin 20 unit/ Sodium 101 mls @ 9.09 mls/hr 05/14/18 14:00 Chloride IV TITR [facility] Protocol 0.03 UNITS/MIN Vancomycin HCl 2,000 mg/ 540 mls @ 250 mls/hr 05/14/18 16:00 Sodium Chloride IV 05/14/18 18:09 ONCE ONE Magnesium Hydroxide 30 ml 05/04/18 13:14 05/08/18 17:18 Milk Of Magnesia PO 30 ml Q4H PRN Administration Constipation Metoclopramide HCl 10 mg 05/04/18 13:14 05/08/18 20:05 Reglan PO 10 mg Q6H PRN Administration Nausea And Vomiting Midodrine 10 mg 05/12/18 12:00 05/14/18 08:34 Proamatine PO Not Given TID@0800,1200,1600 [facility] Ondansetron HCl 4 mg 05/04/18 13:14 05/14/18 01:44 Zofran IV 4 mg Q8H PRN Administration Nausea And Vomiting Promethazine HCl 25 mg 05/04/18 13:[address] Q6H PRN Nausea And Vomiting Sodium Chloride 10 ml 05/04/18 13:14 05/09/18 10:05 Sodium Chloride Flush Syringe 10 Ml IV 10 ml PRN PRN Administration LINE FLUSH
[2018-05-14] MEDS ORDERED: VANCOMYCIN 2,000 MG in NACL 0.9% 500 ML 500 ML IV ONE (16:00)
[2018-05-14] MEDS ORDERED: ZOFRAN IV PRN (17:30)
[2018-05-14] MEDS ORDERED: REGLAN IV PRN (17:41)
[2018-05-14] MEDS ORDERED: NACL 0.9% 500 ML 500 ML IV NR ×3 (18:07→18:24)
[2018-05-14 18:09] LABS: Basophils # (Auto) 0.1 K/mm3 (0.0-0.1); Basophils % (Auto) 0.5 % (0.0-1.8); Eosinophils # (Auto) 0.1 K/mm3 (0.0-0.4); Eosinophils % (Auto) 0.8 % (0.0-4.3); Hematocrit 20.6 % (35.5-45.6); Lymphocytes # (Auto) 2.5 K/mm3 (1.2-5.4); Lymphocytes % (Auto) 21.4 % (13.4-35.0); Mean Corpuscular HGB Conc 34 % (32-34); Mean Corpuscular Volume 93 fl (84-94); Monocytes % (Auto) 8.5 % (0.0-7.3); Platelet Count 134 K/mm3 (140-440); Red Blood Count 2.21 M/mm3 (3.65-5.03); Red Cell Distribution Width 18.5 % (13.2-15.2)
--- NOTE | 2018-05-14 18:18 | Event Note ---
Date: 05/14/18 Patient re evaluated Had upper GI bleed approximately 800 cc per Nursing-Ms Siegel Between 4 pm and 6 pm Slightly tachypneic Discussed with Dr Lancaster and Dr Vangie Vences suggested CTA chest and abdomen to localize the bleeding . Dr Lancaster and I agree with not doing CTA at this point of time because the patient is unstable and may have cardiac arrest Recommendations Surgery consult PRBC 2 units FFP 1 unit IV Albumin stat Poor prognosis
--- NOTE | 2018-05-14 18:25 | Event Note ---
Date: 05/14/18 called by GI and RN -Patient vomited about 800cc of blood with clots and is more hypotensive. Discussed wit Dr. Crabtree, who is at the bedside -transfuse 2 units PRBCs, give 1 unit of FFP and give a dose of albumin. Currently too unstable to transfer for imaging studies. Previous EGD did not reveal any ulcers and did not show esophageal varices. Needs to be transferred to a center for definitive care which may include surgical intervention. Discussed with general surgery -since this is esophageal bleeding, patient needs a thoracic surgeon. They had seen him in consult during his last hospitalization
--- NOTE | 2018-05-14 19:23 | Event Note ---
Date: 05/14/[address] Crabtree on this case. Pt has had a complicated history involving his esophagus. Based on his prior surgeries, he will mostly need a thoracic surgeon to address this issue. He will most likely need a complete esophagectomy based on his achalasia history and ulcer history. We not able to handle this here. Patient needs to be resuscitated with blood (as is currently being done) and transferred to a tertiary center.
--- NOTE | 2018-05-14 19:29 | Event Note ---
Date: 05/14/18 Called by RN that patient has hematemesis. - ordered stat CBC. - spoke with pulmonary attending, Dr. Lancaster and Hospitalist, Dr. Crabtree. - patient with complicated history of uncontrolled GI bleed from Mar admission s/p multiple EGD and ultimately transferred to [facility] for evaluation by CT surgery and had esophageal stent placed. - planned for transfer to [facility] today but no bed available. - concern for possible complication from the esophageal stent, aorticesophageal fistula, esophageal ulcer. - If patient stable enough for imaging, recommend CTA chest/abdomen, but patient currently not stable to go down. - agree with blood transfusion. - recommend transfer to another facility with CT surgery evaluation available if no bed at [facility].
--- NOTE | 2018-05-14 20:10 | Progress Note ---
Assessment and Plan Assessment and plan: Hypotension with dizziness, Shock - Patient is on 2 pressors in the ICU Acute kidney injury cause is unknown - Nephrology consulted and on dialysis , vasc cath was placed Bilateral lower extremity and left arm weakness. Unable to perform MRI lumbar spine due to body habitus. Atrial fibrillation; stop eliquis because of GI bleeding, metoprolol d/mary lou because of low BP. Cellulitis; treated with antibiotics. Left lower extremity hematoma. Status post excisional debridement of blister with evacuation of hematoma of left lower extremity Hypotension; chronic. Midodrine on 05/12/18, stop BP meds on 05/11/18. No improvement and started on pressers UTI; was treated with antibiotics Anemia 2/2 GI bleed , was treated at [facility]. Hemoglobin this morning was 7.7. Will monitor closely. OHS. Continue supplemental oxygen. BiPAP is clinically indicated. Debility/deconditioning. PT recommends EMILIE when stable. DVT prophylaxis SCDs Disposition; Transfer to [facility]. He was accepted by ICU attending at [facility]. Later Dr Vences called me and told me the patient has active GI bleeding. Dr Crabtree transfused 2 units of blood and 1 unit of FFP. Patient need to be transferred to higher center. The high probability of a clinically significant, sudden or life threatening deterioration of the [CV, GI, renal] system(s) required my full and direct attention, intervention and personal management. The aggregate critical care time was [32] minutes. This time is in addition to time spent performing reported procedures but includes the following: [x] Data Review and interpretation [x] Patient assessment and monitoring of vital signs [x] Documentation [x] Medication orders and management - Patient Problems (1) Shock Current Visit: Yes Status: Acute (2) GI bleed Current Visit: Yes Status: Acute (3) Anemia Current Visit: Yes Status: Acute Qualifiers: Anemia type: iron deficiency Iron deficiency anemia type: chronic blood loss Qualified Code(s): D50.0 - Iron deficiency anemia secondary to blood loss (chronic) (4) Acidosis Current Visit: Yes Status: Acute (5) Alkalosis, metabolic Current Visit: Yes Status: Acute (6) Anasarca Current Visit: Yes Status: Acute (7) Anticoagulated Current Visit: Yes Status: Acute (8) Atrial fibrillation Current Visit: Yes Status: Acute Qualifiers: Atrial fibrillation type: persistent Qualified Code(s): I48.1 - Persistent atrial fibrillation (9) Cellulitis Current Visit: Yes Status: Acute Qualifiers: Site of cellulitis of extremity: lower extremity Laterality: left (10) Morbid obesity Current Visit: Yes Status: Acute (11) Weakness generalized Current Visit: Yes Status: Acute History Interval history: Patient was seen and evaluated this morning, patient was getting dialysis. Patient had 3 episodes of hematemesis over night. Patient denied any chest pain or SOB. Hospitalist Physical - Physical exam Narrative exam: Not in cardiopulmonary distress. The patient is morbidly obese. Vital signs as documented. Head exam is unremarkable. No scleral icterus . Neck is without jugular venous distension, thyromegaly, or carotid bruits. Lungs are clear to auscultation. Cardiac exam reveals regular rate and Rhythm. Abdominal exam reveals normal bowel sounds. Extremities trace edema, clean dressing on the left leg, some reddish discoloration in the arm and dressing on the left arm. DRESS FITTER: Alert and oriented 3. No focal weakness. - Constitutional Vitals: Temp Pulse Resp BP Pulse Ox 99.8 F H 116 H 24 89/39 92 05/14/18 19:49 05/14/18 18:45 05/14/18 18:45 05/14/18 18:45 05/14/18 18:45 General appearance: Present: no acute distress Results - Labs CBC & Chem 7: 05/14/18 17:49 05/14/18 04:45 Labs: Laboratory Last Values WBC 11.4 K/mm3 (4.5-11.0) H 05/14/18 17:49 RBC 2.21 M/mm3 (3.65-5.03) L 05/14/18 17:49 Hgb 7.0 gm/dl (11.8-15.2) L 05/14/18 17:49 Hct 20.6 % (35.5-45.6) L 05/14/18 17:49 MCV 93 fl (84-94) 05/14/18 17:49 MCH 32 pg (28-32) 05/14/18 17:49 MCHC 34 % (32-34) 05/14/18 17:49 RDW 18.5 % (13.2-15.2) H 05/14/18 17:49 Plt Count 134 K/mm3 (140-440) L 05/14/18 17:49 Lymph % (Auto) 21.4 % (13.4-35.0) 05/14/18 17:49 [place] % (Auto) 8.5 % (0.0-7.3) H 05/14/18 17:49 Eos % (Auto) 0.8 % (0.0-4.3) 05/14/18 17:49 Baso % (Auto) 0.5 % (0.0-1.8) 05/14/18 17:49 Lymph # 2.5 K/mm3 (1.2-5.4) 05/14/18 17:49 [place] # 1.0 K/mm3 (0.0-0.8) H 05/14/18 17:49 Eos # 0.1 K/mm3 (0.0-0.4) 05/14/18 17:49 Baso # 0.1 K/mm3 (0.0-0.1) 05/14/18 17:49 Seg Neutrophils % 68.8 % (40.0-70.0) 05/14/18 17:49 Seg Neutrophils # 7.9 K/mm3 (1.8-7.7) H 05/14/18 17:49 PT 19.4 Sec. (12.2-14.9) H 05/06/18 09:57 INR 1.53 (0.87-1.13) H 05/06/18 09:57 APTT 35.4 Sec. (24.2-36.6) 05/06/18 09:57 Sodium 134 mmol/L (137-145) L 05/14/18 04:45 Potassium 5.0 mmol/L (3.6-5.0) 05/14/18 04:45 Chloride 100.8 mmol/L (98-107) 05/14/18 04:45 Carbon Dioxide 20 mmol/L (22-30) L 05/14/18 04:45 Anion Gap 18 mmol/L 05/14/18 04:45 BUN 38 mg/dL (9-20) H 05/14/18 04:45 Creatinine 5.7 mg/dL (0.8-1.5) H 05/14/18 04:45 Estimated GFR 10 ml/min 05/14/18 04:45 BUN/Creatinine Ratio 7 % 05/14/18 04:45 Glucose 134 mg/dL (75-100) H 05/14/18 04:45 Lactic Acid 1.40 mmol/L (0.7-2.0) 05/04/18 21:23 Calcium 7.0 mg/dL (8.4-10.2) L 05/14/18 04:45 Phosphorus 2.80 mg/dL (2.5-4.5) 05/14/18 04:45 Magnesium 1.60 mg/dL (1.7-2.3) L 05/04/18 11:06 Total Bilirubin 0.70 mg/dL (0.1-1.2) 05/13/18 05:20 Direct Bilirubin 0.5 mg/dL (0-0.2) H 05/04/18 11:06 Indirect Bilirubin 0.9 mg/dL 05/04/18 11:06 AST 33 units/L (5-40) 05/13/18 05:20 ALT 9 units/L (7-56) 05/13/18 05:20 Alkaline Phosphatase 73 units/L (35-129) 05/13/18 05:20 Total Creatine Kinase 161 units/L (55-170) 05/04/18 21:23 NT-Pro-B Natriuret Pep 874.7 pg/mL (0-900) 05/04/18 11:06 Total Protein 4.9 g/dL (6.3-8.2) L 05/13/18 05:20 Albumin 1.4 g/dL (3.9-5) L 05/13/18 05:20 Albumin/Globulin Ratio 0.4 % 05/13/18 05:20 Lipase 9 units/L (13-60) L 05/04/18 11:06 PTH Intact 31.45 pg/mL (15-65) 05/14/18 04:45 Urine Color [place] (Yellow) 05/04/18 16:53 Urine Turbidity Slightly-cloudy (Clear) 05/04/18 16:53 Urine pH 5.0 (5.0-7.0) 05/04/18 16:53 Ur Specific [place] 1.033 (1.003-1.030) H 05/04/18 16:53 Urine Protein 30 mg/dl mg/dL (Negative) 05/04/18 16:53 Urine Glucose (UA) Neg mg/dL (Negative) 05/04/18 16:53 Urine Ketones Neg mg/dL (Negative) 05/04/18 16:53 Urine Blood Sm (Negative) 05/04/18 16:53 Urine Nitrite Pos (Negative) 05/04/18 16:53 Urine Bilirubin Neg (Negative) 05/04/18 16:53 Urine Urobilinogen 2.0 mg/dL (<2.0) 05/04/18 16:53 Ur Leukocyte Esterase Lg (Negative) 05/04/18 16:53 Urine WBC (Auto) > 182.0 /HPF (0.0-6.0) H 05/04/18 16:53 Urine RBC (Auto) 15.0 /HPF (0.0-6.0) 05/04/18 16:53 U Epithel Cells (Auto) 2.0 /HPF (0-13.0) 05/04/18 16:53 Urine Bacteria (Auto) 2+ /HPF (Negative) 05/04/18 16:53 Hyaline Casts 5 /LPF 05/04/18 16:53 Urine Mucus Few /HPF 05/04/18 16:53 Hepatitis A IgM Ab Non-reactive (NonReactive) 05/12/18 20:16 Hep Bs Antigen Non-reactive (Negative) 05/12/18 20:16 Hep B Core IgM Ab Non-reactive (NonReactive) 05/12/18 20:16 Hepatitis C Antibody Non-reactive (NonReactive) 05/12/18 20:16 HIV 1&2 Antibody Rapid Non react (Non React) 05/12/18 20:16 HIV P24 Antigen Non react (Non React) 05/12/18 20:16 Blood Type O NEGATIVE 05/14/18 04:00 Antibody Screen Negative 05/14/18 04:00 Crossmatch See Detail 05/14/18 04:00 Active Medications - Current Medications Current Medications: Generic Name Dose Route Start Last Admin Trade Name Freq PRN Reason Stop Dose Admin Acetaminophen 650 mg 05/04/18 13:14 05/13/18 21:15 Tylenol PO 650 mg Q4H PRN Administration Pain, Mild (1-3) Albumin Human 12.5 gm 05/13/18 10:23 Alburx 25% (Albumin) IV BRIELLE PRN Hypotension Aspirin 325 mg 05/05/18 10:00 05/14/18 11:09 Aspirin PO Not Given QDAY GABE Atorvastatin Calcium 40 mg 05/04/18 22:00 05/13/18 21:15 Lipitor PO 40 mg QHS GABE Administration Bisacodyl 10 mg 05/04/18 13:14 Dulcolax CO QDAY PRN Constipation Epoetin Kyrie 20,000 unit 05/13/18 10:23 05/14/18 12:00 Procrit IV 20,000 unit BRIELLE PRN Administration hemodialysis Gabapentin 100 mg 05/11/18 22:00 05/14/18 11:09 Neurontin PO Not Given BID GABE Hydroxyzine HCl 25 mg 05/11/18 22:00 05/13/18 21:15 Atarax PO 25 mg QHS [facility] Administration Sodium Chloride 100 mls @ 999 mls/hr 05/13/18 10:23 Nacl 0.9% IV BRIELLE PRN Hypotension Norepinephrine 4 mg in 250 mls @ 7.5 mls/hr 05/13/18 15:00 05/14/18 19:28 Levophed Drip 4 Mg/Ns 250 Ml IV 30 mcg/min TITR GABE 112.5 mls/hr Administration Protocol 2 MCG/MIN Phenylephrine HCl 100 mg/ 100 mls @ 3 mls/hr 05/14/18 06:00 05/14/18 11:45 Sodium Chloride IV 220 mcg/min TITR GABE 13.2 mls/hr Titration Protocol 50 MCG/MIN Pantoprazole Sodium 80 mg/ 100 mls @ 10 mls/hr 05/14/18 06:51 Sodium Chloride IV DIRECT GABE 8 MG/HR Vasopressin 20 unit/ Sodium 101 mls @ 9.09 mls/hr 05/14/18 14:00 Chloride IV TITR GABE Protocol 0.03 UNITS/MIN Sodium Chloride 500 mls @ 0 mls/hr 05/14/18 18:07 Nacl 0.9% 500 Ml IV 05/14/18 23:59 ONCE NR As Directed Sodium Chloride 500 mls @ 0 mls/hr 05/14/18 18:08 Nacl 0.9% 500 Ml IV 05/14/18 23:59 ONCE NR As Directed Sodium Chloride 500 mls @ 0 mls/hr 05/14/18 18:24 Nacl 0.9% 500 Ml IV 05/14/18 23:59 ONCE NR As Directed Magnesium Hydroxide 30 ml 05/04/18 13:14 05/08/18 17:18 Milk Of Magnesia PO 30 ml Q4H PRN Administration Constipation Metoclopramide HCl 10 mg 05/04/18 13:14 05/08/18 20:05 Reglan PO 10 mg Q6H PRN Administration Nausea And Vomiting Metoclopramide HCl 10 mg 05/14/18 17:41 05/14/18 18:00 Reglan IV 10 mg Q6H PRN Administration Nausea And Vomiting Midodrine 10 mg 05/12/18 12:00 05/14/18 17:02 Proamatine PO Not Given TID@0800,1200,1600 GABE Ondansetron HCl 4 mg 05/04/18 13:14 05/14/18 19:33 Zofran IV 4 mg Q8H PRN Administration Nausea And Vomiting Ondansetron HCl 4 mg 05/14/18 17:30 05/14/18 16:00 Zofran IV 4 mg Q4H PRN Administration Nausea And Vomiting Promethazine HCl 25 mg 05/04/18 13:14 Phenergan CO Q6H PRN Nausea And Vomiting Sodium Chloride 10 ml 05/04/18 13:14 05/09/18 10:05 Sodium Chloride Flush Syringe 10 Ml IV 10 ml PRN PRN Administration LINE FLUSH Nutrition/Malnutrition Assess - Dietary Evaluation Nutrition/Malnutrition Findings: Nutrition Notes Start: 05/05/18 16:55 Freq: Status: Active Protocol: Document 05/13/18 12:01 RD (Rec: 05/13/18 12:51 RD [email or web address]) Co-Sign 05/13/18 12:01 LP Nutrition Notes Initial or Follow up Reassessment Current Diagnosis Hypertension,Stroke Other Pertinent Diagnosis Obesity, Achalasia, Cellulitis , Debility Current Diet Regular Labs/Tests Na 132 BUN 36 Creat 6.2 Pertinent Medications Reviewed Height 5 ft 9 in Weight 117.7 kg [place] Body Weight (kg) 72.72 BMI 38.3 Subjective/Other Information Pt asleep at time of visit, family at bedside able to provide information. Per family, pt eating only a few bites of food and doesn't want more. Per report, pt refusing meals. Pt to start dialysis soon. Pt does like oatmeal, grits, and fruit. Pt does not like chocolate Ensure. Percent of energy/protein needs met: 0%/0% Burn Absent Trauma Absent #1 Nutrition Diagnosis Inadequate oral intake Diagnosis Progress(for reassessment Continues documentation) Is patient on ventilator? No Is Patient Ambulatory and/or Out of Bed No [facility] 2359.488 Kcal/Kg value to use for calculation 17 Approximate Energy Requirements Using 2001 kcal/Kg Calculation Used for Recommendations Kcal/kg Additional Notes Protein Needs: 114-143g (1.2-1 .5g/kg 95kg adjBW) Fluid Needs: 1 ml/kcal Nutrition Intervention Change Diet Order: Change to renal Add Supplement/Snack (indicate name/kcal Nepro TID /protein ) Provides kCal: 1,275 Provides Protein (gm) 57 Goal #1 Meet at least 75% of calorie and protein needs via PO intakes Anticipated Discharge Needs: Renal diet Follow-Up By: 05/17/18 Additional Comments f/u: PO and ONS intakes
[2018-05-15 00:07] VITALS: BP 122/39
[2018-05-17 21:25] LABS: Albumin 1.3 g/dL (3.8-4.8); Gamma Globulin 1.6 g/dL (0.8-1.7)
[2018-05-18 14:37] LABS: Myeloperoxidase Antibody <1.0 AI (<1.0)
[2018-05-19 21:43] LABS: ANA Screen, IFA Negative (Negative)
== END 2018-05-15 00:02 | disposition short-term general hospital (02) | DRG 602 ==
LOC: ED 10:21 → 4A 13:14 → CC1 05-13 15:00
PROVIDERS: ADMIT Internal Medicine; ATTEND Internal Medicine
PROC: 0HCLXZZ Extirpation of Matter from Left Lower Leg Skin, External Approach (ICD-10-PCS; 2018-05-07)
PROC: 0HBLXZZ Excision of Left Lower Leg Skin, External Approach (ICD-10-PCS; 2018-05-07)
PROC: 5A1D70Z Performance of Urinary Filtration, Intermittent, Less than 6 Hours Per Day (ICD-10-PCS; 2018-05-12)
PROC: 02H633Z Insertion of Infusion Device into Right Atrium, Percutaneous Approach (ICD-10-PCS; principal; 2018-05-13)
PROC: B2141ZZ Fluoroscopy of Right Heart using Low Osmolar Contrast (ICD-10-PCS; 2018-05-13)
PROC: B244ZZZ Ultrasonography of Right Heart (ICD-10-PCS; 2018-05-13)
PROC: 30233K1 Transfusion of Nonautologous Frozen Plasma into Peripheral Vein, Percutaneous Approach (ICD-10-PCS; 2018-05-14)
PROC: 30233N1 Transfusion of Nonautologous Red Blood Cells into Peripheral Vein, Percutaneous Approach (ICD-10-PCS; 2018-05-14)
DX: L03.116 Cellulitis of left lower limb (principal); G92 Toxic encephalopathy; E87.1 Hypo-osmolality and hyponatremia; Z68.41 Body mass index [BMI] 40.0-44.9, adult; E66.2 Morbid (severe) obesity with alveolar hypoventilation; I48.1 Persistent atrial fibrillation; E87.2 Acidosis; R57.9 Shock, unspecified; N17.9 Acute kidney failure, unspecified; K92.0 Hematemesis; G95.9 Disease of spinal cord, unspecified; N39.0 Urinary tract infection, site not specified; S80.822A Blister (nonthermal), left lower leg, initial encounter; D50.0 Iron deficiency anemia secondary to blood loss (chronic); S80.12XA Contusion of left lower leg, initial encounter; E11.9 Type 2 diabetes mellitus without complications; F32.9 Major depressive disorder, single episode, unspecified; E83.42 Hypomagnesemia; E86.9 Volume depletion, unspecified; I10 Essential (primary) hypertension; W18.30XA Fall on same level, unspecified, initial encounter; I95.9 Hypotension, unspecified; Z79.01 Long term (current) use of anticoagulants; Y93.89 Activity, other specified; Y92.098 Other place in other non-institutional residence as the place of occurrence of the external cause; Y99.8 Other external cause status; Z82.49 Family history of ischemic heart disease and other diseases of the circulatory system; Z88.0 Allergy status to penicillin; Z88.8 Allergy status to other drugs, medicaments and biological substances; Z83.3 Family history of diabetes mellitus
CPT/HCPCS: 36415; 36430; 36556; 70544; 70551; 71045; 76770; 80048; 80053; 80074; 80076; 81001; 82085; 82140; 82533; 82550; 83520; 83690; 83735; 83880; 83970; 84100; 84165; 85014; 85018; 85025; 85049; 85610; 85730; 86021; 86038; 86060; 86160; 86162; 86225; 86850; 86900; 86901; 86920; 87040; 87086; 87116; 87806; 93005; 93010; 93306; 93880; 94760; G0378; A9270-GY; C1752; C9113; J0610; J0885; J1644; J2185; J2250; J2270; J2370; J2405; J2543; J2765; J3010; J3370; J3475; J7030; J7040; J7050; P9016; P9017; P9045; Q9967